=== PATIENT | male | born 1960 | race Caucasian/White ===

== ENCOUNTER 2023-01-14 23:50 | Inpatient (IN) | payer OTHER, SELFPAY ==
[2023-01-14 23:53] VITALS: BMI 30.6
[2023-01-15 00:41] VITALS: BP 144/91; PULSE 85; RESP 18; TEMP 36.2; O2SAT 96
--- NOTE | 2023-01-15 02:29 | PC.ADMIT ---
Ba is a-62-years old, an male who is being seen by [facility] Specialist due to increased depression and suicidal ideation with plan to jump off the bridge. Ba was initially admitted in the 01/11/2023 and is medically cleared today, the 01/14/2023. Ba reported today that he is feeling alone, I have no body in my life, I use day to day to move forward, to exist, I drink every day, nothing to look up to in my life, I?m just waiting to . I thought about jumping off the bridge or run-in front of a car or a bus. I have no mother, no father no grandparents, my life is worth nothing.? He added that he took a trip to [place] to get away from his alcohol drinking elim ira here and he ended up there running to people who also drink too much, so he returns back here. On arrival to the unit patient signed a CV. Patient cooperative with admission process. Patient reports anxiety /10 with depression /10. Patient has passive SI thoughts with no active plan in the hospital. Patient denies any AH/VH. Patient is a daily drinker and is currently on a phenobarbital taper. Patient placed on 5 minute visual safety checks with ULB.
[2023-01-15 08:30] VITALS: BP 126/84; PULSE 87; TEMP 36.8; O2SAT 98
[2023-01-15] MEDS: PHENobarbitaL 30 MG TABLET 60 MG PO ×2 (09:31→21:17)
[2023-01-15] MEDS: amLODIPine Besylate 5 MG TABLET PO (09:32)
[2023-01-15] MEDS: cloNIDine HCL 0.1 MG TABLET PO ×2 (09:32→21:17)
[2023-01-15] MEDS: Gabapentin 600 MG TABLET PO ×3 (09:32→21:17)
[2023-01-15] MEDS: Thiamine HCL 100 MG TABLET PO (09:32)
[2023-01-15] MEDS: Folic Acid 1 MG TABLET PO (09:32)
--- NOTE | 2023-01-15 14:07 | HO.PSYADMNOT ---
HPI Date of Service: 01/15/23 Chief Complaint: Major Depressive Disorder,anxiety disorder Sources of Information: patient interviewed, chart reviewed and crisis/core team assessment reviewed HPI Subjective Notes: Conditional Voluntary Medical Problems Affecting Mental Status: No Narrative: Patient was transferred from [facility] after admission for alcohol detox. He has a trauma and addiction history admitted with SI and plan to jump off a high place. He recently came back to this area to try and reconnect with family but discovered that his father had of COVID and his brother of homicide. He has chronic sleep problems and drinks daily. He is currently on phenobarb taper. Past Psychiatric History: Prior admissions in distant past Medical Evaluation Reviewed: Hospitalist Hallieal Pending Need to taper phenobarb Diagnostics Vital Signs (24Hr): Vital Signs - 24 hr 01/15/23 00:41 01/15/23 08:30 Temperature 97.2 F 98.2 F Pulse Rate 85 87 Respiratory Rate 18 Blood Pressure 144/91 H 126/84 Pulse Oximetry 96 98 Oxygen Delivery Method Room Air Room Air BMI result Body Mass Index 30.6 Meds/Allergies Meds Home Medications Medication Instructions Recorded Confirmed Type amitriptyline 100 mg tablet PO 01/15/23 History amlodipine 5 mg tablet 5 mg PO DAILY 01/15/23 01/15/23 History clonidine HCl 0.1 mg tablet 0.1 mg PO BID 01/15/23 01/15/23 History gabapentin 400 mg capsule PO 01/15/23 History gabapentin 600 mg tablet 1,200 mg PO BID 01/15/23 01/15/23 History hydroxyzine pamoate 50 mg capsule PO PRN Anxiety 01/15/23 History hydroxyzine pamoate 50 mg capsule PO PRN Anxiety 01/15/23 History lactulose 10 gram/15 mL oral ml PO 01/15/23 History solution lithium carbonate 600 mg capsule 600 mg PO BID 01/15/23 01/15/23 History lurasidone 120 mg tablet 120 mg PO DAILY 01/15/23 01/15/23 History quetiapine 100 mg tablet PO 01/15/23 History thiamine mononitrate (vit B1) 100 PO 01/15/23 History mg tablet Allergies Allergies Allergy/AdvReac Type Severity Reaction Status Date / Time No Known Allergies Allergy Verified 01/14/23 23:54 Mental Status Exam Mental Status Exam Patient Appearance: Unkempt Patient Orientation: Person, Place (states he is in a hosptal in [place]), Time (beginning of 2022) and Situation (aware of detox and admission for SI) Level of Consciousness: Drowsy and Follows Commands Patient Behavior: Appropriate Mood Description: Calm Affect Description: Depressed Patient Cognition Impaired: Yes Ability to Follow Directions: Good Speech Pattern: Slurred Memory Description: Episodic Impaired Hallucinations: None Delusions: Not Present Thought Process: Slowed Thinking Thought Content: positive for Goal Oriented Depressive Symptoms: Insomnia, Increased Fatigue, Thoughts of /Suicide and Difficulty Concentrating Judgement: Fair Assessment & Plan Assessment & Plan (1) Major depression: Status: Acute Code(s): F32.9 - Major depressive disorder, single episode, unspecified Assessment and Plan: Consider antidepressant (2) Alcohol use disorder: Status: Acute Code(s): F10.90 - Alcohol use, unspecified, uncomplicated Plan Complete detox, Encourage rehab Patient educated on: diagnosis and substance abuse Informed Consent: understands Reason for continued inpatient stay Substantial Risk for: harm to self Statement Statement: I have reviewed the history and physical and performed a pertinent examination on my patient. No changes have occurred unless specified. If the History and Physical was not performed prior to admission, the Hospitalist's service will be consulted for completing the admission physical. Time Spent With Patient Time: Total time managing care of this patient today _60___ minutes.
[2023-01-15] MEDS: OLANZapine 5 MG TABLET PO (14:33)
--- NOTE | 2023-01-15 15:42 | PM.IMHP ---
History of Present Illness Date of Service: 01/15/23 Chief Complaint: Admission physical, SI 62-year-old male with past medical history of alcohol abuse, hypertension, admitted to Behavioral Health Unit for management of SI and alcohol withdrawal We are asked to see this patient for admission physical Reports history of CHF, but is not on diuretics, currently has no dyspnea or lower extremity edema. At this time patient has no acute complaints, denies any chest pain, shortness of breath, no abdominal pain nausea or vomiting, no diarrhea constipation, no urinary symptoms and no lower extremity edema. Patient does endorse depression and feeling hopeless/helpless but has no suicidal ideation at this current moment. Vitals reviewed unremarkable Review of Systems Review of Systems: Yes all other systems are reviewed and are negative [facility] Medical History (Updated 01/15/23 @ 15:46 by Sahra Villagomez MD) Hypertension Social History Household Members: Family Housing: Apartment Do you presently have visiting nurse or other home services: No Patient Tobacco Use Status: Current everyday Tobacco user Tobacco use type: Cigarette Cigarette Packs Per Day: 1 Cigarettes Per Day: 20.0 Smoked in Last 30 Days: Yes e-Cigarette/Vaping Use: Never Used Patient Interested in Nicotine Replacement: No Patient Given Instructions on How to Stop Smoking: Yes Date Education Initiated: 01/15/23 Second Hand Smoke Exposure: Yes Use of substances other than those prescribed or required for medical reasons: Yes Substance Use Type: Crack/Cocaine Substance Use Frequency: Occasionally Last Used Substance: Just Prior to Admission Currently Displaying Signs/Symptoms of Drug Intoxication Withdrawal: No Any prior treatment program specific to substance use: Yes Have you been hit, kicked, punched, or otherwise hurt by someone within the past year? If so, by whom?: No Do you feel safe in your current relationship?: No Current Relationship Is there a partner from a previous relationship who is making you feel unsafe now?: No Are you made to feel afraid or neglected: No Spiritual Healthcare Practices: none reported Religion Healthcare Practices: none reported Cultural Healthcare Practices: none reported Advance Directives: No Advance Directives Information Provided: No Advance Directives on File: No Do you have thoughts of harming others: None Do you have a plan to hurt others: No Plan Recently lost weight without trying: No How much weight loss: Not applicable Eating poorly because of decreased appetite: No Nutrition screen score: 0 Nutrition Risks: No Nutritional Risk Poor oral hygiene: No Meds Allergies Allergy/AdvReac Type Severity Reaction Status Date / Time No Known Allergies Allergy Verified 01/14/23 23:54 Active Medications: Current Medications Acetaminophen (Acetaminophen 325 Mg Tablet) 650 mg PO Q6H PRN PRN Reason: Headache/Pain Mild Scale (1-3) Al Hydroxide/Mg Hydroxide (Magnesium Hydrox/Alum Hydrox 30 Ml Oral.Susp) 30 ml PO Q6H PRN PRN Reason: Heartburn/Nausea Amlodipine Besylate (Amlodipine Besylate 5 Mg Tablet) 5 mg PO DAILY [facility]; Protocol Last Admin: 01/15/23 09:32 Dose: 5 mg Clonidine HCl (Clonidine Hcl 0.1 Mg Tablet) 0.1 mg PO BID [facility]; Protocol Last Admin: 01/15/23 09:32 Dose: 0.1 mg Folic Acid (Folic Acid 1 Mg Tablet) 1 mg PO DAILY [facility] Last Admin: 01/15/23 09:32 Dose: 1 mg Gabapentin (Gabapentin 600 Mg Tablet) 600 mg PO TID [facility] Last Admin: 01/15/23 14:29 Dose: 600 mg Hydroxyzine HCl (Hydroxyzine Hcl 25 Mg Tablet) 25 mg PO Q6H PRN PRN Reason: Anxiety Lamotrigine (Lamotrigine 25 Mg Tablet) 25 mg PO BEDTIME [facility] Magnesium Hydroxide (Milk Of Magnesia 30 Ml Oral.Susp) 30 ml PO DAILY PRN PRN Reason: Constipation Nicotine (Nicotine 21 Mg Patch.Td24) 21 mg TRANSDERMA DAILY PRN PRN Reason: smoking cessation Nicotine Polacrilex (Nicotine Polacrilex 2 Mg Gum) 4 mg BUCCAL Q2H PRN PRN Reason: Nicotine Cravings Olanzapine (Olanzapine 5 Mg Tablet) 5 mg PO TID PRN PRN Reason: agitation Last Admin: 01/15/23 14:33 Dose: 5 mg Phenobarbital (Phenobarbital 30 Mg Tablet) 60 mg PO BID [facility]; Protocol Stop: 01/16/23 21:01 Last Admin: 01/15/23 09:31 Dose: 60 mg Phenobarbital (Phenobarbital 30 Mg Tablet) 30 mg PO BID [facility]; Protocol Stop: 01/18/23 21:01 Phenobarbital (Phenobarbital 30 Mg Tablet) 30 mg PO DAILY [facility]; Protocol Stop: 01/20/23 09:01 Quetiapine Fumarate (Quetiapine Fumarate 400 Mg Tablet) 400 mg PO BEDTIME [facility] Thiamine HCl (Thiamine Hcl 100 Mg Tablet) 100 mg PO DAILY [facility] Last Admin: 01/15/23 09:32 Dose: 100 mg Trazodone HCl (Trazodone Hcl 50 Mg Tablet) 50 mg PO BEDTIME MRX1 PRN PRN Reason: Insomnia Home Medications Medication Instructions Recorded Confirmed Last Taken Type amitriptyline 100 mg tablet PO 01/15/23 Unknown History amlodipine 5 mg tablet 5 mg PO DAILY 01/15/23 01/15/23 Unknown History clonidine HCl 0.1 mg tablet 0.1 mg PO BID 01/15/23 01/15/23 Unknown History gabapentin 400 mg capsule PO 01/15/23 Unknown History gabapentin 600 mg tablet 1,200 mg PO BID 01/15/23 01/15/23 Unknown History hydroxyzine pamoate 50 mg capsule PO PRN Anxiety 01/15/23 Unknown History hydroxyzine pamoate 50 mg capsule PO PRN Anxiety 01/15/23 Unknown History lactulose 10 gram/15 mL oral ml PO 01/15/23 Unknown History solution lithium carbonate 600 mg capsule 600 mg PO BID 01/15/23 01/15/23 Unknown History lurasidone 120 mg tablet 120 mg PO DAILY 01/15/23 01/15/23 Unknown History quetiapine 100 mg tablet PO 01/15/23 Unknown History thiamine mononitrate (vit B1) 100 PO 01/15/23 Unknown History mg tablet Physical Exam Vital Signs and Narrative: Vital Signs: Last Vital Signs Temp 98.2 F 01/15/23 08:30 Pulse 87 01/15/23 08:30 Resp 18 01/15/23 00:41 BP 126/84 01/15/23 08:30 Pulse Ox 98 01/15/23 08:30 O2 Del Method Room Air 01/15/23 08:30 BMI result Body Mass Index 30.6 Const: Other: Patient is alert oriented x3, no acute distress Resp: Other: Clear to auscultation bilaterally, respiratory distress Cardio: Other: Normal rate and rhythm GI: Other: Abdomen is soft, nontender no rebound or guarding Skin: Other: No lesions Neuro: Other: No neurological deficits Cranial nerves: Yes CN's II-XII intact bilaterally Extrem: Other: No pedal edema Assessment and Plan (1) Alcohol use disorder: Status: Acute (2) Major depression: Status: Acute Plan [age] year-old male with past medical history of major depression, alcohol use disorder admitted to [facility] for suicidal ideation and alcohol withdrawal # SI - currently not suicidal, has severe depression, management per behavioral health # alcohol withdrawal - well controlled on phenobarb protocol - continue thiamine and folic acid supplement # history of CHF - reports history of CHF last year - no evidence of exacerbation at this time - monitor Thank you for allowing us to manage this patient, at this time will sign off patient has no acute medical issues Time Spent With Patient Time: Total time managing care of this patient today ____ minutes. Quality Stroke Does the patient have a stroke diagnosis?: No VTE Prior VTE?: No VTE Risk Level:: Medical - low VTE Device Contraindication: Treatment Not Indicated VTE Drug Contraindication: Treatment Not Indicated
[2023-01-15] MEDS: lamoTRIgine 25 MG TABLET PO (21:17)
[2023-01-15] MEDS: QUEtiapine Fumarate 400 MG TABLET PO (21:17)
[2023-01-15 21:20] VITALS: BP 131/73; PULSE 78; TEMP 36.2; O2SAT 94
[2023-01-16 07:21] LABS: Alanine Aminotransferase 40 U/L (0-40); Alkaline Phosphatase 96 U/L (39-117); Anion Gap 12 (12-20); Aspartate Amino Transferase 44 U/L (5-37); Bilirubin Total 0.2 mg/dL (0.0-1.0); Blood Urea Nitrogen 10 mg/dL (9-16); Calcium 8.9 mg/dL (8.4-10.2); Carbon Dioxide 26 mmol/L (22-29); Chloride 106 mmol/L (96-108); Cholesterol 153 mg/dL; Creatinine Clr Calc Pharmacy 140.9; Estimated Glomerular Filt Rate > 60; Glucose Fasting 79 mg/dL (60-99); HDL Cholesterol 38 mg/dL; LDL Cholesterol Calculated 92 mg/dl; Sodium 140 mmol/L (135-145); Total Protein 7.7 g/dL (6.5-8.0); Triglycerides 117 mg/dL
[2023-01-16 07:30] LABS: Estimated Average Glucose 97 mg/dL
[2023-01-16 09:30] VITALS: BP 127/82; PULSE 88; TEMP 36.2; O2SAT 97
[2023-01-16] MEDS: PHENobarbitaL 30 MG TABLET 60 MG PO ×2 (09:51→21:29)
[2023-01-16] MEDS: cloNIDine HCL 0.1 MG TABLET PO ×2 (09:52→21:29)
[2023-01-16] MEDS: Thiamine HCL 100 MG TABLET PO (09:52)
[2023-01-16] MEDS: Gabapentin 600 MG TABLET PO ×3 (09:52→21:29)
[2023-01-16] MEDS: amLODIPine Besylate 5 MG TABLET PO (09:52)
[2023-01-16] MEDS: Folic Acid 1 MG TABLET PO (09:52)
--- NOTE | 2023-01-16 10:26 | P.PNPSI_ITS ---
Subjective Subjective Date of Service: 01/16/23 Reason For Visit: Major Depressive Disorder,anxiety disorder Subjective Notes: Conditional Voluntary Medical Problems Affecting Mental Status: No Interim History: Complained of sleep problem last night. States that this is a chronic problem. In the past, he has gone without sleep for 4 or 5 days. States my body is tired but my mind won't stop. States seroquel 500 mg didn't help. States he took amitriptyline 200 mg in past which did help. Explained that this med might exacerbate mood and sleep problems over time. Patient reports extensive family history of alcohol abuse including both parents and all siblings. States he is from [place] but came here to see family. States he has 2 sibs in [place] but they both drink and he can't go back there. Doesn't want rehab but states he would be interested in some kind of dual diagnosis program. Medication Compliance: Yes Side effects from medications: No Attending Groups: No Review of Systems Acute medical concerns: No Medical Review of Systems: unchanged Mental Status Exam Mental Status Exam Patient Appearance: Well Grooomed Patient Orientation: Place (knows he's in a hospital in [place]), Time (early January 2023) and Situation Level of Consciousness: Alert Patient Behavior: Appropriate Mood Description: Anxious Affect Description: Depressed Patient Cognition Impaired: No Ability to Follow Directions: Good Speech Pattern: Clear Memory Description: Intact Hallucinations: None Delusions: Not Present Thought Process: Intact Thought Content: positive for Preoccupation Depressive Symptoms: Increased Anxiety, Insomnia, Hopelessness and Thoughts of /Suicide (NOt suicidal but states what's the point ) Diagnostics Vital Signs (24Hr): Vital Signs - 24 hr 01/15/23 21:20 Temperature 97.2 F Pulse Rate 78 Blood Pressure 131/73 Pulse Oximetry 94 Oxygen Delivery Method Room Air BMI result Body Mass Index 30.6 Labs 01/16/23 06:52 Labs: Laboratory Results - last 48 hr 01/16/23 01/16/23 06:52 06:52 Sodium 140 Potassium 4.0 Chloride 106 Carbon Dioxide 26 Anion Gap 12 BUN 10 Creatinine 0.72 Estim Creat Clear Calc 140.9 Estimated GFR > 60 Fasting Glucose 79 Estimat Average Glucose 97 Hemoglobin A1c % 5.0 Calcium 8.9 Total Bilirubin 0.2 AST 44 H ALT 40 Alkaline Phosphatase 96 Total Protein 7.7 Albumin 3.0 L Triglycerides 117 Cholesterol 153 LDL Cholesterol, Calc 92 HDL Cholesterol 38 Medications Medications Current Medications Acetaminophen (Acetaminophen 325 Mg Tablet) 650 mg PO Q6H PRN PRN Reason: Headache/Pain Mild Scale (1-3) Al Hydroxide/Mg Hydroxide (Magnesium Hydrox/Alum Hydrox 30 Ml Oral.Susp) 30 ml PO Q6H PRN PRN Reason: Heartburn/Nausea Amlodipine Besylate (Amlodipine Besylate 5 Mg Tablet) 5 mg PO DAILY [facility]; Protocol Last Admin: 01/16/23 09:52 Dose: 5 mg Clonidine HCl (Clonidine Hcl 0.1 Mg Tablet) 0.1 mg PO BID [facility]; Protocol Last Admin: 01/16/23 09:52 Dose: 0.1 mg Folic Acid (Folic Acid 1 Mg Tablet) 1 mg PO DAILY [facility] Last Admin: 01/16/23 09:52 Dose: 1 mg Gabapentin (Gabapentin 600 Mg Tablet) 600 mg PO TID [facility] Last Admin: 01/16/23 09:52 Dose: 600 mg Hydroxyzine HCl (Hydroxyzine Hcl 25 Mg Tablet) 25 mg PO Q6H PRN PRN Reason: Anxiety Lamotrigine (Lamotrigine 25 Mg Tablet) 25 mg PO BEDTIME [facility] Last Admin: 01/15/23 21:17 Dose: 25 mg Magnesium Hydroxide (Milk Of Magnesia 30 Ml Oral.Susp) 30 ml PO DAILY PRN PRN Reason: Constipation Nicotine (Nicotine 21 Mg Patch.Td24) 21 mg TRANSDERMA DAILY PRN PRN Reason: smoking cessation Nicotine Polacrilex (Nicotine Polacrilex 2 Mg Gum) 4 mg BUCCAL Q2H PRN PRN Reason: Nicotine Cravings Olanzapine (Olanzapine 5 Mg Tablet) 5 mg PO TID PRN PRN Reason: agitation Last Admin: 01/15/23 14:33 Dose: 5 mg Phenobarbital (Phenobarbital 30 Mg Tablet) 60 mg PO BID [facility]; Protocol Stop: 01/16/23 21:01 Last Admin: 01/16/23 09:51 Dose: 60 mg Phenobarbital (Phenobarbital 30 Mg Tablet) 30 mg PO BID [facility]; Protocol Stop: 01/18/23 21:01 Phenobarbital (Phenobarbital 30 Mg Tablet) 30 mg PO DAILY [facility]; Protocol Stop: 01/20/23 09:01 Quetiapine Fumarate (Quetiapine Fumarate 400 Mg Tablet) 400 mg PO BEDTIME [facility] Last Admin: 01/15/23 21:17 Dose: 400 mg Thiamine HCl (Thiamine Hcl 100 Mg Tablet) 100 mg PO DAILY [facility] Last Admin: 01/16/23 09:52 Dose: 100 mg Trazodone HCl (Trazodone Hcl 50 Mg Tablet) 50 mg PO BEDTIME MRX1 PRN PRN Reason: Insomnia Allergies Allergies Allergy/AdvReac Type Severity Reaction Status Date / Time No Known Allergies Allergy Verified 01/14/23 23:54 Assessment & Plan Assessment & Plan (1) Alcohol use disorder: Status: Acute Code(s): F10.90 - Alcohol use, unspecified, uncomplicated Assessment and Plan: complete phenobarb detox, encourage rehab (2) Major depression: Status: Acute Code(s): F32.9 - Major depressive disorder, single episode, unspecified Assessment and Plan: consider bipolar depressed. Increase seroquel to 600 mg nightly Plan [age] year-old male with past medical history of major depression, alcohol use disorder admitted to [facility] for suicidal ideation and alcohol withdrawal # SI - currently not suicidal, has severe depression, management per behavioral health # alcohol withdrawal - well controlled on phenobarb protocol - continue thiamine and folic acid supplement # history of CHF - reports history of CHF last year - no evidence of exacerbation at this time - monitor Thank you for allowing us to manage this patient, at this time will sign off patient has no acute medical issues Reason for continued inpatient stay Substantial Risk for: harm to self Time Spent With Patient Time: Total time managing care of this patient today __25__ minutes.
[2023-01-16] MEDS: lamoTRIgine 25 MG TABLET PO (21:29)
[2023-01-16] MEDS: QUEtiapine Fumarate 300 MG TABLET 600 MG PO (21:29)
[2023-01-16 21:32] VITALS: BP 109/70; PULSE 97; TEMP 36.5; O2SAT 97
[2023-01-17] MEDS: PHENobarbitaL 30 MG TABLET PO ×2 (09:30→21:20)
[2023-01-17] MEDS: cloNIDine HCL 0.1 MG TABLET PO ×2 (09:30→21:20)
[2023-01-17] MEDS: amLODIPine Besylate 5 MG TABLET PO (09:31)
[2023-01-17] MEDS: Thiamine HCL 100 MG TABLET PO (09:31)
[2023-01-17] MEDS: Gabapentin 600 MG TABLET PO ×3 (09:31→21:20)
[2023-01-17] MEDS: Folic Acid 1 MG TABLET PO (09:31)
[2023-01-17 09:32] VITALS: BP 120/77; PULSE 110; RESP 18; O2SAT 99
--- NOTE | 2023-01-17 11:42 | P.PNPSI_ITS ---
Subjective Subjective Date of Service: 01/17/23 Reason For Visit: Major Depressive Disorder,anxiety disorder Interim History: Met with patient; discussed with team Patient reports he is depressed and affect congruent. Says he is tired of feeling dull, empty. Patient reports that Seroquel was started a few weeks ago at another hospital for bipolar depression but it does not help any and just makes him gain weight. Patient however has only brief periods of sobriety; he partially accepted that no medication is going to seem affective as long as he remains embroiled in alcohol dependence however reverts back to the idea that medication does not work. Patient asks for amitriptyline to be restarted since he said that helped him sleep. He said he was on 200 mg in the recent past. Patient insisted that he was started on 100 mg at last hospitalization. Mental Status Exam Mental Status Exam Narrative: Pt is alert and oriented; behavior is cooperative, isolative, calm; patient is not in distress; dressed in hospital attire unkempt; mood is described as not good and affect congruent, downcast, despondent; eye contact appropriate; Speech is normal rate, volume and prosody and not pressured; psychomotor retardation present; thought process is organized and goal directed; Thought content is on depressive symptoms, hopelessness; on tx,; otherwise pertinent to relevant topics and without any delusional content, paranoid ideations or grandiosity; no SI/no HI. There is no evidence of perceptual disturbance. Patients insight and judgment impaired. Diagnostics Vital Signs (24Hr): Vital Signs - 24 hr 01/16/23 21:32 01/17/23 09:32 Temperature 97.7 F Pulse Rate 97 110 H Respiratory Rate 18 Blood Pressure 109/70 120/77 Pulse Oximetry 97 99 Oxygen Delivery Method Room Air Room Air BMI result Body Mass Index 30.6 Labs 01/16/23 06:52 Labs: Laboratory Results - last 48 hr 01/16/23 01/16/23 06:52 06:52 Sodium 140 Potassium 4.0 Chloride 106 Carbon Dioxide 26 Anion Gap 12 BUN 10 Creatinine 0.72 Estim Creat Clear Calc 140.9 Estimated GFR > 60 Fasting Glucose 79 Estimat Average Glucose 97 Hemoglobin A1c % 5.0 Calcium 8.9 Total Bilirubin 0.2 AST 44 H ALT 40 Alkaline Phosphatase 96 Total Protein 7.7 Albumin 3.0 L Triglycerides 117 Cholesterol 153 LDL Cholesterol, Calc 92 HDL Cholesterol 38 Medications Medications Current Medications Acetaminophen (Acetaminophen 325 Mg Tablet) 650 mg PO Q6H PRN PRN Reason: Headache/Pain Mild Scale (1-3) Al Hydroxide/Mg Hydroxide (Magnesium Hydrox/Alum Hydrox 30 Ml Oral.Susp) 30 ml PO Q6H PRN PRN Reason: Heartburn/Nausea Amlodipine Besylate (Amlodipine Besylate 5 Mg Tablet) 5 mg PO DAILY [facility]; Protocol Last Admin: 01/17/23 09:31 Dose: 5 mg Clonidine HCl (Clonidine Hcl 0.1 Mg Tablet) 0.1 mg PO BID [facility]; Protocol Last Admin: 01/17/23 09:30 Dose: 0.1 mg Folic Acid (Folic Acid 1 Mg Tablet) 1 mg PO DAILY [facility] Last Admin: 01/17/23 09:31 Dose: 1 mg Gabapentin (Gabapentin 600 Mg Tablet) 600 mg PO TID [facility] Last Admin: 01/17/23 09:31 Dose: 600 mg Hydroxyzine HCl (Hydroxyzine Hcl 25 Mg Tablet) 25 mg PO Q6H PRN PRN Reason: Anxiety Lamotrigine (Lamotrigine 25 Mg Tablet) 25 mg PO BEDTIME [facility] Last Admin: 01/16/23 21:29 Dose: 25 mg Magnesium Hydroxide (Milk Of Magnesia 30 Ml Oral.Susp) 30 ml PO DAILY PRN PRN Reason: Constipation Nicotine (Nicotine 21 Mg Patch.Td24) 21 mg TRANSDERMA DAILY PRN PRN Reason: smoking cessation Nicotine Polacrilex (Nicotine Polacrilex 2 Mg Gum) 4 mg BUCCAL Q2H PRN PRN Reason: Nicotine Cravings Olanzapine (Olanzapine 5 Mg Tablet) 5 mg PO TID PRN PRN Reason: agitation Last Admin: 01/15/23 14:33 Dose: 5 mg Phenobarbital (Phenobarbital 30 Mg Tablet) 30 mg PO BID [facility]; Protocol Stop: 01/18/23 21:01 Last Admin: 01/17/23 09:30 Dose: 30 mg Phenobarbital (Phenobarbital 30 Mg Tablet) 30 mg PO DAILY [facility]; Protocol Stop: 01/20/23 09:01 Quetiapine Fumarate (Quetiapine Fumarate 300 Mg Tablet) 600 mg PO BEDTIME [facility] Last Admin: 01/16/23 21:29 Dose: 600 mg Thiamine HCl (Thiamine Hcl 100 Mg Tablet) 100 mg PO DAILY [facility] Last Admin: 01/17/23 09:31 Dose: 100 mg Trazodone HCl (Trazodone Hcl 50 Mg Tablet) 50 mg PO BEDTIME MRX1 PRN PRN Reason: Insomnia Allergies Allergies Allergy/AdvReac Type Severity Reaction Status Date / Time No Known Allergies Allergy Verified 01/14/23 23:54 Assessment & Plan Assessment & Plan (1) Alcohol use disorder: Status: Acute Code(s): F10.90 - Alcohol use, unspecified, uncomplicated Assessment and Plan: complete phenobarb detox, encourage rehab (2) Major depression: Status: Acute Code(s): F32.9 - Major depressive disorder, single episode, unspecified Plan [age] year-old male with past medical history of major depression, alcohol use disorder admitted [facility] for suicidal ideation and alcohol withdrawal 01/17 -consider bipolar depressed. Over the weekend seroquel increased to 600 mg nightly Continue Phenobarb taper STAT Amitryptilne 100mg; pt says was recently on 200mg Consider dc Lamictal; question on pt adherence # alcohol withdrawal - well controlled on phenobarb protocol - continue thiamine and folic acid supplement # history of CHF - reports history of CHF last year - no evidence of exacerbation at this time - monitor Patient educated on: diagnosis, medication risk/benefits and substance abuse Informed Consent: understands and further education needed Reason for continued inpatient stay Substantial Risk for: rapid decompensation Time Spent With Patient Time: Total time managing care of this patient today ____ minutes.
[2023-01-17 19:45] VITALS: BP 127/74; PULSE 89; RESP 18; TEMP 36.8; O2SAT 96
[2023-01-17] MEDS: Amitriptyline HCl 50 MG TABLET 100 MG PO (21:19)
[2023-01-17] MEDS: QUEtiapine Fumarate 300 MG TABLET 600 MG PO (21:20)
[2023-01-17] MEDS: lamoTRIgine 25 MG TABLET PO (21:21)
[2023-01-18] MEDS: traZODone HCL 50 MG TABLET PO (02:59)
[2023-01-18] MEDS: OLANZapine 5 MG TABLET PO (03:01)
[2023-01-18 08:30] VITALS: BP 132/91; PULSE 90; RESP 18; TEMP 36.3; O2SAT 98
[2023-01-18] MEDS: amLODIPine Besylate 5 MG TABLET PO (08:31)
[2023-01-18] MEDS: Gabapentin 600 MG TABLET PO ×3 (08:31→21:19)
[2023-01-18] MEDS: Thiamine HCL 100 MG TABLET PO (08:31)
[2023-01-18] MEDS: Folic Acid 1 MG TABLET PO (08:31)
[2023-01-18] MEDS: cloNIDine HCL 0.1 MG TABLET PO ×2 (08:32→21:21)
[2023-01-18] MEDS: PHENobarbitaL 30 MG TABLET PO ×2 (08:44→21:22)
--- NOTE | 2023-01-18 15:53 | P.PNPSI_ITS ---
Subjective Subjective Date of Service: 01/18/23 Reason For Visit: Major Depressive Disorder,anxiety disorder Interim History: calm, cooperative. asking for elavil increase. c/o not sleeping a wink last night. MD declines to increase to 200 but agrees to 150 for tonight, up from 100 last night. per staff, on phenobarb taper. active, appropriate. racing thoughts interrupting sleep. safe here, would have SI outside hospital. asking for elavil. Mental Status Exam Mental Status Exam Narrative: Pt is alert and oriented; behavior is cooperative, isolative, calm; patient is not in distress; dressed in hospital attire unkempt; mood is described as not good and affect congruent, downcast, despondent; eye contact appropriate; Speech is normal rate, volume and prosody and not pressured; psychomotor retardation present; thought process is organized and goal directed; Thought con tent is on depressive symptoms, hopelessness; on tx,; otherwise pertinent to relevant topics and without any delusional content, paranoid ideations or grandiosity; no SI/no HI. There is no evidence of perceptual disturbance. Patients insight and judgment impaired. Diagnostics Vital Signs (24Hr): Vital Signs - 24 hr 01/17/23 19:45 01/18/23 08:30 Temperature 98.2 F 97.3 F Pulse Rate 89 90 Respiratory Rate 18 18 Blood Pressure 127/74 132/91 H Pulse Oximetry 96 98 Oxygen Delivery Method Room Air Room Air BMI result Body Mass Index 30.6 Labs 01/16/23 06:52 Medications Medications Current Medications Acetaminophen (Acetaminophen 325 Mg Tablet) 650 mg PO Q6H PRN PRN Reason: Headache/Pain Mild Scale (1-3) Al Hydroxide/Mg Hydroxide (Magnesium Hydrox/Alum Hydrox 30 Ml Oral.Susp) 30 ml PO Q6H PRN PRN Reason: Heartburn/Nausea Amitriptyline HCl (Amitriptyline Hcl 50 Mg Tablet) 150 mg PO BEDTIME [facility] Amlodipine Besylate (Amlodipine Besylate 5 Mg Tablet) 5 mg PO DAILY [facility]; Protocol Last Admin: 01/18/23 08:31 Dose: 5 mg Clonidine HCl (Clonidine Hcl 0.1 Mg Tablet) 0.1 mg PO BID [facility]; Protocol Last Admin: 01/18/23 08:32 Dose: 0.1 mg Folic Acid (Folic Acid 1 Mg Tablet) 1 mg PO DAILY [facility] Last Admin: 01/18/23 08:31 Dose: 1 mg Gabapentin (Gabapentin 600 Mg Tablet) 600 mg PO TID [facility] Last Admin: 01/18/23 14:32 Dose: 600 mg Hydroxyzine HCl (Hydroxyzine Hcl 25 Mg Tablet) 25 mg PO Q6H PRN PRN Reason: Anxiety Lamotrigine (Lamotrigine 25 Mg Tablet) 25 mg PO BEDTIME [facility] Last Admin: 01/17/23 21:21 Dose: 25 mg Magnesium Hydroxide (Milk Of Magnesia 30 Ml Oral.Susp) 30 ml PO DAILY PRN PRN Reason: Constipation Nicotine (Nicotine 21 Mg Patch.Td24) 21 mg TRANSDERMA DAILY PRN PRN Reason: smoking cessation Nicotine Polacrilex (Nicotine Polacrilex 2 Mg Gum) 4 mg BUCCAL Q2H PRN PRN Reason: Nicotine Cravings Olanzapine (Olanzapine 5 Mg Tablet) 5 mg PO TID PRN PRN Reason: agitation Last Admin: 01/18/23 03:01 Dose: 5 mg Phenobarbital (Phenobarbital 30 Mg Tablet) 30 mg PO BID [facility]; Protocol Stop: 01/18/23 21:01 Last Admin: 01/18/23 08:44 Dose: 30 mg Phenobarbital (Phenobarbital 30 Mg Tablet) 30 mg PO DAILY [facility]; Protocol Stop: 01/20/23 09:01 Quetiapine Fumarate (Quetiapine Fumarate 300 Mg Tablet) 600 mg PO BEDTIME [facility] Last Admin: 01/17/23 21:20 Dose: 600 mg Thiamine HCl (Thiamine Hcl 100 Mg Tablet) 100 mg PO DAILY [facility] Last Admin: 01/18/23 08:31 Dose: 100 mg Trazodone HCl (Trazodone Hcl 50 Mg Tablet) 50 mg PO BEDTIME MRX1 PRN PRN Reason: Insomnia Last Admin: 01/18/23 02:59 Dose: 50 mg Allergies Allergies Allergy/AdvReac Type Severity Reaction Status Date / Time No Known Allergies Allergy Verified 01/14/23 23:54 Assessment & Plan Assessment & Plan (1) Alcohol use disorder: Status: Acute Code(s): F10.90 - Alcohol use, unspecified, uncomplicated Assessment and Plan: complete phenobarb detox, encourage rehab (2) Major depression: Status: Acute Code(s): F32.9 - Major depressive disorder, single episode, unspecified Plan [age] year-old male with past medical history of major depression, alcohol use disorder admitted to [facility] for suicidal ideation and alcohol withdrawal 01/17 -consider bipolar depressed. Over the weekend seroquel increased to 600 mg nightly Continue Phenobarb taper STAT Amitryptilne 100mg; pt says was recently on 200mg. 100 mg increased to 150 mg QHS as of 01/18. Consider dc Lamictal; question on pt adherence # alcohol withdrawal - well controlled on phenobarb protocol - continue thiamine and folic acid supplement # history of CHF - reports history of CHF last year - no evidence of exacerbation at this time - monitor Reason for continued inpatient stay Substantial Risk for: harm to self, inability to function and rapid decompensation Time Spent With Patient Time: Total time managing care of this patient today __25__ minutes.
[2023-01-18 20:05] VITALS: BP 129/78; PULSE 84; RESP 18; TEMP 36.6; O2SAT 97
[2023-01-18] MEDS: QUEtiapine Fumarate 300 MG TABLET 600 MG PO (21:18)
[2023-01-18] MEDS: lamoTRIgine 25 MG TABLET PO (21:19)
[2023-01-18] MEDS: Amitriptyline HCl 50 MG TABLET 150 MG PO (21:20)
[2023-01-19 08:05] VITALS: BP 119/78; PULSE 87; RESP 18; TEMP 36.4; O2SAT 98
[2023-01-19] MEDS: Gabapentin 600 MG TABLET PO ×3 (09:31→20:41)
[2023-01-19] MEDS: cloNIDine HCL 0.1 MG TABLET PO ×2 (09:31→20:40)
[2023-01-19] MEDS: PHENobarbitaL 30 MG TABLET PO (09:31)
[2023-01-19] MEDS: amLODIPine Besylate 5 MG TABLET PO (09:31)
[2023-01-19] MEDS: Thiamine HCL 100 MG TABLET PO (09:31)
[2023-01-19] MEDS: Folic Acid 1 MG TABLET PO (09:32)
[2023-01-19] MEDS: Divalproex Sodium ER 500 MG TAB.ER.24H PO ×2 (13:13→20:40)
--- NOTE | 2023-01-19 15:34 | P.PNPSI_ITS ---
Subjective Subjective Date of Service: 01/19/23 Reason For Visit: Major Depressive Disorder,anxiety disorder Interim History: c/o racing thoughts and insomnia. asking for elavil to be increased to 200 mg QHS. states he had been on VPA in the past but it was stopped due to liver. agrees to re-trial (too many drug-drug interactions to use tegretol right now). n per staff, social, visible. meds and meals. anx 10, dep 5. no SI/HI. Mental Status Exam Mental Status Exam Narrative: Pt is alert and oriented; behavior is cooperative, isolative, calm; patient is not in distress; dressed in hospital attire unkempt; eye contact appropriate; Speech is normal rate, volume and prosody and not pressured; psychomotor retardation present; thought process is organized and goal directed; Thought content is on racing thoughts, insomnia; otherwise pertinent to relevant topics and without any delusional content, paranoid ideations or grandiosity; no SI/no HI. There is no evidence of perceptual disturbance. Patients insight and judgment impaired. Diagnostics Vital Signs (24Hr): Vital Signs - 24 hr 01/18/23 20:05 01/19/23 08:05 Temperature 98 F 97.6 F Pulse Rate 84 87 Respiratory Rate 18 18 Blood Pressure 129/78 119/78 Pulse Oximetry 97 98 Oxygen Delivery Method Room Air Room Air BMI result Body Mass Index 30.6 Labs 01/16/23 06:52 Medications Medications Current Medications Acetaminophen (Acetaminophen 325 Mg Tablet) 650 mg PO Q6H PRN PRN Reason: Headache/Pain Mild Scale (1-3) Al Hydroxide/Mg Hydroxide (Magnesium Hydrox/Alum Hydrox 30 Ml Oral.Susp) 30 ml PO Q6H PRN PRN Reason: Heartburn/Nausea Amitriptyline HCl (Amitriptyline Hcl 50 Mg Tablet) 200 mg PO BEDTIME [facility] Amlodipine Besylate (Amlodipine Besylate 5 Mg Tablet) 5 mg PO DAILY [facility]; Protocol Last Admin: 01/19/23 09:31 Dose: 5 mg Clonidine HCl (Clonidine Hcl 0.1 Mg Tablet) 0.1 mg PO BID [facility]; Protocol Last Admin: 01/19/23 09:31 Dose: 0.1 mg Divalproex Sodium (Divalproex Sodium Er 500 Mg Tab.Er.24h) 500 mg PO BID [facility] Last Admin: 01/19/23 13:13 Dose: 500 mg Folic Acid (Folic Acid 1 Mg Tablet) 1 mg PO DAILY [facility] Last Admin: 01/19/23 09:32 Dose: 1 mg Gabapentin (Gabapentin 600 Mg Tablet) 600 mg PO TID [facility] Last Admin: 01/19/23 14:01 Dose: 600 mg Hydroxyzine HCl (Hydroxyzine Hcl 25 Mg Tablet) 25 mg PO Q6H PRN PRN Reason: Anxiety Magnesium Hydroxide (Milk Of Magnesia 30 Ml Oral.Susp) 30 ml PO DAILY PRN PRN Reason: Constipation Nicotine (Nicotine 21 Mg Patch.Td24) 21 mg TRANSDERMA DAILY PRN PRN Reason: smoking cessation Nicotine Polacrilex (Nicotine Polacrilex 2 Mg Gum) 4 mg BUCCAL Q2H PRN PRN Reason: Nicotine Cravings Olanzapine (Olanzapine 5 Mg Tablet) 5 mg PO TID PRN PRN Reason: agitation Last Admin: 01/18/23 03:01 Dose: 5 mg Phenobarbital (Phenobarbital 30 Mg Tablet) 30 mg PO DAILY [facility]; Protocol Stop: 01/20/23 09:01 Last Admin: 01/19/23 09:31 Dose: 30 mg Quetiapine Fumarate (Quetiapine Fumarate 300 Mg Tablet) 600 mg PO BEDTIME [facility] Last Admin: 01/18/23 21:18 Dose: 600 mg Thiamine HCl (Thiamine Hcl 100 Mg Tablet) 100 mg PO DAILY [facility] Last Admin: 01/19/23 09:31 Dose: 100 mg Trazodone HCl (Trazodone Hcl 50 Mg Tablet) 50 mg PO BEDTIME MRX1 PRN PRN Reason: Insomnia Last Admin: 01/18/23 02:59 Dose: 50 mg Allergies Allergies Allergy/AdvReac Type Severity Reaction Status Date / Time No Known Allergies Allergy Verified 01/14/23 23:54 Assessment & Plan Assessment & Plan (1) Alcohol use disorder: Status: Acute Code(s): F10.90 - Alcohol use, unspecified, uncomplicated Assessment and Plan: complete phenobarb detox, encourage rehab (2) Major depression: Status: Acute Code(s): F32.9 - Major depressive disorder, single episode, unspecified Plan [age] year-old male with past medical history of major depression, alcohol use disorder admitted to [facility] for suicidal ideation and alcohol withdrawal 01/17 -consider bipolar depressed. Over the weekend seroquel increased to 600 mg nightly Continue Phenobarb taper STAT Amitryptilne 100mg; pt says was recently on 200mg. 100 mg increased to 150 mg QHS as of 01/18. 150 mg increased to 200 mg on 01/19. DC lamictal, start trial of VPA 500 BID for racing thoughts and insomnia. # alcohol withdrawal - well controlled on phenobarb protocol - continue thiamine and folic acid supplement # history of CHF - reports history of CHF last year - no evidence of exacerbation at this time - monitor Reason for continued inpatient stay Substantial Risk for: harm to self, inability to function and rapid decompensation Time Spent With Patient Time: Total time managing care of this patient today __25__ minutes.
[2023-01-19 20:10] VITALS: BP 131/92; PULSE 86; RESP 18; TEMP 36.6; O2SAT 97
[2023-01-19] MEDS: Amitriptyline HCl 50 MG TABLET 200 MG PO ×2 (20:39→20:40)
[2023-01-19] MEDS: QUEtiapine Fumarate 300 MG TABLET 600 MG PO (20:40)
[2023-01-20 07:00] VITALS: BMI 33.0
[2023-01-20 10:00] VITALS: BP 124/83; PULSE 89; TEMP 36.3; O2SAT 97
[2023-01-20] MEDS: Gabapentin 600 MG TABLET PO ×3 (10:29→22:11)
[2023-01-20] MEDS: Folic Acid 1 MG TABLET PO (10:29)
[2023-01-20] MEDS: PHENobarbitaL 30 MG TABLET PO (10:29)
[2023-01-20] MEDS: Thiamine HCL 100 MG TABLET PO (10:29)
[2023-01-20] MEDS: Divalproex Sodium ER 500 MG TAB.ER.24H PO ×2 (10:30→22:11)
[2023-01-20] MEDS: cloNIDine HCL 0.1 MG TABLET PO (10:30)
[2023-01-20] MEDS: amLODIPine Besylate 5 MG TABLET PO (10:30)
--- NOTE | 2023-01-20 16:33 | HO.PSYCHPN ---
Subjective Subjective Date of Service: 01/20/23 Reason For Visit: Major Depressive Disorder,anxiety disorder Interim History: still not sleeping. agrees to increase HS clonidine to 0.2 mg. per staff, c/o insomnia. anxious/depressed. no SI/HI. safe. no sleep at all last night. Mental Status Exam Mental Status Exam Narrative: Pt is alert and oriented; behavior is cooperative, isolative, calm; patient is not in distress; dressed in hospital attire unkempt; eye contact appropriate; Speech is normal rate, volume and prosody and not pressured; psychomotor retardation present; thought process is organized and goal directed; Thought content is on racing thoughts, insomnia; otherwise pertinent to relevant topics and without any delusional content, paranoid ideations or grandiosity; no SI/no HI. There is no evidence of perceptual disturbance. Patients insight and judgment impaired. Diagnostics Vital Signs (24Hr): Vital Signs - 24 hr 01/19/23 20:10 01/20/23 10:00 Temperature 97.8 F 97.3 F Pulse Rate 86 89 Respiratory Rate 18 Blood Pressure 131/92 H 124/83 Pulse Oximetry 97 97 Oxygen Delivery Method Room Air Room Air BMI result Body Mass Index 33.0 Labs 01/16/23 06:52 Medications Medications Current Medications Acetaminophen (Acetaminophen 325 Mg Tablet) 650 mg PO Q6H PRN PRN Reason: Headache/Pain Mild Scale (1-3) Al Hydroxide/Mg Hydroxide (Magnesium Hydrox/Alum Hydrox 30 Ml Oral.Susp) 30 ml PO Q6H PRN PRN Reason: Heartburn/Nausea Amitriptyline HCl (Amitriptyline Hcl 50 Mg Tablet) 200 mg PO BEDTIME [facility] Last Admin: 01/19/23 20:40 Dose: 200 mg Amlodipine Besylate (Amlodipine Besylate 5 Mg Tablet) 5 mg PO DAILY [facility]; Protocol Last Admin: 01/20/23 10:30 Dose: 5 mg Clonidine HCl (Clonidine Hcl 0.1 Mg Tablet) 0.1 mg PO DAILY [facility]; Protocol Clonidine HCl (Clonidine Hcl 0.2 Mg Tablet) 0.2 mg PO BEDTIME [facility]; Protocol Divalproex Sodium (Divalproex Sodium Er 500 Mg Tab.Er.24h) 500 mg PO BID [facility] Last Admin: 01/20/23 10:30 Dose: 500 mg Folic Acid (Folic Acid 1 Mg Tablet) 1 mg PO DAILY [facility] Last Admin: 01/20/23 10:29 Dose: 1 mg Gabapentin (Gabapentin 600 Mg Tablet) 600 mg PO TID [facility] Last Admin: 01/20/23 15:53 Dose: 600 mg Hydroxyzine HCl (Hydroxyzine Hcl 25 Mg Tablet) 25 mg PO Q6H PRN PRN Reason: Anxiety Magnesium Hydroxide (Milk Of Magnesia 30 Ml Oral.Susp) 30 ml PO DAILY PRN PRN Reason: Constipation Nicotine (Nicotine 21 Mg Patch.Td24) 21 mg TRANSDERMA DAILY PRN PRN Reason: smoking cessation Nicotine Polacrilex (Nicotine Polacrilex 2 Mg Gum) 4 mg BUCCAL Q2H PRN PRN Reason: Nicotine Cravings Olanzapine (Olanzapine 5 Mg Tablet) 5 mg PO TID PRN PRN Reason: agitation Last Admin: 01/18/23 03:01 Dose: 5 mg Quetiapine Fumarate (Quetiapine Fumarate 300 Mg Tablet) 600 mg PO BEDTIME [facility] Last Admin: 01/19/23 20:40 Dose: 600 mg Thiamine HCl (Thiamine Hcl 100 Mg Tablet) 100 mg PO DAILY [facility] Last Admin: 01/20/23 10:29 Dose: 100 mg Trazodone HCl (Trazodone Hcl 50 Mg Tablet) 50 mg PO BEDTIME MRX1 PRN PRN Reason: Insomnia Last Admin: 01/18/23 02:59 Dose: 50 mg Allergies Allergies Allergy/AdvReac Type Severity Reaction Status Date / Time No Known Allergies Allergy Verified 01/14/23 23:54 Assessment & Plan Assessment & Plan (1) Alcohol use disorder: Status: Acute Code(s): F10.90 - Alcohol use, unspecified, uncomplicated Assessment and Plan: complete phenobarb detox, encourage rehab (2) Major depression: Status: Acute Code(s): F32.9 - Major depressive disorder, single episode, unspecified Plan [age] year-old male with past medical history of major depression, alcohol use disorder admitted to [facility] for suicidal ideation and alcohol withdrawal 01/17 -consider bipolar depressed. Over the weekend seroquel increased to 600 mg nightly Continue Phenobarb taper STAT Amitryptilne 100mg; pt says was recently on 200mg. 100 mg increased to 150 mg QHS as of 01/18. 150 mg increased to 200 mg on 01/19. clonidine 0.1 BID increased to 0.1/0.2 on 01/20. DC lamictal, start trial of VPA 500 BID for racing thoughts and insomnia. T/C dose escalation. # alcohol withdrawal - well controlled on phenobarb protocol - continue thiamine and folic acid supplement # history of CHF - reports history of CHF last year - no evidence of exacerbation at this time - monitor Reason for continued inpatient stay Substantial Risk for: inability to function and rapid decompensation Time Spent With Patient Time: Total time managing care of this patient today __25__ minutes.
[2023-01-20 19:50] VITALS: BP 122/80; PULSE 92; RESP 18; TEMP 36.9; O2SAT 97
[2023-01-20] MEDS: Amitriptyline HCl 50 MG TABLET 200 MG PO (22:10)
[2023-01-20] MEDS: cloNIDine HCL 0.2 MG TABLET PO (22:11)
[2023-01-21 08:30] VITALS: BP 124/84; PULSE 96; RESP 18; TEMP 36.6; O2SAT 97
[2023-01-21] MEDS: Divalproex Sodium ER 500 MG TAB.ER.24H PO (09:33)
[2023-01-21] MEDS: Folic Acid 1 MG TABLET PO (09:33)
[2023-01-21] MEDS: cloNIDine HCL 0.1 MG TABLET PO (09:33)
[2023-01-21] MEDS: Thiamine HCL 100 MG TABLET PO (09:34)
[2023-01-21] MEDS: amLODIPine Besylate 5 MG TABLET PO (09:34)
[2023-01-21] MEDS: Gabapentin 600 MG TABLET PO ×3 (09:34→21:15)
--- NOTE | 2023-01-21 15:08 | HO.PSYCHPN ---
Subjective Subjective Date of Service: 01/21/23 Reason For Visit: Major Depressive Disorder,anxiety disorder Interim History: calm, cooperative. dicuss discharge on tuesday. still no sleep. agrees to increase VPA to 1500 at HS. per staff, pleasant. mod anx. c/o constant racing thoughts. poor sleep. anx 8. feels safe. D/C to respite tuesday. Mental Status Exam Mental Status Exam Narrative: Pt is alert and oriented; behavior is cooperative, isolative, calm; patient is not in distress; dressed in hospital attire unkempt; eye contact appropriate; Speech is normal rate, volume and prosody and not pressured; psychomotor retardation present; thought process is organized and goal directed; Thought content is on racing thoughts, insomnia; otherwise pertinent to relevant topics and without any delusional content, paranoid ideations or grandiosity; no SI/no HI. There is no evidence of perceptual disturbance. Patients insight and judgment impaired. Diagnostics Vital Signs (24Hr): Vital Signs - 24 hr 01/20/23 19:50 01/21/23 08:30 Temperature 98.4 F 97.9 F Pulse Rate 92 96 Respiratory Rate 18 18 Blood Pressure 122/80 124/84 Pulse Oximetry 97 97 Oxygen Delivery Method Room Air Room Air BMI result Body Mass Index 33.0 Labs 01/16/23 06:52 Medications Medications Current Medications Acetaminophen (Acetaminophen 325 Mg Tablet) 650 mg PO Q6H PRN PRN Reason: Headache/Pain Mild Scale (1-3) Al Hydroxide/Mg Hydroxide (Magnesium Hydrox/Alum Hydrox 30 Ml Oral.Susp) 30 ml PO Q6H PRN PRN Reason: Heartburn/Nausea Amitriptyline HCl (Amitriptyline Hcl 50 Mg Tablet) 200 mg PO BEDTIME [facility] Last Admin: 01/20/23 22:10 Dose: 200 mg Amlodipine Besylate (Amlodipine Besylate 5 Mg Tablet) 5 mg PO DAILY [facility]; Protocol Last Admin: 01/21/23 09:34 Dose: 5 mg Clonidine HCl (Clonidine Hcl 0.1 Mg Tablet) 0.1 mg PO DAILY [facility]; Protocol Last Admin: 01/21/23 09:33 Dose: 0.1 mg Clonidine HCl (Clonidine Hcl 0.2 Mg Tablet) 0.2 mg PO BEDTIME [facility]; Protocol Last Admin: 01/20/23 22:11 Dose: 0.2 mg Divalproex Sodium (Divalproex Sodium Er 500 Mg Tab.Er.24h) 1,500 mg PO BEDTIME [facility] Folic Acid (Folic Acid 1 Mg Tablet) 1 mg PO DAILY [facility] Last Admin: 01/21/23 09:33 Dose: 1 mg Gabapentin (Gabapentin 600 Mg Tablet) 600 mg PO TID [facility] Last Admin: 01/21/23 14:31 Dose: 600 mg Hydroxyzine HCl (Hydroxyzine Hcl 25 Mg Tablet) 25 mg PO Q6H PRN PRN Reason: Anxiety Magnesium Hydroxide (Milk Of Magnesia 30 Ml Oral.Susp) 30 ml PO DAILY PRN PRN Reason: Constipation Nicotine (Nicotine 21 Mg Patch.Td24) 21 mg TRANSDERMA DAILY PRN PRN Reason: smoking cessation Nicotine Polacrilex (Nicotine Polacrilex 2 Mg Gum) 4 mg BUCCAL Q2H PRN PRN Reason: Nicotine Cravings Olanzapine (Olanzapine 5 Mg Tablet) 5 mg PO TID PRN PRN Reason: agitation Last Admin: 01/18/23 03:01 Dose: 5 mg Quetiapine Fumarate (Quetiapine Fumarate 300 Mg Tablet) 600 mg PO BEDTIME [facility] Last Admin: 01/20/23 22:13 Dose: Not Given Thiamine HCl (Thiamine Hcl 100 Mg Tablet) 100 mg PO DAILY [facility] Last Admin: 01/21/23 09:34 Dose: 100 mg Trazodone HCl (Trazodone Hcl 50 Mg Tablet) 50 mg PO BEDTIME MRX1 PRN PRN Reason: Insomnia Last Admin: 01/18/23 02:59 Dose: 50 mg Allergies Allergies Allergy/AdvReac Type Severity Reaction Status Date / Time No Known Allergies Allergy Verified 01/14/23 23:54 Assessment & Plan Assessment & Plan (1) Alcohol use disorder: Status: Acute Code(s): F10.90 - Alcohol use, unspecified, uncomplicated Assessment and Plan: complete phenobarb detox, encourage rehab (2) Major depression: Status: Acute Code(s): F32.9 - Major depressive disorder, single episode, unspecified Plan [age] year-old male with past medical history of major depression, alcohol use disorder admitted to [facility] for suicidal ideation and alcohol withdrawal 01/17 -consider bipolar depressed. Over the weekend seroquel increased to 600 mg nightly Continue Phenobarb taper STAT Amitryptilne 100mg; pt says was recently on 200mg. 100 mg increased to 150 mg QHS as of 01/18. 150 mg increased to 200 mg on 01/19. clonidine 0.1 BID increased to 0.1/0.2 on 01/20. DC lamictal, start trial of VPA 500 BID for racing thoughts and insomnia. increase dosing to 1500 mg daily and make all at HS to enhance sleep. discharge to respite tuesday. # alcohol withdrawal - well controlled on phenobarb protocol - continue thiamine and folic acid supplement # history of CHF - reports history of CHF last year - no evidence of exacerbation at this time - monitor Reason for continued inpatient stay Substantial Risk for: inability to function and rapid decompensation Time Spent With Patient Time: Total time managing care of this patient today __25__ minutes.
[2023-01-21] MEDS: Magnesium Hydrox/Alum Hydrox 30 ML ORAL.SUSP PO (20:28)
[2023-01-21 21:10] VITALS: BP 131/89; PULSE 90; RESP 18; TEMP 36.1; O2SAT 100
[2023-01-21] MEDS: QUEtiapine Fumarate 300 MG TABLET 600 MG PO (21:15)
[2023-01-21] MEDS: Divalproex Sodium ER 500 MG TAB.ER.24H 1500 MG PO (21:15)
[2023-01-21] MEDS: Amitriptyline HCl 50 MG TABLET 200 MG PO (21:16)
[2023-01-21] MEDS: cloNIDine HCL 0.2 MG TABLET PO (21:16)
[2023-01-22 09:25] VITALS: BP 126/83; PULSE 82; RESP 18; TEMP 36.3; O2SAT 96
[2023-01-22] MEDS: cloNIDine HCL 0.1 MG TABLET PO (09:29)
[2023-01-22] MEDS: Folic Acid 1 MG TABLET PO (09:29)
[2023-01-22] MEDS: Thiamine HCL 100 MG TABLET PO (09:29)
[2023-01-22] MEDS: amLODIPine Besylate 5 MG TABLET PO (09:29)
[2023-01-22] MEDS: Gabapentin 600 MG TABLET PO ×3 (09:29→21:01)
--- NOTE | 2023-01-22 13:58 | HO.PSYCHPN ---
Subjective Subjective Date of Service: 01/22/23 Reason For Visit: Major Depressive Disorder,anxiety disorder Subjective Notes: Conditional Voluntary Interim History: Pt cooperative. Pt reports he continues to struggle with sleep despite multiple medications. We discussed temazepam while on the unit but has to discuss with primary attending whether to continue given risk of abuse or misuse given alcohol use disorder. Pt had episode of vomiting, reports nausea and acid reflux, no blood in vomit. WIll add omeprazole. will check depakote level and ammonia and LFt. Review of Systems Review of Systems Yes all other systems are reviewed and are negative Mental Status Exam Mental Status Exam Narrative: Pt is alert and oriented; behavior is cooperative, isolative, calm; patient is not in distress; dressed in hospital attire unkempt; eye contact appropriate; Speech is normal rate, volume and prosody and not pressured; psychomotor retardation present; thought process is organized and goal directed; Thought content is on racing thoughts, insomnia; otherwise pertinent to relevant topics and without any delusional content, paranoid ideations or grandiosity; no SI/no HI. There is no evidence of perceptual disturbance. Patients insight and judgment impaired. Diagnostics Vital Signs (24Hr): Vital Signs - 24 hr 01/21/23 21:10 01/22/23 09:25 Temperature 96.9 F 97.4 F Pulse Rate 90 82 Respiratory Rate 18 18 Blood Pressure 131/89 126/83 Pulse Oximetry 100 96 Oxygen Delivery Method Room Air Room Air BMI result Body Mass Index 33.0 Labs 01/16/23 06:52 Medications Medications Current Medications Acetaminophen (Acetaminophen 325 Mg Tablet) 650 mg PO Q6H PRN PRN Reason: Headache/Pain Mild Scale (1-3) Al Hydroxide/Mg Hydroxide (Magnesium Hydrox/Alum Hydrox 30 Ml Oral.Susp) 30 ml PO Q6H PRN PRN Reason: Heartburn/Nausea Last Admin: 01/21/23 20:28 Dose: 30 ml Amitriptyline HCl (Amitriptyline Hcl 50 Mg Tablet) 200 mg PO BEDTIME [facility]ILIN Last Admin: 01/21/23 21:16 Dose: 200 mg Amlodipine Besylate (Amlodipine Besylate 5 Mg Tablet) 5 mg PO DAILY [facility]IN; Protocol Last Admin: 01/22/23 09:29 Dose: 5 mg Clonidine HCl (Clonidine Hcl 0.1 Mg Tablet) 0.1 mg PO DAILY [facility]IN; Protocol Last Admin: 01/22/23 09:29 Dose: 0.1 mg Clonidine HCl (Clonidine Hcl 0.2 Mg Tablet) 0.2 mg PO BEDTIME [facility]; Protocol Last Admin: 01/21/23 21:16 Dose: 0.2 mg Divalproex Sodium (Divalproex Sodium Er 500 Mg Tab.Er.24h) 1,500 mg PO BEDTIME [facility] Last Admin: 01/21/23 21:15 Dose: 1,500 mg Folic Acid (Folic Acid 1 Mg Tablet) 1 mg PO DAILY [facility] Last Admin: 01/22/23 09:29 Dose: 1 mg Gabapentin (Gabapentin 600 Mg Tablet) 600 mg PO TID [facility] Last Admin: 01/22/23 09:29 Dose: 600 mg Hydroxyzine HCl (Hydroxyzine Hcl 25 Mg Tablet) 25 mg PO Q6H PRN PRN Reason: Anxiety Magnesium Hydroxide (Milk Of Magnesia 30 Ml Oral.Susp) 30 ml PO DAILY PRN PRN Reason: Constipation Nicotine (Nicotine 21 Mg Patch.Td24) 21 mg TRANSDERMA DAILY PRN PRN Reason: smoking cessation Nicotine Polacrilex (Nicotine Polacrilex 2 Mg Gum) 4 mg BUCCAL Q2H PRN PRN Reason: Nicotine Cravings Olanzapine (Olanzapine 5 Mg Tablet) 5 mg PO TID PRN PRN Reason: agitation Last Admin: 01/18/23 03:01 Dose: 5 mg Quetiapine Fumarate (Quetiapine Fumarate 300 Mg Tablet) 600 mg PO BEDTIME [facility] Last Admin: 01/21/23 21:15 Dose: 600 mg Thiamine HCl (Thiamine Hcl 100 Mg Tablet) 100 mg PO DAILY [facility] Last Admin: 01/22/23 09:29 Dose: 100 mg Trazodone HCl (Trazodone Hcl 50 Mg Tablet) 50 mg PO BEDTIME PRN PRN Reason: Insomnia Allergies Allergies Allergy/AdvReac Type Severity Reaction Status Date / Time No Known Allergies Allergy Verified 01/14/23 23:54 Assessment & Plan Assessment & Plan (1) Alcohol use disorder: Status: Acute Code(s): F10.90 - Alcohol use, unspecified, uncomplicated Assessment and Plan: complete phenobarb detox, encourage rehab (2) Major depression: Status: Acute Code(s): F32.9 - Major depressive disorder, single episode, unspecified Plan [age] year-old male with past medical history of major depression, alcohol use disorder admitted to [facility] for suicidal ideation and alcohol withdrawal 01/17 -consider bipolar depressed. Over the weekend seroquel increased to 600 mg nightly Continue Phenobarb taper STAT Amitryptilne 100mg; pt says was recently on 200mg. 100 mg increased to 150 mg QHS as of 01/18. 150 mg increased to 200 mg on 01/19. clonidine 0.1 BID increased to 0.1/0.2 on 01/20. DC lamictal, start trial of VPA 500 BID for racing thoughts and insomnia. increase dosing to 1500 mg daily and make all at HS to enhance sleep. discharge to respite tuesday. # alcohol withdrawal - well controlled on phenobarb protocol - continue thiamine and folic acid supplement # history of CHF - reports history of CHF last year - no evidence of exacerbation at this time - monitor PSYCH 01/22 add omeprazole 20mg po daily. pepcid for acid reflux, had episode of emesis, no blood. Also discussed during hospital temazepam but explained may not be prescribed once dx given risk of abuse misuse as he continues to work on recovery. check depakote level, ammonia level, LFT. B12, iron profile given normocytic anemia. Reason for continued inpatient stay Substantial Risk for: harm to self Time Spent With Patient Time: Total time managing care of this patient today ____ minutes.
[2023-01-22 14:48] LABS: MANUAL DIFF FLAG NO
[2023-01-22 14:49] LABS: Basophils Percent Auto 0.5 % (0-2); Eosinophils Absolute Auto 0.3 X10*3/uL (0.0-0.4); Eosinophils Percent Auto 4.4 % (0-4); Hematocrit 40.6 % (42.0-52.0); Imm Gran Abs Auto 0.06 X10*3/uL (0.00-0.03); Imm Gran Pct Auto 0.9 % (0.0-0.4); Lymphocytes Absolute Auto 1.7 X10*3/uL (1.2-4.9); Mean Corpuscular Hemoglobin 29.4 pg (27.0-33.0); Mean Corpuscular Volume 91.9 fL (80.0-98.0); Mean Platelet Volume 9.7 fL (9.4-12.4); Monocytes Absolute Auto 0.8 X10*3/uL (0.1-1.2); Monocytes Percent Auto 12.5 % (2-11); Neutrophils Absolute Auto 3.8 x10*3/uL (2.0-8.3); Neutrophils Percent Auto 56.7 % (45-73); Platelet Count 302 X10*3/uL (160-400); Red Blood Count 4.42 X10*6/uL (4.60-5.80); Red Cell Distribution Width 13.5 % (11.0-16.0); White Blood Count 6.6 X10*3/uL (4.8-10.8)
[2023-01-22] MEDS: Famotidine 20 MG TABLET PO (14:51)
[2023-01-22 14:57] LABS: Ammonia 65 umol/L (13-55)
[2023-01-22 15:02] LABS: Valproate 47.4 mcg/mL (50.0-100.0)
[2023-01-22 15:05] LABS: Alanine Aminotransferase 57 U/L (0-40); Albumin Level 3.5 g/dL (3.5-5.0); Alkaline Phosphatase 93 U/L (39-117); Aspartate Amino Transferase 50 U/L (5-37); Bilirubin Direct < 0.2 mg/dL (0.0-0.5); Bilirubin Total 0.2 mg/dL (0.0-1.0); Iron 66 mcg/dL (45-160); Percent Iron Saturation 17 % (15-50); Total Iron Binding Capacity 386 mcg/dL (228-428); Total Protein 8.7 g/dL (6.5-8.0); Unsaturated Iron Binding 320 ug/dL
[2023-01-22 15:40] LABS: Folate 18.3 ng/mL (> or = 4.0); Vitamin B12 549 pg/mL (200-900)
[2023-01-22] MEDS: Lactulose 20 GM/30 ML SOLUTION PO ×2 (17:53→21:02)
[2023-01-22 20:45] VITALS: BP 137/93; PULSE 89; RESP 18; TEMP 35.6; O2SAT 99
[2023-01-22] MEDS: QUEtiapine Fumarate 300 MG TABLET 600 MG PO (21:01)
[2023-01-22] MEDS: cloNIDine HCL 0.2 MG TABLET PO (21:01)
[2023-01-22] MEDS: Divalproex Sodium ER 500 MG TAB.ER.24H 1500 MG PO (21:01)
[2023-01-22] MEDS: Amitriptyline HCl 50 MG TABLET 200 MG PO (21:01)
[2023-01-22] MEDS: Temazepam 15 MG CAPSULE PO (21:02)
[2023-01-22] MEDS: Carbamide Peroxide 6.5% Otic 15 ML DRPBTL 5 DROP EAR-LEFT (21:19)
[2023-01-23] MEDS: Omeprazole 20 MG CAPSULE.DR PO (06:40)
[2023-01-23 08:36] VITALS: BP 134/81; PULSE 87; RESP 18; TEMP 36.4; O2SAT 98
[2023-01-23] MEDS: Gabapentin 600 MG TABLET PO ×3 (08:38→22:07)
[2023-01-23] MEDS: cloNIDine HCL 0.1 MG TABLET PO (08:38)
[2023-01-23] MEDS: Thiamine HCL 100 MG TABLET PO (08:38)
[2023-01-23] MEDS: Famotidine 20 MG TABLET PO (08:38)
[2023-01-23] MEDS: Lactulose 20 GM/30 ML SOLUTION PO (08:39)
[2023-01-23] MEDS: Folic Acid 1 MG TABLET PO (08:39)
[2023-01-23] MEDS: amLODIPine Besylate 5 MG TABLET PO (08:39)
[2023-01-23 10:24] LABS: Ammonia 50 umol/L (13-55)
[2023-01-23] MEDS: Carbamide Peroxide 6.5% Otic 15 ML DRPBTL 5 DROP EAR-LEFT (13:38)
--- NOTE | 2023-01-23 15:58 | P.PNPSI_ITS ---
Subjective Subjective Date of Service: 01/23/23 Reason For Visit: Major Depressive Disorder,anxiety disorder Subjective Notes: Conditional Voluntary Interim History: Pt reports improved sleep with temazepam. Ammonia is elevated, no signs of encephalopathy. Given lactulose, will recheck levels tomorrow. LFT slightly elevated since depakote started. Pt reports this was reason for medication being dc OP. He wants me to stop depakote as he reports no clear therapeutic benefit. Ear way tx ordered x 4 days BID ear drops. No SI/HI. ready for dc tomorrow. Review of Systems Review of Systems Yes all other systems are reviewed and are negative Mental Status Exam Mental Status Exam Narrative: Pt is alert and oriented; behavior is cooperative, isolative, calm; patient is not in distress; dressed in hospital attire unkempt; eye contact appropriate; Speech is normal rate, volume and prosody and not pressured; psychomotor retardation present; thought process is organized and goal directed; Thought content is on racing thoughts, insomnia; otherwise pertinent to relevant topics and without any delusional content, paranoid ideations or grandiosity; no SI/no HI. There is no evidence of perceptual disturbance. Patients insight and judgment impaired. Patient Appearance: Well Grooomed Patient Orientation: Place (knows he's in a hospital in [place]), Time (early January 2023) and Situation Level of Consciousness: Alert Patient Behavior: Appropriate Mood Description: Anxious Affect Description: Depressed Patient Cognition Impaired: No Ability to Follow Directions: Good Speech Pattern: Clear Memory Description: Intact Diagnostics Vital Signs (24Hr): Vital Signs - 24 hr 01/22/23 20:45 01/23/23 08:36 Temperature 96.1 F L 97.6 F Pulse Rate 89 87 Respiratory Rate 18 18 Blood Pressure 137/93 H 134/81 Pulse Oximetry 99 98 Oxygen Delivery Method Room Air Room Air BMI result Body Mass Index 33.0 Labs 01/22/23 14:28 01/16/23 06:52 Labs: Laboratory Results - last 48 hr 01/22/23 01/22/23 01/22/23 14:28 14:28 14:28 WBC 6.6 RBC 4.42 L Hgb 13.0 L Hct 40.6 L MCV 91.9 MCH 29.4 MCHC 32.0 RDW 13.5 Plt Count 302 MPV 9.7 Immature Gran % (Auto) 0.9 H Neut % (Auto) 56.7 Lymph % (Auto) 25.0 [place] % (Auto) 12.5 H Eos % (Auto) 4.4 H Baso % (Auto) 0.5 Lymph # (Auto) 1.7 [place] # (Auto) 0.8 Eos # (Auto) 0.3 Baso # (Auto) 0.0 Abs Immat Gran (auto) 0.06 H Absolute Neuts (auto) 3.8 Absolute Nucleated RBC 0.000 Nucleated RBC % (auto) 0.0 Iron 66 TIBC 386 % Saturation 17 Unsat Iron Binding 320 Total Bilirubin 0.2 Direct Bilirubin < 0.2 AST 50 H ALT 57 H Alkaline Phosphatase 93 Ammonia Total Protein 8.7 H Albumin 3.5 Vitamin B12 549 Folate 18.3 Valproic Acid 01/22/23 01/22/23 01/23/23 14:28 14:28 10:08 WBC RBC Hgb Hct MCV MCH MCHC RDW Plt Count MPV Immature Gran % (Auto) Neut % (Auto) Lymph % (Auto) [place] % (Auto) Eos % (Auto) Baso % (Auto) Lymph # (Auto) [place] # (Auto) Eos # (Auto) Baso # (Auto) Abs Immat Gran (auto) Absolute Neuts (auto) Absolute Nucleated RBC Nucleated RBC % (auto) Iron TIBC % Saturation Unsat Iron Binding Total Bilirubin Direct Bilirubin AST ALT Alkaline Phosphatase Ammonia 65 H 50 Total Protein Albumin Vitamin B12 Folate Valproic Acid 47.4 L Medications Medications Current Medications Acetaminophen (Acetaminophen 325 Mg Tablet) 650 mg PO Q6H PRN PRN Reason: Headache/Pain Mild Scale (1-3) Al Hydroxide/Mg Hydroxide (Magnesium Hydrox/Alum Hydrox 30 Ml Oral.Susp) 30 ml PO Q6H PRN PRN Reason: Heartburn/Nausea Last Admin: 01/21/23 20:28 Dose: 30 ml Amitriptyline HCl (Amitriptyline Hcl 50 Mg Tablet) 200 mg PO BEDTIME [facility]IL[facility] Last Admin: 01/22/23 21:01 Dose: 200 mg Amlodipine Besylate (Amlodipine Besylate 5 Mg Tablet) 5 mg PO DAILY [facility]; Protocol Last Admin: 01/23/23 08:39 Dose: 5 mg Carbamide Peroxide (Carbamide Peroxide 6.5% Otic 15 Ml Drpbtl) 5 drop EAR-LEFT BID MARILIN Stop: 01/27/23 09:44 Last Admin: 01/23/23 13:38 Dose: 5 drop Clonidine HCl (Clonidine Hcl 0.1 Mg Tablet) 0.1 mg PO DAILY [facility]; Protocol Last Admin: 01/23/23 08:38 Dose: 0.1 mg Clonidine HCl (Clonidine Hcl 0.2 Mg Tablet) 0.2 mg PO BEDTIME [facility]ILIN; Protocol Last Admin: 01/22/23 21:01 Dose: 0.2 mg Divalproex Sodium (Divalproex Sodium Er 500 Mg Tab.Er.24h) 1,500 mg PO BEDTIME [facility] Last Admin: 01/22/23 21:01 Dose: 1,500 mg Famotidine (Famotidine 20 Mg Tablet) 20 mg PO DAILY [facility] Last Admin: 01/23/23 08:38 Dose: 20 mg Folic Acid (Folic Acid 1 Mg Tablet) 1 mg PO DAILY [facility] Last Admin: 01/23/23 08:39 Dose: 1 mg Gabapentin (Gabapentin 600 Mg Tablet) 600 mg PO TID [facility] Last Admin: 01/23/23 15:42 Dose: 600 mg Hydroxyzine HCl (Hydroxyzine Hcl 25 Mg Tablet) 25 mg PO Q6H PRN PRN Reason: Anxiety Lactulose (Lactulose 20 Gm/30 Ml Solution) 20 gm PO BID [facility] Last Admin: 01/23/23 08:39 Dose: 20 gm Magnesium Hydroxide (Milk Of Magnesia 30 Ml Oral.Susp) 30 ml PO DAILY PRN PRN Reason: Constipation Nicotine (Nicotine 21 Mg Patch.Td24) 21 mg TRANSDERMA DAILY PRN PRN Reason: smoking cessation Nicotine Polacrilex (Nicotine Polacrilex 2 Mg Gum) 4 mg BUCCAL Q2H PRN PRN Reason: Nicotine Cravings Olanzapine (Olanzapine 5 Mg Tablet) 5 mg PO TID PRN PRN Reason: agitation Last Admin: 01/18/23 03:01 Dose: 5 mg Omeprazole (Omeprazole 20 Mg Capsule.Dr) 20 mg PO DAILY@0630 [facility] Last Admin: 01/23/23 06:40 Dose: 20 mg Quetiapine Fumarate (Quetiapine Fumarate 300 Mg Tablet) 600 mg PO BEDTIME [facility] Last Admin: 01/22/23 21:01 Dose: 600 mg Temazepam (Temazepam 15 Mg Capsule) 15 mg PO BEDTIME [facility] Stop: 01/23/23 21:01 Last Admin: 01/22/23 21:02 Dose: 15 mg Thiamine HCl (Thiamine Hcl 100 Mg Tablet) 100 mg PO DAILY [facility] Last Admin: 01/23/23 08:38 Dose: 100 mg Trazodone HCl (Trazodone Hcl 50 Mg Tablet) 50 mg PO BEDTIME PRN PRN Reason: Insomnia Allergies Allergies Allergy/AdvReac Type Severity Reaction Status Date / Time No Known Allergies Allergy Verified 01/14/23 23:54 Assessment & Plan Assessment & Plan (1) Alcohol use disorder: Status: Acute Code(s): F10.90 - Alcohol use, unspecified, uncomplicated Assessment and Plan: complete phenobarb detox, encourage rehab (2) Major depression: Status: Acute Code(s): F32.9 - Major depressive disorder, single episode, unspecified Plan [age] year-old male with past medical history of major depression, alcohol use disorder admitted to [facility] for suicidal ideation and alcohol withdrawal 01/17 -consider bipolar depressed. Over the weekend seroquel increased to 600 mg nightly Continue Phenobarb taper STAT Amitryptilne 100mg; pt says was recently on 200mg. 100 mg increased to 150 mg QHS as of 01/18. 150 mg increased to 200 mg on 01/19. clonidine 0.1 BID increased to 0.1/0.2 on 01/20. DC lamictal, start trial of VPA 500 BID for racing thoughts and insomnia. increase dosing to 1500 mg daily and make all at HS to enhance sleep. discharge to respite tuesday. # alcohol withdrawal - well controlled on phenobarb protocol - continue thiamine and folic acid supplement # history of CHF - reports history of CHF last year - no evidence of exacerbation at this time - monitor PSYCH 01/23- dc depakote per pt request- reports no therapeutic benefit and worried about elevation in ammonia and LFT. continue all other meds. Reason for continued inpatient stay Substantial Risk for: stable for discharge Time Spent With Patient Time: Total time managing care of this patient today ____ minutes.
[2023-01-23 21:30] VITALS: BP 135/89; PULSE 100; RESP 16; TEMP 36.4; O2SAT 97
[2023-01-23] MEDS: cloNIDine HCL 0.2 MG TABLET PO (22:07)
[2023-01-23] MEDS: Temazepam 15 MG CAPSULE PO (22:08)
[2023-01-23] MEDS: Amitriptyline HCl 50 MG TABLET 200 MG PO (22:09)
[2023-01-23 23:13] LABS: COVID-19 Test Negative (Negative); IDNOW Serial# 6674DD1D
[2023-01-24] MEDS: Omeprazole 20 MG CAPSULE.DR PO (06:44)
[2023-01-24] MEDS: amLODIPine Besylate 5 MG TABLET PO (08:58)
[2023-01-24] MEDS: Famotidine 20 MG TABLET PO (08:58)
[2023-01-24] MEDS: Thiamine HCL 100 MG TABLET PO (08:58)
[2023-01-24] MEDS: cloNIDine HCL 0.1 MG TABLET PO (08:59)
[2023-01-24] MEDS: Gabapentin 600 MG TABLET PO (08:59)
[2023-01-24] MEDS: Folic Acid 1 MG TABLET PO (08:59)
[2023-01-24] MEDS: Carbamide Peroxide 6.5% Otic 15 ML DRPBTL 5 DROP EAR-LEFT (09:00)
--- NOTE | 2023-01-24 10:09 | P.DS_ITS ---
DS: Providers Provider Date of Service: 01/24/23 Date of admission: 01/14/23 23:50 Primary care physician: Unknown Physician Consults: 01/15/23 01:18 Consult to Hospitalist Routine Comment: Consulting Provider: Hospitalist Reason For Exam: admission physical 01/15/23 09:29 Consult to Hospitalist Routine Comment: Consulting Provider: Hospitalist Reason For Exam: at physical, pleas recs for phenobab taper DS: Diagnosis Discharge Diagnosis (1) Alcohol use disorder: Status: Acute (2) Major depression: Status: Acute DS: Medications Discharge Medications Home Medications: Previous Rx's Medication Instructions Recorded amitriptyline 50 mg tablet 200 mg PO BEDTIME 30 days #120 tabs 01/24/23 amlodipine 5 mg tablet 5 mg PO DAILY 30 days #30 tabs 01/24/23 carbamide peroxide 6.5 % ear drops 5 drp otic (ear) left BID 7 days 01/24/23 (Ear Wax Removal Drops) #10 mL clonidine HCl 0.1 mg tablet 0.1 mg PO DAILY 30 days #30 tabs 01/24/23 clonidine HCl 0.2 mg tablet 0.2 mg PO BEDTIME 30 days #30 tabs 01/24/23 famotidine 20 mg tablet 20 mg PO DAILY 30 days #30 tabs 01/24/23 folic acid 1 mg tablet 1 mg PO DAILY 30 days #30 tabs 01/24/23 gabapentin 600 mg tablet 600 mg PO TID 30 days #90 tabs 01/24/23 omeprazole 20 mg capsule,delayed 20 mg PO DAILY@0630 30 days #30 01/24/23 release caps quetiapine 300 mg tablet 600 mg PO BEDTIME 30 days #60 tabs 01/24/23 temazepam 15 mg capsule 15 mg PO BEDTIME 30 days #30 caps 01/24/23 thiamine mononitrate (vit B1) 100 100 mg PO DAILY 30 days #30 tabs 01/24/23 mg tablet Mental Status Exam Mental Status Exam Narrative: Pt is alert and oriented; behavior is cooperative, isolative, calm; patient is not in distress; dressed in hospital attire unkempt; eye contact appropriate; Speech is normal rate, volume and prosody and not pressured; psychomotor retardation present; thought process is organized and goal directed; Thought content is on insomnia; otherwise pertinent to relevant topics and without any delusional content, paranoid ideations or grandiosity; no SI/no HI. There is no evidence of perceptual disturbance. Patients insight and judgment impaired. Data Data Completed and Pending Completed studies during hospitalization [Text1]: 01/22/23 01/22/23 01/22/23 14:28 14:28 14:28 WBC 6.6 RBC 4.42 L Hgb 13.0 L Hct 40.6 L MCV 91.9 MCH 29.4 MCHC 32.0 RDW 13.5 Plt Count 302 MPV 9.7 Immature Gran % (Auto) 0.9 H Neut % (Auto) 56.7 Lymph % (Auto) 25.0 [place] % (Auto) 12.5 H Eos % (Auto) 4.4 H Baso % (Auto) 0.5 Lymph # (Auto) 1.7 [place] # (Auto) 0.8 Eos # (Auto) 0.3 Baso # (Auto) 0.0 Abs Immat Gran (auto) 0.06 H Absolute Neuts (auto) 3.8 Absolute Nucleated RBC 0.000 Nucleated RBC % (auto) 0.0 Iron 66 TIBC 386 % Saturation 17 Unsat Iron Binding 320 Total Bilirubin 0.2 Direct Bilirubin < 0.2 AST 50 H ALT 57 H Alkaline Phosphatase 93 Ammonia Total Protein 8.7 H Albumin 3.5 Vitamin B12 549 Folate 18.3 Valproic Acid COVID-19 (IAM) COVID-19 Clin Com 01/22/23 01/22/23 01/23/23 14:28 14:28 10:08 WBC RBC Hgb Hct MCV MCH MCHC RDW Plt Count MPV Immature Gran % (Auto) Neut % (Auto) Lymph % (Auto) [place] % (Auto) Eos % (Auto) Baso % (Auto) Lymph # (Auto) [place] # (Auto) Eos # (Auto) Baso # (Auto) Abs Immat Gran (auto) Absolute Neuts (auto) Absolute Nucleated RBC Nucleated RBC % (auto) Iron TIBC % Saturation Unsat Iron Binding Total Bilirubin Direct Bilirubin AST ALT Alkaline Phosphatase Ammonia 65 H 50 Total Protein Albumin Vitamin B12 Folate Valproic Acid 47.4 L COVID-19 (IAM) COVID-19 Clin Com 01/23/23 22:30 WBC RBC Hgb Hct MCV MCH MCHC RDW Plt Count MPV Immature Gran % (Auto) Neut % (Auto) Lymph % (Auto) [place] % (Auto) Eos % (Auto) Baso % (Auto) Lymph # (Auto) [place] # (Auto) Eos # (Auto) Baso # (Auto) Abs Immat Gran (auto) Absolute Neuts (auto) Absolute Nucleated RBC Nucleated RBC % (auto) Iron TIBC % Saturation Unsat Iron Binding Total Bilirubin Direct Bilirubin AST ALT Alkaline Phosphatase Ammonia Total Protein Albumin Vitamin B12 Folate Valproic Acid COVID-19 (IAM) Negative COVID-19 Clin Com See Note DS: Summary Hospital Course Hospital Course: per 01/15 admission note: Patient was transferred from [facility] after admission for alcohol detox. He has a trauma and addiction history admitted with SI and plan to jump off a high place.? He recently came back to this area to try and reconnect with family but discovered that his father had of COVID and his brother of homicide.? He has chronic sleep problems and drinks daily.? He is currently on phenobarb taper. Past Psychiatric History: Prior admissions in distant past Medical Evaluation Reviewed: Hospitalist Henrietta Pending Need to taper phenobarb Precis: [age] year-old male with past medical history of major depression, alcohol use disorder admitted to [email or web address] for suicidal ideation and alcohol withdrawal -consider bipolar depressed.? Over the weekend seroquel increased to 600 mg nightly Continue Phenobarb taper STAT Amitryptilne 100mg; pt says was recently on 200mg.? 100 mg increased to 150 mg QHS as of 01/18.? 150 mg increased to 200 mg on 01/19. clonidine 0.1 BID increased to 0.1/0.2 on 01/20. DC lamictal, start trial of VPA 500 BID for racing thoughts and insomnia.? increase dosing to 1500 mg daily and make all at HS to enhance sleep. discharge to respite tuesday. # alcohol withdrawal - well controlled on phenobarb protocol - continue thiamine and folic acid supplement # history of CHF - reports history of CHF last year - no evidence of exacerbation at this time - monitor PSYCH 01/23- dc depakote per pt request- reports no therapeutic benefit and worried about elevation in ammonia and LFT. continue all other meds. 01/24: meds reviewed, reconciled, prescribed. VPA had been DCed over w/e and temazepam started for insomnia. discharged to respite today as per plan. Time Spent with Patient Time attestation: Total time managing care of this patient today ____ minutes. Time spent: Greater than 30 minutes Discharge Plan Discharge Patient Disposition: Xfer to Respite Facility Discharge Diagnosis: Major Depressive Disorder Alcohol Use Disorder Referrals: [facility] [Other] - 1 Week (You are currently on the waiting list at the [facility]. Please call the phone number listed above to check on bed availability) [facility] [Provider Group] - 1 Week Discharge Medications: New clonidine HCl 0.1 mg Tablet 0.1 mg PO DAILY 30 Days Qty: 30 0RF Protocol: Hold for SBP< HOLD for SBP < : 90 gabapentin 600 mg Tablet 600 mg PO TID 30 Days Qty: 90 0RF quetiapine 300 mg Tablet 600 mg PO BEDTIME 30 Days Qty: 60 0RF amitriptyline 50 mg Tablet 200 mg PO BEDTIME 30 Days Qty: 120 0RF clonidine HCl 0.2 mg Tablet 0.2 mg PO BEDTIME 30 Days Qty: 30 0RF Protocol: Hold for SBP< HOLD for SBP < : 90 famotidine 20 mg Tablet 20 mg PO DAILY 30 Days Qty: 30 0RF Ear Wax Removal Drops 6.5 % Drops 5 drp otic (ear) left BID 7 Days Qty: 10 0RF omeprazole 20 mg Capsule,Delayed Release(Dr/Ec) 20 mg PO DAILY@0630 30 Days Qty: 30 0RF folic acid 1 mg Tablet 1 mg PO DAILY 30 Days Qty: 30 0RF temazepam 15 mg capsule 15 mg PO BEDTIME 30 Days Qty: 30 0RF Continued amlodipine 5 mg tablet 5 mg PO DAILY 30 Days Qty: 30 0RF Changed thiamine mononitrate (vit B1) 100 mg tablet 100 mg PO DAILY 30 Days Qty: 30 0RF Discontinued clonidine HCl 0.1 mg tablet 0.1 mg PO BID gabapentin 600 mg tablet 1,200 mg PO BID gabapentin 400 mg capsule PO hydroxyzine pamoate 50 mg capsule PO PRN (Reason: Anxiety) hydroxyzine pamoate 50 mg capsule PO PRN (Reason: Anxiety) Rx Instructions: At [facility] patient was given 400 mg at HS quetiapine 100 mg tablet PO lithium carbonate 600 mg capsule 600 mg PO BID amitriptyline 100 mg tablet PO lactulose 10 gram/15 mL solution PO lurasidone 120 mg tablet 120 mg PO DAILY Discharge Orders: Discharge Order (Routine); Ordered 01/24/23 Ordered By: Mohan Hamilton Diet: Advance to usual diet Activity on Discharge: As tolerated Stand Alone Forms: Patient Portal Discharge page, Community Support Care Plan Goals: remain safe, stable, and sober in the outpatient treatment setting Health Concerns: none Plan of Treatment: take medications as prescribed, pursue referrals for mental health prescriber. Assessment: not at imminent risk of harm to self or others Discharge Date/Time: 01/24/23 10:30
--- NOTE | 2023-01-24 10:46 | PC.NURSE ---
Pt is ready and aware of discharge medications and instructions. Pt verbalized understanding. He will be going to Respite care.
== END 2023-01-24 10:30 | DRG 754 ==
PROVIDERS: Psychiatry & Neurology Psychiatry; Social Worker; Admitting Provider Psychiatry & Neurology Psychiatry; Visit Provider Psychiatry & Neurology Psychiatry
DX: F32.9 Major depressive disorder, single episode, unspecified (principal); R45.851 Suicidal ideations; I50.9 Heart failure, unspecified; I11.0 Hypertensive heart disease with heart failure; F41.9 Anxiety disorder, unspecified; F10.130 Alcohol abuse with withdrawal, uncomplicated; F17.210 Nicotine dependence, cigarettes, uncomplicated; Z20.822 Contact with and (suspected) exposure to COVID-19; Z71.6 Tobacco abuse counseling; Z79.899 Other long term (current) drug therapy
CPT/HCPCS: 36415; 80053; 80061; 80076; 80164; 82140; 82607; 82746; 83036; 83540; 85025; 87635

== ENCOUNTER → 2023-01-14 23:50 | Outpatient (BNV) | payer OTHER, SELFPAY | PROVIDERS: Admitting Provider Psychiatry & Neurology Psychiatry; Visit Provider Internal Medicine | DX: F10.90 Alcohol use, unspecified, uncomplicated (principal); F32.9 Major depressive disorder, single episode, unspecified | CPT/HCPCS: 99223 ==

== ENCOUNTER → 2023-01-14 23:50 | Outpatient (BNV) | payer OTHER, SELFPAY | PROVIDERS: Admitting Provider Psychiatry & Neurology Psychiatry; Visit Provider Psychiatry & Neurology Psychiatry | DX: F10.90 Alcohol use, unspecified, uncomplicated (principal); F32.9 Major depressive disorder, single episode, unspecified | CPT/HCPCS: 90792; 99232; 99239 ==

== ENCOUNTER 2023-03-16 17:00 | Inpatient (IN) | payer OTHER, SELFPAY ==
[2023-03-16 17:30] VITALS: BP 145/101; PULSE 79; RESP 16; TEMP 35.9; O2SAT 97; BMI 30.4
[2023-03-16] MEDS: Amitriptyline HCl 50 MG TABLET PO (21:48)
[2023-03-16] MEDS: LORazepam 1 MG TABLET PO (21:48)
[2023-03-16 22:11] VITALS: BP 134/89; PULSE 82; RESP 16; TEMP 35.9; O2SAT 97
--- NOTE | 2023-03-16 22:32 | PC.ADMIT ---
Pt is a 62year old -[place] admitted on CV from [facility] for depression and Suicidal ideation/thoughts without a plan. Pt is alert and oriented X3, calm and cooperative, Covid negative, tox screen positive for cocaine and alcohol. Pt presents as flat, poor hygiene. Pt states that he has a history of falls and continued to have occasional falls. Speech is normal with regular tone and rhythm. Pt has bilateral knee abrasion at different levels of healing. Pt reports that he needs help with establishing outpatient providers including Psychotherapist and Psychiatrist. Pt denies SI/HI/VH/AH at this time. However, he endorsed depression of 9/10, and anxiety of 4/10. Admission orders obtained, treatment plan and safety tool completed. Vital signs stable at this time. Pt is resting in bed, respirations even and unlabored and in no apparent distress.
[2023-03-16] MEDS: clonazePAM 1 MG TABLET 2 MG PO (23:08)
--- NOTE | 2023-03-16 23:15 | PC.NURSE ---
Pt is alert and oriented, call center nurse provider, Mohan Hamilton notified of elevated BP- 142/94. One time/stat order 2mg, Ativan and administered, pending reassessment.
[2023-03-17 08:00] VITALS: BP 136/98; PULSE 90; RESP 18; TEMP 36.4; O2SAT 99
[2023-03-17] MEDS: Folic Acid 1 MG TABLET PO (08:33)
[2023-03-17] MEDS: Thiamine HCL 100 MG TABLET PO (08:33)
[2023-03-17] MEDS: LORazepam 1 MG TABLET 2 MG PO ×2 (08:40→20:25)
[2023-03-17 09:00] LABS: Estimated Average Glucose 100 mg/dL; Hemoglobin A1c % 5.1 % (<6.0)
[2023-03-17 10:01] LABS: Alanine Aminotransferase 36 U/L (0-40); Albumin Level 3.3 g/dL (3.5-5.0); Alkaline Phosphatase 107 U/L (39-117); Anion Gap 13 (12-20); Aspartate Amino Transferase 44 U/L (5-37); Bilirubin Total 0.2 mg/dL (0.0-1.0); Blood Urea Nitrogen 12 mg/dL (9-16); Calcium 9.2 mg/dL (8.4-10.2); Carbon Dioxide 21 mmol/L (22-29); Chloride 109 mmol/L (96-108); Cholesterol 156 mg/dL (<200); Creatinine Clr Calc Pharmacy 151.9; Estimated Glomerular Filt Rate > 60; Glucose Fasting 96 mg/dL (60-99); HDL Cholesterol 44 mg/dL (>40); LDL Cholesterol Calculated 95 mg/dL (<100); Potassium 4.1 mmol/L (3.3-5.1); Sodium 139 mmol/L (135-145); Total Protein 7.9 g/dL (6.5-8.0); Triglycerides 87 mg/dL (<150)
[2023-03-17 10:07] LABS: Free T4 (Free Thyroxine) 0.93 ng/dL (0.71-1.85); Thyroid Stimulating Hormone 0.67 uIU/mL (0.32-4.0)
[2023-03-17 10:26] LABS: Folate 13.5 ng/mL (> or = 4.0); Vitamin B12 436 pg/mL (200-900)
[2023-03-17] MEDS: cloNIDine HCL 0.1 MG TABLET PO (11:30)
[2023-03-17] MEDS: Gabapentin 600 MG TABLET PO ×3 (11:30→20:25)
[2023-03-17] MEDS: amLODIPine Besylate 5 MG TABLET PO (11:30)
[2023-03-17] MEDS: LORazepam 1 MG TABLET PO (12:37)
--- NOTE | 2023-03-17 16:17 | HO.PM.IMCN ---
History of Present Illness Data of Consult Service Date: 03/17/23 Primary Care Provider: None Physician HPI Reason for consult: Admission H&P Pt is a 62-year-old male with a PMH significant for?HTN GERD, CHF, untreated hepatitis-C, and alcohol use disorder who is admitted to [facility] psychiatry unit for increasing depression with SI with no specific plan. Medical consult for admission H&P. ?Patient states that he has had a history of recent falls with abrasions to his knees. Patient reports occasionally feeling lightheaded and dizzy, though not currently and reports not prior to falling. States he was falling because his legs felt weak and gave out on him. Also states sometimes his right foot and toes become now. Patient reports heavy alcohol use since that time he was 13: Drinks 2-3 pints and 5-6 tall beers daily with last drink 2 days ago. Patient also reports history of withdrawal seizures. He initially presented to [facility] where workup there was negative for acute fractures or acute intracranial abnormalities. Patient states he currently does not have any acute medical complaints. No chest pain/pressure, palpitations. No shortness of breath. Denies fever, chills, nausea, vomiting, abdominal pain. No auditory or visual hallucinations. Labs and imaging from [facility] reviewed, largely unremarkable. Review of Systems Review of Systems: Hx of recent falls No acute medical complaints at this time Yes all other systems are reviewed and are negative [facility] Medical History Hypertension Social History Household Members: None Housing: Apartment Do you presently have visiting nurse or other home services: No Patient Tobacco Use Status: Current everyday Tobacco user Tobacco use type: Cigarette Cigarette Packs Per Day: 1 Cigarettes Per Day: 20.0 Smoked in Last 30 Days: Yes e-Cigarette/Vaping Use: Currently Using Patient Interested in Nicotine Replacement: No Patient Given Instructions on How to Stop Smoking: Yes Date Education Initiated: 03/16/23 Second Hand Smoke Exposure: Yes Use of substances other than those prescribed or required for medical reasons: Yes Substance Use Type: Crack/Cocaine Substance Use Frequency: Occasionally Last Used Substance: Weeks (ago) Currently Displaying Signs/Symptoms of Drug Intoxication Withdrawal: No Any prior treatment program specific to substance use: No Have you been hit, kicked, punched, or otherwise hurt by someone within the past year? If so, by whom?: No Do you feel safe in your current relationship?: No Current Relationship Is there a partner from a previous relationship who is making you feel unsafe now?: No Are you made to feel afraid or neglected: No Spiritual Healthcare Practices: N/A Buddhist Healthcare Practices: N/A Cultural Healthcare Practices: N/A Advance Directives: No Advance Directives Information Provided: Yes Do you have thoughts of harming others: None Do you have a plan to hurt others: No Plan Recently lost weight without trying: No How much weight loss: Not applicable Eating poorly because of decreased appetite: No Nutrition screen score: 0 Nutrition Risks: No Nutritional Risk Poor oral hygiene: No service: No Sexual orientation: Straight/Heterosexual Meds Allergies Allergy/AdvReac Type Severity Reaction Status Date / Time Pork/Porcine Containing Allergy Unknown unknown Verified 03/16/23 17:28 Products Active Medications: Current Medications Acetaminophen (Acetaminophen 325 Mg Tablet) 650 mg PO Q6H PRN PRN Reason: Headache/Pain Mild Scale (1-3) Al Hydroxide/Mg Hydroxide (Magnesium Hydrox/Alum Hydrox 30 Ml Oral.Susp) 30 ml PO Q6H PRN PRN Reason: Heartburn/Nausea Amitriptyline HCl (Amitriptyline Hcl 50 Mg Tablet) 200 mg PO BEDTIME [facility] Amlodipine Besylate (Amlodipine Besylate 5 Mg Tablet) 5 mg PO DAILY [facility]; Protocol Last Admin: 03/17/23 11:30 Dose: 5 mg Aripiprazole (Aripiprazole 10 Mg Tablet) 10 mg PO DAILY [facility] Bupropion HCl (Bupropion Hcl 75 Mg Tablet) 75 mg PO DAILY [facility] Carbamide Peroxide (Carbamide Peroxide 6.5% Otic 15 Ml Drpbtl) 5 drop EAR-LEFT BID [facility] Last Admin: 03/17/23 08:44 Dose: Not Given Clonazepam (Clonazepam 1 Mg Tablet) 1 mg PO DAILY PRN PRN Reason: Anxiety Clonidine HCl (Clonidine Hcl 0.2 Mg Tablet) 0.2 mg PO BEDTIME [facility]; Protocol Clonidine HCl (Clonidine Hcl 0.1 Mg Tablet) 0.1 mg PO DAILY [facility]; Protocol Last Admin: 03/17/23 11:30 Dose: 0.1 mg Famotidine (Famotidine 20 Mg Tablet) 20 mg PO DAILY@0630 [facility] Folic Acid (Folic Acid 1 Mg Tablet) 1 mg PO DAILY [facility] Last Admin: 03/17/23 08:33 Dose: 1 mg Gabapentin (Gabapentin 600 Mg Tablet) 600 mg PO TID [facility] Hydroxyzine HCl (Hydroxyzine Hcl 25 Mg Tablet) 25 mg PO Q6H PRN PRN Reason: Anxiety Loratadine (Loratadine 10 Mg Tablet) 10 mg PO DAILY [facility] Lorazepam (Lorazepam 1 Mg Tablet) 1 mg PO Q2H PRN PRN Reason: CIWA 8-11 Last Admin: 03/17/23 12:37 Dose: 1 mg Lorazepam (Lorazepam 1 Mg Tablet) 2 mg PO Q2H PRN PRN Reason: CIWA 12-15 Last Admin: 03/17/23 08:40 Dose: 2 mg Lorazepam (Lorazepam 1 Mg Tablet) 3 mg PO Q2H PRN PRN Reason: CIWA > 15; and call Magnesium Hydroxide (Milk Of Magnesia 30 Ml Oral.Susp) 30 ml PO DAILY PRN PRN Reason: Constipation Multivitamins/Vitamin C (Multivitamin Tablet) 1 tab PO DAILY [facility] Nicotine Polacrilex (Nicotine Polacrilex 2 Mg Gum) 4 mg BUCCAL Q2H PRN PRN Reason: Nicotine Cravings Omeprazole (Omeprazole 20 Mg Capsule.Dr) 20 mg PO DAILY [facility] Thiamine HCl (Thiamine Hcl 100 Mg Tablet) 100 mg PO DAILY [facility] Last Admin: 03/17/23 08:33 Dose: 100 mg Physical Exam Vital Signs and Narrative: Vital Signs: Last Vital Signs Temp 97.5 F 03/17/23 08:00 Pulse 90 03/17/23 08:00 Resp 18 03/17/23 08:00 BP 136/98 H 03/17/23 08:00 Pulse Ox 99 03/17/23 08:00 O2 Del Method Room Air 03/17/23 08:00 BMI result Body Mass Index 30.4 General: AOx3, no acute distress Resp: CTA bilaterally CVS: S1, S2, RRR GI: +BS, NT, no distention Skin: No rash Neuro: Cranial nerves II-XII grossly intact bilaterally. Motor grossly intact bilaterally. Minor right hand tremor noted. Extremities: No edema. Superficial abrasions to both knees bilaterally. No signs of infection. Mild tenderness to palpation of medial proximal aspect of left knee. Results Labs 03/17/23 08:09 Labs: Laboratory Results - last 24 hr 03/17/23 08:09 Anion Gap 13 Estim Creat Clear Calc 151.9 Estimated GFR > 60 Fasting Glucose 96 Estimat Average Glucose 100 Hemoglobin A1c % 5.1 Calcium 9.2 Total Bilirubin 0.2 AST 44 H ALT 36 Alkaline Phosphatase 107 Total Protein 7.9 Albumin 3.3 L Triglycerides 87 Cholesterol 156 LDL Cholesterol, Calc 95 HDL Cholesterol 44 Vitamin B12 436 Folate 13.5 TSH 0.67 Free T4 0.93 Assessment and Plan (1) Medical clearance for psychiatric admission: Status: Acute Plan Pt is a 62-year-old male with a PMH significant for?HTN GERD, CHF, untreated hepatitis-C, and alcohol use disorder who is admitted to psychiatry unit for increasing depression with SI with no specific plan. Medical consult for admission H&P. ? Mood disorder Plan as per psychiatry Alcohol use disorder Well controlled with Ativan Cotinue CIWA, thiamine, folic acid, multivitamin Recent hx of falls Possibly secondary to alcohol use disorder Workup at [facility] negative for acute fractures or intracranial abnormalities HTN Continue home meds CHF Reported hx of CHF last year No evidence of exacerbation Monitor volume status Peripheral neuropathy Patient reports occasional right foot numbness and shooting pain Continue gabapentin GERD PPI Hepatitis-C Follow-up outpatient for treatment Thank you for allowing us to participate in the care of this patient. Signing off at this time. Please let us know if there are any acute complaints or questions. Time Spent With Patient Time: Total time managing care of this patient today ____ minutes.
[2023-03-17 18:00] VITALS: BP 131/90; PULSE 84; RESP 18; TEMP 36.6; O2SAT 95
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
[2023-03-17] MEDS: cloNIDine HCL 0.2 MG TABLET PO (20:25)
[2023-03-17] MEDS: Amitriptyline HCl 50 MG TABLET 200 MG PO (20:26)
[2023-03-18] MEDS: Famotidine 20 MG TABLET PO (06:24)
[2023-03-18 08:15] VITALS: BP 126/84; PULSE 86; RESP 18; TEMP 36; O2SAT 95
[2023-03-18] MEDS: ARIPiprazole 10 MG TABLET PO (08:41)
[2023-03-18] MEDS: Omeprazole 20 MG CAPSULE.DR PO (08:41)
[2023-03-18] MEDS: buPROPion HCL 75 MG TABLET PO (08:41)
[2023-03-18] MEDS: Thiamine HCL 100 MG TABLET PO (08:43)
[2023-03-18] MEDS: Loratadine 10 MG TABLET PO (08:43)
[2023-03-18] MEDS: Folic Acid 1 MG TABLET PO (08:43)
[2023-03-18] MEDS: Gabapentin 600 MG TABLET PO (08:43)
[2023-03-18] MEDS: Multivitamin TABLET 1 TAB PO (08:43)
[2023-03-18] MEDS: cloNIDine HCL 0.1 MG TABLET PO (08:43)
[2023-03-18] MEDS: amLODIPine Besylate 5 MG TABLET PO (08:43)
[2023-03-18] MEDS: clonazePAM 1 MG TABLET PO (08:56)
[2023-03-18] MEDS: LORazepam 1 MG TABLET PO ×2 (08:56→20:26)
--- NOTE | 2023-03-18 12:54 | HO.PSYCHPN ---
Subjective Subjective Date of Service: 03/18/23 Reason For Visit: F33.1, F10.20, F14.10 Subjective Notes: Conditional Voluntary Healthcare Proxy: No Guardianship: No Medical Problems Affecting Mental Status: No Interim History: Oversedated and a fall risk today. Meds decreased, he disagreed, placed on one to one as he is significantly unsteady. Continues to request shelter placement. Argumentative at times- you are responsible to give me what I want . I don't believe there are no resources to meet my requirements. Discussed that we will try to find a compromise for him which he will accept. Reports that at [facility] he was screened for rest home and [facility], however, when told he would need to turn over all of his check except $70 he reports was the deal breaker I will decide how much it is worth and how much I will pay. Medication Compliance: Yes Side effects from medications: No Attending Groups: Intermittent Review of Systems Acute medical concerns: No Medical Review of Systems: unchanged Mental Status Exam Mental Status Exam Patient Appearance: Fatigued and Appropriate Patient Orientation: Person, Place, Time and Situation Level of Consciousness: Sedated and Alert Patient Behavior: Appropriate, Talkative and Good Eye Contact Mood Description: Hostile Affect Description: Flat Patient Cognition Impaired: No Ability to Follow Directions: Good Speech Pattern: Spontaneous Speech Memory Description: Intact Hallucinations: None Thought Process: Rumination Thought Content: positive for Perseveration and positive for Suicidal Ideation Depressive Symptoms: Increased Irritability and Thoughts of /Suicide Judgement: Fair Diagnostics Vital Signs (24Hr): Vital Signs - 24 hr 03/17/23 18:00 03/18/23 08:15 Temperature 97.8 F 96.8 F Pulse Rate 84 86 Respiratory Rate 18 18 Blood Pressure 131/90 H 126/84 Pulse Oximetry 95 95 Oxygen Delivery Method Room Air Room Air BMI result Body Mass Index 30.4 Labs 03/17/23 08:09 Labs: Laboratory Results - last 48 hr 03/17/23 08:09 Sodium 139 Potassium 4.1 Chloride 109 H Carbon Dioxide 21 L Anion Gap 13 BUN 12 Creatinine 0.69 Estim Creat Clear Calc 151.9 Estimated GFR > 60 Fasting Glucose 96 Estimat Average Glucose 100 Hemoglobin A1c % 5.1 Calcium 9.2 Total Bilirubin 0.2 AST 44 H ALT 36 Alkaline Phosphatase 107 Total Protein 7.9 Albumin 3.3 L Triglycerides 87 Cholesterol 156 LDL Cholesterol, Calc 95 HDL Cholesterol 44 Vitamin B12 436 Folate 13.5 TSH 0.67 Free T4 0.93 Medications Medications Current Medications Acetaminophen (Acetaminophen 325 Mg Tablet) 650 mg PO Q6H PRN PRN Reason: Headache/Pain Mild Scale (1-3) Al Hydroxide/Mg Hydroxide (Magnesium Hydrox/Alum Hydrox 30 Ml Oral.Susp) 30 ml PO Q6H PRN PRN Reason: Heartburn/Nausea Amitriptyline HCl (Amitriptyline Hcl 50 Mg Tablet) 200 mg PO BEDTIME [facility] Last Admin: 03/17/23 20:26 Dose: 200 mg Amlodipine Besylate (Amlodipine Besylate 5 Mg Tablet) 5 mg PO DAILY [facility]; Protocol Last Admin: 03/18/23 08:43 Dose: 5 mg Aripiprazole (Aripiprazole 10 Mg Tablet) 10 mg PO DAILY [facility] Last Admin: 03/18/23 08:41 Dose: 10 mg Bupropion HCl (Bupropion Hcl 75 Mg Tablet) 75 mg PO DAILY [facility] Last Admin: 03/18/23 08:41 Dose: 75 mg Carbamide Peroxide (Carbamide Peroxide 6.5% Otic 15 Ml Drpbtl) 5 drop EAR-LEFT BID [facility] Last Admin: 03/18/23 09:04 Dose: Not Given Clonazepam (Clonazepam 1 Mg Tablet) 1 mg PO DAILY PRN PRN Reason: Anxiety Last Admin: 03/18/23 08:56 Dose: 1 mg Clonidine HCl (Clonidine Hcl 0.2 Mg Tablet) 0.2 mg PO BEDTIME [facility]; Protocol Last Admin: 03/17/23 20:25 Dose: 0.2 mg Clonidine HCl (Clonidine Hcl 0.1 Mg Tablet) 0.1 mg PO DAILY [facility]; Protocol Last Admin: 03/18/23 08:43 Dose: 0.1 mg Famotidine (Famotidine 20 Mg Tablet) 20 mg PO DAILY@0630 [facility] Last Admin: 03/18/23 06:24 Dose: 20 mg Folic Acid (Folic Acid 1 Mg Tablet) 1 mg PO DAILY [facility] Last Admin: 03/18/23 08:43 Dose: 1 mg Gabapentin (Gabapentin 600 Mg Tablet) 600 mg PO TID [facility] Last Admin: 03/18/23 08:43 Dose: 600 mg Hydroxyzine HCl (Hydroxyzine Hcl 25 Mg Tablet) 25 mg PO Q6H PRN PRN Reason: Anxiety Loratadine (Loratadine 10 Mg Tablet) 10 mg PO DAILY [facility] Last Admin: 03/18/23 08:43 Dose: 10 mg Lorazepam (Lorazepam 1 Mg Tablet) 1 mg PO Q2H PRN PRN Reason: CIWA 8-11 Last Admin: 03/18/23 08:56 Dose: 1 mg Lorazepam (Lorazepam 1 Mg Tablet) 2 mg PO Q2H PRN PRN Reason: CIWA 12-15 Last Admin: 03/17/23 20:25 Dose: 2 mg Lorazepam (Lorazepam 1 Mg Tablet) 3 mg PO Q2H PRN PRN Reason: CIWA > 15; and call Magnesium Hydroxide (Milk Of Magnesia 30 Ml Oral.Susp) 30 ml PO DAILY PRN PRN Reason: Constipation Multivitamins/Vitamin C (Multivitamin Tablet) 1 tab PO DAILY [facility] Last Admin: 03/18/23 08:43 Dose: 1 tab Nicotine Polacrilex (Nicotine Polacrilex 2 Mg Gum) 4 mg BUCCAL Q2H PRN PRN Reason: Nicotine Cravings Omeprazole (Omeprazole 20 Mg Capsule.Dr) 20 mg PO DAILY [facility] Last Admin: 03/18/23 08:41 Dose: 20 mg Thiamine HCl (Thiamine Hcl 100 Mg Tablet) 100 mg PO DAILY [facility] Last Admin: 03/18/23 08:43 Dose: 100 mg Allergies Allergies Allergy/AdvReac Type Severity Reaction Status Date / Time Pork/Porcine Containing Allergy Unknown unknown Verified 03/16/23 17:28 Products Assessment & Plan Assessment & Plan (1) Major depression: Status: Acute Code(s): F32.9 - Major depressive disorder, single episode, unspecified (2) Alcohol use disorder: Status: Acute Code(s): F10.90 - Alcohol use, unspecified, uncomplicated (3) PTSD (post-traumatic stress disorder): Status: Acute Code(s): F43.10 - Post-traumatic stress disorder, unspecified Plan 62 yo male, history of PTSD, major depression, alcohol use disorder presents with SI and relapse after recent admission to [facility] where he did not find his aftercare planning met his needs. Plan: Monitor for withdrawal. Re-establish regime Aftercare planning Collateral contact as needed 03/18 Decrease amitriptyline to 50 mg HS Decrease Klonopin to 0. 5mg daily prn Decrease Gabapentin to 300 mg tid Pt would benefit from a MOCA when team is available Patient educated on: medication risk/benefits and therapeutic strategies Informed Consent: further education needed Reason for continued inpatient stay Substantial Risk for: rapid decompensation and med/psych decompensation Time Spent With Patient Time: Total time managing care of this patient today ____ minutes.
[2023-03-18] MEDS: Gabapentin 600 MG TABLET 300 MG PO ×2 (14:23→20:27)
[2023-03-18 18:00] VITALS: BP 124/76; PULSE 78; RESP 20; TEMP 36.2; O2SAT 97
[2023-03-18] MEDS: cloNIDine HCL 0.2 MG TABLET PO (20:26)
[2023-03-18] MEDS: hydrOXYzine HCL 25 MG TABLET PO (20:27)
[2023-03-18] MEDS: Amitriptyline HCl 50 MG TABLET PO (20:27)
--- NOTE | 2023-03-19 | ECG_ITS ---
Test Reason : check qtc on elavil Blood Pressure : / mmHG Vent. Rate : 084 BPM Atrial Rate : 084 BPM P-R Int : 160 ms QRS Dur : 092 ms QT Int : 358 ms P-R-T Axes : 066 022 057 degrees QTc Int : 423 ms Normal sinus rhythm Nonspecific T wave abnormality Abnormal ECG No previous ECGs available Referred By: Priya Streeter Electronically Signed By:JASPREET NIETO
[2023-03-19] MEDS: clonazePAM 0.5 MG TABLET PO ×3 (01:45→21:26)
[2023-03-19] MEDS: Famotidine 20 MG TABLET PO (05:33)
[2023-03-19 08:00] VITALS: BP 130/96; PULSE 96; RESP 20; TEMP 37; O2SAT 99
[2023-03-19] MEDS: cloNIDine HCL 0.1 MG TABLET PO (08:31)
[2023-03-19] MEDS: Omeprazole 20 MG CAPSULE.DR PO (08:31)
[2023-03-19] MEDS: buPROPion HCL 75 MG TABLET PO (08:31)
[2023-03-19] MEDS: Multivitamin TABLET 1 TAB PO (08:31)
[2023-03-19] MEDS: Gabapentin 600 MG TABLET 300 MG PO ×3 (08:32→20:45)
[2023-03-19] MEDS: Thiamine HCL 100 MG TABLET PO (08:33)
[2023-03-19] MEDS: amLODIPine Besylate 5 MG TABLET PO (08:33)
[2023-03-19] MEDS: ARIPiprazole 10 MG TABLET PO (08:33)
[2023-03-19] MEDS: Folic Acid 1 MG TABLET PO (08:33)
[2023-03-19] MEDS: Loratadine 10 MG TABLET PO (08:33)
[2023-03-19] MEDS: Carbamide Peroxide 6.5% Otic 15 ML DRPBTL 5 DROP EAR-LEFT (09:12)
--- NOTE | 2023-03-19 10:38 | HO.PSYCHPN ---
Subjective Subjective Date of Service: 03/19/23 Reason For Visit: F33.1, F10.20, F14.10 Subjective Notes: Conditional Voluntary Medical Problems Affecting Mental Status: Yes (confusion, fall risk) Interim History: 62 yo angry that medication were changed demanding dosing back on amitryptiline and his clonazepam- explained to patient concern about some balance issues- which pt denied- Got EKG and will get amitryptiline level Medication Compliance: Yes Side effects from medications: No (he says) Attending Groups: Intermittent Review of Systems Acute medical concerns: Yes lack of balance and gait some sedation ? Review of Systems: does not seem sedated today and walking without walker I don't need that doesn't seem 100% balanced Mental Status Exam Mental Status Exam Patient Appearance: Appropriate Patient Orientation: Person, Place, Time and Situation Level of Consciousness: Awake Patient Behavior: Restless, Belligerent and Resistive to Care Mood Description: Angry Affect Description: Labile Ability to Follow Directions: Fair Speech Pattern: Rambling Thought Process: Goal Oriented Thought Content: positive for Perseveration (around medication wouldn't speak to me re other, walked off mad) Depressive Symptoms: Insomnia, Increased Irritability and Difficulty Sleeping Abnormal Motor Activity Signs and Symptoms: Agitation Judgement: Poor Diagnostics Vital Signs (24Hr): Vital Signs - 24 hr 03/18/23 18:00 03/19/23 08:00 Temperature 97.2 F 98.6 F Pulse Rate 78 96 Respiratory Rate 20 20 Blood Pressure 124/76 130/96 H Pulse Oximetry 97 99 Oxygen Delivery Method Room Air Room Air BMI result Body Mass Index 30.4 Labs 03/17/23 08:09 Medications Medications Current Medications Acetaminophen (Acetaminophen 325 Mg Tablet) 650 mg PO Q6H PRN PRN Reason: Headache/Pain Mild Scale (1-3) Al Hydroxide/Mg Hydroxide (Magnesium Hydrox/Alum Hydrox 30 Ml Oral.Susp) 30 ml PO Q6H PRN PRN Reason: Heartburn/Nausea Amitriptyline HCl (Amitriptyline Hcl 50 Mg Tablet) 50 mg PO BEDTIME [facility] Last Admin: 03/18/23 20:27 Dose: 50 mg Amlodipine Besylate (Amlodipine Besylate 5 Mg Tablet) 5 mg PO DAILY [facility]; Protocol Last Admin: 03/19/23 08:33 Dose: 5 mg Aripiprazole (Aripiprazole 10 Mg Tablet) 10 mg PO DAILY [facility] Last Admin: 03/19/23 08:33 Dose: 10 mg Bupropion HCl (Bupropion Hcl 75 Mg Tablet) 75 mg PO DAILY [facility] Last Admin: 03/19/23 08:31 Dose: 75 mg Carbamide Peroxide (Carbamide Peroxide 6.5% Otic 15 Ml Drpbtl) 5 drop EAR-LEFT BID [facility] Last Admin: 03/19/23 09:12 Dose: 5 drop Clonazepam (Clonazepam 0.5 Mg Tablet) 0.5 mg PO TID PRN PRN Reason: Anxiety Clonidine HCl (Clonidine Hcl 0.2 Mg Tablet) 0.2 mg PO BEDTIME [facility]; Protocol Last Admin: 03/18/23 20:26 Dose: 0.2 mg Clonidine HCl (Clonidine Hcl 0.1 Mg Tablet) 0.1 mg PO DAILY [facility]; Protocol Last Admin: 03/19/23 08:31 Dose: 0.1 mg Famotidine (Famotidine 20 Mg Tablet) 20 mg PO DAILY@0630 [facility] Last Admin: 03/19/23 05:33 Dose: 20 mg Folic Acid (Folic Acid 1 Mg Tablet) 1 mg PO DAILY [facility] Last Admin: 03/19/23 08:33 Dose: 1 mg Gabapentin (Gabapentin 600 Mg Tablet) 300 mg PO TID [facility] Last Admin: 03/19/23 08:32 Dose: 300 mg Hydroxyzine HCl (Hydroxyzine Hcl 25 Mg Tablet) 25 mg PO Q6H PRN PRN Reason: Anxiety Last Admin: 03/18/23 20:27 Dose: 25 mg Loratadine (Loratadine 10 Mg Tablet) 10 mg PO DAILY [facility] Last Admin: 03/19/23 08:33 Dose: 10 mg Lorazepam (Lorazepam 1 Mg Tablet) 1 mg PO Q2H PRN PRN Reason: CIWA 8-11 Last Admin: 03/18/23 20:26 Dose: 1 mg Lorazepam (Lorazepam 1 Mg Tablet) 2 mg PO Q2H PRN PRN Reason: CIWA 12-15 Last Admin: 03/17/23 20:25 Dose: 2 mg Lorazepam (Lorazepam 1 Mg Tablet) 3 mg PO Q2H PRN PRN Reason: CIWA > 15; and call Magnesium Hydroxide (Milk Of Magnesia 30 Ml Oral.Susp) 30 ml PO DAILY PRN PRN Reason: Constipation Multivitamins/Vitamin C (Multivitamin Tablet) 1 tab PO DAILY [facility] Last Admin: 03/19/23 08:31 Dose: 1 tab Nicotine Polacrilex (Nicotine Polacrilex 2 Mg Gum) 4 mg BUCCAL Q2H PRN PRN Reason: Nicotine Cravings Omeprazole (Omeprazole 20 Mg Capsule.Dr) 20 mg PO DAILY [facility] Last Admin: 03/19/23 08:31 Dose: 20 mg Thiamine HCl (Thiamine Hcl 100 Mg Tablet) 100 mg PO DAILY [facility] Last Admin: 03/19/23 08:33 Dose: 100 mg Allergies Allergies Allergy/AdvReac Type Severity Reaction Status Date / Time Pork/Porcine Containing Allergy Unknown unknown Verified 03/16/23 17:28 Products Assessment & Plan Assessment & Plan (1) Major depression: Status: Acute Code(s): F32.9 - Major depressive disorder, single episode, unspecified (2) Alcohol use disorder: Status: Acute Code(s): F10.90 - Alcohol use, unspecified, uncomplicated (3) PTSD (post-traumatic stress disorder): Status: Acute Code(s): F43.10 - Post-traumatic stress disorder, unspecified Plan 62 yo male, history of PTSD, major depression, alcohol use disorder presents with SI and relapse after recent admission to [facility] where he did not find his aftercare planning met his needs. Plan: Monitor for withdrawal. Re-establish regime Aftercare planning Collateral contact as needed 03/18 Decrease amitriptyline to 50 mg HS Decrease Klonopin to 0. 5mg daily prn Decrease Gabapentin to 300 mg tid Pt would benefit from a MOCA when team is available 03/19 increased his amitryptiline slightly IF needed at bed 50mg mr x1 as well as clonazeapm 0.5mg hs mr x` - checked ekg slight prolonged qtc , will check amitrypt lvl in am Patient educated on: medication risk/benefits Informed Consent: does not understand Reason for continued inpatient stay Substantial Risk for: inability to function, rapid decompensation and med/psych decompensation Time Spent With Patient Time: Total time managing care of this patient today ____ minutes.
[2023-03-19] MEDS: LORazepam 1 MG TABLET PO (14:53)
[2023-03-19 20:40] VITALS: BP 115/77; PULSE 104; RESP 18; TEMP 36.2
[2023-03-19] MEDS: Amitriptyline HCl 50 MG TABLET PO ×2 (20:45→21:26)
[2023-03-19] MEDS: cloNIDine HCL 0.2 MG TABLET PO (20:45)
--- NOTE | 2023-03-20 | ECG_ITS ---
Test Reason : RE-CHECK Blood Pressure : / mmHG Vent. Rate : 093 BPM Atrial Rate : 093 BPM P-R Int : 162 ms QRS Dur : 086 ms QT Int : 352 ms P-R-T Axes : 061 023 061 degrees QTc Int : 437 ms Normal sinus rhythm Nonspecific T wave abnormality Abnormal ECG When compared with ECG of 19-MAR-2023 17:31, No significant change was found Referred By: Priya Streeter Electronically Signed By:JASPREET NIETO
[2023-03-20] MEDS: LORazepam 1 MG TABLET PO ×2 (01:25→08:46)
[2023-03-20 08:09] VITALS: BP 145/89; PULSE 102; RESP 16; TEMP 36.2; O2SAT 95
[2023-03-20] MEDS: Gabapentin 600 MG TABLET 300 MG PO ×3 (08:37→21:06)
[2023-03-20] MEDS: Loratadine 10 MG TABLET PO (08:38)
[2023-03-20] MEDS: cloNIDine HCL 0.1 MG TABLET PO (08:38)
[2023-03-20] MEDS: ARIPiprazole 10 MG TABLET PO (08:38)
[2023-03-20] MEDS: Thiamine HCL 100 MG TABLET PO (08:38)
[2023-03-20] MEDS: amLODIPine Besylate 5 MG TABLET PO (08:38)
[2023-03-20] MEDS: Folic Acid 1 MG TABLET PO (08:38)
[2023-03-20] MEDS: Omeprazole 20 MG CAPSULE.DR PO (08:38)
[2023-03-20] MEDS: buPROPion HCL 75 MG TABLET PO (08:38)
[2023-03-20] MEDS: Multivitamin TABLET 1 TAB PO (08:38)
[2023-03-20] MEDS: Famotidine 20 MG TABLET PO (08:38)
[2023-03-20] MEDS: Carbamide Peroxide 6.5% Otic 15 ML DRPBTL 5 DROP EAR-LEFT (08:40)
--- NOTE | 2023-03-20 11:32 | P.PNPSI_ITS ---
Subjective Subjective Date of Service: 03/20/23 Reason For Visit: F33.1, F10.20, F14.10 Subjective Notes: Conditional Voluntary Interim History: 62 yo AAM very engageable if you don't talk about his decreased amitryptiline, pt angry that it was decreased, feels his slight trip in socks was misinterpreted- denied sedation or imbalance- Reports he has been on amitryptiline 200mg since [facility] last month and found it helped- also clonazepam 1mg at bed- hx seroquel causing signiicant weight gain - Before we got into that discussion - he was able to say his sister , he left [facility] and went to his brother's- brother drinks so patient picked up some beers- prior admission and went off ? meds- Medication Compliance: Yes Side effects from medications: No Attending Groups: Intermittent Review of Systems Acute medical concerns: No Medical Review of Systems: unchanged Review of Systems: denies blurry vision, dry mouth or urinary retention or constipation Mental Status Exam Mental Status Exam Patient Appearance: Well Grooomed and Appropriate Patient Orientation: Person, Place, Time and Situation Level of Consciousness: Awake and Alert Patient Behavior: Appropriate, Cooperative (until sticky point about these 2 meds decrease- then become angry and belligerent) and Resistive to Care Mood Description: Calm and Angry Affect Description: Labile Patient Cognition Impaired: No Ability to Follow Directions: Fair Speech Pattern: Clear Hallucinations: None Delusions: Not Present Thought Process: Intact and Goal Oriented Thought Content: positive for Perseveration (on meds) Abnormal Motor Activity Signs and Symptoms: Restlessness Judgement: Fair Diagnostics Vital Signs (24Hr): Vital Signs - 24 hr 03/19/23 20:40 03/20/23 08:09 Temperature 97.1 F 97.2 F Pulse Rate 104 H 102 H Respiratory Rate 18 16 Blood Pressure 115/77 145/89 H Pulse Oximetry 95 BMI result Body Mass Index 30.4 Labs 03/17/23 08:09 Labs: amitryptiline level pending EKG EKG Comment: had ekg done at 50mg and at 100mg not much difference Medications Medications Current Medications Acetaminophen (Acetaminophen 325 Mg Tablet) 650 mg PO Q6H PRN PRN Reason: Headache/Pain Mild Scale (1-3) Al Hydroxide/Mg Hydroxide (Magnesium Hydrox/Alum Hydrox 30 Ml Oral.Susp) 30 ml PO Q6H PRN PRN Reason: Heartburn/Nausea Amitriptyline HCl (Amitriptyline Hcl 50 Mg Tablet) 50 mg PO BEDTIME MRX1 [facility] Last Admin: 03/19/23 21:26 Dose: 50 mg Amlodipine Besylate (Amlodipine Besylate 5 Mg Tablet) 5 mg PO DAILY [facility]; Protocol Last Admin: 03/20/23 08:38 Dose: 5 mg Aripiprazole (Aripiprazole 10 Mg Tablet) 10 mg PO DAILY [facility] Last Admin: 03/20/23 08:38 Dose: 10 mg Bupropion HCl (Bupropion Hcl 75 Mg Tablet) 75 mg PO DAILY [facility] Last Admin: 03/20/23 08:38 Dose: 75 mg Carbamide Peroxide (Carbamide Peroxide 6.5% Otic 15 Ml Drpbtl) 5 drop EAR-LEFT BID [facility] Last Admin: 03/20/23 08:40 Dose: 5 drop Clonazepam (Clonazepam 0.5 Mg Tablet) 0.5 mg PO BEDTIME MRX1 PRN PRN Reason: Sleep Last Admin: 03/19/23 21:26 Dose: 0.5 mg Clonidine HCl (Clonidine Hcl 0.2 Mg Tablet) 0.2 mg PO BEDTIME [facility]; Protocol Last Admin: 03/19/23 20:45 Dose: 0.2 mg Clonidine HCl (Clonidine Hcl 0.1 Mg Tablet) 0.1 mg PO DAILY [facility]; Protocol Last Admin: 03/20/23 08:38 Dose: 0.1 mg Famotidine (Famotidine 20 Mg Tablet) 20 mg PO DAILY@0630 [facility] Last Admin: 03/20/23 08:38 Dose: 20 mg Folic Acid (Folic Acid 1 Mg Tablet) 1 mg PO DAILY [facility] Last Admin: 03/20/23 08:38 Dose: 1 mg Gabapentin (Gabapentin 600 Mg Tablet) 300 mg PO TID [facility] Last Admin: 03/20/23 08:37 Dose: 300 mg Hydroxyzine HCl (Hydroxyzine Hcl 25 Mg Tablet) 25 mg PO Q6H PRN PRN Reason: Anxiety Last Admin: 03/18/23 20:27 Dose: 25 mg Loratadine (Loratadine 10 Mg Tablet) 10 mg PO DAILY [facility] Last Admin: 03/20/23 08:38 Dose: 10 mg Lorazepam (Lorazepam 1 Mg Tablet) 1 mg PO Q2H PRN PRN Reason: CIWA 8-11 Last Admin: 03/20/23 08:46 Dose: 1 mg Lorazepam (Lorazepam 1 Mg Tablet) 2 mg PO Q2H PRN PRN Reason: CIWA 12-15 Last Admin: 03/17/23 20:25 Dose: 2 mg Lorazepam (Lorazepam 1 Mg Tablet) 3 mg PO Q2H PRN PRN Reason: CIWA > 15; and call Magnesium Hydroxide (Milk Of Magnesia 30 Ml Oral.Susp) 30 ml PO DAILY PRN PRN Reason: Constipation Multivitamins/Vitamin C (Multivitamin Tablet) 1 tab PO DAILY [facility] Last Admin: 03/20/23 08:38 Dose: 1 tab Nicotine Polacrilex (Nicotine Polacrilex 2 Mg Gum) 4 mg BUCCAL Q2H PRN PRN Reason: Nicotine Cravings Omeprazole (Omeprazole 20 Mg Capsule.Dr) 20 mg PO DAILY [facility] Last Admin: 03/20/23 08:38 Dose: 20 mg Thiamine HCl (Thiamine Hcl 100 Mg Tablet) 100 mg PO DAILY [facility] Last Admin: 03/20/23 08:38 Dose: 100 mg Allergies Allergies Allergy/AdvReac Type Severity Reaction Status Date / Time Pork/Porcine Containing Allergy Unknown unknown Verified 03/16/23 17:28 Products Assessment & Plan Assessment & Plan (1) Major depression: Status: Acute Code(s): F32.9 - Major depressive disorder, single episode, unspecified (2) Alcohol use disorder: Status: Acute Code(s): F10.90 - Alcohol use, unspecified, uncomplicated (3) PTSD (post-traumatic stress disorder): Status: Acute Code(s): F43.10 - Post-traumatic stress disorder, unspecified Plan 62 yo male, history of PTSD, major depression, alcohol use disorder presents with SI and relapse after recent admission to [facility] where he did not find his aftercare planning met his needs. Plan: Monitor for withdrawal. Re-establish regime Aftercare planning Collateral contact as needed 03/18 Decrease amitriptyline to 50 mg HS Decrease Klonopin to 0. 5mg daily prn Decrease Gabapentin to 300 mg tid Pt would benefit from a MOCA when team is available 03/19 increased his amitryptiline slightly IF needed at bed 50mg mr x1 as well as clonazeapm 0.5mg hs mr x` - checked ekg slight prolonged qtc , will check amitrypt lvl in am 03/20 discussed etoh, and hx- pt still fixated on not sleeping- and this being only solution rejects all other suggestions- will titrate again tonight by 50mg to 150mg and evaluated tomorrow doesn't want to be bothered with repeat of clonazepam once in bed- but not increasing both same day - watch for sedation/gait changes- won't be easy to lose weight on that much amitryptiline suggested pt sign 3 day if he doesn't agree with plan Patient educated on: medication risk/benefits and other (ekg and lvl of med) Informed Consent: further education needed Reason for continued inpatient stay Substantial Risk for: rapid decompensation Time Spent With Patient Time: Total time managing care of this patient today ____ minutes.
[2023-03-20 20:30] VITALS: BP 122/84; PULSE 93; TEMP 35.8
[2023-03-20] MEDS: Amitriptyline HCl 50 MG TABLET 150 MG PO (21:03)
[2023-03-20] MEDS: cloNIDine HCL 0.2 MG TABLET PO (21:07)
[2023-03-20] MEDS: clonazePAM 0.5 MG TABLET PO (21:07)
[2023-03-21] MEDS: hydrOXYzine HCL 25 MG TABLET PO (01:56)
[2023-03-21] MEDS: clonazePAM 0.5 MG TABLET PO (01:56)
[2023-03-21] MEDS: Famotidine 20 MG TABLET PO (05:32)
[2023-03-21 08:52] VITALS: BP 149/97; PULSE 93; RESP 16; TEMP 36.1; O2SAT 99
--- NOTE | 2023-03-21 09:30 | HO.PSYCHPN ---
Subjective Subjective Date of Service: 03/21/23 Reason For Visit: F33.1, F10.20, F14.10 Interim History: Met with patient; discussed with team; reviewed notes Patient reports he is feeling better than on admission; no SI; patient reports being upset that his medications were changed over the weekend and asked for amitriptyline to be increased back to prior does. Patient says he was not unsteady at all and that the only reason he lost his balance was because his socks caught on his heel. Discussed gabapentin and patient is not sure how helpful it is so will leave it 300 t.i.d. discussed disposition and patient open to options such as respite. Mental Status Exam Mental Status Exam Narrative: Pt is alert and oriented; behavior is cooperative, friendly and calm; patient is not in distress; dressed in casual attire with adequate hygiene; mood is described as okay and affect congruent; eye contact appropriate; Speech is normal rate, volume and prosody and not pressured; no psychomotor agitation/retardation present; thought process is organized and goal directed; Thought content is on tx; otherwise pertinent to relevant topics and without any delusional content, paranoid ideations or grandiosity; denies any SI/HI. There is no evidence of perceptual disturbance. Patients insight and judgment appear intact. Diagnostics Vital Signs (24Hr): Vital Signs - 24 hr 03/20/23 20:30 03/21/23 08:52 Temperature 96.4 F L 97 F Pulse Rate 93 93 Respiratory Rate 16 Blood Pressure 122/84 149/97 H Pulse Oximetry 99 Oxygen Delivery Method Room Air BMI result Body Mass Index 30.4 Labs 03/17/23 08:09 Medications Medications Current Medications Acetaminophen (Acetaminophen 325 Mg Tablet) 650 mg PO Q6H PRN PRN Reason: Headache/Pain Mild Scale (1-3) Al Hydroxide/Mg Hydroxide (Magnesium Hydrox/Alum Hydrox 30 Ml Oral.Susp) 30 ml PO Q6H PRN PRN Reason: Heartburn/Nausea Amitriptyline HCl (Amitriptyline Hcl 50 Mg Tablet) 150 mg PO BEDTIME [facility] Last Admin: 03/20/23 21:03 Dose: 150 mg Amlodipine Besylate (Amlodipine Besylate 5 Mg Tablet) 5 mg PO DAILY [facility]; Protocol Last Admin: 03/20/23 08:38 Dose: 5 mg Aripiprazole (Aripiprazole 10 Mg Tablet) 10 mg PO DAILY [facility] Last Admin: 03/20/23 08:38 Dose: 10 mg Bupropion HCl (Bupropion Hcl 75 Mg Tablet) 75 mg PO DAILY [facility] Last Admin: 03/20/23 08:38 Dose: 75 mg Carbamide Peroxide (Carbamide Peroxide 6.5% Otic 15 Ml Drpbtl) 5 drop EAR-LEFT BID [facility] Last Admin: 03/20/23 21:33 Dose: Not Given Clonazepam (Clonazepam 0.5 Mg Tablet) 0.5 mg PO BEDTIME MRX1 PRN PRN Reason: Sleep Last Admin: 03/21/23 01:56 Dose: 0.5 mg Clonidine HCl (Clonidine Hcl 0.2 Mg Tablet) 0.2 mg PO BEDTIME [facility]; Protocol Last Admin: 03/20/23 21:07 Dose: 0.2 mg Clonidine HCl (Clonidine Hcl 0.1 Mg Tablet) 0.1 mg PO DAILY [facility]; Protocol Last Admin: 03/20/23 08:38 Dose: 0.1 mg Famotidine (Famotidine 20 Mg Tablet) 20 mg PO DAILY@0630 [facility] Last Admin: 03/21/23 05:32 Dose: 20 mg Folic Acid (Folic Acid 1 Mg Tablet) 1 mg PO DAILY [facility] Last Admin: 03/20/23 08:38 Dose: 1 mg Gabapentin (Gabapentin 600 Mg Tablet) 300 mg PO TID [facility] Last Admin: 03/20/23 21:06 Dose: 300 mg Hydroxyzine HCl (Hydroxyzine Hcl 25 Mg Tablet) 25 mg PO Q6H PRN PRN Reason: Anxiety Last Admin: 03/21/23 01:56 Dose: 25 mg Loratadine (Loratadine 10 Mg Tablet) 10 mg PO DAILY [facility] Last Admin: 03/20/23 08:38 Dose: 10 mg Lorazepam (Lorazepam 1 Mg Tablet) 1 mg PO Q2H PRN PRN Reason: CIWA 8-11 Last Admin: 03/20/23 08:46 Dose: 1 mg Lorazepam (Lorazepam 1 Mg Tablet) 2 mg PO Q2H PRN PRN Reason: CIWA 12-15 Last Admin: 03/17/23 20:25 Dose: 2 mg Lorazepam (Lorazepam 1 Mg Tablet) 3 mg PO Q2H PRN PRN Reason: CIWA > 15; and call Magnesium Hydroxide (Milk Of Magnesia 30 Ml Oral.Susp) 30 ml PO DAILY PRN PRN Reason: Constipation Multivitamins/Vitamin C (Multivitamin Tablet) 1 tab PO DAILY [facility] Last Admin: 03/20/23 08:38 Dose: 1 tab Nicotine Polacrilex (Nicotine Polacrilex 2 Mg Gum) 4 mg BUCCAL Q2H PRN PRN Reason: Nicotine Cravings Omeprazole (Omeprazole 20 Mg Capsule.) 20 mg PO DAILY [facility] Last Admin: 03/20/23 08:38 Dose: 20 mg Thiamine HCl (Thiamine Hcl 100 Mg Tablet) 100 mg PO DAILY [facility] Last Admin: 03/20/23 08:38 Dose: 100 mg Allergies Allergies Allergy/AdvReac Type Severity Reaction Status Date / Time Pork/Porcine Containing Allergy Unknown unknown Verified 03/16/23 17:28 Products Assessment & Plan Assessment & Plan (1) Major depression: Status: Acute Code(s): F32.9 - Major depressive disorder, single episode, unspecified (2) Alcohol use disorder: Status: Acute Code(s): F10.90 - Alcohol use, unspecified, uncomplicated (3) PTSD (post-traumatic stress disorder): Status: Acute Code(s): F43.10 - Post-traumatic stress disorder, unspecified Plan 62 yo male, history of PTSD, major depression, alcohol use disorder presents with SI and relapse after recent admission to [facility] where he did not find his aftercare planning met his needs. Plan: Monitor for withdrawal. Re-establish regime Aftercare planning Collateral contact as needed 03/18 Decrease amitriptyline to 150 mg HS Decrease Klonopin to 0. 5mg daily prn Decrease Gabapentin to 300 mg tid Pt would benefit from a MOCA when team is available 03/19 increased his amitryptiline slightly IF needed at bed 50mg mr x1 as well as clonazeapm 0.5mg hs mr x checked ekg slight prolonged qtc , will check amitrypt lvl in am 03/20 discussed etoh, and hx- pt still fixated on not sleeping- and this being only solution rejects all other suggestions- will titrate again tonight by 50mg to 150mg and evaluated tomorrow doesn't want to be bothered with repeat of clonazepam once in bed- but not increasing both same day - watch for sedation/gait changes- won't be easy to lose weight on that much amitryptiline suggested pt sign 3 day if he doesn't agree with plan 03/21 seems that patient has about of unsteadiness was just mechanical and not due to over sedation from medications Increase amitriptyline back to 200 mg Increase Klonopin back to 1 mg q.h.s. p.r.n. However will leave gabapentin at 300 mg t.i.d. since patient is not sure how much it was helpful anyway. Patient reports withdrawal is over. Discussed other medications for anxiety such as Trileptal however at this time feels that he would like to leave medications as they are Prior medications Depakote not continued due to LFTs; Seroquel due to weight gain) Patient educated on: diagnosis, medication risk/benefits, substance abuse and therapeutic strategies Informed Consent: understands Reason for continued inpatient stay Substantial Risk for: stable for discharge Time Spent With Patient Time: Total time managing care of this patient today ____ minutes.
[2023-03-21] MEDS: Carbamide Peroxide 6.5% Otic 15 ML DRPBTL 5 DROP EAR-LEFT (09:50)
[2023-03-21] MEDS: amLODIPine Besylate 5 MG TABLET PO (09:51)
[2023-03-21] MEDS: Loratadine 10 MG TABLET PO (09:51)
[2023-03-21] MEDS: Omeprazole 20 MG CAPSULE.DR PO (09:51)
[2023-03-21] MEDS: Thiamine HCL 100 MG TABLET PO (09:51)
[2023-03-21] MEDS: Multivitamin TABLET 1 TAB PO (09:51)
[2023-03-21] MEDS: ARIPiprazole 10 MG TABLET PO (09:52)
[2023-03-21] MEDS: buPROPion HCL 75 MG TABLET PO (09:52)
[2023-03-21] MEDS: cloNIDine HCL 0.1 MG TABLET PO (09:53)
[2023-03-21] MEDS: Gabapentin 600 MG TABLET 300 MG PO ×3 (09:53→21:22)
[2023-03-21] MEDS: Folic Acid 1 MG TABLET PO (09:54)
[2023-03-21 18:00] VITALS: BP 152/96; PULSE 96; RESP 16; TEMP 36.3; O2SAT 99
[2023-03-21] MEDS: clonazePAM 1 MG TABLET PO (21:22)
[2023-03-21] MEDS: cloNIDine HCL 0.2 MG TABLET PO (21:24)
[2023-03-21] MEDS: Amitriptyline HCl 50 MG TABLET 200 MG PO (21:24)
[2023-03-22] MEDS: hydrOXYzine HCL 25 MG TABLET PO (00:53)
[2023-03-22] MEDS: Famotidine 20 MG TABLET PO (06:17)
[2023-03-22 08:00] VITALS: BP 142/91; PULSE 81; RESP 18; TEMP 36.1; O2SAT 98
[2023-03-22] MEDS: amLODIPine Besylate 5 MG TABLET PO (08:38)
[2023-03-22] MEDS: Gabapentin 600 MG TABLET 300 MG PO ×3 (08:38→21:30)
[2023-03-22] MEDS: cloNIDine HCL 0.1 MG TABLET PO ×2 (08:38→14:19)
[2023-03-22] MEDS: Folic Acid 1 MG TABLET PO (08:38)
[2023-03-22] MEDS: ARIPiprazole 10 MG TABLET PO (08:38)
[2023-03-22] MEDS: buPROPion HCL 75 MG TABLET PO (08:39)
[2023-03-22] MEDS: Loratadine 10 MG TABLET PO (08:39)
[2023-03-22] MEDS: Thiamine HCL 100 MG TABLET PO (08:40)
[2023-03-22] MEDS: Multivitamin TABLET 1 TAB PO (08:40)
[2023-03-22] MEDS: Omeprazole 20 MG CAPSULE.DR PO (08:40)
--- NOTE | 2023-03-22 10:28 | HO.PSYCHPN ---
Subjective Subjective Date of Service: 03/22/23 Reason For Visit: F33.1, F10.20, F14.10 Interim History: met with patient; discussed with team Patient reports that his mood remains better overall but he still quite anxious. Still having trouble sleeping. Discussed medication options and patient agrees to try Thorazine. He says he has had insomnia for most of his life and despite possible side effects and polypharmacy he said achieving sleep is worth adding a medication. Patient has tried trazodone in the past, Seroquel which were not helpful. Discussed gabapentin and patient would like to taper off of it. Also discussed starting Trileptal for anxiety since he said this is also ongoing. Patient understands that substance abuse treatment remains necessary to aid him in progressing progress out of a lot of these symptoms Patient remains engaged in treatment, attending groups and forthcoming in discussions Mental Status Exam Mental Status Exam Narrative: Pt is alert and oriented; behavior is cooperative, friendly and calm; patient is not in distress; dressed in casual attire with adequate hygiene; mood is described as okay and affect congruent; eye contact appropriate; Speech is normal rate, volume and prosody and not pressured; no psychomotor agitation/retardation present; thought process is organized and goal directed; Thought content is on tx, medication management, aftercare; otherwise pertinent to relevant topics and without any delusional content, paranoid ideations or grandiosity; denies any SI/HI. There is no evidence of perceptual disturbance. Patients insight and judgment are fair. Diagnostics Vital Signs (24Hr): Vital Signs - 24 hr 03/21/23 18:00 03/22/23 08:00 Temperature 97.3 F 97.0 F Pulse Rate 96 81 Respiratory Rate 16 18 Blood Pressure 152/96 H 142/91 H Pulse Oximetry 99 98 Oxygen Delivery Method Room Air Room Air BMI result Body Mass Index 30.4 Labs 03/17/23 08:09 Medications Medications Current Medications Acetaminophen (Acetaminophen 325 Mg Tablet) 650 mg PO Q6H PRN PRN Reason: Headache/Pain Mild Scale (1-3) Al Hydroxide/Mg Hydroxide (Magnesium Hydrox/Alum Hydrox 30 Ml Oral.Susp) 30 ml PO Q6H PRN PRN Reason: Heartburn/Nausea Amitriptyline HCl (Amitriptyline Hcl 50 Mg Tablet) 200 mg PO BEDTIME [facility] Last Admin: 09/18/23 21:24 Dose: 200 mg Amlodipine Besylate (Amlodipine Besylate 5 Mg Tablet) 5 mg PO DAILY [facility]; Protocol Last Admin: 03/22/23 08:38 Dose: 5 mg Aripiprazole (Aripiprazole 10 Mg Tablet) 10 mg PO DAILY [facility] Last Admin: 03/22/23 08:38 Dose: 10 mg Bupropion HCl (Bupropion Hcl 75 Mg Tablet) 75 mg PO DAILY [facility] Last Admin: 03/22/23 08:39 Dose: 75 mg Carbamide Peroxide (Carbamide Peroxide 6.5% Otic 15 Ml Drpbtl) 5 drop EAR-LEFT BID [facility] Last Admin: 03/22/23 08:44 Dose: Not Given Clonazepam (Clonazepam 1 Mg Tablet) 1 mg PO BEDTIME [facility] Last Admin: 03/21/23 21:22 Dose: 1 mg Clonidine HCl (Clonidine Hcl 0.2 Mg Tablet) 0.2 mg PO BEDTIME [facility]; Protocol Last Admin: 03/21/23 21:24 Dose: 0.2 mg Clonidine HCl (Clonidine Hcl 0.1 Mg Tablet) 0.1 mg PO BID@0900,1400 [facility]; Protocol Last Admin: 03/22/23 08:38 Dose: 0.1 mg Famotidine (Famotidine 20 Mg Tablet) 20 mg PO DAILY@0630 [facility] Last Admin: 03/22/23 06:17 Dose: 20 mg Folic Acid (Folic Acid 1 Mg Tablet) 1 mg PO DAILY [facility] Last Admin: 03/22/23 08:38 Dose: 1 mg Gabapentin (Gabapentin 600 Mg Tablet) 300 mg PO TID [facility] Last Admin: 03/22/23 08:38 Dose: 300 mg Hydroxyzine HCl (Hydroxyzine Hcl 25 Mg Tablet) 25 mg PO Q6H PRN PRN Reason: Anxiety Last Admin: 03/22/23 00:53 Dose: 25 mg Loratadine (Loratadine 10 Mg Tablet) 10 mg PO DAILY [facility] Last Admin: 03/22/23 08:39 Dose: 10 mg Magnesium Hydroxide (Milk Of Magnesia 30 Ml Oral.Susp) 30 ml PO DAILY PRN PRN Reason: Constipation Multivitamins/Vitamin C (Multivitamin Tablet) 1 tab PO DAILY [facility] Last Admin: 03/22/23 08:40 Dose: 1 tab Nicotine Polacrilex (Nicotine Polacrilex 2 Mg Gum) 4 mg BUCCAL Q2H PRN PRN Reason: Nicotine Cravings Omeprazole (Omeprazole 20 Mg Capsule.) 20 mg PO DAILY [facility] Last Admin: 03/22/23 08:40 Dose: 20 mg Thiamine HCl (Thiamine Hcl 100 Mg Tablet) 100 mg PO DAILY [facility] Last Admin: 03/22/23 08:40 Dose: 100 mg Allergies Allergies Allergy/AdvReac Type Severity Reaction Status Date / Time Pork/Porcine Containing Allergy Unknown unknown Verified 03/16/23 17:28 Products Assessment & Plan Assessment & Plan (1) Major depression: Status: Acute Code(s): F32.9 - Major depressive disorder, single episode, unspecified (2) Alcohol use disorder: Status: Acute Code(s): F10.90 - Alcohol use, unspecified, uncomplicated (3) PTSD (post-traumatic stress disorder): Status: Acute Code(s): F43.10 - Post-traumatic stress disorder, unspecified Plan 62 yo male, history of PTSD, major depression, alcohol use disorder presents with SI and relapse after recent admission to [facility] where he did not find his aftercare planning met his needs. Plan: Monitor for withdrawal. Re-establish regime Aftercare planning Collateral contact as needed 03/18 Decrease amitriptyline to 150 mg HS Decrease Klonopin to 0. 5mg daily prn Decrease Gabapentin to 300 mg tid Pt would benefit from a MOCA when team is available 03/19 increased his amitryptiline slightly IF needed at bed 50mg mr x1 as well as clonazeapm 0.5mg hs mr x checked ekg slight prolonged qtc , will check amitrypt lvl in am 03/20 discussed etoh, and hx- pt still fixated on not sleeping- and this being only solution rejects all other suggestions- will titrate again tonight by 50mg to 150mg and evaluated tomorrow doesn't want to be bothered with repeat of clonazepam once in bed- but not increasing both same day - watch for sedation/gait changes- won't be easy to lose weight on that much amitryptiline suggested pt sign 3 day if he doesn't agree with plan 03/21 seems that patient has about of unsteadiness was just mechanical and not due to over sedation from medications Increase amitriptyline back to 200 mg Increase Klonopin back to 1 mg q.h.s. p.r.n. However will leave gabapentin at 300 mg t.i.d. since patient is not sure how much it was helpful anyway. Patient reports withdrawal is over. Discussed other medications for anxiety such as Trileptal however at this time feels that he would like to leave medications as they are Prior medications Depakote not continued due to LFTs; Seroquel due to weight gain) 03/22 mood stabilized; still anxious and still with chronic insomnia; agrees to try Thorazine p.r.n. for insomnia and to start Trileptal for anxiety Patient educated on: diagnosis, medication risk/benefits, substance abuse and therapeutic strategies Informed Consent: understands Reason for continued inpatient stay Substantial Risk for: stable for discharge Time Spent With Patient Time: Total time managing care of this patient today ____ minutes.
[2023-03-22] MEDS: OXcarbazepine 150 MG TABLET PO (14:19)
[2023-03-22 18:00] VITALS: BP 114/80; PULSE 94; RESP 16; TEMP 36.9; O2SAT 97
[2023-03-22] MEDS: chlorproMAZINE HCl 25 MG TABLET 50 MG PO (21:29)
[2023-03-22] MEDS: Amitriptyline HCl 50 MG TABLET 200 MG PO (21:29)
[2023-03-22] MEDS: clonazePAM 1 MG TABLET PO (21:30)
[2023-03-22] MEDS: cloNIDine HCL 0.2 MG TABLET PO (21:30)
[2023-03-23] MEDS: hydrOXYzine HCL 25 MG TABLET PO (01:58)
[2023-03-23] MEDS: Famotidine 20 MG TABLET PO (06:04)
[2023-03-23 08:00] VITALS: BP 129/90; PULSE 96; RESP 16; TEMP 36.6; O2SAT 100
[2023-03-23] MEDS: Thiamine HCL 100 MG TABLET PO (08:44)
[2023-03-23] MEDS: Multivitamin TABLET 1 TAB PO (08:44)
[2023-03-23] MEDS: ARIPiprazole 10 MG TABLET PO (08:44)
[2023-03-23] MEDS: cloNIDine HCL 0.1 MG TABLET PO ×2 (08:44→14:37)
[2023-03-23] MEDS: Omeprazole 20 MG CAPSULE.DR PO (08:44)
[2023-03-23] MEDS: amLODIPine Besylate 5 MG TABLET PO (08:45)
[2023-03-23] MEDS: Loratadine 10 MG TABLET PO (08:45)
[2023-03-23] MEDS: Folic Acid 1 MG TABLET PO (08:45)
[2023-03-23] MEDS: Gabapentin 600 MG TABLET 300 MG PO ×3 (08:46→20:38)
[2023-03-23] MEDS: Carbamide Peroxide 6.5% Otic 15 ML DRPBTL 5 DROP EAR-LEFT (08:47)
--- NOTE | 2023-03-23 18:37 | P.PNPSI_ITS ---
Subjective Subjective Date of Service: 03/23/23 Reason For Visit: F33.1, F10.20, F14.10 Interim History: Met with patient; discussed with team. Patient slept a little better last night but still had a hard time falling asleep and would like Thorazine increased. Also to titrate Trileptal further for anxiety Mental Status Exam Mental Status Exam Narrative: Pt is alert and oriented; behavior is cooperative, friendly and calm; patient is not in distress; dressed in casual attire with adequate hygiene; mood is described as okay and affect congruent; eye contact appropriate; Speech is normal rate, volume and prosody and not pressured; no psychomotor agitation/retardation present; thought process is organized and goal directed; Thought content is on tx, medication management, aftercare; otherwise pertinent to relevant topics and without any delusional content, paranoid ideations or grandiosity; denies any SI/HI. There is no evidence of perceptual disturbance. Patients insight and judgment are fair. Diagnostics Vital Signs (24Hr): Vital Signs - 24 hr 03/23/23 08:00 Temperature 97.8 F Pulse Rate 96 Respiratory Rate 16 Blood Pressure 129/90 H Pulse Oximetry 100 Oxygen Delivery Method Room Air BMI result Body Mass Index 30.4 Labs 03/17/23 08:09 Medications Medications Current Medications Acetaminophen (Acetaminophen 325 Mg Tablet) 650 mg PO Q6H PRN PRN Reason: Headache/Pain Mild Scale (1-3) Al Hydroxide/Mg Hydroxide (Magnesium Hydrox/Alum Hydrox 30 Ml Oral.Susp) 30 ml PO Q6H PRN PRN Reason: Heartburn/Nausea Amitriptyline HCl (Amitriptyline Hcl 50 Mg Tablet) 200 mg PO BEDTIME [facility] Last Admin: 03/22/23 21:29 Dose: 200 mg Amlodipine Besylate (Amlodipine Besylate 5 Mg Tablet) 5 mg PO DAILY [facility]; Protocol Last Admin: 03/23/23 08:45 Dose: 5 mg Aripiprazole (Aripiprazole 10 Mg Tablet) 10 mg PO DAILY [facility] Last Admin: 03/23/23 08:44 Dose: 10 mg Carbamide Peroxide (Carbamide Peroxide 6.5% Otic 15 Ml Drpbtl) 5 drop EAR-LEFT BID [facility] Last Admin: 03/23/23 08:47 Dose: 5 drop Chlorpromazine HCl (Chlorpromazine Hcl 100 Mg Tablet) 100 mg PO BEDTIME [facility] Clonazepam (Clonazepam 1 Mg Tablet) 1 mg PO BEDTIME [facility] Last Admin: 03/22/23 21:30 Dose: 1 mg Clonidine HCl (Clonidine Hcl 0.2 Mg Tablet) 0.2 mg PO BEDTIME [facility]; Protocol Last Admin: 03/22/23 21:30 Dose: 0.2 mg Clonidine HCl (Clonidine Hcl 0.1 Mg Tablet) 0.1 mg PO BID@0900,1400 [facility]; Protocol Last Admin: 03/23/23 14:37 Dose: 0.1 mg Famotidine (Famotidine 20 Mg Tablet) 20 mg PO DAILY@0630 [facility] Last Admin: 03/23/23 06:04 Dose: 20 mg Folic Acid (Folic Acid 1 Mg Tablet) 1 mg PO DAILY [facility] Last Admin: 03/23/23 08:45 Dose: 1 mg Gabapentin (Gabapentin 600 Mg Tablet) 300 mg PO TID [facility] Last Admin: 03/23/23 14:36 Dose: 300 mg Hydroxyzine HCl (Hydroxyzine Hcl 25 Mg Tablet) 25 mg PO Q6H PRN PRN Reason: Anxiety Last Admin: 03/23/23 01:58 Dose: 25 mg Loratadine (Loratadine 10 Mg Tablet) 10 mg PO DAILY [facility] Last Admin: 03/23/23 08:45 Dose: 10 mg Magnesium Hydroxide (Milk Of Magnesia 30 Ml Oral.Susp) 30 ml PO DAILY PRN PRN Reason: Constipation Multivitamins/Vitamin C (Multivitamin Tablet) 1 tab PO DAILY [facility] Last Admin: 03/23/23 08:44 Dose: 1 tab Nicotine Polacrilex (Nicotine Polacrilex 2 Mg Gum) 4 mg BUCCAL Q2H PRN PRN Reason: Nicotine Cravings Omeprazole (Omeprazole 20 Mg Capsule.Dr) 20 mg PO DAILY [facility] Last Admin: 03/23/23 08:44 Dose: 20 mg Oxcarbazepine (Oxcarbazepine 300 Mg Tablet) 300 mg PO BID@0900,1500 [facility] Thiamine HCl (Thiamine Hcl 100 Mg Tablet) 100 mg PO DAILY [facility] Last Admin: 03/23/23 08:44 Dose: 100 mg Allergies Allergies Allergy/AdvReac Type Severity Reaction Status Date / Time Pork/Porcine Containing Allergy Unknown unknown Verified 03/16/23 17:28 Products Assessment & Plan Assessment & Plan (1) Major depression: Status: Acute Code(s): F32.9 - Major depressive disorder, single episode, unspecified (2) Alcohol use disorder: Status: Acute Code(s): F10.90 - Alcohol use, unspecified, uncomplicated (3) PTSD (post-traumatic stress disorder): Status: Acute Code(s): F43.10 - Post-traumatic stress disorder, unspecified Plan 62 yo male, history of PTSD, major depression, alcohol use disorder presents with SI and relapse after recent admission to [facility] where he did not find his aftercare planning met his needs. Plan: Monitor for withdrawal. Re-establish regime Aftercare planning Collateral contact as needed 03/18 Decrease amitriptyline to 150 mg HS Decrease Klonopin to 0. 5mg daily prn Decrease Gabapentin to 300 mg tid Pt would benefit from a MOCA when team is available 03/19 increased his amitryptiline slightly IF needed at bed 50mg mr x1 as well as clonazeapm 0.5mg hs mr x checked ekg slight prolonged qtc , will check amitrypt lvl in am 03/20 discussed etoh, and hx- pt still fixated on not sleeping- and this being only solution rejects all other suggestions- will titrate again tonight by 50mg to 150mg and evaluated tomorrow doesn't want to be bothered with repeat of clonazepam once in bed- but not increasing both same day - watch for sedation/gait changes- won't be easy to lose weight on that much amitryptiline suggested pt sign 3 day if he doesn't agree with plan 03/21 seems that patient has about of unsteadiness was just mechanical and not due to over sedation from medications Increase amitriptyline back to 200 mg Increase Klonopin back to 1 mg q.h.s. p.r.n. However will leave gabapentin at 300 mg t.i.d. since patient is not sure how much it was helpful anyway. Patient reports withdrawal is over. Discussed other medications for anxiety such as Trileptal however at this time feels that he would like to leave medications as they are Prior medications Depakote not continued due to LFTs; Seroquel due to weight gain) 03/22 mood stabilized; still anxious and still with chronic insomnia; agrees to try Thorazine p.r.n. for insomnia and to start Trileptal for anxiety 03/23 remains stable; engaged in treatment; increase Thorazine 100 mg q.h.s.; increase Trileptal Patient educated on: diagnosis and medication risk/benefits Informed Consent: understands Reason for continued inpatient stay Substantial Risk for: stable for discharge Time Spent With Patient Time: Total time managing care of this patient today ____ minutes.
[2023-03-23 18:52] VITALS: BP 128/83; PULSE 100; RESP 18; TEMP 36.1; O2SAT 97
[2023-03-23] MEDS: cloNIDine HCL 0.2 MG TABLET PO (20:37)
[2023-03-23] MEDS: clonazePAM 1 MG TABLET PO (20:40)
[2023-03-23] MEDS: chlorproMAZINE HCl 100 MG TABLET PO (20:40)
[2023-03-23] MEDS: Amitriptyline HCl 50 MG TABLET 200 MG PO (20:40)
[2023-03-24] MEDS: Famotidine 20 MG TABLET PO (06:15)
[2023-03-24 06:48] LABS: Amitriptyline, Serum 123 mcg/L; Nortriptyline, Serum 122 mcg/L; Total (Ami+Nor) 245 mcg/L (100-250)
[2023-03-24 08:20] VITALS: BP 113/66; PULSE 93; RESP 16; TEMP 36.1; O2SAT 98
[2023-03-24] MEDS: OXcarbazepine 300 MG TABLET PO ×2 (08:26→14:00)
[2023-03-24] MEDS: ARIPiprazole 10 MG TABLET PO (08:26)
[2023-03-24] MEDS: Omeprazole 20 MG CAPSULE.DR PO (08:27)
[2023-03-24] MEDS: amLODIPine Besylate 5 MG TABLET PO (08:27)
[2023-03-24] MEDS: Loratadine 10 MG TABLET PO (08:27)
[2023-03-24] MEDS: Multivitamin TABLET 1 TAB PO (08:27)
[2023-03-24] MEDS: cloNIDine HCL 0.1 MG TABLET PO ×2 (08:27→13:54)
[2023-03-24] MEDS: Folic Acid 1 MG TABLET PO (08:27)
[2023-03-24] MEDS: Gabapentin 600 MG TABLET 300 MG PO (08:27)
[2023-03-24] MEDS: Thiamine HCL 100 MG TABLET PO (08:27)
[2023-03-24 11:33] VITALS: BMI 32.8
[2023-03-24 13:57] VITALS: BP 138/93; PULSE 104
[2023-03-24] MEDS: Gabapentin 100 MG CAPSULE PO (14:00)
--- NOTE | 2023-03-24 16:27 | P.DS_ITS ---
DS: Providers Provider Date of Service: 03/24/23 Date of admission: 03/16/23 17:00 Date of discharge: 03/24/23 Primary care physician: Fernando Physician Admitting clinician: Mally Gonzalez Consults: 03/16/23 17:26 Consult to Hospitalist Routine Comment: Consulting Provider: Hospitalist Reason For Exam: OSH admission Attending physician on discharge: Gab Carter DS: Diagnosis Discharge Diagnosis (1) Major depression: Status: Acute (2) Alcohol use disorder: Status: Acute (3) PTSD (post-traumatic stress disorder): Status: Acute DS: Medications Discharge Medications Home Medications: Previous Rx's Medication Instructions Recorded carbamide peroxide 6.5 % ear drops 5 drp otic (ear) left BID 7 days 01/24/23 (Ear Wax Removal Drops) #10 mL amitriptyline 100 mg tablet 200 mg (2 x 100 mg) PO BEDTIME 30 03/24/23 days #60 tabs amlodipine 5 mg tablet 5 mg PO DAILY 30 days #30 tabs 03/24/23 aripiprazole 10 mg tablet 10 mg PO DAILY 30 days #30 tabs 03/24/23 chlorpromazine 100 mg tablet 100 mg PO BEDTIME PRN insomnia 30 03/24/23 days #30 tabs clonazepam 1 mg tablet 1 mg PO BEDTIME 30 days #30 tabs 03/24/23 clonidine HCl 0.1 mg tablet 0.1 mg PO BID@0900,1400 30 days 03/24/23 #60 tabs clonidine HCl 0.2 mg tablet 0.2 mg PO BEDTIME 30 days #30 tabs 03/24/23 famotidine 20 mg tablet 20 mg PO DAILY 30 days #30 tabs 03/24/23 folic acid 1 mg tablet 1 mg PO DAILY 30 days #30 tabs 03/24/23 gabapentin 100 mg capsule 100 mg PO TID 5 days #15 caps 03/24/23 hydroxyzine HCl 25 mg tablet 25 mg PO Q6H PRN Anxiety 30 days 03/24/23 #60 tabs loratadine 10 mg tablet 10 mg PO DAILY 30 days #30 tabs 03/24/23 omeprazole 20 mg capsule,delayed 20 mg PO DAILY@0630 30 days #30 03/24/23 release caps oxcarbazepine 300 mg tablet 300 mg PO BID@0900,1500 30 days 03/24/23 #60 tabs thiamine mononitrate (vit B1) 100 100 mg PO DAILY 30 days #30 tabs 03/24/23 mg tablet Mental Status Exam Mental Status Exam Narrative: Pt is alert and oriented; behavior is cooperative, friendly and calm; patient is not in distress; dressed in casual attire with adequate hygiene; mood is described as okay and affect congruent; eye contact appropriate; Speech is normal rate, volume and prosody and not pressured; no psychomotor agitation/retardation present; thought process is organized and goal directed; Thought content is on tx, medication management, aftercare; otherwise pertinent to relevant topics and without any delusional content, paranoid ideations or grandiosity; denies any SI/HI. There is no evidence of perceptual disturbance. Patients insight and judgment are fair. Data Data Completed and Pending Completed studies during hospitalization [Text1]: 03/19/23 03/20/23 10:51 07:10 Amitriptyline 123 Pending Amitriptyline&Nortrip 245 Pending Nortriptyline 122 Pending DS: Summary Hospital Course Hospital Course: 62 yo male, history of PTSD, major depression, alcohol use disorder presents with SI and relapse after recent admission to [facility] where he did not find his aftercare planning met his needs. Hospital course: Monitoring for withdrawal; provider reestablishing medication regimen 03/18 Decrease amitriptyline to 150 mg HS Decrease Klonopin to 0. 5mg daily prn Decrease Gabapentin to 300 mg tid Pt would benefit from a MOCA when team is available 03/19 increased his amitryptiline slightly IF needed at bed 50mg mr x1 as well as clonazeapm 0.5mg hs mr x checked ekg slight prolonged qtc , will check amitrypt lvl in am 03/20 discussed etoh, and hx- pt still fixated on not sleeping- and this being only solution rejects all other suggestions- will titrate again tonight by 50mg to 150mg and e valuated tomorrow doesn't want to be bothered with repeat of clonazepam once in bed- but not increasing both same day - watch for sedation/gait changes- won't be easy to lose weight on that much amitryptiline suggested pt sign 3 day if he doesn't agree with plan 03/21 auto service writer covering for [place]: Patient reports that he is definitely feeling better than on admission and denies any SI. He was initially bothered that his medications were changed over the weekend and asked for amitriptyline to be increased back to prior dose to which auto service writer agreed. Staff reported that Patient had a bout of unsteadiness however patient himself said that was not the case, he was not unsteady at all but rather only lost his balance because his sock caught on his heel; on assessment, auto service writer concurred this was due to mechanical issue and not due to over sedation from medications. Patient reports feeling ready for discharge planning and likes the idea of going to a respite. Increased amitriptyline back to 200 mg Increased Klonopin back to 1 mg q.h.s. p.r.n. However will leave gabapentin at 300 mg t.i.d. since patient is not sure how much it was helpful anyway. Patient reports withdrawal is over. Discussed other medications for anxiety such as Trileptal however at this time feels that he would like to leave medications as they are Prior medications Depakote not continued due to LFTs; Seroquel due to weight gain) 03/22 patient remains with improved mood; still reports anxiety and insomnia, which he agrees is a long-time chronic issue, saying he has had most of his life. Given the chronicity, he understands that this is unlikely to fully resolved at this time but agrees to try Thorazine p.r.n. for insomnia and to start Trileptal for anxiety; risks/side effects discussed and patient felt that potential benefit outweighed potential risks. Also discussed was substance abuse and its affect on the symptoms and patient understood that substance abuse treatment and sobriety are necessary component to further resolving the symptoms. 03/23 remains stable; engaged in treatment, good behavioral and impulse control and appropriate with peers and staff; mood remains improved; slept a little bet ter last night but asks to increase Thorazine 100 mg q.h.s. and to increase Trileptal Patient remains stable, with improved mood, no SI and future oriented. Patient is at baseline and ready for discharge. He is optimistic about continuing to pursue sobriety. While he remains at risk for relapse and decompensation he is not in imminent risk for harm to self or others and appropriate to continue treatment in the community. Time spent discussing smoking cessation with patient: 3 to 10 minutes Status at Discharge Functional status at discharge: independent ambulation Overall status at discharge: patient is back to baseline Time Spent with Patient Time attestation: Total time managing care of this patient today ____ minutes. Time spent: Less than 30 minutes Discharge Plan Discharge Patient Disposition: Xfer to Respite Facility Discharge Diagnosis: MDD, recurrent, severe w/out psychosis, in partial remissio n Referrals: [facility] [Other] - 1 Week (If you have any issues or concerns, please utilize the walk in services or give them a call. If you have an emergency please call 911. ) Discharge Medications: New loratadine 10 mg Tablet 10 mg PO DAILY 30 Days Qty: 30 0RF clonidine HCl 0.1 mg Tablet 0.1 mg PO BID@0900,1400 30 Days Qty: 60 0RF Protocol: Hold for SBP< HOLD for SBP < : 90 clonidine HCl 0.2 mg Tablet 0.2 mg PO BEDTIME 30 Days Qty: 30 0RF Protocol: Hold for SBP< HOLD for SBP < : 90 aripiprazole 10 mg Tablet 10 mg PO DAILY 30 Days Qty: 30 0RF chlorpromazine 100 mg Tablet 100 mg PO BEDTIME PRN (Reason: insomnia) 30 Days Qty: 30 0RF clonazepam 1 mg Tablet 1 mg PO BEDTIME 30 Days Qty: 30 0RF hydroxyzine HCl 25 mg Tablet 25 mg PO Q6H PRN (Reason: Anxiety) 30 Days Qty: 60 0RF oxcarbazepine 300 mg Tablet 300 mg PO BID@0900,1500 30 Days Qty: 60 0RF gabapentin 100 mg Capsule 100 mg PO TID 5 Days Qty: 15 0RF Continued Ear Wax Removal Drops 6.5 % Drops 5 drp otic (ear) left BID 7 Days Qty: 10 0RF amlodipine 5 mg tablet 5 mg PO DAILY 30 Days Qty: 30 0RF famotidine 20 mg Tablet 20 mg PO DAILY 30 Days Qty: 30 0RF omeprazole 20 mg Capsule,Delayed Release(Dr/Ec) 20 mg PO DAILY@0630 30 Days Qty: 30 0RF folic acid 1 mg Tablet 1 mg PO DAILY 30 Days Qty: 30 0RF amitriptyline 100 mg tablet 200 mg PO BEDTIME 30 Days Qty: 60 0RF thiamine mononitrate (vit B1) 100 mg tablet 100 mg PO DAILY 30 Days Qty: 30 0RF Discontinued clonidine HCl 0.1 mg Tablet 0.1 mg PO DAILY 30 Days Qty: 30 0RF Protocol: Hold for SBP< HOLD for SBP < : 90 gabapentin 600 mg Tablet 600 mg PO TID 30 Days Qty: 90 0RF quetiapine 300 mg Tablet 600 mg PO BEDTIME 30 Days Qty: 60 0RF clonidine HCl 0.2 mg Tablet 0.2 mg PO BEDTIME 30 Days Qty: 30 0RF Protocol: Hold for SBP< HOLD for SBP < : 90 temazepam 15 mg capsule 15 mg PO BEDTIME 30 Days Qty: 30 0RF Discharge Orders: Discharge Order (Routine); Ordered 03/24/23 Ordered By: Gab Carter Diet: Regular diet Activity on Discharge: As tolerated Stand Alone Forms: Patient Portal Discharge page, Community Support Care Plan Goals: Maintain mood and safe behaviors Take medications as prescribed Continue to pursue sobriety Practice coping skills Continue with outpatient providers and reach out to them as needed Health Concerns: Mood stability and behaviors Sobriety High Blood pressure Plan of Treatment: Follow up with your PCP, psychiatric provider and other outpatient providers regarding above concerns Take medications as prescribed Assessment: Risk assessment at time of discharge:? Patient was interviewed prior to discharge and found to be fully oriented and without any SI or HI. Patient has insight and demonstrates good judgment in terms of wanting to pursue treatment. Patient is not in imminent risk of harm to self or others and has a safety plan that includes presenting to the closest ER or calling 911 if feeling unsafe.? Patient has been observed closely by nursing and unit staff throughout admission; patient has not engaged in any behaviors that suggest dangerousness to self or others and has demonstrated appropriate behaviors and impulse control Discharge Date/Time: 03/24/23 17:35
[2023-03-24 22:04] LABS: Amitriptyline, Serum 152 mcg/L; Nortriptyline, Serum 114 mcg/L; Total (Ami+Nor) 266 mcg/L (100-250)
== END 2023-03-24 17:35 | DRG 751 ==
PROVIDERS: Psychiatry & Neurology Psychiatry; Admitting Provider Psychiatry & Neurology Psychiatry; Visit Provider Clinical Nurse Specialist Psychiatric/Mental Health, Adult
DX: F33.2 Major depressive disorder, recurrent severe without psychotic features (principal); R45.851 Suicidal ideations; I11.0 Hypertensive heart disease with heart failure; F10.90 Alcohol use, unspecified, uncomplicated; B19.20 Unspecified viral hepatitis C without hepatic coma; G62.9 Polyneuropathy, unspecified; F17.210 Nicotine dependence, cigarettes, uncomplicated; F43.10 Post-traumatic stress disorder, unspecified; Z71.6 Tobacco abuse counseling; Z79.899 Other long term (current) drug therapy
CPT/HCPCS: 36415; 80053; 80061; 80335; 82607; 82746; 83036; 84439; 84443; 93005

== ENCOUNTER → 2023-03-16 17:00 | Outpatient (BNV) | payer OTHER, SELFPAY | PROVIDERS: Admitting Provider Psychiatry & Neurology Psychiatry; Visit Provider Student in an Organized Health Care Education/Training Program | DX: Z02.2 Encounter for examination for admission to residential institution (principal) | CPT/HCPCS: 99429 ==

== ENCOUNTER → 2023-03-16 17:00 | Outpatient (BNV) | payer OTHER, SELFPAY | PROVIDERS: Admitting Provider Psychiatry & Neurology Psychiatry; Visit Provider Clinical Nurse Specialist Psychiatric/Mental Health, Adult | DX: F33.1 Major depressive disorder, recurrent, moderate (principal); F10.90 Alcohol use, unspecified, uncomplicated; F43.11 Post-traumatic stress disorder, acute | CPT/HCPCS: 99231; 99232 ==

== ENCOUNTER 2023-12-07 15:31 | Inpatient (IN) | payer MEDICAID, SELFPAY ==
--- NOTE | 2023-12-07 | ECG_ITS ---
Test Reason : inc qtc Blood Pressure : / mmHG Vent. Rate : 080 BPM Atrial Rate : 080 BPM P-R Int : 124 ms QRS Dur : 090 ms QT Int : 396 ms P-R-T Axes : 060 010 034 degrees QTc Int : 456 ms Normal sinus rhythm Normal ECG When compared with ECG of 20-MAR-2023 14:13, No significant change was found Referred By: Pasquale Strong Electronically Signed By:VINAY PINEDA MD
[2023-12-07 15:45] VITALS: BP 163/107; PULSE 87; RESP 18; TEMP 36.9; O2SAT 94
[2023-12-07] MEDS: LORazepam 1 MG TABLET 2 MG PO (16:09)
[2023-12-07] MEDS: Thiamine HCL 100 MG TABLET PO (16:09)
[2023-12-07 16:12] VITALS: BMI 31.1
[2023-12-07 17:25] VITALS: BP 158/99; PULSE 84; RESP 16; TEMP 36.3; O2SAT 99
--- NOTE | 2023-12-07 18:10 | P.CONHOSP_ITS ---
History of Present Illness Data of Consult Service Date: 12/07/23 Requesting physician: Pasquale Strong Primary Care Provider: None Physician HPI Reason for consult: medical h&p 63-year-old male with history of untreated hepatitis-C, alcohol use disorder, polysubstance abuse with history of IV drug abuse, and mood disorder admitted to adult Psychiatry with consult placed hospitalist service for medical H& P. The patient was admitted from [facility] ED. While in the ED, hematology studies unremarkable. Renal function normal, electrolyte levels normal except for mild hypokalemia of 3.2. ETOH level in the ED 19. Urine tox screen positive for fentanyl, cocaine, methadone. He reports he drinks 1-2 pt of hard alcohol per day last drink was 2 days ago. He is reporting feeling shaky and anxious but denies any nausea, vomiting, headache, confusion, AH/VH, agitation. He also smokes 0.5 packs of cigarettes per day. He states he was having diffuse body cramps short while ago but these have resolved. He is reporting polyarthralgia of the knees, hips, shoulders ongoing for 3 days but denies any injury. No tick bites. Review of Systems 2 Review of Systems: General: No fevers, malaise, unintentional weight loss HEENT: No blurred vision, diplopia. No sore throat, nasal congestion, rhinorrhea, sinus pain, ear pain Cardiovascular: No chest pain, palpitations, or leg edema Respiratory: No shortness of breath, wheezing, cough GI: No abdominal pain, nausea, vomiting, diarrhea, constipation, melena, hematochezia : No dysuria, hematuria, increased urinary frequency, decreased urinary output MSK: No myalgia, back pain. +polyarthralgia Neuro: No headaches, weakness, paresthesias. +shakes Skin: No rashes or lesions PMFSH Medical History PTSD (post-traumatic stress disorder) Hypertension Social History Household Members: None Housing: Homeless Do you presently have visiting nurse or other home services: No Patient Tobacco Use Status: Current everyday Tobacco user Tobacco use type: Cigarette Cigarette Packs Per Day: 1 Cigarettes Per Day: 10 Years Smoked: 40 Smoked in Last 30 Days: Yes e-Cigarette/Vaping Use: Currently Using Patient Interested in Nicotine Replacement: No Patient Given Instructions on How to Stop Smoking: No Second Hand Smoke Exposure: No Use of substances other than those prescribed or required for medical reasons: Yes Substance Use Type: Crack/Cocaine Substance Use Frequency: Monthly Last Used Substance Other:: 2 days ago Currently Displaying Signs/Symptoms of Drug Intoxication Withdrawal: No Any prior treatment program specific to substance use: Yes (detox [facility]) Have you been hit, kicked, punched, or otherwise hurt by someone within the past year? If so, by whom?: No Do you feel safe in your current relationship?: No Current Relationship Is there a partner from a previous relationship who is making you feel unsafe now?: No Are you made to feel afraid or neglected: No Advance Directives: No Advance Directives Information Provided: No Do you have a plan to hurt others: No Plan How much weight loss: 2-13 pounds Eating poorly because of decreased appetite: Yes Poor oral hygiene: Yes service: Yes ([employer] [id number]) Sexual orientation: Straight/Heterosexual Meds Allergies Allergy/AdvReac Type Severity Reaction Status Date / Time Pork/Porcine Containing Allergy Unknown unknown Verified 03/16/23 17:28 Products Active Medications: Current Medications Acetaminophen (Acetaminophen 325 Mg Tablet) 650 mg PO Q6H PRN PRN Reason: Headache/Pain Mild Scale (1-3) Al Hydroxide/Mg Hydroxide (Magnesium Hydrox/Alum Hydrox 30 Ml Oral.Susp) 30 ml PO Q6H PRN PRN Reason: Heartburn/Nausea Folic Acid (Folic Acid 1 Mg Tablet) 1 mg PO DAILY [facility] Stop: 12/11/23 08:59 Lorazepam (Lorazepam 1 Mg Tablet) 2 mg PO Q2H PRN PRN Reason: CIWA 12-15 Lorazepam (Lorazepam 1 Mg Tablet) 1 mg PO Q2H PRN PRN Reason: ciwa 8-11 Magnesium Hydroxide (Milk Of Magnesia 30 Ml Oral.Susp) 30 ml PO DAILY PRN PRN Reason: Constipation Nicotine Polacrilex (Nicotine Polacrilex 2 Mg Gum) 2 mg BUCCAL Q2H PRN PRN Reason: Nicotine Cravings Thiamine HCl (Thiamine Hcl 100 Mg Tablet) 100 mg PO DAILY [facility] Last Admin: 12/07/23 16:09 Dose: 100 mg Trazodone HCl (Trazodone Hcl 50 Mg Tablet) 50 mg PO BEDTIME MRX1 PRN PRN Reason: Insomnia Home Medications ?Medication ?Instructions ?Recorded ?Confirmed ?Last Taken ?Type No Known Home Meds 12/07/23 12/07/23 Unknown History Physical Exam 2 Vital Signs and Narrative: Vital Signs: Last Vital Signs Temp 97.3 F 12/07/23 17:25 Pulse 84 12/07/23 17:25 Resp 16 12/07/23 17:25 BP 158/99 H 12/07/23 17:25 Pulse Ox 99 12/07/23 17:25 O2 Del Method Room Air 12/07/23 17:25 BMI result Body Mass Index 31.1 Constitutional - Awake and Alert, No apparent distress Eyes - PERRLA, EOMI Cardiovascular - S1S2, RRR, No edema Respiratory - Normal lung expansion, Normal respiratory effort, No respiratory distress, CTA bilaterally Gastrointestinal - NT / ND; +BS; No rebound or guarding Extremities - no calf tenderness bilaterally, no swelling Musculoskeletal - Normal inspection, normal ROM Skin - Warm/Dry Neurological - Alert & oriented x3, CN II-XII in tact, 5/5 strength BUE and BLE Psychological - Appropriate affect Results Labs 12/07/23 17:40 Assessment and Plan (1) Routine medical exam: Status: Acute Plan 63-year-old male with history of untreated hepatitis-C, alcohol use disorder, polysubstance abuse with history of IV drug abuse, and mood disorder admitted to adult Psychiatry with consult placed hospitalist service for medical H& P. # mood disorder -plan per Psychiatry # alcohol use disorder with acute alcohol withdrawal -monitor on CIWA -lorazepam per Psychiatry p.r.n. -p.o. thiamine and folic acid # polysubstance abuse with known history of IV drug abuse and untreated hepatitis-C -check hepatitis-C viral load, hep B, HIV a.m.. If hepatitis C viral load significantly elevated, outpatient follow-up with Infectious Disease. If HIV positive, infectious disease consult -plan per Psychiatry # hypokalemia -repeat lytes wnl # hypertension -uncontrolled, was previously on amlodipine 5 mg daily, will resume #Polyarthralgia -no tick bites, ?r/t opiate w/d. tylenol prn, lidocaine Thank you for allowing me to participate in this consult. Signing off at this time. Please do not hesitate to call for further questions or for any acute medical issues
[2023-12-07 18:25] LABS: Anion Gap 16 (12-20); Carbon Dioxide 21 mmol/L (22-29); Chloride 109 mmol/L (96-108); Magnesium 1.9 mg/dL (1.6-2.6); Potassium 4.1 mmol/L (3.3-5.1); Sodium 142 mmol/L (135-145)
--- NOTE | 2023-12-07 18:42 | PC.NURSE ---
Ba was admitted to [facility] at 1545 from [facility] ED on CV for treatment of Depression , PTSD and ETOH use disorder Sister who he lived with last month. Pt unable to afford rent alone. He is struggling with these losses in the context of longstanding MDD with psychosis and insomnia. Mood is depressed. Affect is sad and anxious. He denies current auditory and visual hallucinations.Thought Process is linear. He denies ideation, plan or intent to harm self or others on the unit. He does express hopelessness about the future. I have tried all the medication. Nothing helps for long. I have no one. No help and nowhere to go. Appetite is poor with recent 10lb weight loss. Sleep is reportedly chronically poor. Ba is a daily drinker of > 10 alcoholic drinks per day for > 1 month. He has a history of alcohol withdrawal seizures. On arrival CIWA score is 18. Ativan 2mg ordered and administered with effect. Medical Issues?include hypertension, pt reports CHF Currently he complains of general malaise and sciatic pain but says he does not use analgesics. Goal of admission is to establish connections with providers, try to find a safe place to live and restart medications. He is on q 15 min checks for safety.
--- NOTE | 2023-12-07 19:11 | PC.NURSE ---
Pt reports a history of being on amitriptyline, ambien, thorazine and clonaaepam which he found helpful. He reports hydroxyzine, mirtazepaine, seroquel were not helpful. Currently his pharmacy states he has no active prescriptions. Pt concurs he has been non compliant with his medications and has been off them recently.
[2023-12-07 20:00] VITALS: BP 155/90; PULSE 89; RESP 18; TEMP 36.4; O2SAT 98
[2023-12-07] MEDS: LORazepam 1 MG TABLET PO (22:19)
[2023-12-07] MEDS: Zolpidem Tartrate 5 MG TABLET PO (22:19)
--- NOTE | 2023-12-08 | ECG_ITS ---
Test Reason : psychiatric medications Blood Pressure : / mmHG Vent. Rate : 092 BPM Atrial Rate : 092 BPM P-R Int : 134 ms QRS Dur : 086 ms QT Int : 384 ms P-R-T Axes : 060 007 044 degrees QTc Int : 474 ms Normal sinus rhythm Nonspecific T wave abnormality Prolonged QT Abnormal ECG When compared with ECG of 07-DEC-2023 17:32, No significant change was found Referred By: Denise Alva Electronically Signed By:VINAY PINEDA MD
[2023-12-08] MEDS: LORazepam 1 MG TABLET PO ×5 (02:03→22:31)
[2023-12-08 07:00] VITALS: BMI 31.3
[2023-12-08 07:46] VITALS: BP 130/74; PULSE 89; RESP 18; TEMP 36.8; O2SAT 95
[2023-12-08 08:32] VITALS: BP 130/74
[2023-12-08] MEDS: amLODIPine Besylate 5 MG TABLET PO (08:32)
[2023-12-08] MEDS: Folic Acid 1 MG TABLET PO (08:32)
[2023-12-08] MEDS: Thiamine HCL 100 MG TABLET PO (08:32)
[2023-12-08 08:47] LABS: Alanine Aminotransferase 28 U/L (0-40); Albumin Level 3.3 g/dL (3.5-5.0); Alkaline Phosphatase 61 U/L (39-117); Anion Gap 9 (12-20); Aspartate Amino Transferase 37 U/L (5-37); Bilirubin Total 0.4 mg/dL (0.0-1.0); Blood Urea Nitrogen 9 mg/dL (9-16); Calcium 9.4 mg/dL (8.4-10.2); Carbon Dioxide 29 mmol/L (22-29); Chloride 107 mmol/L (96-108); Cholesterol 157 mg/dL (<200); Creatinine Clr Calc Pharmacy 144.6; Estimated Glomerular Filt Rate > 60; Glucose Fasting 95 mg/dL (60-99); HDL Cholesterol 37 mg/dL (>40); LDL Cholesterol Calculated 110 mg/dL (<100); Potassium 4.7 mmol/L (3.3-5.1); Sodium 140 mmol/L (135-145); Total Protein 7.8 g/dL (6.5-8.0); Triglycerides 53 mg/dL (<150)
[2023-12-08 08:57] LABS: HIV AB/AG Nonreactive (Nonreactive); HIV Num 1 0.06 S/CO (0.00-0.99)
[2023-12-08 09:02] LABS: TSH reflex Free T4 1.09 uIU/mL (0.32-4.0)
[2023-12-08 09:15] LABS: Folate 10.9 ng/mL (> or = 4.0); Vitamin B12 488 pg/mL (200-900)
--- NOTE | 2023-12-08 13:26 | P.HPPS_ITS ---
HPI Date of Service: 12/08/23 Chief Complaint: Depression Sources of Information: patient interviewed, chart reviewed and crisis/core team assessment reviewed HPI Subjective Notes: Caro Warning and Conditional Voluntary Narrative: Patient is a 63 year old male with hx of MDD, PTSD, ETOH use d/o, and cocaine use d/o who presented to [facility] d/t suicidal ideation without a plan secondary to increased depression and alcohol use. Per crisis report, pt reported he lived with his sister who passd away a month ago and since he has been staying with his brother. He reports his brothers house is a stressful place to stay d/t his brother's alcohol use. Pt denies any current psychiatric medication. Pt reported daily alcohol use and occasional cocaine use to self medicate . pt denies HI/VH/AH. During admission assessment, pt presents alert, oriented, calm and cooperative. Pt reports feeling depressed ; pt stated, I went to the hospital because I was feeling depressed and suicidal about life. I was living with my sister but she last month. I just want to get things back on track . Pt reports he has been drinking few pints a day and can not recall the last time he was sober. Pt reports using cocaine or crack every other day . When asked about his substance use, pt stated, everyone in my family drinks. I don't want to keep living like this . UTOX positive for methadone, fentanyl and cocaine. He denies any current outpatient psychiatric providers or psychiatric medications. Pt reports he recalls taking Amitriptyline in the past and would like to be started on that again. Pt reports suicidal ideation with no plan. pt denies HI/VH. He reports auditory hallucinations at times; pt stated, sometimes I hear people ; pt did not elaborate. Past Psychiatric History: hx of multiple inpatient psychiatric hospitalizations; [facility], [facility]. hx of multiple detox admissions. denies outpatient therapist or prescriber. He reports SIB in his teens via cutting. denies SA. Medical Evaluation Reviewed: Yes [facility] Medical History PTSD (post-traumatic stress disorder) Hypertension Family History: Alcohol, substance abuse, mental illness on maternal and paternal sides Social History: Homeless, single, 2 children (in their 30's), high school diploma, disability. Substance History: daily alcohol use. Pt reports he drinks a couple pints a day . Cocaine and crack use. Trauma History: yes Diagnostics Vital Signs (24Hr): Vital Signs - 24 hr 12/07/23 15:45 12/07/23 17:25 12/07/23 20:00 Temperature 98.4 F 97.3 F 97.6 F Pulse Rate 87 84 89 Respiratory Rate 18 16 18 Blood Pressure 163/107 H 158/99 H 155/90 H Pulse Oximetry 94 99 98 Oxygen Delivery Method Room Air Room Air Room Air 12/08/23 07:46 12/08/23 08:32 Temperature 98.2 F Pulse Rate 89 Respiratory Rate 18 Blood Pressure 130/74 130/74 Pulse Oximetry 95 Oxygen Delivery Method Room Air BMI result Body Mass Index 31.3 Labs 12/08/23 08:12 Labs: Laboratory Results - last 48 hr 12/07/23 12/08/23 17:40 08:12 Sodium 142 140 Potassium 4.1 4.7 Chloride 109 H 107 Carbon Dioxide 21 L 29 Anion Gap 16 9 L BUN 9 Creatinine 0.72 Estim Creat Clear Calc 144.6 Estimated GFR > 60 Fasting Glucose 95 Calcium 9.4 Magnesium 1.9 Total Bilirubin 0.4 AST 37 ALT 28 Alkaline Phosphatase 61 Total Protein 7.8 Albumin 3.3 L Triglycerides 53 Cholesterol 157 LDL Cholesterol, Calc 110 H HDL Cholesterol 37 L Vitamin B12 488 Folate 10.9 TSH 1.09 HIV 1&2 Ab/P24 Ag 4thGn Nonreactive Meds/Allergies Meds Home Medications ?Medication ?Instructions ?Recorded ?Confirmed ?Type amitriptyline 100 mg tablet 200 mg PO BEDTIME 12/08/23 12/08/23 History amlodipine 5 mg tablet 5 mg PO DAILY 12/08/23 12/08/23 History aripiprazole 10 mg tablet 10 mg PO DAILY 12/08/23 12/08/23 History bupropion HCl 300 mg 24 hr tablet, 300 mg PO DAILY 12/08/23 12/08/23 History extended release chlorpromazine 100 mg tablet 100 mg PO BEDTIME PRN insomnia 12/08/23 12/08/23 History cholecalciferol (vitamin D3) 25 25 mcg PO DAILY 12/08/23 12/08/23 History mcg (1,000 unit) tablet clonazepam 1 mg tablet 1 mg PO BEDTIME 12/08/23 12/08/23 History escitalopram oxalate 10 mg tablet 10 mg PO DAILY 12/08/23 12/08/23 History gabapentin 100 mg capsule 100 mg PO TID 12/08/23 12/08/23 History hydroxyzine HCl 50 mg tablet 50 mg PO TID 12/08/23 12/08/23 History omeprazole 20 mg tablet,delayed 20 mg PO DAILY 12/08/23 12/08/23 History release oxcarbazepine 300 mg tablet 300 mg PO BID 12/08/23 12/08/23 History zolpidem 10 mg tablet 10 mg PO BEDTIME PRN Insomnia 12/08/23 12/08/23 History Allergies Allergies Allergy/AdvReac Type Severity Reaction Status Date / Time Pork/Porcine Containing Allergy Unknown unknown Verified 03/16/23 17:28 Products Mental Status Exam Mental Status Exam Narrative: Pt is alert and oriented; behavior is cooperative and calm; dressed in hospital attire; mood is described as depressed and anxious ; eye contact appropriate; Speech is normal rate, volume and not pressured; thought process is organized and goal directed; Thought content is on tx; otherwise pertinent to relevant topics and without any delusional content, paranoid ideations or grandiosity; denies HI/VH. Pt reports suicidal ideation with no plan. Pt reports auditory hallucinations at times . Assessment & Plan Assessment & Plan (1) Major depression: Status: Acute Code(s): F32.9 - Major depressive disorder, single episode, unspecified (2) PTSD (post-traumatic stress disorder): Status: Acute Code(s): F43.10 - Post-traumatic stress disorder, unspecified (3) Alcohol use disorder: Status: Acute Code(s): F10.90 - Alcohol use, unspecified, uncomplicated (4) Cocaine use disorder: Status: Acute Code(s): F14.10 - Cocaine abuse, uncomplicated Plan Patient is a 63 year old male with hx of MDD, PTSD, ETOH use d/o, and cocaine use d/o who presented to [facility] d/t suicidal ideation without a plan secondary to increased depression and alcohol use. Plan: CV 15 minute safety checks CIWA referral to outpatient therapist and prescriber addiction medicine consult to discuss possible naltrexone/antabuse/recovery operator helper discharge planning EKG Start: Remeron 7.5mg PO bedtime Abilify 5mg PO daily Patient educated on: diagnosis, medication risk/benefits, substance abuse and therapeutic strategies Informed Consent: understands Reason for continued inpatient stay Substantial Risk for: harm to self and med/psych decompensation Statement Statement: I have reviewed the history and physical and performed a pertinent examination on my patient. No changes have occurred unless specified. If the History and Physical was not performed prior to admission, the Hospitalist's service will be consulted for completing the admission physical. Time Spent With Patient Time: Total time managing care of this patient today _60___ minutes.
[2023-12-08] MEDS: ARIPiprazole 5 MG TABLET PO (18:08)
[2023-12-08 20:00] VITALS: BP 136/78; PULSE 84; RESP 18; TEMP 36.4; O2SAT 96
[2023-12-08] MEDS: Mirtazapine 7.5 MG TABLET PO (22:31)
[2023-12-08] MEDS: Zolpidem Tartrate 5 MG TABLET PO (22:31)
[2023-12-09 07:30] VITALS: BP 129/86; PULSE 81; RESP 14; TEMP 37.2; O2SAT 97
[2023-12-09 08:28] VITALS: BP 129/86
[2023-12-09] MEDS: Folic Acid 1 MG TABLET PO (08:28)
[2023-12-09] MEDS: Thiamine HCL 100 MG TABLET PO (08:28)
[2023-12-09] MEDS: amLODIPine Besylate 5 MG TABLET PO (08:28)
[2023-12-09] MEDS: ARIPiprazole 5 MG TABLET PO (08:28)
[2023-12-09] MEDS: Omeprazole 20 MG CAPSULE.DR PO ×2 (11:40→18:34)
--- NOTE | 2023-12-09 13:08 | HO.PSYCHPN ---
Subjective Subjective Date of Service: 12/09/23 Reason For Visit: Depression Subjective Notes: Conditional Voluntary Interim History: Reviewed with Dr. Strong. Keeping to self. Pt reports feeling depressed today; pt stated, I've been better. My mind is racing. I get overwhelmed in my thoughts. My life is out of order right now. My thoughts get intense and I want to end it . Pt reports suicidal ideation with no plan. Pt denies HI/VH/AH. Pt continues on CIWA. Pt reports he would be open going to a substance abuse program . Medication Compliance: Yes Side effects from medications: No Attending Groups: No Review of Systems Constitutional: Reports as per HPI Eyes: Reports as per HPI Reports as per HPI Cardiovascular: Reports as per HPI Respiratory: Reports as per HPI Gastrointestinal: Reports as per HPI Genitourinary: Reports as per HPI Musculoskeletal: Reports as per HPI Skin/Breast: Reports as per HPI Reports as per HPI Psychiatric: Reports as per HPI Endocrine: Reports as per HPI Hematologic/Lymphatic: Reports as per HPI Allergic/Immunologic: Reports as per HPI Mental Status Exam Mental Status Exam Narrative: Pt is alert and oriented; behavior is cooperative and calm; dressed in hospital attire; mood is described as depressed and anxious ; eye contact appropriate; Speech is normal rate, volume and not pressured; thought process is organized and goal directed; Thought content is on tx; otherwise pertinent to relevant topics and without any delusional content, paranoid ideations or grandiosity; denies HI/VH/AH. Pt reports suicidal ideation with no plan. Diagnostics Vital Signs (24Hr): Vital Signs - 24 hr 12/08/23 20:00 12/09/23 07:30 12/09/23 08:28 Temperature 97.6 F 98.9 F Pulse Rate 84 81 Respiratory Rate 18 14 Blood Pressure 136/78 129/86 129/86 Pulse Oximetry 96 97 Oxygen Delivery Method Room Air Room Air BMI result Body Mass Index 31.3 Labs 12/08/23 08:12 Labs: Laboratory Results - last 48 hr 12/07/23 12/08/23 17:40 08:12 Sodium 142 140 Potassium 4.1 4.7 Chloride 109 H 107 Carbon Dioxide 21 L 29 Anion Gap 16 9 L BUN 9 Creatinine 0.72 Estim Creat Clear Calc 144.6 Estimated GFR > 60 Fasting Glucose 95 Calcium 9.4 Magnesium 1.9 Total Bilirubin 0.4 AST 37 ALT 28 Alkaline Phosphatase 61 Total Protein 7.8 Albumin 3.3 L Triglycerides 53 Cholesterol 157 LDL Cholesterol, Calc 110 H HDL Cholesterol 37 L Vitamin B12 488 Folate 10.9 TSH 1.09 HIV 1&2 Ab/P24 Ag 4thGn Nonreactive Medications Medications Current Medications Acetaminophen (Acetaminophen 325 Mg Tablet) 650 mg PO Q6H PRN PRN Reason: Headache/Pain Mild Scale (1-3) Al Hydroxide/Mg Hydroxide (Magnesium Hydrox/Alum Hydrox 30 Ml Oral.Susp) 30 ml PO Q6H PRN PRN Reason: Heartburn/Nausea Amlodipine Besylate (Amlodipine Besylate 5 Mg Tablet) 5 mg PO DAILY [facility]; Protocol Last Admin: 12/09/23 08:28 Dose: 5 mg Aripiprazole (Aripiprazole 5 Mg Tablet) 5 mg PO DAILY [facility] Last Admin: 12/09/23 08:28 Dose: 5 mg Folic Acid (Folic Acid 1 Mg Tablet) 1 mg PO DAILY [facility] Stop: 12/11/23 08:59 Last Admin: 12/09/23 08:28 Dose: 1 mg Lorazepam (Lorazepam 1 Mg Tablet) 2 mg PO Q2H PRN PRN Reason: CIWA 12-15 Lorazepam (Lorazepam 1 Mg Tablet) 1 mg PO Q2H PRN PRN Reason: ciwa 8-11 Last Admin: 12/08/23 22:31 Dose: 1 mg Magnesium Hydroxide (Milk Of Magnesia 30 Ml Oral.Susp) 30 ml PO DAILY PRN PRN Reason: Constipation Mirtazapine (Mirtazapine 7.5 Mg Tablet) 7.5 mg PO BEDTIME [facility] Last Admin: 12/08/23 22:31 Dose: 7.5 mg Nicotine Polacrilex (Nicotine Polacrilex 2 Mg Gum) 2 mg BUCCAL Q2H PRN PRN Reason: Nicotine Cravings Omeprazole (Omeprazole 20 Mg Capsule.Dr) 20 mg PO BID@0630,1630 [facility] Last Admin: 12/09/23 11:40 Dose: 20 mg Thiamine HCl (Thiamine Hcl 100 Mg Tablet) 100 mg PO DAILY [facility] Last Admin: 12/09/23 08:28 Dose: 100 mg Trazodone HCl (Trazodone Hcl 50 Mg Tablet) 50 mg PO BEDTIME MRX1 PRN PRN Reason: Insomnia Zolpidem Tartrate (Zolpidem Tartrate 5 Mg Tablet) 5 mg PO BEDTIME PRN PRN Reason: Insomnia Last Admin: 12/08/23 22:31 Dose: 5 mg Allergies Allergies Allergy/AdvReac Type Severity Reaction Status Date / Time Pork/Porcine Containing Allergy Unknown unknown Verified 03/16/23 17:28 Products Assessment & Plan Assessment & Plan (1) Major depression: Status: Acute Code(s): F32.9 - Major depressive disorder, single episode, unspecified (2) PTSD (post-traumatic stress disorder): Status: Acute Code(s): F43.10 - Post-traumatic stress disorder, unspecified (3) Alcohol use disorder: Status: Acute Code(s): F10.90 - Alcohol use, unspecified, uncomplicated (4) Cocaine use disorder: Status: Acute Code(s): F14.10 - Cocaine abuse, uncomplicated Plan Patient is a 63 year old male with hx of MDD, PTSD, ETOH use d/o, and cocaine use d/o who presented to [facility] d/t suicidal ideation without a plan secondary to increased depression and alcohol use. 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 Pt reports feeling depressed today; pt stated, I've been better. My mind is racing. I get overwhelmed in my thoughts. My life is out of order right now. My thoughts get intense and I want to end it . Pt reports suicidal ideation with no plan. Pt denies HI/VH/AH. Pt continues on CIWA. Pt reports he would be open going to a substance abuse program . Patient educated on: diagnosis, medication risk/benefits, substance abuse and therapeutic strategies Informed Consent: understands Reason for continued inpatient stay Substantial Risk for: harm to self and med/psych decompensation Time Spent With Patient Time: Total time managing care of this patient today __20__ minutes.
[2023-12-09] MEDS: LORazepam 1 MG TABLET PO ×2 (14:19→20:54)
[2023-12-09 20:25] VITALS: BP 138/97; PULSE 104; RESP 16; TEMP 36.6; O2SAT 98
[2023-12-09] MEDS: Mirtazapine 7.5 MG TABLET PO (20:54)
[2023-12-09] MEDS: Zolpidem Tartrate 5 MG TABLET PO (20:54)
--- NOTE | 2023-12-10 | ECG_ITS ---
Test Reason : prolonged QTc Blood Pressure : / mmHG Vent. Rate : 093 BPM Atrial Rate : 093 BPM P-R Int : 134 ms QRS Dur : 086 ms QT Int : 364 ms P-R-T Axes : 057 007 042 degrees QTc Int : 452 ms Normal sinus rhythm Nonspecific T wave abnormality Abnormal ECG When compared with ECG of 08-DEC-2023 19:19, No significant change was found Referred By: Mohan Hamilton Electronically Signed By:VINAY PINEDA MD
[2023-12-10] MEDS: LORazepam 1 MG TABLET 2 MG PO (04:32)
[2023-12-10 07:36] VITALS: BP 140/88; PULSE 93; RESP 14; TEMP 36.9; O2SAT 97
[2023-12-10 09:50] VITALS: BP 140/88
[2023-12-10] MEDS: Omeprazole 20 MG CAPSULE.DR PO ×2 (09:50→17:22)
[2023-12-10] MEDS: Folic Acid 1 MG TABLET PO (09:50)
[2023-12-10] MEDS: ARIPiprazole 5 MG TABLET PO (09:50)
[2023-12-10] MEDS: amLODIPine Besylate 5 MG TABLET PO (09:50)
[2023-12-10] MEDS: Thiamine HCL 100 MG TABLET PO (09:50)
[2023-12-10 15:34] LABS: HCV Log PCR 6.29 Log IU/mL (NOT DETECTED); HepC Viral Load 1930000 IU/mL (NOT DETECTED)
--- NOTE | 2023-12-10 16:40 | P.PNPSI_ITS ---
Subjective Subjective Date of Service: 12/10/23 Reason For Visit: Depression Interim History: seems to feel he is wasting his time trying to take medications to help him. focussed on getting down to [place] where he still has family, feels that would do worlds to change his circumstance. dep/anx/insomnia. agrees to trial of thorazine 200 plus ambien 10 tonight. informed benzo taper would be written. Mental Status Exam Mental Status Exam Narrative: Pt is alert and oriented; behavior is cooperative and calm; dressed in hospital attire; mood is described as depressed and anxious ; eye contact appropriate; Speech is normal rate, volume and not pressured; thought process is organized and goal directed; Thought content is on tx; otherwise pertinent to relevant topics and without any delusional content, paranoid ideations or grandiosity; denies HI/VH/AH. Pt reports suicidal ideation with no plan. Diagnostics Vital Signs (24Hr): Vital Signs - 24 hr 12/09/23 20:25 12/10/23 07:36 12/10/23 09:50 Temperature 97.8 F 98.4 F Pulse Rate 104 H 93 Respiratory Rate 16 14 Blood Pressure 138/97 H 140/88 H 140/88 H Pulse Oximetry 98 97 Oxygen Delivery Method Room Air Room Air BMI result Body Mass Index 31.3 Labs 12/08/23 08:12 Labs: Laboratory Results - last 48 hr 12/08/23 08:12 Hep C Viral Load [id number] H Hep C Viral Load Log 6.29 H Medications Medications Current Medications Acetaminophen (Acetaminophen 325 Mg Tablet) 650 mg PO Q6H PRN PRN Reason: Headache/Pain Mild Scale (1-3) Al Hydroxide/Mg Hydroxide (Magnesium Hydrox/Alum Hydrox 30 Ml Oral.Susp) 30 ml PO Q6H PRN PRN Reason: Heartburn/Nausea Amlodipine Besylate (Amlodipine Besylate 5 Mg Tablet) 5 mg PO DAILY [facility]; Protocol Last Admin: 12/10/23 09:50 Dose: 5 mg Aripiprazole (Aripiprazole 5 Mg Tablet) 5 mg PO DAILY [facility] Last Admin: 12/10/23 09:50 Dose: 5 mg Chlorpromazine HCl (Chlorpromazine Hcl 100 Mg Tablet) 200 mg PO BEDTIME [facility] Diazepam (Diazepam 5 Mg Tablet) 5 mg PO BID [facility] Stop: 12/12/23 09:01 Folic Acid (Folic Acid 1 Mg Tablet) 1 mg PO DAILY [facility] Stop: 12/11/23 08:59 Last Admin: 12/10/23 09:50 Dose: 1 mg Magnesium Hydroxide (Milk Of Magnesia 30 Ml Oral.Susp) 30 ml PO DAILY PRN PRN Reason: Constipation Mirtazapine (Mirtazapine 7.5 Mg Tablet) 7.5 mg PO BEDTIME [facility] Last Admin: 12/09/23 20:54 Dose: 7.5 mg Nicotine Polacrilex (Nicotine Polacrilex 2 Mg Gum) 2 mg BUCCAL Q2H PRN PRN Reason: Nicotine Cravings Omeprazole (Omeprazole 20 Mg Capsule.Dr) 20 mg PO BID@0630,1630 [facility] Last Admin: 12/10/23 09:50 Dose: 20 mg Thiamine HCl (Thiamine Hcl 100 Mg Tablet) 100 mg PO DAILY [facility] Last Admin: 12/10/23 09:50 Dose: 100 mg Trazodone HCl (Trazodone Hcl 50 Mg Tablet) 50 mg PO BEDTIME [facility] PRN PRN Reason: Insomnia Zolpidem Tartrate (Zolpidem Tartrate 5 Mg Tablet) 10 mg PO BEDTIME [facility] Allergies Allergies Allergy/AdvReac Type Severity Reaction Status Date / Time Pork/Porcine Containing Allergy Unknown unknown Verified 03/16/23 17:28 Products Assessment & Plan Assessment & Plan (1) Major depression: Status: Acute Code(s): F32.9 - Major depressive disorder, single episode, unspecified (2) PTSD (post-traumatic stress disorder): Status: Acute Code(s): F43.10 - Post-traumatic stress disorder, unspecified (3) Alcohol use disorder: Status: Acute Code(s): F10.90 - Alcohol use, unspecified, uncomplicated (4) Cocaine use disorder: Status: Acute Code(s): F14.10 - Cocaine abuse, uncomplicated Plan Patient is a 63 year old male with hx of MDD, PTSD, ETOH use d/o, and cocaine use d/o who presented to [facility] d/t suicidal ideation without a plan secondary to increased depression and alcohol use. Plan: CV 15 minute safety checks [facility]WA referral to outpatient therapist and prescriber addiction medicine consult to discuss possible naltrexone/antabuse/recovery advocate discharge planning EKG Start: Remeron 7.5mg PO bedtime Abilify 5mg PO daily 12/08: Keeping to self. Pt reports feeling depressed today; pt stated, I've been better. My mind is racing. I get overwhelmed in my thoughts. My life is out of order right now. My thoughts get intense and I want to end it . Pt reports suicidal ideation with no plan. Pt denies HI/VH/AH. Pt continues on CIWA. Pt reports he would be open going to a substance abuse program . 12/09: valium taper written, [facility] protocol DCed. trial of thorazine 200 tonight. also increase ambien to 10 mg QHS. Reason for continued inpatient stay Substantial Risk for: inability to function Time Spent With Patient Time: Total time managing care of this patient today ____ minutes.
[2023-12-10 19:43] VITALS: BP 153/90; PULSE 90; RESP 16; TEMP 36.3; O2SAT 97
[2023-12-10] MEDS: Mirtazapine 7.5 MG TABLET PO (20:00)
[2023-12-10] MEDS: Zolpidem Tartrate 5 MG TABLET 10 MG PO (20:01)
[2023-12-10] MEDS: chlorproMAZINE HCl 100 MG TABLET 200 MG PO (20:01)
[2023-12-10] MEDS: diazePAM 5 MG TABLET PO (20:01)
[2023-12-11 07:20] VITALS: BP 113/74; PULSE 95; RESP 20; TEMP 36.6; O2SAT 95
[2023-12-11 08:55] VITALS: BP 113/74
[2023-12-11] MEDS: amLODIPine Besylate 5 MG TABLET PO (08:55)
[2023-12-11] MEDS: Omeprazole 20 MG CAPSULE.DR PO ×2 (08:55→17:40)
[2023-12-11] MEDS: diazePAM 5 MG TABLET PO ×2 (08:55→22:22)
[2023-12-11] MEDS: Thiamine HCL 100 MG TABLET PO (08:55)
[2023-12-11] MEDS: ARIPiprazole 5 MG TABLET PO (08:55)
[2023-12-11] MEDS: chlorproMAZINE HCl 25 MG TABLET 50 MG PO (13:25)
--- NOTE | 2023-12-11 15:08 | HO.PSYCHPN ---
Subjective Subjective Date of Service: 12/11/23 Reason For Visit: Depression Interim History: c/o not sleeping at all last night. asks for thorazine PRN anxiety. amenable to sleep study. per staff, attending groups. taking meds. c/o insomnia. got meds at 8 pm, snoring after and appeared to have slept about 10 hours. Mental Status Exam Mental Status Exam Narrative: Pt is alert and oriented; behavior is cooperative and calm; dressed in hospital attire; mood is described as depressed and anxious ; eye contact appropriate; Speech is normal rate, volume and not pressured; thought process is organized and goal directed; Thought content is on tx; otherwise pertinent to relevant topics and without any delusional content, paranoid ideations or grandiosity; denies HI/VH/AH. Pt reports suicidal ideation with no plan. Diagnostics Vital Signs (24Hr): Vital Signs - 24 hr 12/10/23 19:43 12/11/23 07:20 12/11/23 08:55 Temperature 97.4 F 97.8 F Pulse Rate 90 95 Respiratory Rate 16 20 Blood Pressure 153/90 H 113/74 113/74 Pulse Oximetry 97 95 Oxygen Delivery Method Room Air Room Air BMI result Body Mass Index 31.3 Labs 12/08/23 08:12 Labs: Laboratory Results - last 48 hr 12/08/23 08:12 Hep C Viral Load [id number] H Hep C Viral Load Log 6.29 H Medications Medications Current Medications Acetaminophen (Acetaminophen 325 Mg Tablet) 650 mg PO Q6H PRN PRN Reason: Headache/Pain Mild Scale (1-3) Al Hydroxide/Mg Hydroxide (Magnesium Hydrox/Alum Hydrox 30 Ml Oral.Susp) 30 ml PO Q6H PRN PRN Reason: Heartburn/Nausea Amlodipine Besylate (Amlodipine Besylate 5 Mg Tablet) 5 mg PO DAILY [facility]; Protocol Last Admin: 12/11/23 08:55 Dose: 5 mg Aripiprazole (Aripiprazole 5 Mg Tablet) 5 mg PO DAILY [facility] Last Admin: 12/11/23 08:55 Dose: 5 mg Chlorpromazine HCl (Chlorpromazine Hcl 100 Mg Tablet) 200 mg PO BEDTIME [facility] Last Admin: 12/10/23 20:01 Dose: 200 mg Chlorpromazine HCl (Chlorpromazine Hcl 25 Mg Tablet) 50 mg PO Q4H PRN PRN Reason: severe anxiety Last Admin: 12/11/23 13:25 Dose: 50 mg Diazepam (Diazepam 5 Mg Tablet) 5 mg PO BID [facility] Stop: 12/12/23 09:01 Last Admin: 12/11/23 08:55 Dose: 5 mg Hydroxyzine HCl (Hydroxyzine Hcl 50 Mg Tablet) 50 mg PO Q4H PRN PRN Reason: minor anxiety Magnesium Hydroxide (Milk Of Magnesia 30 Ml Oral.Susp) 30 ml PO DAILY PRN PRN Reason: Constipation Mirtazapine (Mirtazapine 7.5 Mg Tablet) 7.5 mg PO BEDTIME [facility] Last Admin: 12/10/23 20:00 Dose: 7.5 mg Nicotine Polacrilex (Nicotine Polacrilex 2 Mg Gum) 2 mg BUCCAL Q2H PRN PRN Reason: Nicotine Cravings Omeprazole (Omeprazole 20 Mg Capsule.Dr) 20 mg PO BID@0630,1630 [facility] Last Admin: 12/11/23 08:55 Dose: 20 mg Thiamine HCl (Thiamine Hcl 100 Mg Tablet) 100 mg PO DAILY [facility] Last Admin: 12/11/23 08:55 Dose: 100 mg Trazodone HCl (Trazodone Hcl 50 Mg Tablet) 50 mg PO BEDTIME MRX1 PRN PRN Reason: Insomnia Zolpidem Tartrate (Zolpidem Tartrate 5 Mg Tablet) 10 mg PO BEDTIME [facility] Last Admin: 12/10/23 20:01 Dose: 10 mg Allergies Allergies Allergy/AdvReac Type Severity Reaction Status Date / Time Pork/Porcine Containing Allergy Unknown unknown Verified 03/16/23 17:28 Products Assessment & Plan Assessment & Plan (1) Major depression: Status: Acute Code(s): F32.9 - Major depressive disorder, single episode, unspecified (2) PTSD (post-traumatic stress disorder): Status: Acute Code(s): F43.10 - Post-traumatic stress disorder, unspecified (3) Alcohol use disorder: Status: Acute Code(s): F10.90 - Alcohol use, unspecified, uncomplicated (4) Cocaine use disorder: Status: Acute Code(s): F14.10 - Cocaine abuse, uncomplicated Plan Patient is a 63 year old male with hx of MDD, PTSD, ETOH use d/o, and cocaine use d/o who presented to [facility] d/t suicidal ideation without a plan secondary to increased depression and alcohol use. Plan: CV 15 minute safety checks CIWA referral to outpatient therapist and prescriber addiction medicine consult to discuss possible naltrexone/antabuse/men's basketball coach discharge planning EKG Start: Remeron 7.5mg PO bedtime Abilify 5mg PO daily 12/08: Keeping to self. Pt reports feeling depressed today; pt stated, I've been better. My mind is racing. I get overwhelmed in my thoughts. My life is out of order right now. My thoughts get intense and I want to end it . Pt reports suicidal ideation with no plan. Pt denies HI/VH/AH. Pt continues on CIWA. Pt reports he would be open going to a substance abuse program . 12/09: valium taper written, [facility] protocol DCed. trial of thorazine 200 tonight. also increase ambien to 10 mg QHS. 12/10: thorazine 50 Q4H PRN severe anxiety, hydroxyzine 50 Q4H PRN minor anxiety. sleep study ordered. per staff observation, pt slept 10 hours last night (noted to have been snoring). he reports he did not sleep at all. Reason for continued inpatient stay Substantial Risk for: inability to function Time Spent With Patient Time: Total time managing care of this patient today ____ minutes.
[2023-12-11 19:42] VITALS: BP 111/78; PULSE 105; RESP 18; TEMP 36.1; O2SAT 100
[2023-12-11] MEDS: chlorproMAZINE HCl 100 MG TABLET 200 MG PO (22:22)
[2023-12-11] MEDS: Zolpidem Tartrate 5 MG TABLET 10 MG PO (22:22)
[2023-12-11] MEDS: Mirtazapine 7.5 MG TABLET PO (22:23)
[2023-12-12] MEDS: hydrOXYzine HCL 50 MG TABLET PO ×3 (01:49→17:57)
[2023-12-12] MEDS: chlorproMAZINE HCl 25 MG TABLET 50 MG PO ×2 (01:49→20:15)
[2023-12-12 08:00] VITALS: BP 103/77; PULSE 90; RESP 18; TEMP 36.5; O2SAT 100
[2023-12-12 08:28] VITALS: BP 103/77
[2023-12-12] MEDS: amLODIPine Besylate 5 MG TABLET PO (08:28)
[2023-12-12] MEDS: Omeprazole 20 MG CAPSULE.DR PO ×2 (08:28→17:54)
[2023-12-12] MEDS: ARIPiprazole 5 MG TABLET PO (08:28)
[2023-12-12] MEDS: Thiamine HCL 100 MG TABLET PO (08:29)
[2023-12-12] MEDS: diazePAM 5 MG TABLET PO (08:29)
--- NOTE | 2023-12-12 11:07 | HO.PSYCHPN ---
Subjective Subjective Date of Service: 12/12/23 Reason For Visit: Depression Subjective Notes: Conditional Voluntary Interim History: Reviewed with Dr. Strong. Pt reports feeling alright today; pt stated, I feel like my depression is tolerable. I feel like I need a drink so I don't have to feel anxious . Educated regarding coping skills and encouraged to attend groups. Pt denies SI/HI/VH/AH. Medication Compliance: Yes Side effects from medications: No Attending Groups: Yes Review of Systems Constitutional: Reports as per HPI Eyes: Reports as per HPI Reports as per HPI Cardiovascular: Reports as per HPI Respiratory: Reports as per HPI Gastrointestinal: Reports as per HPI Genitourinary: Reports as per HPI Musculoskeletal: Reports as per HPI Skin/Breast: Reports as per HPI Reports as per HPI Psychiatric: Reports as per HPI Endocrine: Reports as per HPI Hematologic/Lymphatic: Reports as per HPI Allergic/Immunologic: Reports as per HPI Mental Status Exam Mental Status Exam Narrative: Pt is alert and oriented; behavior is cooperative and calm; dressed in hospital attire; mood is described as alright ; eye contact appropriate; Speech is normal rate, volume and not pressured; thought process is organized and goal directed; Thought content is on tx; otherwise pertinent to relevant topics and without any delusional content, paranoid ideations or grandiosity; denies SI/HI/VH/AH. Diagnostics Vital Signs (24Hr): Vital Signs - 24 hr 12/11/23 19:42 12/12/23 08:00 12/12/23 08:28 Temperature 97.0 F 97.7 F Pulse Rate 105 H 90 Respiratory Rate 18 18 Blood Pressure 111/78 103/77 103/77 Pulse Oximetry 100 100 Oxygen Delivery Method Room Air Room Air BMI result Body Mass Index 31.3 Labs 12/08/23 08:12 Labs: Laboratory Results - last 48 hr 12/08/23 08:12 Hep C Viral Load [id number] H Hep C Viral Load Log 6.29 H Medications Medications Current Medications Acetaminophen (Acetaminophen 325 Mg Tablet) 650 mg PO Q6H PRN PRN Reason: Headache/Pain Mild Scale (1-3) Al Hydroxide/Mg Hydroxide (Magnesium Hydrox/Alum Hydrox 30 Ml Oral.Susp) 30 ml PO Q6H PRN PRN Reason: Heartburn/Nausea Amlodipine Besylate (Amlodipine Besylate 5 Mg Tablet) 5 mg PO DAILY [facility]; Protocol Last Admin: 12/12/23 08:28 Dose: 5 mg Aripiprazole (Aripiprazole 5 Mg Tablet) 5 mg PO DAILY [facility] Last Admin: 12/12/23 08:28 Dose: 5 mg Chlorpromazine HCl (Chlorpromazine Hcl 100 Mg Tablet) 200 mg PO BEDTIME [facility] Last Admin: 12/11/23 22:22 Dose: 200 mg Chlorpromazine HCl (Chlorpromazine Hcl 25 Mg Tablet) 50 mg PO Q4H PRN PRN Reason: severe anxiety Last Admin: 12/12/23 01:49 Dose: 50 mg Hydroxyzine HCl (Hydroxyzine Hcl 50 Mg Tablet) 50 mg PO Q4H PRN PRN Reason: minor anxiety Last Admin: 12/12/23 01:49 Dose: 50 mg Magnesium Hydroxide (Milk Of Magnesia 30 Ml Oral.Susp) 30 ml PO DAILY PRN PRN Reason: Constipation Mirtazapine (Mirtazapine 7.5 Mg Tablet) 7.5 mg PO BEDTIME [facility] Last Admin: 12/11/23 22:23 Dose: 7.5 mg Nicotine Polacrilex (Nicotine Polacrilex 2 Mg Gum) 2 mg BUCCAL Q2H PRN PRN Reason: Nicotine Cravings Omeprazole (Omeprazole 20 Mg Capsule.Dr) 20 mg PO BID@0630,1630 [facility] Last Admin: 12/12/23 08:28 Dose: 20 mg Thiamine HCl (Thiamine Hcl 100 Mg Tablet) 100 mg PO DAILY [facility] Last Admin: 12/12/23 08:29 Dose: 100 mg Trazodone HCl (Trazodone Hcl 50 Mg Tablet) 50 mg PO BEDTIME MRX1 PRN PRN Reason: Insomnia Zolpidem Tartrate (Zolpidem Tartrate 5 Mg Tablet) 10 mg PO BEDTIME [facility] Last Admin: 12/11/23 22:22 Dose: 10 mg Allergies Allergies Allergy/AdvReac Type Severity Reaction Status Date / Time Pork/Porcine Containing Allergy Unknown unknown Verified 03/16/23 17:28 Products Assessment & Plan Assessment & Plan (1) Major depression: Status: Acute Code(s): F32.9 - Major depressive disorder, single episode, unspecified (2) PTSD (post-traumatic stress disorder): Status: Acute Code(s): F43.10 - Post-traumatic stress disorder, unspecified (3) Alcohol use disorder: Status: Acute Code(s): F10.90 - Alcohol use, unspecified, uncomplicated (4) Cocaine use disorder: Status: Acute Code(s): F14.10 - Cocaine abuse, uncomplicated Plan Patient is a 63 year old male with hx of MDD, PTSD, ETOH use d/o, and cocaine use d/o who presented to [facility] d/t suicidal ideation without a plan secondary to increased depression and alcohol use. Plan: CV 15 minute safety checks [place] referral to outpatient therapist and prescriber addiction medicine consult to discuss possible naltrexone/antabuse/literacy coach discharge planning EKG Start: Remeron 7.5mg PO bedtime Abilify 5mg PO daily 12/08: Keeping to self. Pt reports feeling depressed today; pt stated, I've been better. My mind is racing. I get overwhelmed in my thoughts. My life is out of order right now. My thoughts get intense and I want to end it . Pt reports suicidal ideation with no plan. Pt denies HI/VH/AH. Pt continues on CIWA. Pt reports he would be open going to a substance abuse program . 12/09: valium taper written, [facility] protocol DCed. trial of thorazine 200 tonight. also increase ambien to 10 mg QHS. 12/10: thorazine 50 Q4H PRN severe anxiety, hydroxyzine 50 Q4H PRN minor anxiety. sleep study ordered. per staff observation, pt slept 10 hours last night (noted to have been snoring). he reports he did not sleep at all. 12/11: Pt reports feeling alright today; pt stated, I feel like my depression is tolerable. I feel like I need a drink so I don't have to feel anxious . Educated regarding coping skills and encouraged to attend groups. Pt denies SI/HI/VH/AH. Pt to be seen by addiction medicine today. pt was declined from [facility]; pt aware per social services coordinator. Patient educated on: diagnosis, medication risk/benefits, substance abuse and therapeutic strategies Informed Consent: understands Reason for continued inpatient stay Substantial Risk for: med/psych decompensation Time Spent With Patient Time: Total time managing care of this patient today _20___ minutes.
--- NOTE | 2023-12-12 19:17 | MHC.RECOVSUP ---
? Reason for consult o Current location: o Identified substance use concern: - Overdose - Withdrawal - Seeking ATS (detox) - Support ? Intervention: o ATS bed search started/completed/in process o MAT started or to be started o Community resources provided o Harm reduction discussion ? Plan: o Referral to [facility] o Bed search in progress to o Follow up tomorrow o Patient awaiting crisis evaluation o Patient to follow up with [facility] after discharge ? Additional information: Met with Patient and we talked about Recovery and what that looks like.. We talked about harm reduction, and resources. He also mention that he can not live in [facility]. and was asking for help getting to [place]. stating that all he needs is $8,00 to get him home
[2023-12-12 20:00] VITALS: BP 138/85; PULSE 87; RESP 18; TEMP 36.2; O2SAT 95
[2023-12-12] MEDS: Zolpidem Tartrate 5 MG TABLET 10 MG PO (21:10)
[2023-12-12] MEDS: chlorproMAZINE HCl 100 MG TABLET 200 MG PO (21:10)
[2023-12-12] MEDS: Mirtazapine 7.5 MG TABLET PO (21:10)
[2023-12-13] MEDS: chlorproMAZINE HCl 25 MG TABLET 50 MG PO ×3 (06:33→21:00)
[2023-12-13] MEDS: Omeprazole 20 MG CAPSULE.DR PO ×2 (06:34→17:20)
[2023-12-13 07:40] VITALS: BP 110/65; PULSE 86; RESP 16; TEMP 36.5; O2SAT 99
[2023-12-13 08:25] VITALS: BP 110/69
[2023-12-13] MEDS: amLODIPine Besylate 5 MG TABLET PO (08:25)
[2023-12-13] MEDS: ARIPiprazole 5 MG TABLET PO (08:25)
[2023-12-13] MEDS: Thiamine HCL 100 MG TABLET PO (08:26)
[2023-12-13] MEDS: hydrOXYzine HCL 50 MG TABLET PO ×2 (14:14→21:00)
--- NOTE | 2023-12-13 15:10 | MHC.RECOVRN ---
Met with pt after consult placed to Addiction Medicine for naltrexone/antabuse/recovery operator. Pt had presented to [facility] due to SI and was subsequently transferred and admitted to for MDD, PTSD, alcohol and cocaine use disorder. Pt sitting, awake, alert, easily engages in conversation. Pt reports mental health is the main focus, pt states I use alcohol to self medicate. I have anxiety. Pt reports alcohol use, 2 pints bourbon plus 5 or 6 24 ounce beers daily. Pt not currently experiencing withdrawal symptoms. Pt denies opiate use. Pt reports he has been denied from the [employer] [facility] due to needing a higher level of care. Discussed CSS with pt, pt declines and states a substance use program won't help, I need to take care of my mental health. Pt does report a couple admissions to [facility]. Reports he has not been to further substance use tx. Discussed outpatient options for alcohol use support, including [facility] and recovery operator. Pt is interested in a recovery operator but does not currently have a working phone. Provided pt with recovery operator information and encouraged pt to call when able. Pt declines [facility]. Throughout conversation pt continues to inform t/w that substance use is not the main problem and pt needs adequate medication for anxiety. Encouraged pt to discuss dc plan with school social worker as pt not interested in any inpatient substance use treatment. Also encouraged pt to discuss medication with provider. Provided pt with written information regarding substance use support/resources. Pt declines referrals at this time. Provided pt with t/w contact information if needed, encouraged pt to call with questions or concerns. Discussed with Yesica Berger APRN.
--- NOTE | 2023-12-13 15:23 | P.PNPSI_ITS ---
Subjective Subjective Date of Service: 12/13/23 Reason For Visit: Depression Subjective Notes: Conditional Voluntary Interim History: Reviewed with Dr. Strong. Pt reports feeling neutral today; pt stated, I feel like my depression is tolerable. I don't want any meds for drinking . Pt denies SI/HI/VH/AH. Pt reports he is interested in going to respite; secondary social studies teacher aware. Medication Compliance: Yes Side effects from medications: No Attending Groups: Intermittent Review of Systems Constitutional: Reports as per HPI Eyes: Reports as per HPI Reports as per HPI Cardiovascular: Reports as per HPI Respiratory: Reports as per HPI Gastrointestinal: Reports as per HPI Genitourinary: Reports as per HPI Musculoskeletal: Reports as per HPI Skin/Breast: Reports as per HPI Reports as per HPI Psychiatric: Reports as per HPI Endocrine: Reports as per HPI Hematologic/Lymphatic: Reports as per HPI Allergic/Immunologic: Reports as per HPI Mental Status Exam Mental Status Exam Narrative: Pt is alert and oriented; behavior is cooperative and calm; dressed in hospital attire; mood is described as neautral ; eye contact appropriate; Speech is normal rate, volume and not pressured; thought process is organized and goal directed; Thought content is on tx; otherwise pertinent to relevant topics and without any delusional content, paranoid ideations or grandiosity; denies SI/HI/VH/AH. Diagnostics Vital Signs (24Hr): Vital Signs - 24 hr 12/12/23 20:00 12/13/23 07:40 12/13/23 08:25 Temperature 97.1 F 97.7 F Pulse Rate 87 86 Respiratory Rate 18 16 Blood Pressure 138/85 110/65 110/69 Pulse Oximetry 95 99 Oxygen Delivery Method Room Air Room Air BMI result Body Mass Index 31.3 Labs 12/08/23 08:12 Medications Medications Current Medications Acetaminophen (Acetaminophen 325 Mg Tablet) 650 mg PO Q6H PRN PRN Reason: Headache/Pain Mild Scale (1-3) Al Hydroxide/Mg Hydroxide (Magnesium Hydrox/Alum Hydrox 30 Ml Oral.Susp) 30 ml PO Q6H PRN PRN Reason: Heartburn/Nausea Amlodipine Besylate (Amlodipine Besylate 5 Mg Tablet) 5 mg PO DAILY [facility]; Protocol Last Admin: 12/13/23 08:25 Dose: 5 mg Aripiprazole (Aripiprazole 5 Mg Tablet) 5 mg PO DAILY [facility] Last Admin: 12/13/23 08:25 Dose: 5 mg Chlorpromazine HCl (Chlorpromazine Hcl 100 Mg Tablet) 200 mg PO BEDTIME REPLACED BY [facility] Last Admin: 12/12/23 21:10 Dose: 200 mg Chlorpromazine HCl (Chlorpromazine Hcl 25 Mg Tablet) 50 mg PO Q4H PRN PRN Reason: severe anxiety Last Admin: 12/13/23 14:14 Dose: 50 mg Hydroxyzine HCl (Hydroxyzine Hcl 50 Mg Tablet) 50 mg PO Q4H PRN PRN Reason: minor anxiety Last Admin: 12/13/23 14:14 Dose: 50 mg Magnesium Hydroxide (Milk Of Magnesia 30 Ml Oral.Susp) 30 ml PO DAILY PRN PRN Reason: Constipation Mirtazapine (Mirtazapine 7.5 Mg Tablet) 7.5 mg PO BEDTIME REPLACED BY [facility] Last Admin: 12/12/23 21:10 Dose: 7.5 mg Nicotine Polacrilex (Nicotine Polacrilex 2 Mg Gum) 2 mg BUCCAL Q2H PRN PRN Reason: Nicotine Cravings Omeprazole (Omeprazole 20 Mg Capsule.Dr) 20 mg PO BID@0630,1630 REPLACED BY [facility] Last Admin: 12/13/23 06:34 Dose: 20 mg Thiamine HCl (Thiamine Hcl 100 Mg Tablet) 100 mg PO DAILY REPLACED BY [facility] Last Admin: 12/13/23 08:26 Dose: 100 mg Trazodone HCl (Trazodone Hcl 50 Mg Tablet) 50 mg PO BEDTIME MRX1 PRN PRN Reason: Insomnia Zolpidem Tartrate (Zolpidem Tartrate 5 Mg Tablet) 10 mg PO BEDTIME REPLACED BY [facility] Last Admin: 12/12/23 21:10 Dose: 10 mg Allergies Allergies Allergy/AdvReac Type Severity Reaction Status Date / Time Pork/Porcine Containing Allergy Unknown unknown Verified 03/16/23 17:28 Products Assessment & Plan Assessment & Plan (1) Major depression: Status: Acute Code(s): F32.9 - Major depressive disorder, single episode, unspecified (2) PTSD (post-traumatic stress disorder): Status: Acute Code(s): F43.10 - Post-traumatic stress disorder, unspecified (3) Alcohol use disorder: Status: Acute Code(s): F10.90 - Alcohol use, unspecified, uncomplicated (4) Cocaine use disorder: Status: Acute Code(s): F14.10 - Cocaine abuse, uncomplicated Plan Patient is a 63 year old male with hx of MDD, PTSD, ETOH use d/o, and cocaine use d/o who presented to [facility] d/t suicidal ideation without a plan secondary to increased depression and alcohol use. Plan: CV 15 minute safety checks [facility] referral to outpatient therapist and prescriber addiction medicine consult to discuss possible naltrexone/antabuse/job coach discharge planning EKG Start: Remeron 7.5mg PO bedtime Abilify 5mg PO daily 12/08: Keeping to self. Pt reports feeling depressed today; pt stated, I've been better. My mind is racing. I get overwhelmed in my thoughts. My life is out of order right now. My thoughts get intense and I want to end it . Pt reports suicidal ideation with no plan. Pt denies HI/VH/AH. Pt continues on CIWA. Pt reports he would be open going to a substance abuse program . 12/09: valium taper written, [facility] protocol DCed. trial of thorazine 200 tonight. also increase ambien to 10 mg QHS. 12/10: thorazine 50 Q4H PRN severe anxiety, hydroxyzine 50 Q4H PRN minor anxiety. sleep study ordered. per staff observation, pt slept 10 hours last night (noted to have been snoring). he reports he did not sleep at all. 12/11: Pt reports feeling alright today; pt stated, I feel like my depression is tolerable. I feel like I need a drink so I don't have to feel anxious . Educated regarding coping skills and encouraged to attend groups. Pt denies SI/HI/VH/AH. Pt to be seen by addiction medicine today. pt was declined from [facility]; pt aware per secondary social studies teacher. 12/12: Pt reports feeling neutral today; pt stated, I feel like my depression is tolerable. I don't want any meds for drinking . Pt denies SI/HI/VH/AH. Pt reports he is interested in going to respite; secondary social studies teacher aware. Patient educated on: diagnosis, medication risk/benefits and therapeutic strategies Informed Consent: understands Reason for continued inpatient stay Substantial Risk for: med/psych decompensation Time Spent With Patient Time: Total time managing care of this patient today _20___ minutes.
[2023-12-13 20:00] VITALS: BP 129/85; PULSE 95; RESP 16; TEMP 36.6; O2SAT 100
[2023-12-13] MEDS: chlorproMAZINE HCl 100 MG TABLET 200 MG PO (20:59)
[2023-12-13] MEDS: Mirtazapine 7.5 MG TABLET PO (21:00)
[2023-12-13] MEDS: Zolpidem Tartrate 5 MG TABLET 10 MG PO (21:00)
--- NOTE | 2023-12-13 21:43 | PC.RT ---
Addendum entered by Jozef Rowe 12/14/23 03:07: Sleep study ended at 0300 Original Note: Sleep study to start at 2200; pt on RA sitter in room
[2023-12-14] MEDS: Omeprazole 20 MG CAPSULE.DR PO ×2 (06:29→16:44)
[2023-12-14 07:45] VITALS: BP 100/64; PULSE 85; RESP 24; TEMP 36.3; O2SAT 97
[2023-12-14] MEDS: ARIPiprazole 5 MG TABLET PO (08:58)
--- NOTE | 2023-12-14 08:58 | HO.PSYCHPN ---
Subjective Subjective Date of Service: 12/14/23 Reason For Visit: Depression Subjective Notes: Conditional Voluntary Interim History: Reviewed with Dr. Strong. Pt reports doing okay today; pt stated, I'm having some racing thoughts. I'm trying to figure out things. I've always been an anxious person and had racing thoughts. If I don't get into respite then I would go to [place] and stay with my brother. I hope everything works out . Pt denies SI/HI/VH/AH. 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 Medication Compliance: Yes Side effects from medications: No Attending Groups: Intermittent Review of Systems Constitutional: Reports as per HPI Eyes: Reports as per HPI Reports as per HPI Cardiovascular: Reports as per HPI Respiratory: Reports as per HPI Gastrointestinal: Reports as per HPI Genitourinary: Reports as per HPI Musculoskeletal: Reports as per HPI Skin/Breast: Reports as per HPI Reports as per HPI Psychiatric: Reports as per HPI Endocrine: Reports as per HPI Hematologic/Lymphatic: Reports as per HPI Allergic/Immunologic: Reports as per HPI Mental Status Exam Mental Status Exam Narrative: Pt is alert and oriented; behavior is cooperative and calm; dressed in hospital attire; mood is described as anxious ; eye contact appropriate; Speech is normal rate, volume and not pressured; thought process is organized and goal directed; Thought content is on tx; otherwise pertinent to relevant topics and without any delusional content, paranoid ideations or grandiosity; denies SI/HI/VH/AH. Diagnostics Vital Signs (24Hr): Vital Signs - 24 hr 12/13/23 20:00 12/14/23 07:45 Temperature 97.8 F 97.4 F Pulse Rate 95 85 Respiratory Rate 16 24 H Blood Pressure 129/85 100/64 Pulse Oximetry 100 97 Oxygen Delivery Method Room Air Room Air BMI result Body Mass Index 31.3 Labs 12/08/23 08:12 Medications Medications Current Medications Acetaminophen (Acetaminophen 325 Mg Tablet) 650 mg PO Q6H PRN PRN Reason: Headache/Pain Mild Scale (1-3) Al Hydroxide/Mg Hydroxide (Magnesium Hydrox/Alum Hydrox 30 Ml Oral.Susp) 30 ml PO Q6H PRN PRN Reason: Heartburn/Nausea Amlodipine Besylate (Amlodipine Besylate 5 Mg Tablet) 5 mg PO DAILY [facility]; Protocol Last Admin: 12/13/23 08:25 Dose: 5 mg Aripiprazole (Aripiprazole 5 Mg Tablet) 5 mg PO DAILY [facility] Last Admin: 12/13/23 08:25 Dose: 5 mg Chlorpromazine HCl (Chlorpromazine Hcl 100 Mg Tablet) 200 mg PO BEDTIME [facility] Last Admin: 12/13/23 20:59 Dose: 200 mg Chlorpromazine HCl (Chlorpromazine Hcl 25 Mg Tablet) 50 mg PO Q4H PRN PRN Reason: severe anxiety Last Admin: 12/13/23 21:00 Dose: 50 mg Hydroxyzine HCl (Hydroxyzine Hcl 50 Mg Tablet) 50 mg PO Q4H PRN PRN Reason: minor anxiety Last Admin: 12/13/23 21:00 Dose: 50 mg Magnesium Hydroxide (Milk Of Magnesia 30 Ml Oral.Susp) 30 ml PO DAILY PRN PRN Reason: Constipation Mirtazapine (Mirtazapine 7.5 Mg Tablet) 7.5 mg PO BEDTIME [facility] Last Admin: 12/13/23 21:00 Dose: 7.5 mg Nicotine Polacrilex (Nicotine Polacrilex 2 Mg Gum) 2 mg BUCCAL Q2H PRN PRN Reason: Nicotine Cravings Omeprazole (Omeprazole 20 Mg Capsule.Dr) 20 mg PO BID@0630,1630 [facility] Last Admin: 12/14/23 06:29 Dose: 20 mg Thiamine HCl (Thiamine Hcl 100 Mg Tablet) 100 mg PO DAILY [facility] Last Admin: 12/13/23 08:26 Dose: 100 mg Trazodone HCl (Trazodone Hcl 50 Mg Tablet) 50 mg PO BEDTIME MRX1 PRN PRN Reason: Insomnia Zolpidem Tartrate (Zolpidem Tartrate 5 Mg Tablet) 10 mg PO BEDTIME [facility] Last Admin: 12/13/23 21:00 Dose: 10 mg Allergies Allergies Allergy/AdvReac Type Severity Reaction Status Date / Time Pork/Porcine Containing Allergy Unknown unknown Verified 03/16/23 17:28 Products Assessment & Plan Assessment & Plan (1) Major depression: Status: Acute Code(s): F32.9 - Major depressive disorder, single episode, unspecified (2) PTSD (post-traumatic stress disorder): Status: Acute Code(s): F43.10 - Post-traumatic stress disorder, unspecified (3) Alcohol use disorder: Status: Acute Code(s): F10.90 - Alcohol use, unspecified, uncomplicated (4) Cocaine use disorder: Status: Acute Code(s): F14.10 - Cocaine abuse, uncomplicated Plan Patient is a 63 year old male with hx of MDD, PTSD, ETOH use d/o, and cocaine use d/o who presented to [facility] d/t suicidal ideation without a plan secondary to increased depression and alcohol use. Plan: CV 15 minute safety checks [facility] referral to outpatient therapist and prescriber addiction medicine consult to discuss possible naltrexone/antabuse/classroom technology coach discharge planning EKG Start: Remeron 7.5mg PO bedtime Abilify 5mg PO daily 12/08: Keeping to self. Pt reports feeling depressed today; pt stated, I've been better. My mind is racing. I get overwhelmed in my thoughts. My life is out of order right now. My thoughts get intense and I want to end it . Pt reports suicidal ideation with no plan. Pt denies HI/VH/AH. Pt continues on [facility]. Pt reports he would be open going to a substance abuse program . 12/09: valium taper written, [facility] protocol DCed. trial of thorazine 200 tonight. also increase ambien to 10 mg QHS. 12/10: thorazine 50 Q4H PRN severe anxiety, hydroxyzine 50 Q4H PRN minor anxiety. sleep study ordered. per staff observation, pt slept 10 hours last night (noted to have been snoring). he reports he did not sleep at all. 12/11: Pt reports feeling alright today; pt stated, I feel like my depression is tolerable. I feel like I need a drink so I don't have to feel anxious . Educated regarding coping skills and encouraged to attend groups. Pt denies SI/HI/VH/AH. Pt to be seen by addiction medicine today. pt was declined from [facility]; pt aware per psychotherapist social worker. 12/12: Pt reports feeling neutral today; pt stated, I feel like my depression is tolerable. I don't want any meds for drinking . Pt denies SI/HI/VH/AH. Pt reports he is interested in going to respite; psychotherapist social worker aware. 12/13: Pt reports doing okay today; pt stated, I'm having some racing thoughts. I'm trying to figure out things. I've always been an anxious person and had racing thoughts. If I don't get into respite then I would go to [place] and stay with my brother. I hope everything works out . Pt denies SI/HI/VH/AH. 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 Patient educated on: diagnosis, medication risk/benefits, substance abuse and therapeutic strategies Informed Consent: understands Reason for continued inpatient stay Substantial Risk for: med/psych decompensation Time Spent With Patient Time: Total time managing care of this patient today _20___ minutes.
[2023-12-14 08:59] VITALS: BP 100/64
[2023-12-14] MEDS: Thiamine HCL 100 MG TABLET PO (08:59)
[2023-12-14] MEDS: amLODIPine Besylate 5 MG TABLET PO (08:59)
[2023-12-14] MEDS: chlorproMAZINE HCl 25 MG TABLET 50 MG PO ×3 (09:21→21:48)
[2023-12-14] MEDS: hydrOXYzine HCL 50 MG TABLET PO ×3 (09:23→21:49)
[2023-12-14 19:17] VITALS: BP 134/96; PULSE 93; RESP 16; TEMP 36.3; O2SAT 98
[2023-12-14] MEDS: Zolpidem Tartrate 5 MG TABLET 10 MG PO (21:44)
[2023-12-14] MEDS: Mirtazapine 7.5 MG TABLET PO (21:45)
[2023-12-14] MEDS: chlorproMAZINE HCl 100 MG TABLET 200 MG PO (21:45)
[2023-12-15 07:43] VITALS: BP 107/63; PULSE 90; RESP 22; TEMP 37.4; O2SAT 95
[2023-12-15] MEDS: ARIPiprazole 5 MG TABLET PO (08:55)
[2023-12-15] MEDS: Omeprazole 20 MG CAPSULE.DR PO ×2 (08:55→16:34)
[2023-12-15 08:56] VITALS: BP 107/63
[2023-12-15] MEDS: Thiamine HCL 100 MG TABLET PO (08:56)
[2023-12-15] MEDS: amLODIPine Besylate 5 MG TABLET PO (08:56)
[2023-12-15] MEDS: chlorproMAZINE HCl 25 MG TABLET 50 MG PO (09:49)
[2023-12-15] MEDS: hydrOXYzine HCL 50 MG TABLET PO ×2 (09:49→20:20)
[2023-12-15] MEDS: Naltrexone HCl 50 MG TABLET PO (12:16)
[2023-12-15 12:56] VITALS: BMI 32.1
--- NOTE | 2023-12-15 13:55 | P.PNPSI_ITS ---
Subjective Subjective Date of Service: 12/15/23 Reason For Visit: Depression Subjective Notes: Conditional Voluntary Interim History: Reviewed with Dr. Strong. Pt reports feeling alright today; pt reports he does not want the PRN Thorazine d/t side effects for dry mouth but would like to keep the night time dose. Pt requesting Klonopin; T/W discussed risk of mixing benzodiazepines with Alcohol. Pt agreed to trial of Naltrexone; risks/benefits reviewed. Pt accepted to respite; pt aware, will discharge tomorrow morning. pt denies SI/HI/VH/AH. Start: Naltrexone 50mg PO daily Increase: Remeron 15mg PO bedtime DC PRN Thorazine Medication Compliance: Yes Side effects from medications: No Attending Groups: Yes Review of Systems Constitutional: Reports as per HPI Eyes: Reports as per HPI Reports as per HPI Cardiovascular: Reports as per HPI Respiratory: Reports as per HPI Gastrointestinal: Reports as per HPI Genitourinary: Reports as per HPI Musculoskeletal: Reports as per HPI Skin/Breast: Reports as per HPI Reports as per HPI Psychiatric: Reports as per HPI Endocrine: Reports as per HPI Hematologic/Lymphatic: Reports as per HPI Allergic/Immunologic: Reports as per HPI Mental Status Exam Mental Status Exam Narrative: Pt is alert and oriented; behavior is cooperative and calm; dressed in hospital attire; mood is described as alright ; eye contact appropriate; Speech is normal rate, volume and not pressured; thought process is organized and goal directed; Thought content is on tx; otherwise pertinent to relevant topics and without any delusional content, paranoid ideations or grandiosity; denies SI/HI/VH/AH. Diagnostics Vital Signs (24Hr): Vital Signs - 24 hr 12/14/23 19:17 12/15/23 07:43 12/15/23 08:56 Temperature 97.3 F 99.3 F Pulse Rate 93 90 Respiratory Rate 16 22 H Blood Pressure 134/96 H 107/63 107/63 Pulse Oximetry 98 95 Oxygen Delivery Method Room Air Room Air BMI result Body Mass Index 32.1 Labs 12/08/23 08:12 Medications Medications Current Medications Acetaminophen (Acetaminophen 325 Mg Tablet) 650 mg PO Q6H PRN PRN Reason: Headache/Pain Mild Scale (1-3) Al Hydroxide/Mg Hydroxide (Magnesium Hydrox/Alum Hydrox 30 Ml Oral.Susp) 30 ml PO Q6H PRN PRN Reason: Heartburn/Nausea Amlodipine Besylate (Amlodipine Besylate 5 Mg Tablet) 5 mg PO DAILY [facility]; Protocol Last Admin: 12/15/23 08:56 Dose: 5 mg Aripiprazole (Aripiprazole 5 Mg Tablet) 5 mg PO DAILY [facility] Last Admin: 12/15/23 08:55 Dose: 5 mg Benztropine Mesylate (Benztropine Mesylate 0.5 Mg Tablet) 0.5 mg PO BEDTIME [facility] Chlorpromazine HCl (Chlorpromazine Hcl 100 Mg Tablet) 200 mg PO BEDTIME [facility] Last Admin: 12/14/23 21:45 Dose: 200 mg Clonidine HCl (Clonidine Hcl 0.1 Mg Tablet) 0.1 mg PO BID PRN; Protocol PRN Reason: Anxiety Hydroxyzine HCl (Hydroxyzine Hcl 50 Mg Tablet) 50 mg PO Q4H PRN PRN Reason: minor anxiety Last Admin: 12/15/23 09:49 Dose: 50 mg Magnesium Hydroxide (Milk Of Magnesia 30 Ml Oral.Susp) 30 ml PO DAILY PRN PRN Reason: Constipation Mirtazapine (Mirtazapine 15 Mg Tablet) 15 mg PO BEDTIME [facility] Naloxone HCl (Naloxone Hcl Nasal Take Home 4 Mg Cassandra) 8 mg NOSTRILALT ONCE ONE Stop: 12/16/23 08:01 Naltrexone HCl (Naltrexone Hcl 50 Mg Tablet) 50 mg PO DAILY [facility] Last Admin: 12/15/23 12:16 Dose: 50 mg Omeprazole (Omeprazole 20 Mg Capsule.Dr) 20 mg PO BID@0630,1630 [facility] Last Admin: 12/15/23 08:55 Dose: 20 mg Thiamine HCl (Thiamine Hcl 100 Mg Tablet) 100 mg PO DAILY [facility] Last Admin: 12/15/23 08:56 Dose: 100 mg Zolpidem Tartrate (Zolpidem Tartrate 5 Mg Tablet) 10 mg PO BEDTIME [facility] Last Admin: 12/14/23 21:44 Dose: 10 mg Allergies Allergies Allergy/AdvReac Type Severity Reaction Status Date / Time Pork/Porcine Containing Allergy Unknown unknown Verified 03/16/23 17:28 Products Assessment & Plan Assessment & Plan (1) Major depression: Status: Acute Code(s): F32.9 - Major depressive disorder, single episode, unspecified (2) PTSD (post-traumatic stress disorder): Status: Acute Code(s): F43.10 - Post-traumatic stress disorder, unspecified (3) Alcohol use disorder: Status: Acute Code(s): F10.90 - Alcohol use, unspecified, uncomplicated (4) Cocaine use disorder: Status: Acute Code(s): F14.10 - Cocaine abuse, uncomplicated Plan Patient is a 63 year old male with hx of MDD, PTSD, ETOH use d/o, and cocaine use d/o who presented to [facility] d/t suicidal ideation without a plan secondary to increased depression and alcohol use. Plan: CV 15 minute safety checks [facility] referral to outpatient therapist and prescriber addiction medicine consult to discuss possible naltrexone/antabuse/pyridine recovery operator discharge planning EKG Start: Remeron 7.5mg PO bedtime Abilify 5mg PO daily 12/08: Keeping to self. Pt reports feeling depressed today; pt stated, I've been better. My mind is racing. I get overwhelmed in my thoughts. My life is out of order right now. My thoughts get intense and I want to end it . Pt reports suicidal ideation with no plan. Pt denies HI/VH/AH. Pt continues on [facility]. Pt reports he would be open going to a substance abuse program . 12/09: valium taper written, [facility] protocol DCed. trial of thorazine 200 tonight. also increase ambien to 10 mg QHS. 12/10: thorazine 50 Q4H PRN severe anxiety, hydroxyzine 50 Q4H PRN minor anxiety. sleep study ordered. per staff observation, pt slept 10 hours last night (noted to have been snoring). he reports he did not sleep at all. 12/11: Pt reports feeling alright today; pt stated, I feel like my depression is tolerable. I feel like I need a drink so I don't have to feel anxious . Educated regarding coping skills and encouraged to attend groups. Pt denies SI/HI/VH/AH. Pt to be seen by addiction medicine today. pt was declined from [facility]; pt aware per social service liaison. 12/12: Pt reports feeling neutral today; pt stated, I feel like my depression is tolerable. I don't want any meds for drinking . Pt denies SI/HI/VH/AH. Pt reports he is interested in going to respite; social service liaison aware. 12/13: Pt reports doing okay today; pt stated, I'm having some racing thoughts. I'm trying to figure out things. I've always been an anxious person and had racing thoughts. If I don't get into respite then I would go to [place] and stay with my brother. I hope everything works out . Pt denies SI/HI/VH/AH. 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 12/14: Pt reports feeling alright today; pt reports he does not want the PRN Thorazine d/t side effects for dry mouth but would like to keep the night time dose. Pt requesting Klonopin; T/W discussed risk of mixing benzodiazepines with Alcohol. Pt agreed to trial of Naltrexone; risks/benefits reviewed. Pt accepted to respite; pt aware, will discharge tomorrow morning. pt denies SI/HI/VH/AH. Start: Naltrexone 50mg PO daily Increase: Remeron 15mg PO bedtime DC PRN Thorazine Patient educated on: diagnosis, medication risk/benefits, substance abuse and therapeutic strategies Informed Consent: understands Reason for continued inpatient stay Substantial Risk for: med/psych decompensation Time Spent With Patient Time: Total time managing care of this patient today _20___ minutes.
[2023-12-15] MEDS: clonazePAM 0.5 MG TABLET PO (16:34)
[2023-12-15 20:01] VITALS: BP 136/86; PULSE 92; RESP 16; TEMP 36.3; O2SAT 99
[2023-12-15] MEDS: Benztropine Mesylate 0.5 MG TABLET PO (20:19)
[2023-12-15] MEDS: Mirtazapine 15 MG TABLET PO (20:19)
[2023-12-15] MEDS: Zolpidem Tartrate 5 MG TABLET 10 MG PO (20:19)
[2023-12-15] MEDS: chlorproMAZINE HCl 100 MG TABLET 200 MG PO (20:20)
[2023-12-16 07:15] VITALS: BP 117/76; PULSE 90; RESP 14; TEMP 36.6; O2SAT 97
[2023-12-16 08:42] VITALS: BP 119/76
[2023-12-16] MEDS: ARIPiprazole 5 MG TABLET PO (08:42)
[2023-12-16] MEDS: Naltrexone HCl 50 MG TABLET PO (08:42)
[2023-12-16] MEDS: Omeprazole 20 MG CAPSULE.DR PO (08:42)
[2023-12-16] MEDS: amLODIPine Besylate 5 MG TABLET PO (08:42)
[2023-12-16] MEDS: Thiamine HCL 100 MG TABLET PO (08:43)
--- NOTE | 2023-12-16 08:48 | P.DS_ITS ---
DS: Providers Provider Date of Service: 12/16/23 Date of admission: 12/07/23 15:31 Date of discharge: 12/16/23 Primary care physician: Fernando Physician Admitting clinician: Denise Alva Attending physician on admission: Pasquale Strong Consults: 12/07/23 17:05 Consult to Hospitalist Routine Comment: Consulting Provider: Hospitalist Reason For Exam: adm from [facility] ED 12/08/23 17:28 Addiction Medicine Routine Consulting Provider: Addiction Covering Reason for consultation: agile coach/naltrexone?/antabuse? Attending physician on discharge: Pasquale Strong Discharging clinician: Denise Alva DS: Diagnosis Discharge Diagnosis (1) Major depression: Status: Acute (2) PTSD (post-traumatic stress disorder): Status: Acute (3) Alcohol use disorder: Status: Acute (4) Cocaine use disorder: Status: Acute DS: Medications Discharge Medications Home Medications: Previous Rx's ?Medication ?Instructions ?Recorded amlodipine 5 mg tablet 5 mg PO DAILY 30 days #30 tabs 12/15/23 aripiprazole 5 mg tablet (Abilify) 5 mg PO DAILY 30 days #30 tabs 12/15/23 benztropine 0.5 mg tablet 0.5 mg PO BEDTIME 30 days #30 tabs 12/15/23 chlorpromazine 200 mg tablet 200 mg PO BEDTIME 30 days #30 tabs 12/15/23 hydroxyzine HCl 50 mg tablet 50 mg PO BID PRN anxiety 30 days 12/15/23 #60 tabs mirtazapine 15 mg tablet 15 mg PO BEDTIME 30 days #30 tabs 12/15/23 naltrexone 50 mg tablet 50 mg PO DAILY 30 days #30 tabs 12/15/23 omeprazole 20 mg capsule,delayed 20 mg PO BID@0630,1630 30 days #60 12/15/23 release caps thiamine mononitrate (vit B1) 100 100 mg PO DAILY 30 days #30 tabs 12/15/23 mg tablet zolpidem 10 mg tablet 10 mg PO BEDTIME 30 days #30 tabs 12/15/23 Mental Status Exam Mental Status Exam Narrative: Pt is alert and oriented; behavior is cooperative and calm; dressed in hospital attire; mood is described as good ; eye contact appropriate; Speech is normal rate, volume and not pressured; thought process is organized and goal directed; Thought content is on tx; otherwise pertinent to relevant topics and without any delusional content, paranoid ideations or grandiosity; denies SI/HI/VH/AH. Data Data Completed and Pending Completed studies during hospitalization [Text1]: 12/08/23 08:12 Hep C Viral Load [id number] H Hep C Viral Load Log 6.29 H DS: Summary Hospital Course Hospital Course: Patient is a 63 year old male with hx of MDD, PTSD, ETOH use d/o, and cocaine us e d/o who presented to [facility] d/t suicidal ideation without a plan secondary to increased depression and alcohol use. Per crisis report, pt reported he lived with his sister who passd away a month ago and since he has been staying with his brother. He reports his brothers house is a stressful place to stay d/t his brother's alcohol use. Pt denies any current psychiatric medication. Pt reported daily alcohol use and occasional cocaine use to self medicate . pt denies HI/VH/AH. During admission assessment, pt presents alert, oriented, calm and cooperative. Pt reports feeling depressed ; pt stated, I went to the hospital because I was feeling depressed and suicidal about life. I was living with my sister but she last month. I just want to get things back on track . Pt reports he has been drinking few pints a day and can not recall the last time he was sober. Pt reports using cocaine or crack every other day . When asked about his substance use, pt stated, everyone in my family drinks. I don't want to keep living like this . UTOX positive for methadone, fentanyl and cocaine. He denies any current outpatient psychiatric providers or psychiatric medications. Pt reports he recalls taking Amitriptyline in the past and would like to be started on that again. Pt reports suicidal ideation with no plan. pt denies HI/VH. He reports auditory hallucinations at times; pt stated, sometimes I hear people ; pt did not elaborate. During hospital course, CV 15 minute safety checks CIWA referral to outpatient therapist and prescriber addiction medicine consult to discuss possible naltrexone/antabuse/chemical recovery operator discharge planning EKG Start: Remeron 7.5mg PO bedtime Abilify 5mg PO daily Keeping to self. Pt reports feeling depressed today; pt stated, I've been better. My mind is racing. I get overwhelmed in my thoughts. My life is out of order right now. My thoughts get intense and I want to end it . Pt reports suicidal ideation with no plan. Pt denies HI/VH/AH. Pt continues on CIWA. Pt reports he would be open going to a substance abuse program . valium taper written, [facility] protocol DCed. trial of thorazine 200 tonight. also increase ambien to 10 mg QHS. thorazine 50 Q4H PRN severe anxiety, hydroxyzine 50 Q4H PRN minor anxiety. sleep study ordered. per staff observation, pt slept 10 hours last night (noted to have been snoring). he reports he did not sleep at all. Pt reports feeling alright today; pt stated, I feel like my depression is tolerable. I feel like I need a drink so I don't have to feel anxious . Educated regarding coping skills and encouraged to attend groups. Pt denies SI/HI/VH/AH. Pt to be seen by addiction medicine today. pt was declined from [facility]; pt aware per web content & social media manager. Pt reports feeling neutral today; pt stated, I feel like my depression is tolerable. I don't want any meds for drinking . Pt denies SI/HI/VH/AH. Pt reports he is interested in going to respite; web content & social media manager aware. Pt reports doing okay today; pt stated, I'm having some racing thoughts. I'm trying to figure out things. I've always been an anxious person and had racing thoughts. If I don't get into respite then I would go to [place] and stay with my brother. I hope everything works out . Pt denies SI/HI/VH/AH. youth support worker waiting to hear back from respite. Pt reports feeling alright today; pt reports he does not want the PRN Thorazine d/t side effects for dry mouth but would like to keep the night time dose. Pt requesting Klonopin; T/W discussed risk of mixing benzodiazepines with Alcohol. Pt agreed to trial of Naltrexone; risks/benefits reviewed. Pt accepted to respite; pt aware, will discharge tomorrow morning. pt denies SI/HI/VH/AH. Start: Naltrexone 50mg PO daily Increase: Remeron 15mg PO bedtime DC PRN Thorazine Pt reports feeling ready to go today; pt reports he plans on following up with outpatient providers. pt denies SI/HI/VH/AH. He was noted by staff to be sleepi ng last night. pt denies any side effects from starting Naltrexone. Pt to be discharged to respite. Time spent discussing smoking cessation with patient: 3 to 10 minutes Status at Discharge Cognitive/behavioral status at discharge: Patient was interviewed prior to discharge and found to be fully oriented and without SI or HI. Patient has insight and demonstrates good judgment in terms of wanting to pursue treatment. Patient has a safety plan that includes presenting to the closest ER or calling 911 if feeling unsafe. Functional status at discharge: independent ambulation Overall status at discharge: patient is back to baseline Time Spent with Patient Time attestation: Total time managing care of this patient today _20___ minutes. Time spent: Less than 30 minutes Discharge Plan Discharge Anticipated Discharge Date/Time: 12/16/23 11:00 Patient Disposition: Xfer Other Discharge Diagnosis: MDD, PTSD, Alcohol use d/o, cocaine use d/o Referrals: [facility]- Monique Mitchell (Therapy Intake) [Other] - 12/20/23 (Please arrive 15 mins prior to the intake appointment to complete intake paperwork. ) [facility]- Pura Wilder (Medication Provider) [Other] - 01/16/24 11:[address] [facility] [Other] - 02/15/24 11:00 am [facility] [Provider Group] - 1 Week Physician,None [Primary Care Provider] - 1 Week Discharge Medications: New aripiprazole [Abilify] 5 mg Tablet 5 mg PO DAILY 30 Days Qty: 30 0RF benztropine 0.5 mg Tablet 0.5 mg PO BEDTIME 30 Days Qty: 30 0RF thiamine mononitrate (vit B1) 100 mg Tablet 100 mg PO DAILY 30 Days Qty: 30 0RF omeprazole 20 mg Capsule,Delayed Release(Dr/Ec) 20 mg PO BID@0630,1630 30 Days Qty: 60 0RF zolpidem 10 mg tablet 10 mg PO BEDTIME 30 Days Qty: 30 0RF naltrexone 50 mg Tablet 50 mg PO DAILY 30 Days Qty: 30 0RF mirtazapine 15 mg Tablet 15 mg PO BEDTIME 30 Days Qty: 30 0RF chlorpromazine 200 mg tablet 200 mg PO BEDTIME 30 Days Qty: 30 0RF Continued amlodipine 5 mg tablet 5 mg PO DAILY 30 Days Qty: 30 0RF Changed hydroxyzine HCl 50 mg tablet 50 mg PO BID PRN (Reason: anxiety) 30 Days Qty: 60 0RF Discontinued chlorpromazine 100 mg tablet 100 mg PO BEDTIME PRN (Reason: insomnia) clonazepam 1 mg tablet 1 mg PO BEDTIME oxcarbazepine 300 mg tablet 300 mg PO BID gabapentin 100 mg capsule 100 mg PO TID zolpidem 10 mg tablet 10 mg PO BEDTIME PRN (Reason: Insomnia) amitriptyline 100 mg tablet 200 mg PO BEDTIME escitalopram oxalate 10 mg tablet 10 mg PO DAILY aripiprazole 10 mg tablet 10 mg PO DAILY bupropion HCl 300 mg tablet extended release 24 hr 300 mg PO DAILY cholecalciferol (vitamin D3) 25 mcg (1,000 unit) tablet 25 mcg PO DAILY omeprazole 20 mg tablet,delayed release (DR/EC) 20 mg PO DAILY Discharge Orders: Discharge Order (Routine); Ordered 12/16/23 Ordered By: Denise Alva Diet: Regular diet Activity on Discharge: As tolerated Stand Alone Forms: Patient Portal Discharge page, Community Support Print Language: Luxembourgish Care Plan Goals: Maintain mood and safe behaviors Take medications as prescribed Continue to pursue sobriety Practice coping skills Continue with outpatient providers and reach out to them as needed Health Concerns: Mood stability and behaviors Sobriety Plan of Treatment: Follow up with your PCP, psychiatric provider and other outpatient providers regarding above concerns Take medications as prescribed Assessment: Patient was interviewed prior to discharge and found to be fully oriented and without SI or HI. Patient has insight and demonstrates good judgment in terms of wanting to pursue treatment. Patient has a safety plan that includes presenting to the closest ER or calling 911 if feeling unsafe.
== END 2023-12-16 11:30 | disposition other institution (70) | DRG 754 ==
PROVIDERS: Physician Assistant; Admitting Provider Psychiatry & Neurology Psychiatry; Responsible Provider Registered Nurse; Visit Provider Psychiatry & Neurology Psychiatry
DX: F32.9 Major depressive disorder, single episode, unspecified (principal); R45.851 Suicidal ideations; B19.20 Unspecified viral hepatitis C without hepatic coma; F43.10 Post-traumatic stress disorder, unspecified; F14.10 Cocaine abuse, uncomplicated; F10.90 Alcohol use, unspecified, uncomplicated; E87.6 Hypokalemia; F17.210 Nicotine dependence, cigarettes, uncomplicated; I10 Essential (primary) hypertension; Z71.6 Tobacco abuse counseling; F19.10 Other psychoactive substance abuse, uncomplicated; F11.20 Opioid dependence, uncomplicated; M25.50 Pain in unspecified joint; Z79.899 Other long term (current) drug therapy
CPT/HCPCS: 36415; 80051; 80053; 80061; 82607; 82746; 83735; 84443; 87389; 87522; 93005

== ENCOUNTER 2023-12-07 15:31 | Outpatient (BNV) | payer MEDICAID, SELFPAY | END 2023-12-10 16:23 | PROVIDERS: Admitting Provider Psychiatry & Neurology Psychiatry; Responsible Provider Registered Nurse; Visit Provider Internal Medicine Cardiovascular Disease | DX: I45.81 Long QT syndrome (principal) | CPT/HCPCS: 93010 ==

== ENCOUNTER 2023-12-07 15:31 | Outpatient (BNV) | payer MEDICAID, SELFPAY | END 2023-12-07 17:32 | PROVIDERS: Admitting Provider Psychiatry & Neurology Psychiatry; Responsible Provider Registered Nurse; Visit Provider Internal Medicine Cardiovascular Disease | DX: I45.9 Conduction disorder, unspecified (principal) | CPT/HCPCS: 93010 ==

== ENCOUNTER 2023-12-07 15:31 | Outpatient (BNV) | payer MEDICAID, SELFPAY | END 2023-12-08 19:19 | PROVIDERS: Admitting Provider Psychiatry & Neurology Psychiatry; Responsible Provider Registered Nurse; Visit Provider Internal Medicine Cardiovascular Disease | DX: I45.81 Long QT syndrome (principal) | CPT/HCPCS: 93010 ==

== ENCOUNTER → 2023-12-07 15:31 | Outpatient (BNV) | payer MEDICAID, SELFPAY | PROVIDERS: Admitting Provider Psychiatry & Neurology Psychiatry; Responsible Provider Registered Nurse; Visit Provider Physician Assistant | DX: Z02.2 Encounter for examination for admission to residential institution (principal) | CPT/HCPCS: 99429 ==

== ENCOUNTER → 2023-12-07 15:31 | Outpatient (BNV) | payer OTHER, SELFPAY | PROVIDERS: Admitting Provider Psychiatry & Neurology Psychiatry; Responsible Provider Registered Nurse; Visit Provider Registered Nurse | DX: F33.2 Major depressive disorder, recurrent severe without psychotic features (principal); F14.10 Cocaine abuse, uncomplicated; F43.11 Post-traumatic stress disorder, acute; F10.90 Alcohol use, unspecified, uncomplicated | CPT/HCPCS: 99231; 99232; 99233 ==

== ENCOUNTER 2024-10-18 12:15 | Inpatient (IN) | payer OTHER, SELFPAY ==
--- NOTE | ~2024-10-18 | XR_ITS ---
CLINICAL HISTORY: possible obstruction 1 view abdomen Comparison: None Findings: No significant bowel distention demonstrated. No significant increased stool noted. No free air. No abnormal calcification. No acute bony abnormalities. Impression: No significant abnormalities. This document has been electronically signed by: Steve Guillen MD on 10/22/2024 00:11:29
[2024-10-18 12:26] VITALS: BP 132/92; PULSE 72; O2SAT 100
--- NOTE | 2024-10-18 12:28 | ED_ITS ---
HPI - Psych General Chief Complaint: Psychiatric Symptoms Stated Complaint: SI,CALM AND COOP PER EMS Time Seen by Provider: 10/18/24 12:18 Source: patient, EMS, RN notes reviewed and old records reviewed Mode of arrival: EMS Limitations: no limitations History of Present Illness ED Provider: Alpesh Solano PA-C HPI Narrative: 64 yo male with history of PTSD, depression, ETOH use disorder, cocaine use disorder, who presents to the ER via EMS for evaluation of worsening depression for the last 2 weeks. He states he has been at [facility] for ETOH detox the last 6 days which they have been treating him with ativan for. He states he has had increased anxiety and depression since before he went into detox. He was living with his brother but states that's no longer safe. He reports history of SI and attempts in the past and states he has been thinking about it, but would not elaborate on a plan. He states he took himself off of all of his psychiatric medications over a year ago. He is starting to get back in the system with [facility] on [facility] which is where he was today. They sent him in on a section 12 for SI and racing thoughts. MD complaint: suicidal ideation, feels depressed and anxiety Onset (ago): week(s) Duration: constant History of same: Yes Relieving factors: none Exacerbating factors: none Context: not taking psychiatric medications and significant life stressor Associated psychiatric symptoms: depression, suicidal ideation and racing thoughts Associated symptoms: insomnia and other (poor appetite) Treatments prior to arrival: placed on mental health hold If self harm: admits thoughts of self harm Related Data Previous Rx's ?Medication ?Instructions ?Recorded amlodipine 5 mg tablet 5 mg PO DAILY 30 days #30 tabs 12/15/23 hydroxyzine HCl 50 mg tablet 50 mg PO BID PRN anxiety 30 days 12/15/23 #60 tabs mirtazapine 15 mg tablet 15 mg PO BEDTIME 30 days #30 tabs 12/15/23 thiamine mononitrate (vit B1) 100 100 mg PO DAILY 30 days #30 tabs 12/15/23 mg tablet zolpidem 10 mg tablet 10 mg PO BEDTIME 30 days #30 tabs 12/15/23 Allergies Allergy/AdvReac Type Severity Reaction Status Date / Time Pork/Porcine Containing Allergy Unknown unknown Verified 10/18/24 12:43 Products naltrexone Allergy Unconscious Verified 10/18/24 18:16 Review of Systems 2 Review of Systems: Yes all other systems are reviewed and are negative [facility] Past Medical History Medical History PTSD (post-traumatic stress disorder) Hypertension Social History Social History Household Members: Family Housing: Apartment Do you presently have visiting nurse or other home services: No Alcohol intake: former Patient Tobacco Use Status: Current everyday Tobacco user Tobacco use type: Cigarette Cigarette Packs Per Day: 1 Cigarettes Per Day: 20.0 Years Smoked: 25 Smoked in Last 30 Days: Yes e-Cigarette/Vaping Use: Never Used Patient Interested in Nicotine Replacement: Yes Patient Given Instructions on How to Stop Smoking: Yes Date Education Initiated: 10/19/24 Second Hand Smoke Exposure: Yes Use of substances other than those prescribed or required for medical reasons: No Substance Use Type: Crack/Cocaine Currently Displaying Signs/Symptoms of Drug Intoxication Withdrawal: No Have you been hit, kicked, punched, or otherwise hurt by someone within the past year? If so, by whom?: No Do you feel safe in your current relationship?: No Current Relationship Is there a partner from a previous relationship who is making you feel unsafe now?: No Are you made to feel afraid or neglected: No Spiritual Healthcare Practices: none Orthodox Healthcare Practices: pt is episcopalian Cultural Healthcare Practices: none Advance Directives: No Advance Directives Information Provided: No Do you have thoughts of harming others: None Do you have a plan to hurt others: No Plan Recently lost weight without trying: No How much weight loss: Not applicable Eating poorly because of decreased appetite: No Nutrition screen score: 0 Nutrition Risks: No Nutritional Risk Poor oral hygiene: No service: No Sexual orientation: Straight/Heterosexual Physical Exam 2 Vital Signs: Vital Signs: Last Vital Signs Temp 97.5 F 10/20/24 08:00 Pulse 88 10/20/24 08:00 Resp 18 10/19/24 20:00 BP 142/86 H 10/20/24 08:00 Pulse Ox 100 10/20/24 08:00 O2 Del Method Room Air 10/20/24 08:00 BMI result Body Mass Index 29.2 Appearance: Alert. Oriented X3. No acute distress. Head: normocephalic, atraumatic. Eyes: Pupils equal, round and reactive to light. ENT: Pharynx normal. No tonsillar swelling or exudate. Neck: Normal inspection. Neck supple. CVS: Normal heart rate and rhythm. Pulses normal. Respiratory: No respiratory distress. Breath sounds normal. Abdomen: Soft and nontender. +BS x4 Skin: Skin warm and dry. Normal skin color. Normal skin turgor. No rashes. Extremities: No lower extremity edema. No joint swelling. Neuro/psych: Oriented X 3. No motor deficit. No sensory deficit. CN II-XII intact. Normal speech and cognition.Depressed mood. varying eye contact. avoidance at times. +SI, no AH/VH Course Course Course Narrative: Time: 06:46 Date: 10/19/24 Provider: Lc Robles MD Patient in physician observation for psychiatric evaluation. Patient was been in the emergency department for 18 hours.? No acute events reported overnight. No current complaints. VS stable.? Patient was initially evaluated by [facility] and was found to be appropriate for IPLOC bed placement. Patient will be followed by CARE team while in the emergency department to assist placement. Patient will remain in the emergency department Behavioral Health Unit until disposition can be determined or until patient's symptoms improve over time. Reevaluation(s) Reevaluation #1: Time: 12:36 Date: 10/19/24 Provider: Velma Carlton DO Physician observation ended at 1236pm.Patient to be admitted as inpatient to psychiatry. Medications Administered Generic Name Dose Route Start Last Admin Trade Name Freq PRN Reason Stop Dose Admin Al Hydroxide/Mg Hydroxide 30 ml 10/19/24 13:36 10/20/24 19:14 Magnesium Hydrox/Alum Hydrox 30 Ml Oral.Susp PO 30 ml Q6H PRN Administration Heartburn/Nausea Amlodipine Besylate 5 mg 10/19/24 09:00 10/19/24 09:36 Amlodipine Besylate 5 Mg Tablet PO 5 mg DAILY MARILIN Administration Protocol Doxazosin Mesylate 1 mg 10/19/24 15:00 10/20/24 08:22 Doxazosin Mesylate 1 Mg Tablet PO 1 mg DAILY MARILIN Administration Protocol Hydroxyzine HCl 50 mg 10/18/24 21:34 10/20/24 00:59 Hydroxyzine Hcl 50 Mg Tablet PO 50 mg BID PRN Administration anxiety Magnesium Hydroxide 30 ml 10/19/24 13:36 10/19/24 18:26 Milk Of Magnesia 30 Ml Oral.Susp PO 30 ml DAILY PRN Administration Constipation Mirtazapine 30 mg 10/19/24 21:00 10/19/24 20:54 Mirtazapine 30 Mg Tablet PO 30 mg BEDTIME MARILIN Administration Mirtazapine 15 mg 10/19/24 14:43 10/20/24 00:59 Mirtazapine 15 Mg Tablet PO 15 mg BEDTIME PRN Administration insomnia Prazosin HCl 1 mg 10/19/24 21:00 10/19/24 20:56 Prazosin Hcl 1 Mg Capsule PO Not Given BEDTIME MARILIN Protocol Senna/Docusate Sodium 1 tab 10/20/24 11:35 10/20/24 11:53 Sennosides/Docusate Sodium Tablet PO 1 tab BID MARILIN Administration Thiamine HCl 100 mg 10/19/24 09:00 10/20/24 08:22 Thiamine Hcl 100 Mg Tablet PO 100 mg DAILY MARILIN Administration Discontinued Medications Generic Name Dose Route Start Last Admin Trade Name Lionelq PRN Reason Stop Dose Admin Mirtazapine 15 mg 10/18/24 21:45 10/18/24 22:43 Mirtazapine 15 Mg Tablet PO 15 mg BEDTIME MARILIN Administration Zolpidem Tartrate 10 mg 10/18/24 21:45 10/18/24 22:40 Zolpidem Tartrate 5 Mg Tablet PO 10 mg BEDTIME MARILIN Administration Zolpidem Tartrate 10 mg 10/19/24 21:00 10/19/24 20:55 Zolpidem Tartrate 5 Mg Tablet PO 10 mg BEDTIME MARILIN Administration Medical Decision Making Medical Decision Making MDM Narrative: 64 yo male presents to the ER from [facility] on a section 12 for SI. increased depression, anxiety and racing thoughts. has been in [facility] for ETOH detox the last 6 days. will monitor CIWAs here. mildly hypertensive on arrival with normal HR. labs show mild elevation of AST only, no other significant abnormality. he is medically cleared. Physician observation started at 15:30. Patient placed in physician observation because patient is awaiting CARE team evaluation for the possible need of inpatient psych admission. At the time observation was started patient's vital signs were stable. Patient is alert and oriented. Neuro exam is non-focal. CV: RRR and lungs are clear. Will continue to monitor. Differential Diagnosis Differential Diagnoses: The differential diagnosis associated with the presentation includes substance induced mood disorder, acute psychosis, schizophrenia, schizoaffective disorder, PTSD, bipolar disorder, major depression with psychotic features Admission/Observation Consideration of admission/observation: Escalation of care including admission/observation considered Lab Data MDM Lab Attestation statement: I reviewed the patient's lab results. no significant metabolic derangement 10/18/24 14:10 10/18/24 14:10 Labs: Lab Results 10/18/24 10/18/24 Range/Units 12:41 14:10 WBC 5.8 (4.8-10.8) X10*3/uL RBC 4.99 (4.60-5.80) X10*6/uL Hgb 13.7 L (14.0-18.0) g/dl Hct 42.4 (42.0-52.0) % MCV 85.0 (80.0-98.0) fL MCH 27.5 (27.0-33.0) pg MCHC 32.3 (31.0-36.0) g/dl RDW 15.0 (11.0-16.0) % Plt Count 283 (160-400) X10*3/uL MPV 10.2 (9.4-12.4) fL Immature Gran % (Auto) 0.3 (0.0-0.4) % Neut % (Auto) 57.8 (45-73) % Lymph % (Auto) 32.5 (20-40) % [place] % (Auto) 6.8 (2-11) % Eos % (Auto) 1.9 (0-4) % Baso % (Auto) 0.7 (0-2) % Lymph # (Auto) 1.9 (1.2-4.9) X10*3/uL [place] # (Auto) 0.4 (0.1-1.2) X10*3/uL Eos # (Auto) 0.1 (0.0-0.4) X10*3/uL Baso # (Auto) 0.0 (0.0-0.2) X10*3/uL Abs Immat Gran (auto) 0.02 (0.00-0.03) X10*3/uL Absolute Neuts (auto) 3.4 (2.0-8.3) x10*3/uL Absolute Nucleated RBC 0.000 (0.0-0.012) X10*3/uL Nucleated RBC % (auto) 0.0 (0.0-0.2) /100WBC Sodium 141 (135-145) mmol/L Potassium 3.7 D (3.3-5.1) mmol/L Chloride 108 (96-108) mmol/L Carbon Dioxide 26 (22-29) mmol/L Anion Gap 11 L (12-20) BUN 7 L (9-16) mg/dL Creatinine 0.71 (0.5-1.4) mg/dL Estim Creat Clear Calc 144.0 Estimated GFR > 60 Random Glucose 104 (60-115) mg/dL Calcium 9.4 (8.4-10.2) mg/dL Magnesium 2.0 (1.6-2.6) mg/dL Total Bilirubin 0.4 (0.0-1.0) mg/dL Direct Bilirubin 0.2 (0.0-0.5) mg/dL AST 41 H (5-37) U/L ALT 26 (0-40) U/L Alkaline Phosphatase 88 (39-117) U/L Total Protein 8.5 H (6.5-8.0) g/dL Albumin 3.6 (3.5-5.0) g/dL Urine Color Dark Yellow Urine Appearance Clear Urine pH 5.5 (5.0-9.0) Ur Specific [place] 1.025 (1.005-1.025) Urine Protein Negative (Neg-Trace) mg/dL Urine Glucose (UA) Negative (Negative) mg/dL Urine Ketones 15 (Negative) mg/dL Urine Blood Negative (Negative) Urine Nitrite Negative (Negative) Ur Leukocyte Esterase Trace H (Negative) Urine RBC 0-2 (0-2) /HPF Urine WBC 6-10 H (0-5) /HPF Ur Squamous Epith Cells 0-2 (0-2) /HPF Urine Bacteria None Seen (None Seen) Hyaline Casts 0-2 (0-2) /LPF Urine Opiates Screen Not Detected (Not Detect) Ur Buprenorphine Scrn Not Detected (Not Detect) ng/mL Ur Oxycodone Screen Not Detected (Not Detect) ng/mL Urine Methadone Screen Not Detected (Not Detect) ng/mL Urine Fentanyl Screen Not Detected (Not Detect) Ur Barbiturates Screen Not Detected (Not Detect) Ur Phencyclidine Scrn Not Detected (Not Detect) Ur Amphetamines Screen Not Detected (Not Detect) U Benzodiazepines Scrn POSITIVE H (Not Detect) Urine Cocaine Screen Not Detected (Not Detect) U Marijuana (THC) Screen Not Detected (Not Detect) Ethyl Alcohol < 10 mg/dL External Record Review External record reviewed: Prior outpatient labs and Prior outpatient radiology Prescription Management I considered prescription management with: Other (ativan, antipsychotics) Social Determinants Patient?s care significantly limited by Social Determinants of Health including: Inadequate housing, Problems related to primary support group and Other Social Determinant of Health Critical Care Time Critical Care Time Critical Care Time: No Discharge Plan Discharge Clinical Impression: Depression Qualifiers: Depression Type: unspecified Qualified Code(s): F32.A - Depression, unspecified Patient Disposition: Admitted As Inpatient Interventions: Admission Worksheet (ED) Last Done: 10/19/24 12:40 Discharge Date/Time: 10/19/24 12:43
[2024-10-18 12:41] VITALS: BP 143/95; PULSE 70; RESP 18; TEMP 36.2; O2SAT 100; BMI 29.2
[2024-10-18 12:52] LABS: Appearance Urine Clear; Color Urine Dark Yellow; Glucose Urine UA Negative (Negative); Leukocyte Esterase Urine Trace (Negative); Nitrite Urine Negative (Negative); PH 5.5 (5.0-9.0); Specific Gravity - Urine 1.025 (1.005-1.025); UMIC TRIGGER UACC YES; Urine Blood Negative (Negative); Urine Ketones 15 mg/dL (Negative); Urine Protein Negative (Neg-Trace)
[2024-10-18 12:55] LABS: Bacteria Urine None Seen (None Seen); Hyaline Casts Urine 0-2 /LPF (0-2); RBC Urine 0-2 /HPF (0-2); Squamous Epithelial Cell Urine 0-2 /HPF (0-2); UACC Culture Trigger YES
[2024-10-18 13:00] LABS: Amphetamine Screen Urine Not Detected (Not Detect); Barbiturates, Urine Not Detected (Not Detect); Benzodiazepines Screen Urine POSITIVE (Not Detect); Buprenorphine Scr Not Detected (Not Detect); Cannabinoid Screen Urine Not Detected (Not Detect); Cocaine Screen Urine Not Detected (Not Detect); Fentanyl, urine Not Detected (Not Detect); Methadone Screen, Urine Not Detected (Not Detect); Opiate Screen Urine Not Detected (Not Detect); Oxycodone Screen Urine Not Detected (Not Detect); Phencyclidine Screen Urine Not Detected (Not Detect)
[2024-10-18 14:16] LABS: MANUAL DIFF FLAG NO
[2024-10-18 14:22] LABS: Basophils Percent Auto 0.7 % (0-2); Eosinophils Absolute Auto 0.1 X10*3/uL (0.0-0.4); Eosinophils Percent Auto 1.9 % (0-4); Hematocrit 42.4 % (42.0-52.0); Hemoglobin 13.7 g/dl (14.0-18.0); Imm Gran Abs Auto 0.02 X10*3/uL (0.00-0.03); Imm Gran Pct Auto 0.3 % (0.0-0.4); Lymphocytes Absolute Auto 1.9 X10*3/uL (1.2-4.9); Lymphocytes Percent Auto 32.5 % (20-40); Mean Corpuscular HGB Conc 32.3 g/dl (31.0-36.0); Mean Corpuscular Hemoglobin 27.5 pg (27.0-33.0); Mean Platelet Volume 10.2 fL (9.4-12.4); Monocytes Absolute Auto 0.4 X10*3/uL (0.1-1.2); Monocytes Percent Auto 6.8 % (2-11); Neutrophils Absolute Auto 3.4 x10*3/uL (2.0-8.3); Neutrophils Percent Auto 57.8 % (45-73); Platelet Count 283 X10*3/uL (160-400); Red Blood Count 4.99 X10*6/uL (4.60-5.80); White Blood Count 5.8 X10*3/uL (4.8-10.8)
[2024-10-18 14:39] LABS: Alanine Aminotransferase 26 U/L (0-40); Albumin Level 3.6 g/dL (3.5-5.0); Alkaline Phosphatase 88 U/L (39-117); Anion Gap 11 (12-20); Aspartate Amino Transferase 41 U/L (5-37); Bilirubin Direct 0.2 mg/dL (0.0-0.5); Bilirubin Total 0.4 mg/dL (0.0-1.0); Blood Urea Nitrogen 7 mg/dL (9-16); Calcium 9.4 mg/dL (8.4-10.2); Carbon Dioxide 26 mmol/L (22-29); Chloride 108 mmol/L (96-108); Estimated Glomerular Filt Rate > 60; Ethanol < 10 mg/dL; Glucose Random 104 mg/dL (60-115); Potassium 3.7 mmol/L (3.3-5.1); Sodium 141 mmol/L (135-145); Total Protein 8.5 g/dL (6.5-8.0)
--- OUTSIDE RECORDS SUMMARY | 2024-10-18 17:07 | XMS_ITS | Clinical Summary ---
Author Organization [facility] ity Address [address] [place] [address] Care Team Providers Care Nurse Researcher Name Role Phone Unavailable Primary Care Provider Unavailabl e Medical History Medical History Date Comments Hypertension DX:Hypertension Social History Tobacco Use Types Packs/Day Years Used Date Smoking Tobacco: Every Day Cigarettes 1 47 Started: 10/05/1977 Smokeless Tobacco: Never Alcohol Use Standard Drinks/Week Comments Yes 50 (1 standard drink = 0.6 oz pu re alcohol) Sex and Gender Information Value Date Recorded Sex Assigned at Not on file Legal Sex Male 9:40 AM EST Gender Identity Not on file Sexual Orientation Not on file Obstetrics History Plan of Treatment Health Maintenance Due Date Last Done Comments DTaP,Tdap,and Td Vaccines (1 - Tdap) 1980 Pneumococcal Vaccine: 50+ Ye ars (1 of 2 - PCV) 1980 Pneumococcal Vaccine: Pediat rics (0 to 5 Years) and At-Risk Patients (6 to 64 Years) (1 of 2 - PCV) 1980 Zoster Vaccines (1 of 2) 2011 Colorectal Cancer Screening: Colonoscopy 06/06/2022 Depression Screening 06/06/2022 HIV Screening 06/06/2022 Hepatitis C Screening 06/06/2022 Lung Cancer Screening (Low D ose CT) 06/06/2022 Social Influencers of Health Screening 06/06/2022 COVID-19 Vaccine ( - 2023-2 5 season) 2024 Influenza Vaccine (Season Ended) 2025 Cholesterol Screening (Lipid Panel) 10/06/2026 10/06/2021 RSV Immunization Adult Patie nts (1 - 1-dose 75+ series) 2036 HIB Vaccines Aged Out No longer eligi ble based on patient's age to complete this topic HPV Vaccines Aged Out No longer eligi ble based on patient's age to complete this topic Hepatitis A Vaccines Aged Out No long er eligible based on patient's age to complete this topic Hepatitis B Vaccines Aged Out No long er eligible based on patient's age to complete this topic IPV Vaccines Aged Out No longer eligi ble based on patient's age to complete this topic MMR Vaccines Aged Out No longer eligi ble based on patient's age to complete this topic Meningococcal ACWY Vaccine Aged Out N o longer eligible based on patient's age to complete this topic Meningococcal B Vaccine Aged Out No l onger eligible based on patient's age to complete this topic RSV Immunization Patients Un jose 20 months Aged Out No longer eligible b ased on patient's age to complete this topic Varicella Vaccines Aged Out No longer eligible based on patient's age to complete this topic
--- OUTSIDE RECORDS SUMMARY | 2024-10-18 17:07 | XMS_ITS | Clinical Summary ---
Author Organization [facility] Address [address] [place] [address] Care Team Providers Care Airborne Operations Name Role Phone Unavailable Primary Care Provider Unavailabl e Allergies No known active allergies Medications Medication Sig Dispensed Refills Start Date End Date Status escitalopram (LEXAPRO) tablet 10 mgIndications:Posttr aumatic Stress Disorder Take 1 tablet (10 mg total) by mouth daily. 30 tablet 0 10/10/2021 Active nicotine (NICODERM CQ) 21 MG/24HRIndications:N icotine Dependence Place 1 patch onto the skin daily. 28 patch 0 10/10/2021 Active nicotine polacrilex (NICORETTE) 2 MG gumIndications:Nicot ine Dependence Use as directed 1 each (2 mg total) in the mouth or throat every hour as needed for smoking cessation (Nicotine craving). 100 each 0 10/09/2021 Active QUEtiapine (SEROquel) 100 MG tabletIndications:Po sttraumatic Stress Disorder Take 1 tablet (100 mg total) by mouth every night at bedtime. 30 tablet 0 10/09/2021 Active QUEtiapine (SEROquel) 50 MG tabletIndications:Po sttraumatic Stress Disorder Take 1 tablet (50 mg total) by mouth every 6 (six) hours as needed (agitation). 30 tablet 0 10/09/2021 Active lactulose (CEPHULAC) 20 GM/30ML solution Take 30 mL (20 g total) by mouth every 8 (eight) hours. 240 mL 0 01/07/2023 Active Active Problems Problem Noted Date Diagnosed Date Alcohol withdrawal delirium 01/05/2023 High anion gap metabolic acidosis 01/05/2023 Transaminitis 01/05/2023 Depression 01/05/2023 Polysubstance abuse 05/21/2022 Chronic post-traumatic stress disorder (PTSD) MDD (major depressive disord er), recurrent severe, without psychosis 10/05/2021 Alcohol use disorder, severe, dependence 017 Bipolar 1 disorder, depressed, severe 04/19/2017 Social History Tobacco Use Types Packs/Day Years Used Date Smoking Tobacco: Every Day Cigarettes 1 44 Started: 10/05/1977 Smokeless Tobacco: Never Tobacco Cessation:Ready to Q uit: No; Counseling Given: No Alcohol Use Standard Drinks/Week Comments Yes 50 (1 standard drink = 0.6 oz pu re alcohol) Sex and Gender Information Value Date Recorded Sex Assigned at Male 04/07/2021 3:10 AM EDT Gender Identity Male 10/05/2021 12:25 AM EDT Sexual Orientation Straight 10/05/2021 4: 40 AM EDT Job Start Date Occupation Industry Not on file Not on file Not on file Last Filed Vital Signs Vital Sign Reading Time Taken Comments Blood Pressure 105/78 06/14/2023 6:09 AM EST Pulse 82 06/14/2023 6:09 AM EST Temperature 36.7 ??C (98 ??F) 06/14/2023 6:09 AM EST Respiratory Rate 19 06/14/2023 6:09 AM EST Oxygen Saturation 98% 06/14/2023 6:09 AM EST Inhaled Oxygen Concentration - - Weight 113.4 kg (250 lb) 06/13/2023 4:36 PM EST Height 190.5 cm (6' 3 ) 06/13/2023 4:36 PM EST Body Mass Index 31.25 06/13/2023 4:36 PM EST Plan of Treatment Health Maintenance Due Date Last Done Comments Lung Cancer Screening (Low Dose CT) 1961 COVID-19 Vaccine (#1) 1961 Pneumococcal Vaccine (1 of 2 - PCV) 1967 Depression Screening 1973 Preventative Health Evaluation 1979 Colon Cancer Screening (Colonoscopy) 2006 Shingrix-Zoster Vaccine (1 o f 2) 2011 Influenza Vaccine (#1) 2024 3, 06/22/2022 DTap / Tdap / Td (2 - Td or Tdap) 08/10/2032 08/10/2022 RSV Adult > 60+ Yrs or (1 - 1-dose 75+ series) 2036 Hepatitis C Screening Completed 10/06/2021 Hepatitis B Vaccines Aged Out No long er eligible based on patient's age to complete this topic RSV Ped < 20 months Aged Out No longe r eligible based on patient's age to complete this topic Advance Directives For more information, please contact: [phone] Latest Code Status on File Code Status Date Activated Date Inactivated Comments Full Code 01/05/2023 3:31 PM 01/08/2023 2:39 AM This co de status was ascertained in the following way: patient unable to provide, will assume full code . Code Status History Code Status Date Activated Date Inactivated Comments Full Code 10/05/2021 3:47 AM 10/09/2021 6:58 PM This co de status was ascertained in the following way: per unit protocol. Full Code 10/05/2021 3:38 AM 10/05/2021 3:47 AM This co de status was ascertained in the following way: per unit protocol.
--- OUTSIDE RECORDS SUMMARY | 2024-10-18 17:07 | XMS_ITS | Clinical Summary ---
Author Organization [facility] Address [address] [place] [address] Care Team Providers Care Electrolog Operator Name Role Phone Unavailable Primary Care Provider Unavailabl e Source Comments PLEASE NOTE, if this patient is a minor, it may be UNLAWFUL to discuss sensitive information that is contained in these records (such as FAMILY PLANNING, MENTAL HEALTH or SUBSTANCE ABUSE) with the minor patient's parent or other person without the patient's specific authorization.[facility] Allergies No known active allergies Medications amLODIPine (NORVASC) 5 mg tabletIndicatio ns:Alcohol use disorder, severe, dependence (HCC-CMS) 05/24/2022 Active folic acid (FOLVITE) 1 mg tabletIndicatio ns:Alcohol use disorder, severe, dependence (HCC-CMS) 05/24/2022 Active gabapentin (NEURONTIN) 600 mg tabletIndicatio ns:Alcohol use disorder, severe, dependence ([facility]) Take 600 mg by mouth 3 (three) times daily Active hydrOXYzine pamoate (VISTARIL) 50 mg capsule Take 1 Capsule by mouth every 4 (four) hours as needed for anxiety 180 Capsule 07/06/2022 Active polyethylene glycol, PEG, 3350 17 gram packetIndicatio ns:Alcohol use disorder, severe, dependence (HCC-CMS) Take 17 g by mouth daily 08/31/2022 Active QUEtiapine (SEROQUEL) 100 mg tabletIndicatio ns:Alcohol use disorder, severe, dependence (HCC-CMS) Take 100 mg by mouth 10/09/2021 Active nicotine (NICODERM CQ) 21 mg/24 hr patchIndication s:Alcohol use disorder, severe, dependence (HCC-CMS) Place 1 Patch onto the skin once daily (every 24 hours) 7 Patch 09/10/2022 Active Active Problems Problem Noted Date Diagnosed Date Elevated LFTs 09/10/2022 History of antisocial personality disorder 09/10 History of hypertension 09/10/2022 Bipolar I disorder ([facility]) 08/03/2022 Opioid use disorder, severe, on maintenance therapy ([facility]) 07/07/2022 Substance induced mood disorder ([facility]) 2022 Chronic hepatitis C without hepatic coma ([facility]) 12/11/2021 Alcohol use disorder, severe, dependence ([facility]) 09/06/2021 PTSD (post-traumatic stress disorder) 07/25/2017 Resolved Problems Problem Noted Date Diagnosed Date Resolved Date Syphilis 08/27/2022 09/10/2022 History of seizure due to alcohol withdrawal 07/06/2022 Elevated liver enzymes 04/12/202107/06 Angina pectoris ([facility]) 08/21/2017 07/01/2022 Drug-induced mood disorder ([facility]) 07/26/2017 07/06/2022 Cocaine abuse ([facility]) 07/26/201709/2022 Suicidal ideation 07/25/2017 07/06/2022 Cigarette smoker 07/25/2017 07/06/2022 Anxiety 07/25/2017 07/06/2022 Cocaine use disorder, modera te, dependence ([facility]) 04/19/2017 07/01/2022 Bipolar 1 disorder, depresse d, severe ([facility]) 04/19/2017 07/06/2022 Hx of fall 07/01/2022 Immunizations Immunization Administration Dates Next Due INFLUENZA, SEASONAL, INJECTABLE 06/22/2022 PPD 07/01/2022,09/05/2021 Social History Tobacco Use Types Packs/Day Years Used Date Smoking Tobacco: Never Assessed Social Connections Answer Date Recorded Connectedness 0 03/16/2024 Financial Resource Strain Answer Date R ecorded Financial Resource Strain 0 2021 Stress Answer Date Recorded Stress 0 09/05/2021 Physical Activity Answer Date Recorded Physical Activity 0 09/05/2021 Food Insecurity Answer Date Recorded Food 0 03/29/2024 Transportation Needs Answer Date Record ed Transportation 0 09/05/2021 Housing Stability Answer Date Recorded Housing 0 09/05/2021 Safety and Environment Answer Date Renzo rded Safety 0 09/05/2021 Utilities Answer Date Recorded Utilities 0 09/05/2021 Employment Answer Date Recorded Stress 0 03/16/2024 Sex and Gender Information Value Date Recorded Sex Assigned at Male 07/07/2022 8:31 AM PST Legal Sex Male 7:19 AM PST Gender Identity Male 07/07/2022 8:31 AM PST Sexual Orientation Straight 07/07/2022 8: 31 AM PST Last Filed Vital Signs Vital Sign Reading Time Taken Comments Blood Pressure 138/84 09/13/2022 8:12 AM EDT Pulse 65 09/13/2022 8:12 AM EDT Temperature 36.7 ??C (98 ??F) 09/13/2022 8:12 AM EDT Respiratory Rate 18 09/13/2022 8:12 AM EDT Oxygen Saturation 94% 09/13/2022 8:12 AM EDT Inhaled Oxygen Concentration - - Weight 107.5 kg (237 lb) 09/10/2022 6:00 PM EST Height 190.5 cm (6' 3 ) 09/10/2022 6:00 PM EST Body Mass Index 29.62 09/10/2022 6:00 PM EST Plan of Treatment Health Maintenance Due Date Last Done Comments Anxiety Screening 1961 Tobacco Screening 1961 Imm-Hepatitis A (1 of 2 - Ri sk 2-dose series) 1980 Imm-Pneumococcal (1 of 2 - PCV) 1980 CT Colonography 2006 Colonoscopy 2006 Colorectal Cancer Screening 2006 FIT/gFOBT 2006 Fecal DNA 2006 Flexible Sigmoidoscopy 2006 Imm-Zoster, Recombinant (1 of 2) 2011 Imm-Hepatitis B (1 of 3 - Ri sk 3-dose series) 2021 LTBI Screening (#1) 07/01/2023 07/01/2022, Lipid Screening 08/19/2023 08/19/2022, 06/18/2022 Hypertension Screening (#1) 09/13/2023 [id number] () 03/04/2024 Imm-Influenza (#1) 2024 04/17/2023, 06/22/2022 Alcohol and Drug Screen 07/04/2024 Depression Annual Screen 07/04/2024 09/10/2022 Diabetes Screening 08/31/2025 08/31/2024, 0 07/07/2024, 06/16/2024, Additional history exists Imm-DTaP/Tdap/Td (2 - Td or Tdap) 08/10/2032 023 HIV Screening Completed 08/20/2024, 11/01, 11/19/2023, Additional history exists Goals Goal Patient Goal Type Associated Problems Recent Progress Patient-Stated? Author D1 Goal: My goal is to complete detox and go to [facility] aftercare. Care Plan Dimension 1 - Acute Intoxication and Withdrawal No Kalee Toth RN D1 Objective: Complete a safe medical withdrawal management program and remain clean from all sustances. Care Plan Dimension 1 - Acute Intoxication and Withdrawal No Kalee Toth RN Note: Modality/interventions: psychoeducation, Motivational Interviewing, relapse prevention training, coping skills training. Duration/Amount/Frequency: D2 Goal: ? I will let the nursing staff know if I feel like I may have a siezure. Care Plan Dimension 2 - Biomedical Conditions and Complication No Kalee Toth RN D2 Objective: Client will be medicated with gabapentin 300mg TID for seizure prevention and medicated per CIWA. Client will report any auras or seizure like activity. Care Plan Dimension 2 - Biomedical Conditions and Complication No Kalee Toth RN Note: Modality/interventions: psychoeducation, Motivational Interviewing, relapse prevention training, coping skills training. Duration/Amount/Frequency: D3 Goal: ? I will attend groups while in detox to stay focused on my recovery? Care Plan Dimension 3 - Cognitive, Behavioral, and Emotional Conditions No Kalee Toth RN D3 Objective: Attend and be an active participant in at least 2 groups per day while in detox. Care Plan Dimension 3 - Cognitive, Behavioral, and Emotional Conditions No Kalee Toth RN Note: Modality/interventions: psychoeducation, Motivational Interviewing, relapse prevention training, coping skills training. Duration/Amount/Frequency: D4 Goal: ? I will commit to an action plan towards addressing substance use issues? Care Plan Dimension 4 - Readiness/Motivat ion No Kalee Toth RN D4 Objective: Participate in aftercare planning to facilitate a clinically appropriate discharge plan Care Plan Dimension 4 - Readiness/Motivat ion No Kalee Toth RN Note: Modality/interventions: psychoeducation, Motivational Interviewing, relapse prevention training, coping skills training. Duration/Amount/Frequency: D5 Goal: ? I will develop a relapse prevention plan? Care Plan Dimension 5 - Relapse, Continued Use, Continued Problem Potential No Kalee Toth RN D5 Objective: Identify 2 triggers and 2 coping skills to use to mitigate the triggers and discuss with the clinician prior to discharge Care Plan Dimension 5 - Relapse, Continued Use, Continued Problem Potential No Kalee Toth RN Note: Modality/interventions: psychoeducation, Motivational Interviewing, relapse prevention training, coping skills training. Duration/Amount/Frequency: D6 Goal: ? I will return to a supportive environment after completing detox? Care Plan Dimension 6 - Recovery Environment No Kalee Toth RN D6 Objective: Establish a connection with a person supportive of recovery efforts while still in treatment Care Plan Dimension 6 - Recovery Environment No Kalee Toth RN Note: Modality/interventions: psychoeducation, Motivational Interviewing, relapse prevention training, coping skills training. Duration/Amount/Frequency: Additional Health Concerns Active Problems Noted Date Diagnosed Date Dimension 1 - Acute Intoxication and Withdrawal 09/10/2022 Dimension 2 - Biomedical Conditions and Complica tion 09/10/2022 Dimension 3 - Cognitive, Beh avioral, and Emotional Conditions 09/10/2022 Dimension 4 - Readiness/Motivation 09/10/2022 Dimension 5 - Relapse, Maryan nued Use, Continued Problem Potential 09/10/2022 Dimension 6 - Recovery Environment 09/10/[address] [place] Member Subscriber Plan / Payer (Ef fective 2022-Present) Name:Ba Humphrey Relation to Subscriber:Self Name:Ba Humphrey Payer ID:[id number] Group ID:Not on file Type:Medicaid Address: [facility] [address] [place] [address]
[2024-10-18 20:18] VITALS: BP 115/80; PULSE 78; RESP 18; TEMP 37.1; O2SAT 100
--- NOTE | 2024-10-18 21:50 | MHC.CARE ---
Patient was evaluated by [facility] Crisis and was found appropriate for IPLOC. Evaluation was sent to Care Team and placed in his chart. Pt will be re evaluated by the care team if not placed within 24 hours.
--- NOTE | 2024-10-18 22:27 | HE.PHANOTE ---
MED REC Messaged provider about med rec.. aware that pt hasn't filled, restarting patient on these meds.
[2024-10-18] MEDS: Zolpidem Tartrate 5 MG TABLET 10 MG PO (22:40)
[2024-10-18] MEDS: Mirtazapine 15 MG TABLET PO (22:43)
--- NOTE | 2024-10-19 00:28 | PC.NURSE ---
patient appears to remain at rest, rec'd medications easily, maintains safe bx able to let wants needs be known. appears in no distress
[2024-10-19 02:38] VITALS: BP 155/109; PULSE 67; RESP 18; TEMP 36.1; O2SAT 100
[2024-10-19] MEDS: hydrOXYzine HCL 50 MG TABLET PO (02:39)
--- NOTE | 2024-10-19 07:45 | ECG_ITS ---
Test Reason : PROLONG QT Blood Pressure : */* mmHG Vent. Rate : 64 BPM Atrial Rate : 64 BPM P-R Int : 136 ms QRS Dur : 86 ms QT Int : 410 ms P-R-T Axes : 66 3 27 degrees QTcB Int : 422 ms Normal sinus rhythm Normal ECG When compared with ECG of 10-Dec-2023 16:23, Nonspecific T wave abnormality, improved in Anterolateral leads Referred By: Brenna Solano Electronically Signed By: VINAY PINEDA MD
[2024-10-19 09:36] VITALS: BP 130/103
[2024-10-19] MEDS: Thiamine HCL 100 MG TABLET PO (09:36)
[2024-10-19] MEDS: amLODIPine Besylate 5 MG TABLET PO (09:36)
[2024-10-19 13:39] VITALS: BP 133/88; PULSE 88; RESP 16; TEMP 37.2; O2SAT 99
[2024-10-19 14:41] VITALS: BMI 29.5
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
[2024-10-19 15:10] VITALS: BP 115/83; PULSE 72
[2024-10-19 15:11] VITALS: BP 115/83
[2024-10-19] MEDS: Doxazosin Mesylate 1 MG TABLET PO (15:11)
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
[2024-10-19] MEDS: Milk of Magnesia 30 ML ORAL.SUSP PO (18:26)
[2024-10-19 20:00] VITALS: BP 120/84; PULSE 80; RESP 18; TEMP 36.2; O2SAT 99
[2024-10-19] MEDS: Mirtazapine 30 MG TABLET PO (20:54)
[2024-10-19] MEDS: Zolpidem Tartrate 5 MG TABLET 10 MG PO (20:55)
[2024-10-20] MEDS: Magnesium Hydrox/Alum Hydrox 30 ML ORAL.SUSP PO ×2 (00:56→19:14)
[2024-10-20] MEDS: Mirtazapine 15 MG TABLET PO ×2 (00:59→22:45)
[2024-10-20] MEDS: hydrOXYzine HCL 50 MG TABLET PO (00:59)
--- NOTE | 2024-10-20 01:08 | PC.NURSE ---
OOB c/o vomiting, unwitnessed by staff. given mylanta. CIWA done at this time. score 1
[2024-10-20 08:00] VITALS: BP 142/86; PULSE 88; TEMP 36.4; O2SAT 100
[2024-10-20] MEDS: Thiamine HCL 100 MG TABLET PO (08:22)
[2024-10-20] MEDS: Doxazosin Mesylate 1 MG TABLET PO (08:22)
[2024-10-20 09:35] LABS: Estimated Average Glucose 108 mg/dL; Hemoglobin A1C 139.9839 umol/L; Hemoglobin A1c % 5.4 % (<6.0); Total Hemoglobin (HGBA1C) 3939.3237 umol/L
[2024-10-20 09:36] LABS: Cholesterol 196 mg/dL (<200); HDL Cholesterol 42 mg/dL (>40); LDL Cholesterol Calculated 136 mg/dL (<100); Triglycerides 91 mg/dL (<150)
[2024-10-20 09:53] LABS: Thyroid Stimulating Hormone 0.58 uIU/mL (0.32-4.0)
[2024-10-20 10:05] LABS: Folate 13.7 ng/mL (> or = 4.0); Vitamin B12 681 pg/mL (200-900)
--- NOTE | 2024-10-20 10:42 | HO.PSYCHPN ---
Subjective Subjective Date of Service: 10/20/24 Reason For Visit: SI DEPRESSION /ETOH Subjective Notes: Conditional Voluntary Interim History: Pt slept 2-3 hrs at night. He reports this has been an ongoing issue for several years now. It does seem he had sleep study while on the unit back in 12/2023 but unable to see results. Pt reports he does not remember. He reports clonazepam may be more effective than ambien, agreed to switch. May have to discuss rx on d/c given ongoing alcohol use disorder. He reports contipation, nausea, given miralax and senakot. He denies SI/HI. He does endorse feeling hopeless, not much to look forward to. visible on the unit. VS stable. he refused doxazosin due to blurry vision. Review of Systems Review of Systems Yes all other systems are reviewed and are negative Mental Status Exam Mental Status Exam Narrative: Pt is alert and oriented; behavior is cooperative and calm; dressed in hospital attire; mood is described as kind of blank; eye contact appropriate; Speech is normal rate, volume and not pressured; thought process is organized and goal directed; Thought content is on tx; otherwise pertinent to relevant topics and without any delusional content, paranoid ideations or grandiosity; denies SI/SIBI/HI/VH. Pt reports AH sometimes of chatter he can't make out.. Diagnostics Vital Signs (24Hr): Vital Signs - 24 hr 10/19/24 13:39 10/19/24 15:10 10/19/24 15:11 Temperature 98.9 F Pulse Rate 88 72 Respiratory Rate 16 Blood Pressure 133/88 115/83 115/83 Pulse Oximetry 99 Oxygen Delivery Method Room Air 10/19/24 20:00 10/20/24 08:00 Temperature 97.1 F 97.5 F Pulse Rate 80 88 Respiratory Rate 18 Blood Pressure 120/84 142/86 H Pulse Oximetry 99 100 Oxygen Delivery Method Room Air Room Air BMI result Body Mass Index 29.5 Labs 10/21/24 23:48 10/21/24 23:48 Labs: Laboratory Results - last 48 hr 10/18/24 10/18/24 10/20/24 12:41 14:10 08:17 WBC 5.8 RBC 4.99 Hgb 13.7 L Hct 42.4 MCV 85.0 MCH 27.5 MCHC 32.3 RDW 15.0 Plt Count 283 MPV 10.2 Immature Gran % (Auto) 0.3 Neut % (Auto) 57.8 Lymph % (Auto) 32.5 [place] % (Auto) 6.8 Eos % (Auto) 1.9 Baso % (Auto) 0.7 Lymph # (Auto) 1.9 [place] # (Auto) 0.4 Eos # (Auto) 0.1 Baso # (Auto) 0.0 Abs Immat Gran (auto) 0.02 Absolute Neuts (auto) 3.4 Absolute Nucleated RBC 0.000 Nucleated RBC % (auto) 0.0 Sodium 141 Potassium 3.7 D Chloride 108 Carbon Dioxide 26 Anion Gap 11 L BUN 7 L Creatinine 0.71 Estim Creat Clear Calc 144.0 Estimated GFR > 60 Random Glucose 104 Estimat Average Glucose 108 Hemoglobin A1c % 5.4 Calcium 9.4 Magnesium 2.0 Total Bilirubin 0.4 Direct Bilirubin 0.2 AST 41 H ALT 26 Alkaline Phosphatase 88 Total Protein 8.5 H Albumin 3.6 Triglycerides 91 Cholesterol 196 LDL Cholesterol, Calc 136 H HDL Cholesterol 42 Vitamin B12 681 Folate 13.7 TSH 0.58 Free T4 1.10 Urine Color Dark Yellow Urine Appearance Clear Urine pH 5.5 Ur Specific [place] 1.025 Urine Protein Negative Urine Glucose (UA) Negative Urine Ketones 15 Urine Blood Negative Urine Nitrite Negative Ur Leukocyte Esterase Trace H Urine RBC 0-2 Urine WBC 6-10 H Ur Squamous Epith Cells 0-2 Urine Bacteria None Seen Hyaline Casts 0-2 Urine Opiates Screen Not Detected Ur Buprenorphine Scrn Not Detected Ur Oxycodone Screen Not Detected Urine Methadone Screen Not Detected Urine Fentanyl Screen Not Detected Ur Barbiturates Screen Not Detected Ur Phencyclidine Scrn Not Detected Ur Amphetamines Screen Not Detected U Benzodiazepines Scrn POSITIVE H Urine Cocaine Screen Not Detected U Marijuana (THC) Screen Not Detected Ethyl Alcohol < 10 Medications Medications Current Medications Acetaminophen (Acetaminophen 325 Mg Tablet) 650 mg PO Q6H PRN PRN Reason: Headache/Pain, Scale 1-10 Al Hydroxide/Mg Hydroxide (Magnesium Hydrox/Alum Hydrox 30 Ml Oral.Susp) 30 ml PO Q6H PRN PRN Reason: Heartburn/Nausea Last Admin: 10/20/24 00:56 Dose: 30 ml Amlodipine Besylate (Amlodipine Besylate 5 Mg Tablet) 5 mg PO DAILY MARILIN; Protocol Last Admin: 10/19/24 09:36 Dose: 5 mg Doxazosin Mesylate (Doxazosin Mesylate 1 Mg Tablet) 1 mg PO DAILY [facility]; Protocol Last Admin: 10/20/24 08:22 Dose: 1 mg Hydroxyzine HCl (Hydroxyzine Hcl 50 Mg Tablet) 50 mg PO BID PRN PRN Reason: anxiety Last Admin: 10/20/24 00:59 Dose: 50 mg Lorazepam (Lorazepam 1 Mg Tablet) 1 mg PO Q2H PRN PRN Reason: CIWA 8-11 Lorazepam (Lorazepam 1 Mg Tablet) 2 mg PO Q2H PRN PRN Reason: CIWA 12-15 Lorazepam (Lorazepam 1 Mg Tablet) 3 mg PO Q2H PRN PRN Reason: CIWA > 15, and call Magnesium Hydroxide (Milk Of Magnesia 30 Ml Oral.Susp) 30 ml PO DAILY PRN PRN Reason: Constipation Last Admin: 10/19/24 18:26 Dose: 30 ml Mirtazapine (Mirtazapine 30 Mg Tablet) 30 mg PO BEDTIME [facility] Last Admin: 10/19/24 20:54 Dose: 30 mg Mirtazapine (Mirtazapine 15 Mg Tablet) 15 mg PO BEDTIME PRN PRN Reason: insomnia Last Admin: 10/20/24 00:59 Dose: 15 mg Nicotine Polacrilex (Nicotine Polacrilex 2 Mg Gum) 4 mg BUCCAL Q2H PRN PRN Reason: Nicotine Cravings Polyethylene Glycol (Polyethylene Glycol 3350 17 Gm Powd.Pack) 17 gm PO DAILY PRN PRN Reason: Constipation Prazosin HCl (Prazosin Hcl 1 Mg Capsule) 1 mg PO BEDTIME [facility]; Protocol Last Admin: 10/19/24 20:56 Dose: Not Given Thiamine HCl (Thiamine Hcl 100 Mg Tablet) 100 mg PO DAILY [facility]IN Last Admin: 10/20/24 08:22 Dose: 100 mg Zolpidem Tartrate (Zolpidem Tartrate 5 Mg Tablet) 10 mg PO BEDTIME [facility]IN Last Admin: 10/19/24 20:55 Dose: 10 mg Allergies Allergies Allergy/AdvReac Type Severity Reaction Status Date / Time Pork/Porcine Containing Allergy Unknown unknown Verified 10/18/24 12:43 Products naltrexone Allergy Unconscious Verified 10/18/24 18:16 Assessment & Plan Assessment & Plan (1) Depression: Qualifiers: Depression Type: unspecified Qualified Code(s): F32.A - Depression, unspecified Status: Acute Code(s): F32.A - Depression, unspecified (2) Homeless single person: Status: Acute Code(s): Z59.00 - Homelessness unspecified (3) Cocaine use disorder: Status: Acute Code(s): F14.10 - Cocaine abuse, uncomplicated (4) PTSD (post-traumatic stress disorder): Status: Acute Code(s): F43.10 - Post-traumatic stress disorder, unspecified (5) Alcohol use disorder: Status: Acute Code(s): F10.90 - Alcohol use, unspecified, uncomplicated Plan has been a week since last drink, but [facility] unclear how much and when. will leave on ativan per [facility] protocol for now until benzo needs are clearer. lengthy discussion about h/o intractable insomnia, severe trauma, likelihood of PTSD-driven Sx. agreeable to try BP meds for anxiety and insomnia. states he does not like how clonidine makes him feel, however. will HOLD amlodipine for now and start doxazosin 1 mg in the morning, titrate to BP and anxiety control. also will start prazosin 1 mg at HS. titrate up as indicated for sleep. will also increase remeron to 30 mg at HS with repeat of 15 mg PRN. will allow lelo to continue for now at pt's strong request. refer for rehab. addiction consult. 10/20: constipation, added senakot, miralax, d/c doxazosin as he reports blurry vision and asks that it is discontinue. Reason for continued inpatient stay Substantial Risk for: inability to function Time Spent With Patient Time: Total time managing care of this patient today ____ minutes.
[2024-10-20] MEDS: Sennosides/Docusate Sodium TABLET 1 TAB PO ×2 (11:53→20:32)
--- NOTE | 2024-10-20 18:27 | PC.NURSE ---
Pt reported I don't like that medicine (Doxazosin) I took this morning, I don't like how it makes me feel. Pt reported I feel like my eyes are blurry and I dont' like it. Pt retreated back to his room to nap. Provider aware.
[2024-10-20 20:00] VITALS: BP 111/81; PULSE 89; RESP 16; TEMP 36.3; O2SAT 99
[2024-10-20] MEDS: Mirtazapine 30 MG TABLET PO (20:31)
[2024-10-20] MEDS: clonazePAM 1 MG TABLET PO (20:31)
[2024-10-21 07:15] VITALS: BP 121/73; PULSE 84; RESP 16; TEMP 36.5; O2SAT 98
[2024-10-21] MEDS: Sennosides/Docusate Sodium TABLET 1 TAB PO ×2 (09:30→21:50)
[2024-10-21] MEDS: Thiamine HCL 100 MG TABLET PO (09:30)
[2024-10-21 11:57] VITALS: BP 110/79; PULSE 70; RESP 16; TEMP 36.2; O2SAT 100
[2024-10-21] MEDS: hydrOXYzine HCL 50 MG TABLET PO (11:59)
[2024-10-21] MEDS: Acetaminophen 325 MG TABLET 650 MG PO (11:59)
[2024-10-21] MEDS: Cyanocobalamin (Vitamin B-12) 100 MCG TABLET PO (15:57)
[2024-10-21] MEDS: Folic Acid 1 MG TABLET PO (15:57)
[2024-10-21 19:45] VITALS: BP 128/86; PULSE 74; RESP 18; TEMP 36.2; O2SAT 96
[2024-10-21] MEDS: Magnesium Hydrox/Alum Hydrox 30 ML ORAL.SUSP PO (19:55)
[2024-10-21] MEDS: Mirtazapine 30 MG TABLET PO (21:50)
[2024-10-21] MEDS: clonazePAM 1 MG TABLET 2 MG PO (21:50)
[2024-10-21] MEDS: Famotidine 20 MG TABLET PO (22:11)
--- NOTE | 2024-10-21 22:27 | P.PNPSI_ITS ---
Subjective Subjective Date of Service: 10/21/24 Reason For Visit: SI DEPRESSION /ETOH Subjective Notes: Conditional Voluntary Interim History: Pt slept about 4 hrs. He reports partial response to laxative. He continues to report nausea. He endorses feeling depressed, hopeless, but denies SI/HI. He reports blurry vision seems better. Review of Systems Review of Systems Yes all other systems are reviewed and are negative Mental Status Exam Mental Status Exam Narrative: Pt is alert and oriented x 4; behavior is cooperative and calm; dressed in hospital attire; mood is described as hopeless; eye contact appropriate; Speech is normal rate, volume and not pressured; thought process is organized and goal directed; Thought content is on tx; otherwise pertinent to relevant topics and without any delusional content, paranoid ideations or grandiosity; denies SI/SIBI/HI/VH/AH. Diagnostics Vital Signs (24Hr): Vital Signs - 24 hr 10/21/24 07:15 10/21/24 11:57 10/21/24 19:45 Temperature 97.7 F 97.1 F 97.2 F Pulse Rate 84 70 74 Respiratory Rate 16 16 18 Blood Pressure 121/73 110/79 128/86 Pulse Oximetry 98 100 96 Oxygen Delivery Method Room Air Room Air Room Air BMI result Body Mass Index 29.5 Labs 10/21/24 23:48 10/21/24 23:48 Labs: Laboratory Results - last 48 hr 10/20/24 08:17 Estimat Average Glucose 108 Hemoglobin A1c % 5.4 Triglycerides 91 Cholesterol 196 LDL Cholesterol, Calc 136 H HDL Cholesterol 42 Vitamin B12 681 Folate 13.7 TSH 0.58 Free T4 1.10 Medications Medications Current Medications Acetaminophen (Acetaminophen 325 Mg Tablet) 650 mg PO Q6H PRN PRN Reason: Headache/Pain, Scale 1-10 Last Admin: 10/21/24 11:59 Dose: 650 mg Al Hydroxide/Mg Hydroxide (Magnesium Hydrox/Alum Hydrox 30 Ml Oral.Susp) 30 ml PO Q6H PRN PRN Reason: Heartburn/Nausea Last Admin: 10/21/24 19:55 Dose: 30 ml Amlodipine Besylate (Amlodipine Besylate 5 Mg Tablet) 5 mg PO DAILY [facility]IL[facility]; Protocol Last Admin: 10/19/24 09:36 Dose: 5 mg Clonazepam (Clonazepam 1 Mg Tablet) 2 mg PO BEDTIME [facility]ILIN Last Admin: 10/21/24 21:50 Dose: 2 mg Cyanocobalamin (Cyanocobalamin (Vitamin B-12) 100 Mcg Tablet) 100 mcg PO DAILY [facility] Last Admin: 10/21/24 15:57 Dose: 100 mcg Folic Acid (Folic Acid 1 Mg Tablet) 1 mg PO DAILY [facility] Last Admin: 10/21/24 15:57 Dose: 1 mg Hydroxyzine HCl (Hydroxyzine Hcl 50 Mg Tablet) 50 mg PO BID PRN PRN Reason: anxiety Last Admin: 10/21/24 11:59 Dose: 50 mg Magnesium Hydroxide (Milk Of Magnesia 30 Ml Oral.Susp) 30 ml PO DAILY PRN PRN Reason: Constipation Last Admin: 10/19/24 18:26 Dose: 30 ml Mirtazapine (Mirtazapine 30 Mg Tablet) 30 mg PO BEDTIME [facility] Last Admin: 10/21/24 21:50 Dose: 30 mg Mirtazapine (Mirtazapine 15 Mg Tablet) 15 mg PO BEDTIME PRN PRN Reason: insomnia Last Admin: 10/20/24 22:45 Dose: 15 mg Nicotine Polacrilex (Nicotine Polacrilex 2 Mg Gum) 4 mg BUCCAL Q2H PRN PRN Reason: Nicotine Cravings Polyethylene Glycol (Polyethylene Glycol 3350 17 Gm Powd.Pack) 17 gm PO DAILY PRN PRN Reason: Constipation Prazosin HCl (Prazosin Hcl 1 Mg Capsule) 1 mg PO BEDTIME [facility]; Protocol Last Admin: 10/21/24 22:09 Dose: Not Given Senna/Docusate Sodium (Sennosides/Docusate Sodium Tablet) 1 tab PO BID [facility] Last Admin: 10/21/24 21:50 Dose: 1 tab Thiamine HCl (Thiamine Hcl 100 Mg Tablet) 100 mg PO DAILY [facility] Last Admin: 10/21/24 09:30 Dose: 100 mg Allergies Allergies Allergy/AdvReac Type Severity Reaction Status Date / Time Pork/Porcine Containing Allergy Unknown unknown Verified 10/18/24 12:43 Products naltrexone Allergy Unconscious Verified 10/18/24 18:16 Assessment & Plan Assessment & Plan (1) Depression: Qualifiers: Depression Type: unspecified Qualified Code(s): F32.A - Depression, unspecified Status: Acute Code(s): F32.A - Depression, unspecified (2) Homeless single person: Status: Acute Code(s): Z59.00 - Homelessness unspecified (3) Cocaine use disorder: Status: Acute Code(s): F14.10 - Cocaine abuse, uncomplicated (4) PTSD (post-traumatic stress disorder): Status: Acute Code(s): F43.10 - Post-traumatic stress disorder, unspecified (5) Alcohol use disorder: Status: Acute Code(s): F10.90 - Alcohol use, unspecified, uncomplicated Plan has been a week since last drink, but has been getting some ativan at [facility]. unclear how much and when. will leave on ativan per [facility] protocol for now until benzo needs are clearer. lengthy discussion about h/o intractable insomnia, severe trauma, likelihood of PTSD-driven Sx. agreeable to try BP meds for anxiety and insomnia. states he does not like how clonidine makes him feel, however. will HOLD amlodipine for now and start doxazosin 1 mg in the morning, titrate to BP and anxiety control. also will start prazosin 1 mg at HS. titrate up as indicated for sleep. will also increase remeron to 30 mg at HS with repeat of 15 mg PRN. will allow lelo to continue for now at pt's strong request. refer for rehab. addiction consult. 10/20 d/c lelo, start clonazepam 1mg po qhs instead for sleep, doxazosin d/c per pt request as he reported blurry vision. miralax and senakot for constipation. 10/21 increase clonazepam 2mg po qhs, continue other meds. Reason for continued inpatient stay Substantial Risk for: inability to function Time Spent With Patient Time: Total time managing care of this patient today ____ minutes.
[2024-10-21] MEDS: Ondansetron ODT 4 MG TAB.RAPDIS TRANSLINGU (23:02)
--- NOTE | 2024-10-21 23:15 | PC.NURSE ---
Ba c/o burning in his stomach. he was given Maalox with minimal effect, he received Zofran 4 mg ODT per provider he was ordered a KUB which has been completed by the writing of this note. the patient has also had labs ordered, CBC with Diff, CMP, Lipase, and Ammonia levels. labs have not yet been drawn at this time.
[2024-10-21 23:54] LABS: MANUAL DIFF FLAG NO
[2024-10-21 23:57] LABS: Basophils Absolute Auto 0.1 X10*3/uL (0.0-0.2); Basophils Percent Auto 0.7 % (0-2); Eosinophils Absolute Auto 0.4 X10*3/uL (0.0-0.4); Eosinophils Percent Auto 5.8 % (0-4); Hemoglobin 13.5 g/dl (14.0-18.0); Imm Gran Abs Auto 0.02 X10*3/uL (0.00-0.03); Imm Gran Pct Auto 0.3 % (0.0-0.4); Lymphocytes Absolute Auto 2.7 X10*3/uL (1.2-4.9); Lymphocytes Percent Auto 38.2 % (20-40); Mean Corpuscular HGB Conc 32.9 g/dl (31.0-36.0); Mean Corpuscular Hemoglobin 27.5 pg (27.0-33.0); Mean Corpuscular Volume 83.5 fL (80.0-98.0); Mean Platelet Volume 10.2 fL (9.4-12.4); Monocytes Absolute Auto 0.6 X10*3/uL (0.1-1.2); Neutrophils Absolute Auto 3.2 x10*3/uL (2.0-8.3); Platelet Count 308 X10*3/uL (160-400); Red Blood Count 4.91 X10*6/uL (4.60-5.80)
[2024-10-22] MEDS: hydrOXYzine HCL 50 MG TABLET PO (00:12)
[2024-10-22] MEDS: Mirtazapine 15 MG TABLET PO (00:13)
[2024-10-22 00:16] LABS: Alanine Aminotransferase 25 U/L (0-40); Albumin Level 3.5 g/dL (3.5-5.0); Alkaline Phosphatase 82 U/L (39-117); Anion Gap 11 (12-20); Aspartate Amino Transferase 34 U/L (5-37); Bilirubin Total 0.3 mg/dL (0.0-1.0); Blood Urea Nitrogen 18 mg/dL (9-16); Calcium 9.2 mg/dL (8.4-10.2); Carbon Dioxide 25 mmol/L (22-29); Chloride 107 mmol/L (96-108); Estimated Glomerular Filt Rate > 60; Glucose Random 121 mg/dL (60-115); Lipase 43 U/L (8-78); Potassium 3.6 mmol/L (3.3-5.1); Sodium 139 mmol/L (135-145); Total Protein 8.1 g/dL (6.5-8.0)
[2024-10-22 00:27] LABS: Ammonia 65 umol/L (13-55)
[2024-10-22 08:00] VITALS: BP 118/72; PULSE 87; RESP 16; TEMP 36.8; O2SAT 98
[2024-10-22] MEDS: Ondansetron ODT 4 MG TAB.RAPDIS TRANSLINGU (08:08)
[2024-10-22] MEDS: Thiamine HCL 100 MG TABLET PO (08:46)
[2024-10-22] MEDS: Lactulose 20 GM/30 ML SOLUTION PO (08:46)
[2024-10-22] MEDS: Folic Acid 1 MG TABLET PO (08:46)
[2024-10-22] MEDS: Sennosides/Docusate Sodium TABLET 1 TAB PO ×2 (08:46→22:36)
[2024-10-22] MEDS: Cyanocobalamin (Vitamin B-12) 100 MCG TABLET PO (08:46)
[2024-10-22 09:07] LABS: Ammonia 56 umol/L (13-55)
[2024-10-22 11:36] LABS: Iron 40 mcg/dL (45-160); Percent Iron Saturation 10 % (15-50); Total Iron Binding Capacity 384 mcg/dL (228-428); Unsaturated Iron Binding 344 ug/dL
[2024-10-22] MEDS: Omeprazole 20 MG CAPSULE.DR PO (11:48)
[2024-10-22] MEDS: Famotidine 20 MG TABLET PO (11:48)
[2024-10-22 19:30] VITALS: BP 113/78; PULSE 84; RESP 16; TEMP 36.6; O2SAT 100
--- NOTE | 2024-10-22 20:33 | P.PNPSI_ITS ---
Subjective Subjective Date of Service: 10/22/24 Reason For Visit: SI DEPRESSION /ETOH Subjective Notes: Conditional Voluntary Interim History: Pt slept about 4hrs. He had episode of nausea, vomiting, feeling food stuck, KUB negative for obstruction, nor severe constipation. cbc unremarkable, normocytic enemia, CMP no electrolyte abnormalities, lft wnl, ammonia elevated at 65, given lactulose, continue to monitor ammonia. Iron studies low- seems normocytic anemia secondary to iron deficiency. Diagnostics Vital Signs (24Hr): Vital Signs - 24 hr 10/22/24 08:00 10/22/24 19:30 Temperature 98.2 F 97.8 F Pulse Rate 87 84 Respiratory Rate 16 16 Blood Pressure 118/72 113/78 Pulse Oximetry 98 100 Oxygen Delivery Method Room Air Room Air BMI result Body Mass Index 29.5 Labs 10/21/24 23:48 10/21/24 23:48 Labs: Laboratory Results - last 48 hr 10/21/24 10/22/24 23:48 08:55 WBC 7.0 RBC 4.91 Hgb 13.5 L Hct 41.0 L MCV 83.5 MCH 27.5 MCHC 32.9 RDW 15.0 Plt Count 308 MPV 10.2 Immature Gran % (Auto) 0.3 Neut % (Auto) 46.0 Lymph % (Auto) 38.2 [place] % (Auto) 9.0 Eos % (Auto) 5.8 H Baso % (Auto) 0.7 Lymph # (Auto) 2.7 [place] # (Auto) 0.6 Eos # (Auto) 0.4 Baso # (Auto) 0.1 Abs Immat Gran (auto) 0.02 Absolute Neuts (auto) 3.2 Absolute Nucleated RBC 0.000 Nucleated RBC % (auto) 0.0 Sodium 139 Potassium 3.6 Chloride 107 Carbon Dioxide 25 Anion Gap 11 L BUN 18 H Creatinine 0.76 Estim Creat Clear Calc 135.0 Estimated GFR > 60 Random Glucose 121 H Calcium 9.2 Iron 40 L TIBC 384 % Saturation 10 L Unsat Iron Binding 344 Total Bilirubin 0.3 AST 34 ALT 25 Alkaline Phosphatase 82 Ammonia 65 H 56 H Total Protein 8.1 H Albumin 3.5 Lipase 43 Medications Medications Current Medications Acetaminophen (Acetaminophen 325 Mg Tablet) 650 mg PO Q6H PRN PRN Reason: Headache/Pain, Scale 1-10 Last Admin: 10/21/24 11:59 Dose: 650 mg Al Hydroxide/Mg Hydroxide (Magnesium Hydrox/Alum Hydrox 30 Ml Oral.Susp) 30 ml PO Q6H PRN PRN Reason: Heartburn/Nausea Last Admin: 10/21/24 19:55 Dose: 30 ml Amlodipine Besylate (Amlodipine Besylate 5 Mg Tablet) 5 mg PO DAILY [facility]; Protocol Last Admin: 10/19/24 09:36 Dose: 5 mg Clonazepam (Clonazepam 1 Mg Tablet) 2 mg PO BEDTIME [facility] Last Admin: 10/21/24 21:50 Dose: 2 mg Cyanocobalamin (Cyanocobalamin (Vitamin B-12) 100 Mcg Tablet) 100 mcg PO DAILY [facility] Last Admin: 10/22/24 08:46 Dose: 100 mcg Famotidine (Famotidine 20 Mg Tablet) 20 mg PO DAILY [facility] Last Admin: 10/22/24 11:48 Dose: 20 mg Folic Acid (Folic Acid 1 Mg Tablet) 1 mg PO DAILY [facility] Last Admin: 10/22/24 08:46 Dose: 1 mg Hydroxyzine HCl (Hydroxyzine Hcl 50 Mg Tablet) 50 mg PO BID PRN PRN Reason: anxiety Last Admin: 10/22/24 00:12 Dose: 50 mg Magnesium Hydroxide (Milk Of Magnesia 30 Ml Oral.Susp) 30 ml PO DAILY PRN PRN Reason: Constipation Last Admin: 10/19/24 18:26 Dose: 30 ml Mirtazapine (Mirtazapine 30 Mg Tablet) 30 mg PO BEDTIME [facility] Last Admin: 10/21/24 21:50 Dose: 30 mg Mirtazapine (Mirtazapine 15 Mg Tablet) 15 mg PO BEDTIME PRN PRN Reason: insomnia Last Admin: 10/22/24 00:13 Dose: 15 mg Nicotine Polacrilex (Nicotine Polacrilex 2 Mg Gum) 4 mg BUCCAL Q2H PRN PRN Reason: Nicotine Cravings Omeprazole (Omeprazole 20 Mg Capsule.Dr) 20 mg PO DAILY@0630 [facility] Last Admin: 10/22/24 11:48 Dose: 20 mg Ondansetron HCl (Ondansetron Odt 4 Mg Tab.Rapdis) 4 mg TRANSLINGU Q6H PRN PRN Reason: Nausea and Vomiting Last Admin: 10/22/24 08:08 Dose: 4 mg Polyethylene Glycol (Polyethylene Glycol 3350 17 Gm Powd.Pack) 17 gm PO DAILY PRN PRN Reason: Constipation Prazosin HCl (Prazosin Hcl 1 Mg Capsule) 1 mg PO BEDTIME [facility]; Protocol Last Admin: 10/21/24 22:09 Dose: Not Given Senna/Docusate Sodium (Sennosides/Docusate Sodium Tablet) 1 tab PO BID [facility] Last Admin: 10/22/24 08:46 Dose: 1 tab Thiamine HCl (Thiamine Hcl 100 Mg Tablet) 100 mg PO DAILY [facility] Last Admin: 10/22/24 08:46 Dose: 100 mg Allergies Allergies Allergy/AdvReac Type Severity Reaction Status Date / Time Pork/Porcine Containing Allergy Unknown unknown Verified 10/18/24 12:43 Products naltrexone Allergy Unconscious Verified 10/18/24 18:16 Assessment & Plan Assessment & Plan (1) Depression: Qualifiers: Depression Type: major depressive disorder Major depression recurrence: recurrent Active/Remission status: currently active Status: Acute Code(s): F32.A - Depression, unspecified (2) Homeless single person: Status: Acute Code(s): Z59.00 - Homelessness unspecified (3) Cocaine use disorder: Status: Acute Code(s): F14.10 - Cocaine abuse, uncomplicated (4) PTSD (post-traumatic stress disorder): Status: Acute Code(s): F43.10 - Post-traumatic stress disorder, unspecified (5) Alcohol use disorder: Status: Acute Code(s): F10.90 - Alcohol use, unspecified, uncomplicated Plan 10/19 pt has been a week since last drink, but has been getting some ativan at [facility]. unclear how much and when. will leave on ativan per [facility] protocol for now until benzo needs are clearer. lengthy discussion about h/o intractable insomnia, severe trauma, likelihood of PTSD-driven Sx. agreeable to try BP meds for anxiety and insomnia. states he does not like how clonidine makes him feel, however. will HOLD amlodipine for now and start doxazosin 1 mg in the morning, titrate to BP and anxiety control. also will start prazosin 1 mg at HS. titrate up as indicated for sleep. will also increase remeron to 30 mg at HS with repeat of 15 mg PRN. will allow ambien to continue for now at pt's strong request. refer for rehab. addiction consult. 10/20 d/c ambien, start clonazepam 1mg po qhs instead for sleep, doxazosin d/c per pt request as he reported blurry vision. miralax and senakot for constipation. 10/21 increase clonazepam 2mg po qhs, continue other meds. 10/22 KUB as pt presenting with emesis, in addition to constipation. KUB negative for obstruction. cbc with normocytic enemia. LFT wnl, however, elevated ammonia 65, today 56. given lactulose. monitor ammonia (consulted GI, ?cirrhosis). Iron studies show iron deficiency- which could explain anemia. start ferrous sulfate 324mg po daily with vit c 500mg po daily to help absorption. Reason for continued inpatient stay Substantial Risk for: inability to function Time Spent With Patient Time: Total time managing care of this patient today ____ minutes.
[2024-10-22] MEDS: Mirtazapine 30 MG TABLET PO (22:36)
[2024-10-22] MEDS: clonazePAM 1 MG TABLET 2 MG PO (22:36)
[2024-10-23] MEDS: Mirtazapine 15 MG TABLET PO (00:42)
[2024-10-23] MEDS: hydrOXYzine HCL 50 MG TABLET PO ×2 (00:42→13:23)
[2024-10-23] MEDS: Omeprazole 20 MG CAPSULE.DR PO (07:01)
[2024-10-23 07:34] VITALS: BP 116/70; PULSE 79; RESP 16; TEMP 36.9; O2SAT 97
[2024-10-23] MEDS: Ascorbic Acid 500 MG TABLET PO (08:34)
[2024-10-23] MEDS: Cyanocobalamin (Vitamin B-12) 100 MCG TABLET PO (08:34)
[2024-10-23] MEDS: Famotidine 20 MG TABLET PO (08:34)
[2024-10-23] MEDS: Thiamine HCL 100 MG TABLET PO (08:34)
[2024-10-23] MEDS: Ferrous Sulfate 324 MG TABLET.DR PO (08:34)
[2024-10-23] MEDS: Sennosides/Docusate Sodium TABLET 1 TAB PO ×2 (08:34→22:02)
[2024-10-23] MEDS: Folic Acid 1 MG TABLET PO (08:34)
--- NOTE | 2024-10-23 09:11 | HO.PSYCHPN ---
Subjective Subjective Date of Service: 10/23/24 Reason For Visit: SI DEPRESSION /ETOH Subjective Notes: 3 Day Interim History: Active on unit, social with peers. Patient reports feeling alright ; he states he is focused on his sobriety. Patient reports he plans on returning to living with his brother and following up with his outpatient providers. denies SI/HI/VH/AH. 3 day up on 10/26/24. Ammonia level 59 on 10/23/24. Lactulose 40gm PO once ordered. Medication Compliance: Yes Side effects from medications: No Attending Groups: Yes Mental Status Exam Mental Status Exam Narrative: Pt is alert and oriented; behavior is cooperative and calm; dressed in casual attire; mood is described as alright ; eye contact appropriate; Speech is normal rate, volume and not pressured; thought process is organized and goal directed; Thought content is on tx; denies SI/HI/VH/AH. Diagnostics Vital Signs (24Hr): Vital Signs - 24 hr 10/22/24 19:30 10/23/24 07:34 Temperature 97.8 F 98.4 F Pulse Rate 84 79 Respiratory Rate 16 16 Blood Pressure 113/78 116/70 Pulse Oximetry 100 97 Oxygen Delivery Method Room Air Room Air BMI result Body Mass Index 29.5 Labs 10/21/24 23:48 10/21/24 23:48 Labs: Laboratory Results - last 48 hr 10/21/24 10/22/24 23:48 08:55 WBC 7.0 RBC 4.91 Hgb 13.5 L Hct 41.0 L MCV 83.5 MCH 27.5 MCHC 32.9 RDW 15.0 Plt Count 308 MPV 10.2 Immature Gran % (Auto) 0.3 Neut % (Auto) 46.0 Lymph % (Auto) 38.2 [place] % (Auto) 9.0 Eos % (Auto) 5.8 H Baso % (Auto) 0.7 Lymph # (Auto) 2.7 [place] # (Auto) 0.6 Eos # (Auto) 0.4 Baso # (Auto) 0.1 Abs Immat Gran (auto) 0.02 Absolute Neuts (auto) 3.2 Absolute Nucleated RBC 0.000 Nucleated RBC % (auto) 0.0 Sodium 139 Potassium 3.6 Chloride 107 Carbon Dioxide 25 Anion Gap 11 L BUN 18 H Creatinine 0.76 Estim Creat Clear Calc 135.0 Estimated GFR > 60 Random Glucose 121 H Calcium 9.2 Iron 40 L TIBC 384 % Saturation 10 L Unsat Iron Binding 344 Total Bilirubin 0.3 AST 34 ALT 25 Alkaline Phosphatase 82 Ammonia 65 H 56 H Total Protein 8.1 H Albumin 3.5 Lipase 43 Medications Medications Current Medications Acetaminophen (Acetaminophen 325 Mg Tablet) 650 mg PO Q6H PRN PRN Reason: Headache/Pain, Scale 1-10 Last Admin: 10/21/24 11:59 Dose: 650 mg Al Hydroxide/Mg Hydroxide (Magnesium Hydrox/Alum Hydrox 30 Ml Oral.Susp) 30 ml PO Q6H PRN PRN Reason: Heartburn/Nausea Last Admin: 10/21/24 19:55 Dose: 30 ml Amlodipine Besylate (Amlodipine Besylate 5 Mg Tablet) 5 mg PO DAILY [facility]; Protocol Last Admin: 10/19/24 09:36 Dose: 5 mg Ascorbic Acid (Ascorbic Acid 500 Mg Tablet) 500 mg PO DAILY [facility] Last Admin: 10/23/24 08:34 Dose: 500 mg Clonazepam (Clonazepam 1 Mg Tablet) 2 mg PO BEDTIME [facility] Last Admin: 10/22/24 22:36 Dose: 2 mg Cyanocobalamin (Cyanocobalamin (Vitamin B-12) 100 Mcg Tablet) 100 mcg PO DAILY [facility] Last Admin: 10/23/24 08:34 Dose: 100 mcg Famotidine (Famotidine 20 Mg Tablet) 20 mg PO DAILY [facility] Last Admin: 10/23/24 08:34 Dose: 20 mg Ferrous Sulfate (Ferrous Sulfate 324 Mg Tablet.) 324 mg PO DAILY [facility] Last Admin: 10/23/24 08:34 Dose: 324 mg Folic Acid (Folic Acid 1 Mg Tablet) 1 mg PO DAILY [facility] Last Admin: 10/23/24 08:34 Dose: 1 mg Hydroxyzine HCl (Hydroxyzine Hcl 50 Mg Tablet) 50 mg PO BID PRN PRN Reason: anxiety Last Admin: 10/23/24 00:42 Dose: 50 mg Magnesium Hydroxide (Milk Of Magnesia 30 Ml Oral.Susp) 30 ml PO DAILY PRN PRN Reason: Constipation Last Admin: 10/19/24 18:26 Dose: 30 ml Mirtazapine (Mirtazapine 30 Mg Tablet) 30 mg PO BEDTIME [facility] Last Admin: 10/22/24 22:36 Dose: 30 mg Mirtazapine (Mirtazapine 15 Mg Tablet) 15 mg PO BEDTIME PRN PRN Reason: insomnia Last Admin: 10/23/24 00:42 Dose: 15 mg Nicotine Polacrilex (Nicotine Polacrilex 2 Mg Gum) 4 mg BUCCAL Q2H PRN PRN Reason: Nicotine Cravings Omeprazole (Omeprazole 20 Mg Capsule.Dr) 20 mg PO DAILY@0630 [facility] Last Admin: 10/23/24 07:01 Dose: 20 mg Ondansetron HCl (Ondansetron Odt 4 Mg Tab.Rapdis) 4 mg TRANSLINGU Q6H PRN PRN Reason: Nausea and Vomiting Last Admin: 10/22/24 08:08 Dose: 4 mg Polyethylene Glycol (Polyethylene Glycol 3350 17 Gm Powd.Pack) 17 gm PO DAILY PRN PRN Reason: Constipation Prazosin HCl (Prazosin Hcl 1 Mg Capsule) 1 mg PO BEDTIME [facility]; Protocol Last Admin: 10/22/24 22:39 Dose: Not Given Senna/Docusate Sodium (Sennosides/Docusate Sodium Tablet) 1 tab PO BID [facility] Last Admin: 10/23/24 08:34 Dose: 1 tab Thiamine HCl (Thiamine Hcl 100 Mg Tablet) 100 mg PO DAILY [facility] Last Admin: 10/23/24 08:34 Dose: 100 mg Allergies Allergies Allergy/AdvReac Type Severity Reaction Status Date / Time Pork/Porcine Containing Allergy Unknown unknown Verified 10/18/24 12:43 Products naltrexone Allergy Unconscious Verified 10/18/24 18:16 Assessment & Plan Assessment & Plan (1) Depression: Qualifiers: Active/Remission status: currently active Depression Type: major depressive disorder Major depression recurrence: recurrent Status: Acute Code(s): F32.A - Depression, unspecified (2) Homeless single person: Status: Acute Code(s): Z59.00 - Homelessness unspecified (3) Cocaine use disorder: Status: Acute Code(s): F14.10 - Cocaine abuse, uncomplicated (4) PTSD (post-traumatic stress disorder): Status: Acute Code(s): F43.10 - Post-traumatic stress disorder, unspecified (5) Alcohol use disorder: Status: Acute Code(s): F10.90 - Alcohol use, unspecified, uncomplicated Plan 10/19 pt has been a week since last drink, but has been getting some at[facility]. unclear how much and when. will leave on ativan per [facility] protocol for now until benzo needs are clearer. lengthy discussion about h/o intractable insomnia, severe trauma, likelihood of PTSD-driven Sx. agreeable to try BP meds for anxiety and insomnia. states he does not like how clonidine makes him feel, however. will HOLD amlodipine for now and start doxazosin 1 mg in the morning, titrate to BP and anxiety control. also will start prazosin 1 mg at HS. titrate up as indicated for sleep. will also increase remeron to 30 mg at HS with repeat of 15 mg PRN. will allow lelo to continue for now at pt's strong request. refer for rehab. addiction consult. 10/20 d/c lelo, start clonazepam 1mg po qhs instead for sleep, doxazosin d/c per pt request as he reported blurry vision. miralax and senakot for constipation. 10/21 increase clonazepam 2mg po qhs, continue other meds. 10/22 KUB as pt presenting with emesis, in addition to constipation. KUB negative for obstruction. cbc with normocytic enemia. LFT wnl, however, elevated ammonia 65, today 56. given lactulose. monitor ammonia (consulted GI, ?cirrhosis). Iron studies show iron deficiency- which could explain anemia. start ferrous sulfate 324mg po daily with vit c 500mg po daily to help absorption. 10/23: Active on unit, social with peers. Patient reports feeling alright ; he states he is focused on his sobriety. Patient reports he plans on returning to living with his brother and following up with his outpatient providers. denies SI/HI/VH/AH. 3 day up on 10/26/24. Ammonia level 59 on 10/23/24. Lactulose 40gm PO once ordered. Patient educated on: diagnosis and medication risk/benefits Reason for continued inpatient stay Substantial Risk for: med/psych decompensation Time Spent With Patient Time: Total time managing care of this patient today _20___ minutes.
[2024-10-23 10:09] LABS: Ammonia 59 umol/L (13-55)
[2024-10-23] MEDS: Lactulose 20 GM/30 ML SOLUTION 40 GM PO (11:00)
--- NOTE | 2024-10-23 15:32 | MHC.RECOVRN ---
AUDIT-C Brief Intervention Pt had positive screen for unhealthy alcohol use on admission, subsequently met with t/w to discuss alcohol use and recovery supports/options. This credit underwriter met with patient to discuss current alcohol use and concerns related to increased risk of alcohol related problems.? Pt reports drinking a lot my whole life Discussed how alcohol use has impacted health, including negative impact on mood. Pt resistant to talking about this Withdrawal History: Pt reports experiencing W/D when he stops drinking but never experienced seizures Treatment History: I have been in multiple programs but they take advantage of you Supports:? I have none Discussed risk reduction strategies including drinking below the recommended limit. Provided pt with written resources including information on inpatient and outpatient treatment, Y[facility]IN, harm reduction, and recovery coaching. Pt plans to find a safe place to live then focus on recovery. Pt provided with t/w contact information if questions or concerns arise. Denies other questions or concerns at this time.
--- NOTE | 2024-10-23 17:46 | PM.GICN ---
History of Present Illness Data of Consult Service Date: 10/23/24 Primary Care Provider: None Physician HPI Reason for consult: cirrhosis 64 yr old m with hx of alcohol abuse, PTSD, hep C- untreated and substance abuse who i am seeing for assessment for possible cirrhosis Patient has been active in using cocaine intermittently and daily alcohol use up till admission. He was admitted with SI but no longr has this. He denies confusion, tremors or shakes. He does endorse nausea and occ non bloody emesis. he denies melena, rectla bleeding, or abdominal pain. He was commence on lactulose due to mild raised ammonia level, LFT were nml, he does have mild iron def anemia. Hep C PCR from 1 yr ago was pos . Review of Systems Review of Systems: Constitutional : No Weight loss, No Fever, No Chills ENT/Mouth : No sore throat, No Rhinorrhea Eyes: No Swelling, No Redness Cardiovascular : No Chest Pain, No SOB, No Edema Respiratory : No Cough, No Sputum, No Wheezing Gastrointestinal : see HPI Genitourinary : NO Dysuria, No Urinary Frequency, No Hematuria, No Urgency Musculoskeletal : + joint pain, No Myalgias, No Joint Swelling Skin : No Skin Lesions, No rash Neuro : No Weakness, No Numbness, No Dizziness, No Headache Psych : No Anxiety/Panic, + Depression Heme/Lymph: No Bruising, No Lymphadenopathy Endocrine : No Polyuria, No Polydipsia All other systems reviewed and are negative. [facility], [facility] Past Medical History Medical History PTSD (post-traumatic stress disorder) Hypertension Family History Pertinent family history: no fh of liver disease Social History Social History Household Members: Family Housing: Apartment Do you presently have visiting nurse or other home services: No Alcohol intake: former Comment: patient is not a fall risk Patient Tobacco Use Status: Current everyday Tobacco user Tobacco use type: Cigarette Cigarette Packs Per Day: 1 Cigarettes Per Day: 20.0 Years Smoked: 25 Smoked in Last 30 Days: Yes e-Cigarette/Vaping Use: Never Used Patient Interested in Nicotine Replacement: Yes Patient Given Instructions on How to Stop Smoking: Yes Date Education Initiated: 10/19/24 Second Hand Smoke Exposure: Yes Use of substances other than those prescribed or required for medical reasons: No Substance Use Type: Crack/Cocaine Currently Displaying Signs/Symptoms of Drug Intoxication Withdrawal: No Have you been hit, kicked, punched, or otherwise hurt by someone within the past year? If so, by whom?: No Do you feel safe in your current relationship?: No Current Relationship Is there a partner from a previous relationship who is making you feel unsafe now?: No Are you made to feel afraid or neglected: No Spiritual Healthcare Practices: none Uatsdin Healthcare Practices: pt is yarsanism Cultural Healthcare Practices: none Advance Directives: No Advance Directives Information Provided: No Do you have thoughts of harming others: None Do you have a plan to hurt others: No Plan Recently lost weight without trying: No How much weight loss: Not applicable Eating poorly because of decreased appetite: No Nutrition screen score: 0 Nutrition Risks: No Nutritional Risk Poor oral hygiene: No service: Yes Sexual orientation: Straight/Heterosexual Meds Allergies Allergy/AdvReac Type Severity Reaction Status Date / Time Pork/Porcine Containing Allergy Unknown unknown Verified 10/18/24 12:43 Products naltrexone Allergy Unconscious Verified 10/18/24 18:16 Active Medications: Current Medications Acetaminophen (Acetaminophen 325 Mg Tablet) 650 mg PO Q6H PRN PRN Reason: Headache/Pain, Scale 1-10 Last Admin: 10/21/24 11:59 Dose: 650 mg Al Hydroxide/Mg Hydroxide (Magnesium Hydrox/Alum Hydrox 30 Ml Oral.Susp) 30 ml PO Q6H PRN PRN Reason: Heartburn/Nausea Last Admin: 10/21/24 19:55 Dose: 30 ml Amlodipine Besylate (Amlodipine Besylate 5 Mg Tablet) 5 mg PO DAILY [facility]; Protocol Last Admin: 10/19/24 09:36 Dose: 5 mg Ascorbic Acid (Ascorbic Acid 500 Mg Tablet) 500 mg PO DAILY [facility] Last Admin: 10/23/24 08:34 Dose: 500 mg Clonazepam (Clonazepam 1 Mg Tablet) 2 mg PO BEDTIME [facility] Last Admin: 10/22/24 22:36 Dose: 2 mg Cyanocobalamin (Cyanocobalamin (Vitamin B-12) 100 Mcg Tablet) 100 mcg PO DAILY [facility] Last Admin: 10/23/24 08:34 Dose: 100 mcg Famotidine (Famotidine 20 Mg Tablet) 20 mg PO DAILY [facility] Last Admin: 10/23/24 08:34 Dose: 20 mg Ferrous Sulfate (Ferrous Sulfate 324 Mg Tablet.) 324 mg PO DAILY [facility] Last Admin: 10/23/24 08:34 Dose: 324 mg Folic Acid (Folic Acid 1 Mg Tablet) 1 mg PO DAILY [facility] Last Admin: 10/23/24 08:34 Dose: 1 mg Hydroxyzine HCl (Hydroxyzine Hcl 50 Mg Tablet) 50 mg PO BID PRN PRN Reason: anxiety Last Admin: 10/23/24 13:23 Dose: 50 mg Magnesium Hydroxide (Milk Of Magnesia 30 Ml Oral.Susp) 30 ml PO DAILY PRN PRN Reason: Constipation Last Admin: 10/19/24 18:26 Dose: 30 ml Mirtazapine (Mirtazapine 30 Mg Tablet) 30 mg PO BEDTIME [facility] Last Admin: 10/22/24 22:36 Dose: 30 mg Mirtazapine (Mirtazapine 15 Mg Tablet) 15 mg PO BEDTIME PRN PRN Reason: insomnia Last Admin: 10/23/24 00:42 Dose: 15 mg Nicotine Polacrilex (Nicotine Polacrilex 2 Mg Gum) 4 mg BUCCAL Q2H PRN PRN Reason: Nicotine Cravings Omeprazole (Omeprazole 20 Mg Capsule.) 20 mg PO DAILY@0630 [facility] Last Admin: 10/23/24 07:01 Dose: 20 mg Ondansetron HCl (Ondansetron Odt 4 Mg Tab.Rapdis) 4 mg TRANSLINGU Q6H PRN PRN Reason: Nausea and Vomiting Last Admin: 10/22/24 08:08 Dose: 4 mg Polyethylene Glycol (Polyethylene Glycol 3350 17 Gm Powd.Pack) 17 gm PO DAILY PRN PRN Reason: Constipation Senna/Docusate Sodium (Sennosides/Docusate Sodium Tablet) 1 tab PO BID [facility] Last Admin: 10/23/24 08:34 Dose: 1 tab Thiamine HCl (Thiamine Hcl 100 Mg Tablet) 100 mg PO DAILY [facility] Last Admin: 10/23/24 08:34 Dose: 100 mg Physical Exam Vital Signs: Vital Signs: Last Vital Signs Temp 98.4 F 10/23/24 07:34 Pulse 79 10/23/24 07:34 Resp 16 10/23/24 07:34 BP 116/70 10/23/24 07:34 Pulse Ox 97 10/23/24 07:34 O2 Del Method Room Air 10/23/24 07:34 BMI result Body Mass Index 29.5 EXAM: GENERAL: The patient is well developed and nontoxic. VITAL SIGNS:see workflow HEENT: Nonicteric sclerae, PERRLA, EOMI. Oropharynx clear. Moist mucous membranes. Conjunctivae appear well perfused. No thyroid mass. CHEST: Chest wall is nontender. HEART: Regular rate and rhythm without murmurs. LUNGS: Clear to auscultation bilaterally. ABDOMEN: Soft, positive bowel sounds, nontender, no organomegaly.no flank tenderness SKIN: No rash, no excessive bruising, petechiae, or purpura. NEUROLOGIC: Cranial nerves II-XII intact without motor/sensory deficit. Psych: normal affect Results Labs 10/21/24 23:48 10/21/24 23:48 Microbiology Microbiology Results: Microbiology 10/18/24 Unknown Urine clean catch - Clean Catch Midstream Urine Culture - Final No growth. Assessment and Plan (1) Alcohol use disorder: Status: Acute Plan 1/ Mild raised ammonia with nml LFT< does not appear encephalopathic. 2/ Mild anemia, iron def 3/ nausea, liekly from alcholic gastritis and cocaine use PLAN: 1/ Recommend o/p f/u, can do o/p US liver and EGD for assessment along with colonoscopy 2/ recommend daily PPI, due to high liklihood of alcoholic gastritis 3/ would not racquel the ammonia and base treatment on clinical signs 4/ can repeat hep C PCR and treat as o/p Procedures Date of Service Date of Service: 10/23/24
[2024-10-23 20:00] VITALS: BP 116/78; PULSE 90; RESP 16; TEMP 36.5; O2SAT 99
[2024-10-23] MEDS: clonazePAM 1 MG TABLET 2 MG PO (22:02)
[2024-10-23] MEDS: Mirtazapine 30 MG TABLET PO (22:02)
[2024-10-24] MEDS: Omeprazole 20 MG CAPSULE.DR PO (06:21)
[2024-10-24 07:41] VITALS: BP 126/87; PULSE 80; RESP 16; TEMP 36.6; O2SAT 98
[2024-10-24] MEDS: Ferrous Sulfate 324 MG TABLET.DR PO (08:14)
[2024-10-24] MEDS: Folic Acid 1 MG TABLET PO (08:14)
[2024-10-24] MEDS: Famotidine 20 MG TABLET PO (08:14)
[2024-10-24] MEDS: Sennosides/Docusate Sodium TABLET 1 TAB PO ×2 (08:14→21:52)
[2024-10-24] MEDS: Ascorbic Acid 500 MG TABLET PO (08:14)
[2024-10-24] MEDS: Cyanocobalamin (Vitamin B-12) 100 MCG TABLET PO (08:14)
[2024-10-24] MEDS: Thiamine HCL 100 MG TABLET PO (08:14)
--- NOTE | 2024-10-24 13:50 | P.PNPSI_ITS ---
Subjective Subjective Date of Service: 10/24/24 Reason For Visit: SI DEPRESSION /ETOH Subjective Notes: 3 Day Interim History: Patient reports feeling frustrated d/t poor sleep; pt requesting to have klonopin twice a day for anxiety rather than once at bedtime. He would also like to be restarted on amitriptyline, which he believes helped him with his sleep in the past. denies SI/HI/VH/AH. 3 day up on 10/26/24. Ammonia level reordered. Change klonopin to 1mg PO BID. Start: Amitriptyline 10mg PO bedtime Medication Compliance: Yes Side effects from medications: No Attending Groups: No Mental Status Exam Mental Status Exam Narrative: Pt is alert and oriented; behavior is cooperative and calm; dressed in casual attire; mood is described as alright ; eye contact appropriate; Speech is normal rate, volume and not pressured; thought process is organized; Thought content is on tx; denies SI/HI/VH/AH. Diagnostics Vital Signs (24Hr): Vital Signs - 24 hr 10/23/24 20:00 10/24/24 07:41 Temperature 97.7 F 97.8 F Pulse Rate 90 80 Respiratory Rate 16 16 Blood Pressure 116/78 126/87 Pulse Oximetry 99 98 Oxygen Delivery Method Room Air Room Air BMI result Body Mass Index 29.5 Labs 10/21/24 23:48 10/21/24 23:48 Labs: Laboratory Results - last 48 hr 10/23/24 09:42 Ammonia 59 H Medications Medications Current Medications Acetaminophen (Acetaminophen 325 Mg Tablet) 650 mg PO Q6H PRN PRN Reason: Headache/Pain, Scale 1-10 Last Admin: 10/21/24 11:59 Dose: 650 mg Al Hydroxide/Mg Hydroxide (Magnesium Hydrox/Alum Hydrox 30 Ml Oral.Susp) 30 ml PO Q6H PRN PRN Reason: Heartburn/Nausea Last Admin: 10/21/24 19:55 Dose: 30 ml Amlodipine Besylate (Amlodipine Besylate 5 Mg Tablet) 5 mg PO DAILY [facility]; Protocol Last Admin: 10/19/24 09:36 Dose: 5 mg Ascorbic Acid (Ascorbic Acid 500 Mg Tablet) 500 mg PO DAILY [facility] Last Admin: 10/24/24 08:14 Dose: 500 mg Clonazepam (Clonazepam 1 Mg Tablet) 2 mg PO BEDTIME [facility] Last Admin: 10/23/24 22:02 Dose: 2 mg Cyanocobalamin (Cyanocobalamin (Vitamin B-12) 100 Mcg Tablet) 100 mcg PO DAILY [facility] Last Admin: 10/24/24 08:14 Dose: 100 mcg Famotidine (Famotidine 20 Mg Tablet) 20 mg PO DAILY [facility] Last Admin: 10/24/24 08:14 Dose: 20 mg Ferrous Sulfate (Ferrous Sulfate 324 Mg Tablet.Dr) 324 mg PO DAILY [facility] Last Admin: 10/24/24 08:14 Dose: 324 mg Folic Acid (Folic Acid 1 Mg Tablet) 1 mg PO DAILY [facility] Last Admin: 10/24/24 08:14 Dose: 1 mg Hydroxyzine HCl (Hydroxyzine Hcl 50 Mg Tablet) 50 mg PO BID PRN PRN Reason: anxiety Last Admin: 10/23/24 13:23 Dose: 50 mg Magnesium Hydroxide (Milk Of Magnesia 30 Ml Oral.Susp) 30 ml PO DAILY PRN PRN Reason: Constipation Last Admin: 10/19/24 18:26 Dose: 30 ml Mirtazapine (Mirtazapine 30 Mg Tablet) 30 mg PO BEDTIME [facility] Last Admin: 10/23/24 22:02 Dose: 30 mg Mirtazapine (Mirtazapine 15 Mg Tablet) 15 mg PO BEDTIME PRN PRN Reason: insomnia Last Admin: 10/23/24 00:42 Dose: 15 mg Nicotine Polacrilex (Nicotine Polacrilex 2 Mg Gum) 4 mg BUCCAL Q2H PRN PRN Reason: Nicotine Cravings Omeprazole (Omeprazole 20 Mg Capsule.) 20 mg PO DAILY@0630 [facility] Last Admin: 10/24/24 06:21 Dose: 20 mg Ondansetron HCl (Ondansetron Odt 4 Mg Tab.Rapdis) 4 mg TRANSLINGU Q6H PRN PRN Reason: Nausea and Vomiting Last Admin: 10/22/24 08:08 Dose: 4 mg Polyethylene Glycol (Polyethylene Glycol 3350 17 Gm Powd.Pack) 17 gm PO DAILY PRN PRN Reason: Constipation Senna/Docusate Sodium (Sennosides/Docusate Sodium Tablet) 1 tab PO BID [facility] Last Admin: 10/24/24 08:14 Dose: 1 tab Thiamine HCl (Thiamine Hcl 100 Mg Tablet) 100 mg PO DAILY [facility] Last Admin: 10/24/24 08:14 Dose: 100 mg Allergies Allergies Allergy/AdvReac Type Severity Reaction Status Date / Time Pork/Porcine Containing Allergy Unknown unknown Verified 10/18/24 12:43 Products naltrexone Allergy Unconscious Verified 10/18/24 18:16 Assessment & Plan Assessment & Plan (1) Major depression: Status: Acute Code(s): F32.9 - Major depressive disorder, single episode, unspecified (2) PTSD (post-traumatic stress disorder): Status: Acute Code(s): F43.10 - Post-traumatic stress disorder, unspecified (3) Alcohol use disorder: Status: Acute Code(s): F10.90 - Alcohol use, unspecified, uncomplicated (4) Cocaine use disorder: Status: Acute Code(s): F14.10 - Cocaine abuse, uncomplicated (5) Homeless single person: Status: Acute Code(s): Z59.00 - Homelessness unspecified Plan 10/19 pt has been a week since last drink, but has been getting some ativan at [facility]. unclear how much and when. will leave on ativan per [facility] protocol for now until benzo needs are clearer. lengthy discussion about h/o intractable insomnia, severe trauma, likelihood of PTSD-driven Sx. agreeable to try BP meds for anxiety and insomnia. states he does not like how clonidine makes him feel, however. will HOLD amlodipine for now and start doxazosin 1 mg in the morning, titrate to BP and anxiety control. also will start prazosin 1 mg at HS. titrate up as indicated for sleep. will also increase remeron to 30 mg at HS with repeat of 15 mg PRN. will allow lelo to continue for now at pt's strong request. refer for rehab. addiction consult. 10/20 d/c lelo, start clonazepam 1mg po qhs instead for sleep, doxazosin d/c per pt request as he reported blurry vision. miralax and senakot for constipation. 10/21 increase clonazepam 2mg po qhs, continue other meds. 10/22 KUB as pt presenting with emesis, in addition to constipation. KUB negative for obstruction. cbc with normocytic enemia. LFT wnl, however, elevated ammonia 65, today 56. given lactulose. monitor ammonia (consulted GI, ?cirrhosis). Iron studies show iron deficiency- which could explain anemia. start ferrous sulfate 324mg po daily with vit c 500mg po daily to help absorption. 10/23: Active on unit, social with peers. Patient reports feeling alright ; he states he is focused on his sobriety. Patient reports he plans on returning to living with his brother and following up with his outpatient providers. denies SI/HI/VH/AH. 3 day up on 10/26/24. Ammonia level 59 on 10/23/24. Lactulose 40gm PO once ordered. 10/24:Patient reports feeling frustrated d/t poor sleep; pt requesting to have klonopin twice a day for anxiety rather than once at bedtime. He would also like to be restarted on amitriptyline, which he believes helped him with his sleep in the past. denies SI/HI/VH/AH. 3 day up on 10/26/24. Ammonia level reordered. Change klonopin to 1mg PO BID. Start: Amitriptyline 10mg PO bedtime Patient educated on: diagnosis, medication risk/benefits and therapeutic strategies Reason for continued inpatient stay Substantial Risk for: med/psych decompensation Time Spent With Patient Time: Total time managing care of this patient today __20__ minutes.
--- NOTE | 2024-10-24 14:08 | ECG_ITS ---
Test Reason : psyche med Blood Pressure : */* mmHG Vent. Rate : 66 BPM Atrial Rate : 66 BPM P-R Int : 146 ms QRS Dur : 82 ms QT Int : 418 ms P-R-T Axes : 46 10 46 degrees QTcB Int : 438 ms Normal sinus rhythm Nonspecific T wave abnormality Abnormal ECG When compared with ECG of 19-Oct-2024 09:06, Nonspecific T wave abnormality now evident in Lateral leads Referred By: Denise Alva Electronically Signed By: SORIN MCKEON
[2024-10-24 14:27] LABS: Ammonia 44 umol/L (13-55)
[2024-10-24 14:36] LABS: Alanine Aminotransferase 32 U/L (0-40); Albumin Level 3.6 g/dL (3.5-5.0); Alkaline Phosphatase 91 U/L (39-117); Aspartate Amino Transferase 35 U/L (5-37); Bilirubin Direct 0.1 mg/dL (0.0-0.5); Bilirubin Total 0.3 mg/dL (0.0-1.0)
[2024-10-24] MEDS: clonazePAM 1 MG TABLET PO ×2 (14:40→21:52)
[2024-10-24 20:00] VITALS: BP 136/76; PULSE 81; RESP 16; TEMP 36.6; O2SAT 92
[2024-10-24] MEDS: hydrOXYzine HCL 50 MG TABLET PO (21:52)
[2024-10-24] MEDS: Amitriptyline HCl 10 MG TABLET PO (21:52)
[2024-10-24] MEDS: Mirtazapine 30 MG TABLET PO (21:52)
[2024-10-24 22:10] VITALS: BP 116/72; PULSE 86; RESP 16; TEMP 37.1; O2SAT 99
[2024-10-25] MEDS: Omeprazole 20 MG CAPSULE.DR PO (05:32)
[2024-10-25 07:00] VITALS: BMI 30.4
[2024-10-25 07:26] VITALS: BP 127/82; PULSE 91; RESP 16; TEMP 36.6; O2SAT 96
[2024-10-25] MEDS: Famotidine 20 MG TABLET PO (08:13)
[2024-10-25] MEDS: Thiamine HCL 100 MG TABLET PO (08:13)
[2024-10-25] MEDS: Ascorbic Acid 500 MG TABLET PO (08:13)
[2024-10-25] MEDS: Folic Acid 1 MG TABLET PO (08:13)
[2024-10-25] MEDS: clonazePAM 1 MG TABLET PO ×2 (08:13→22:10)
[2024-10-25] MEDS: Ferrous Sulfate 324 MG TABLET.DR PO (08:13)
[2024-10-25] MEDS: Cyanocobalamin (Vitamin B-12) 100 MCG TABLET PO (08:13)
[2024-10-25] MEDS: Sennosides/Docusate Sodium TABLET 1 TAB PO ×2 (08:13→22:10)
--- NOTE | 2024-10-25 11:30 | P.PNPSI_ITS ---
Subjective Subjective Date of Service: 10/25/24 Reason For Visit: SI DEPRESSION /ETOH Subjective Notes: 3 Day Interim History: Patient reports feeling okay today; he is requesting increase in amitriptyline to help with sleep. patient reports he is looking forward to discharge tomorrow. denies SI/HI/VH/AH. 3 day up on 10/26/24. Ammonia level 44 on 10/24/24. Increased: Amitriptyline 20mg PO bedtime. Patient reports he plans on following up with his outpatient providers. Medication Compliance: Yes Side effects from medications: No Attending Groups: Intermittent Mental Status Exam Mental Status Exam Narrative: Pt is alert and oriented; behavior is cooperative and calm; dressed in casual attire; mood is described as alright ; eye contact appropriate; Speech is normal rate, volume and not pressured; thought process is organized; Thought content is on discharge; denies SI/HI/VH/AH. Diagnostics Vital Signs (24Hr): Vital Signs - 24 hr 10/24/24 20:00 10/24/24 22:10 10/25/24 07:26 Temperature 98 F 98.8 F 97.8 F Pulse Rate 81 86 91 Respiratory Rate 16 16 16 Blood Pressure 136/76 116/72 127/82 Pulse Oximetry 92 99 96 Oxygen Delivery Method Room Air Room Air Room Air BMI result Body Mass Index 29.5 Labs 10/21/24 23:48 10/21/24 23:48 Labs: Laboratory Results - last 48 hr 10/24/24 14:15 Total Bilirubin 0.3 Direct Bilirubin 0.1 AST 35 ALT 32 Alkaline Phosphatase 91 Ammonia 44 Total Protein 8.0 Albumin 3.6 Medications Medications Current Medications Acetaminophen (Acetaminophen 325 Mg Tablet) 650 mg PO Q6H PRN PRN Reason: Headache/Pain, Scale 1-10 Last Admin: 10/21/24 11:59 Dose: 650 mg Al Hydroxide/Mg Hydroxide (Magnesium Hydrox/Alum Hydrox 30 Ml Oral.Susp) 30 ml PO Q6H PRN PRN Reason: Heartburn/Nausea Last Admin: 10/21/24 19:55 Dose: 30 ml Amitriptyline HCl (Amitriptyline Hcl 10 Mg Tablet) 10 mg PO BEDTIME [facility] Last Admin: 10/24/24 21:52 Dose: 10 mg Amlodipine Besylate (Amlodipine Besylate 5 Mg Tablet) 5 mg PO DAILY [facility]; Protocol Last Admin: 10/19/24 09:36 Dose: 5 mg Ascorbic Acid (Ascorbic Acid 500 Mg Tablet) 500 mg PO DAILY [facility] Last Admin: 10/25/24 08:13 Dose: 500 mg Clonazepam (Clonazepam 1 Mg Tablet) 1 mg PO BID [facility] Last Admin: 10/25/24 08:13 Dose: 1 mg Cyanocobalamin (Cyanocobalamin (Vitamin B-12) 100 Mcg Tablet) 100 mcg PO DAILY [facility] Last Admin: 10/25/24 08:13 Dose: 100 mcg Famotidine (Famotidine 20 Mg Tablet) 20 mg PO DAILY [facility] Last Admin: 10/25/24 08:13 Dose: 20 mg Ferrous Sulfate (Ferrous Sulfate 324 Mg Tablet.) 324 mg PO DAILY [facility] Last Admin: 10/25/24 08:13 Dose: 324 mg Folic Acid (Folic Acid 1 Mg Tablet) 1 mg PO DAILY [facility] Last Admin: 10/25/24 08:13 Dose: 1 mg Hydroxyzine HCl (Hydroxyzine Hcl 50 Mg Tablet) 50 mg PO BID PRN PRN Reason: anxiety Last Admin: 10/24/24 21:52 Dose: 50 mg Magnesium Hydroxide (Milk Of Magnesia 30 Ml Oral.Susp) 30 ml PO DAILY PRN PRN Reason: Constipation Last Admin: 10/19/24 18:26 Dose: 30 ml Mirtazapine (Mirtazapine 30 Mg Tablet) 30 mg PO BEDTIME [facility] Last Admin: 10/24/24 21:52 Dose: 30 mg Omeprazole (Omeprazole 20 Mg Capsule.) 20 mg PO DAILY@0630 [facility] Last Admin: 10/25/24 05:32 Dose: 20 mg Senna/Docusate Sodium (Sennosides/Docusate Sodium Tablet) 1 tab PO BID [facility] Last Admin: 10/25/24 08:13 Dose: 1 tab Thiamine HCl (Thiamine Hcl 100 Mg Tablet) 100 mg PO DAILY [facility] Last Admin: 10/25/24 08:13 Dose: 100 mg Allergies Allergies Allergy/AdvReac Type Severity Reaction Status Date / Time Pork/Porcine Containing Allergy Unknown unknown Verified 10/18/24 12:43 Products naltrexone Allergy Unconscious Verified 10/18/24 18:16 Assessment & Plan Assessment & Plan (1) Major depression: Status: Acute Code(s): F32.9 - Major depressive disorder, single episode, unspecified (2) PTSD (post-traumatic stress disorder): Status: Acute Code(s): F43.10 - Post-traumatic stress disorder, unspecified (3) Alcohol use disorder: Status: Acute Code(s): F10.90 - Alcohol use, unspecified, uncomplicated (4) Cocaine use disorder: Status: Acute Code(s): F14.10 - Cocaine abuse, uncomplicated (5) Homeless single person: Status: Acute Code(s): Z59.00 - Homelessness unspecified Plan 10/19 pt has been a week since last drink, but has been getting some ativan at [facility]. unclear how much and when. will leave on ativan per [facility] protocol for now until benzo needs are clearer. lengthy discussion about h/o intractable insomnia, severe trauma, likelihood of PTSD-driven Sx. agreeable to try BP meds for anxiety and insomnia. states he does not like how clonidine makes him feel, however. will HOLD amlodipine for now and start doxazosin 1 mg in the morning, titrate to BP and anxiety control. also will start prazosin 1 mg at HS. titrate up as indicated for sleep. will also increase remeron to 30 mg at HS with repeat of 15 mg PRN. will allow lelo to continue for now at pt's strong request. refer for rehab. addiction consult. 10/20 d/c lelo, start clonazepam 1mg po qhs instead for sleep, doxazosin d/c per pt request as he reported blurry vision. miralax and senakot for constipation. 10/21 increase clonazepam 2mg po qhs, continue other meds. 10/22 KUB as pt presenting with emesis, in addition to constipation. KUB negative for obstruction. cbc with normocytic enemia. LFT wnl, however, elevated ammonia 65, today 56. given lactulose. monitor ammonia (consulted GI, ?cirrhosis). Iron studies show iron deficiency- which could explain anemia. start ferrous sulfate 324mg po daily with vit c 500mg po daily to help absorption. 10/23: Active on unit, social with peers. Patient reports feeling alright ; he states he is focused on his sobriety. Patient reports he plans on returning to living with his brother and following up with his outpatient providers. denies SI/HI/VH/AH. 3 day up on 10/26/24. Ammonia level 59 on 10/23/24. Lactulose 40gm PO once ordered. 10/24:Patient reports feeling frustrated d/t poor sleep; pt requesting to have klonopin twice a day for anxiety rather than once at bedtime. He would also like to be restarted on amitriptyline, which he believes helped him with his sleep in the past. denies SI/HI/VH/AH. 3 day up on 10/26/24. Ammonia level reordered. Change klonopin to 1mg PO BID. Start: Amitriptyline 10mg PO bedtime 10/25: Patient reports feeling okay today; he is requesting increase in amitriptyline to help with sleep. patient reports he is looking forward to discharge tomorrow. denies SI/HI/VH/AH. 3 day up on 10/26/24. Ammonia level 44 on 10/24/24. Increased: Amitriptyline 20mg PO bedtime. Patient reports he plans on following up with his outpatient providers. Patient educated on: diagnosis and medication risk/benefits Reason for continued inpatient stay Substantial Risk for: stable for discharge Time Spent With Patient Time: Total time managing care of this patient today _20___ minutes.
[2024-10-25 19:37] VITALS: BP 127/87; PULSE 71; RESP 16; TEMP 36.6; O2SAT 98
[2024-10-25] MEDS: Mirtazapine 30 MG TABLET PO (22:10)
[2024-10-25] MEDS: Amitriptyline HCl 10 MG TABLET 20 MG PO (22:10)
[2024-10-26] MEDS: hydrOXYzine HCL 50 MG TABLET PO (01:38)
[2024-10-26] MEDS: Omeprazole 20 MG CAPSULE.DR PO (06:45)
[2024-10-26 07:48] VITALS: BP 132/89; PULSE 87; RESP 16; TEMP 36.4; O2SAT 98
[2024-10-26] MEDS: clonazePAM 1 MG TABLET PO (08:18)
[2024-10-26] MEDS: Ascorbic Acid 500 MG TABLET PO (08:18)
[2024-10-26] MEDS: Thiamine HCL 100 MG TABLET PO (08:18)
[2024-10-26] MEDS: Famotidine 20 MG TABLET PO (08:18)
[2024-10-26] MEDS: Sennosides/Docusate Sodium TABLET 1 TAB PO (08:19)
[2024-10-26] MEDS: Folic Acid 1 MG TABLET PO (08:19)
[2024-10-26] MEDS: Cyanocobalamin (Vitamin B-12) 100 MCG TABLET PO (08:19)
[2024-10-26] MEDS: Ferrous Sulfate 324 MG TABLET.DR PO (08:19)
[2024-10-26] MEDS: Naloxone HCl Nasal TAKE HOME 4 MG SPRAY 8 MG NOSTRILALT (08:21)
--- NOTE | 2024-10-26 08:43 | PM.PSYDC ---
DS: Providers Provider Date of Service: 10/26/24 Date of admission: 10/19/24 12:09 Date of discharge: 10/26/24 Primary care physician: None Physician Attending physician on admission: Mohan Hamilton Consults: 10/19/24 13:55 Addiction Medicine Provider Routine Consulting Provider: Addiction Covering Reason for consultation: wants to speak to addiction nurse. just left [place]. EtOH 10/23/24 06:52 Consult to Gastroenterology Routine Consulting Provider: Johnson Ramos Reason for consultation: elevated ammonia, hx of alcohol use Has provider been notified: Yes Attending physician on discharge: Pasquale Strong Discharging clinician: Denise Alva DS: Diagnosis Discharge Diagnosis (1) Major depression: Status: Acute (2) PTSD (post-traumatic stress disorder): Status: Acute (3) Alcohol use disorder: Status: Acute (4) Cocaine use disorder: Status: Acute (5) Homeless single person: Status: Acute DS: Medications Discharge Medications Home Medications: Previous Rx's ?Medication ?Instructions ?Recorded thiamine mononitrate (vit B1) 100 100 mg PO DAILY 30 days #30 tabs 12/15/23 mg tablet amitriptyline 10 mg tablet 20 mg (2 x 10 mg) PO BEDTIME 30 10/25/24 days #60 tabs ascorbic acid (vitamin C) 500 mg 500 mg PO DAILY 30 days #30 tabs 10/25/24 tablet (Vitamin C) clonazepam 1 mg tablet 1 mg PO BID 7 days #14 tabs 10/25/24 ferrous sulfate 324 mg (65 mg 324 mg PO DAILY 30 days #30 tabs 10/25/24 iron) tablet,delayed release hydroxyzine HCl 50 mg tablet 50 mg PO BID PRN anxiety 30 days 10/25/24 #60 tabs mirtazapine 30 mg tablet 30 mg PO BEDTIME 30 days #30 tabs 10/25/24 Mental Status Exam Mental Status Exam Narrative: Pt is alert and oriented; behavior is cooperative and calm; dressed in casual attire; mood is described as good ; eye contact appropriate; Speech is normal rate, volume and not pressured; thought process is organized; Thought content is on discharge; denies SI/HI/VH/AH. Data Data Completed and Pending Completed studies during hospitalization [Text1]: 10/20/24 10/21/24 10/22/24 08:17 23:48 08:55 WBC 7.0 RBC 4.91 Hgb 13.5 L Hct 41.0 L MCV 83.5 MCH 27.5 MCHC 32.9 RDW 15.0 Plt Count 308 MPV 10.2 Immature Gran % (Auto) 0.3 Neut % (Auto) 46.0 Lymph % (Auto) 38.2 [place] % (Auto) 9.0 Eos % (Auto) 5.8 H Baso % (Auto) 0.7 Lymph # (Auto) 2.7 [place] # (Auto) 0.6 Eos # (Auto) 0.4 Baso # (Auto) 0.1 Abs Immat Gran (auto) 0.02 Absolute Neuts (auto) 3.2 Absolute Nucleated RBC 0.000 Nucleated RBC % (auto) 0.0 Sodium 139 Potassium 3.6 Chloride 107 Carbon Dioxide 25 Anion Gap 11 L BUN 18 H Creatinine 0.76 Estim Creat Clear Calc 135.0 Estimated GFR > 60 Random Glucose 121 H Estimat Average Glucose 108 Hemoglobin A1c % 5.4 Calcium 9.2 Iron 40 L TIBC 384 % Saturation 10 L Unsat Iron Binding 344 Total Bilirubin 0.3 Direct Bilirubin AST 34 ALT 25 Alkaline Phosphatase 82 Ammonia 65 H 56 H Total Protein 8.1 H Albumin 3.5 Triglycerides 91 Cholesterol 196 LDL Cholesterol, Calc 136 H HDL Cholesterol 42 Lipase 43 Vitamin B12 681 Folate 13.7 TSH 0.58 Free T4 1.10 10/23/24 10/24/24 09:42 14:15 WBC RBC Hgb Hct MCV MCH MCHC RDW Plt Count MPV Immature Gran % (Auto) Neut % (Auto) Lymph % (Auto) [place] % (Auto) Eos % (Auto) Baso % (Auto) Lymph # (Auto) [place] # (Auto) Eos # (Auto) Baso # (Auto) Abs Immat Gran (auto) Absolute Neuts (auto) Absolute Nucleated RBC Nucleated RBC % (auto) Sodium Potassium Chloride Carbon Dioxide Anion Gap BUN Creatinine Estim Creat Clear Calc Estimated GFR Random Glucose Estimat Average Glucose Hemoglobin A1c % Calcium Iron TIBC % Saturation Unsat Iron Binding Total Bilirubin 0.3 Direct Bilirubin 0.1 AST 35 ALT 32 Alkaline Phosphatase 91 Ammonia 59 H 44 Total Protein 8.0 Albumin 3.6 Triglycerides Cholesterol LDL Cholesterol, Calc HDL Cholesterol Lipase Vitamin B12 Folate TSH Free T4 10/18/24 Unknown Urine clean catch - Clean Catch Midstream Urine Culture - Final No growth. DS: Summary Hospital Course Hospital Course: per [facility] crisis eval, crisis was called to assess pt at [facility] due to pt's expressing passive SI to clinical floor supervisor there. he had been reportedly depressed ever since arriving at the program 10/13. he did disclose to [facility] staff that he had been having thoughts of overdosing on fentanyl. he c/o family getting to me and feeling overwhelmed. he reported he turns to drinking when feeling overwhelmed, but suicide appeared another option. pt has been living with his brother recently, whom he finds unsupportive. he stated he has been off of medication for the past year. pt expressed interest in detox but feeling too unstable and out of control to engage in such services at the time. he was then referred for inpatient mental health services. on interview with MD, pt is calm and cooperative. he is focused mainly on insomnia. he recounts Sx of hypervigilance and chronically feeling unsettled. well-known severe trauma Hx. Sx c/w PTSD. discuss at length BP med approach to PTSD. pt agrees to trial. R/B of doxazosin, prazosin, clonidine discussed. pt also interested in escalated dosing of remeron and to keep ambien a part of his regimen. reluctantly agrees to continue ambien, but prazosin for insomnia reinforced. interested in rehab; homeless at the moment. denies SI for the past couple of days. talks of sometimes feeling he hears chatter he can't make out. otherwise no SIBI/HI/VH. meds reviewed and reconciled. pt has been a week since last drink, but has been getting some ativan at [facility]. unclear how much and when. will leave on ativan per [facility] protocol for now until benzo needs are clearer. lengthy discussion about h/o intractable insomnia, severe trauma, likelihood of PTSD-driven Sx. agreeable to try BP meds for anxiety and insomnia. states he does not like how clonidine makes him feel, however. will HOLD amlodipine for now and start doxazosin 1 mg in the morning, titrate to BP and anxiety control. also will start prazosin 1 mg at HS. titrate up as indicated for sleep. will also increase remeron to 30 mg at HS with repeat of 15 mg PRN. will allow ambien to continue for now at pt's strong request. refer for rehab. addiction consult. d/c ambien, start clonazepam 1mg po qhs instead for sleep, doxazosin d/c per pt request as he reported blurry vision. miralax and senakot for constipation. increase clonazepam 2mg po qhs, continue other meds. KUB as pt presenting with emesis, in addition to constipation. KUB negative for obstruction. cbc with normocytic enemia. LFT wnl, however, elevated ammonia 65, today 56. given lactulose. monitor ammonia (consulted GI, ?cirrhosis). Iron studies show iron deficiency- which could explain anemia. start ferrous sulfate 324mg po daily with vit c 500mg po daily to help absorption. Active on unit, social with peers. Patient reports feeling alright ; he states he is focused on his sobriety. Patient reports he plans on returning to living with his brother and following up with his outpatient providers. denies SI/HI/VH/AH. 3 day up on 10/26/24. Ammonia level 59 on 10/23/24. Lactulose 40gm PO once ordered. Patient reports feeling frustrated d/t poor sleep; pt requesting to have klonopin twice a day for anxiety rather than once at bedtime. He would also like to be restarted on amitriptyline, which he believes helped him with his sleep in the past. denies SI/HI/VH/AH. 3 day up on 10/26/24. Ammonia level reordered. Change klonopin to 1mg PO BID. Start: Amitriptyline 10mg PO bedtime Patient reports feeling okay today; he is requesting increase in amitriptyline to help with sleep. patient reports he is looking forward to discharge tomorrow. denies SI/HI/VH/AH. 3 day up on 10/26/24. Ammonia level 44 on 10/24/24. Increased: Amitriptyline 20mg PO bedtime. Patient reports he plans on following up with his outpatient providers. Status at Discharge Cognitive/behavioral status at discharge: Patient has insight and demonstrates good judgment in terms of wanting to pursue treatment. Patient has a safety plan that includes presenting to the closest ER or calling 911 if feeling unsafe. Functional status at discharge: independent ambulation Overall status at discharge: patient is back to baseline Time Spent with Patient Time attestation: Total time managing care of this patient today _20___ minutes. Time spent: Less than 30 minutes Discharge Plan Discharge Anticipated Discharge Date/Time: 10/26/24 10:00 Patient Disposition: Home, Self-Care Discharge Diagnosis: MDD, PTSD, alcohol use d/o, cocaine use d/o Referrals: Therapy & Psychiatry [Other] - 10/31/24 1:00 pm (IN OFFICE APPOINTMENT -Please arrive 15 minutes early to your appointment in order to fill out necessary paperwork. ) [facility] [Provider Group] - 1 Week (10-25-24 [facility] was added to patients chart. Please call [phone] to schedule a follow up appt within 7-10 days of your discharge. No release or PCP on file.) Discharge Medications: New mirtazapine 30 mg Tablet 30 mg PO BEDTIME 30 Days Qty: 30 0RF ferrous sulfate 324 mg (65 mg iron) Tablet,Delayed Release (Dr/Ec) 324 mg PO DAILY 30 Days Qty: 30 0RF clonazepam 1 mg Tablet 1 mg PO BID 7 Days Qty: 14 0RF amitriptyline 10 mg tablet 20 mg PO BEDTIME 30 Days Qty: 60 0RF ascorbic acid (vitamin C) [Vitamin C] 500 mg Tablet 500 mg PO DAILY 30 Days Qty: 30 0RF Continued thiamine mononitrate (vit B1) 100 mg Tablet 100 mg PO DAILY 30 Days Qty: 30 0RF hydroxyzine HCl 50 mg tablet 50 mg PO BID PRN (Reason: anxiety) 30 Days Qty: 60 0RF Discontinued zolpidem 10 mg tablet 10 mg PO BEDTIME 30 Days Qty: 30 0RF mirtazapine 15 mg Tablet 15 mg PO BEDTIME 30 Days Qty: 30 0RF amlodipine 5 mg tablet 5 mg PO DAILY 30 Days Qty: 30 0RF Discharge Orders: Discharge Order (Routine); Ordered 10/26/24 Ordered By: Denise Alva Diet: Regular diet Activity on Discharge: As tolerated Stand Alone Forms: Patient Portal Discharge page, Community Support Print Language: Vietnamese Care Plan Goals: Maintain mood and safe behaviors Take medications as prescribed Continue to pursue sobriety Practice coping skills Continue with outpatient providers and reach out to them as needed Health Concerns: Mood stability and behaviors Sobriety Plan of Treatment: Follow up with your PCP, psychiatric provider and other outpatient providers regarding above concerns Take medications as prescribed Assessment: Patient has insight and demonstrates good judgment in terms of wanting to pursue treatment. Patient has a safety plan that includes presenting to the closest ER or calling 911 if feeling unsafe. Discharge Date/Time: 10/26/24 11:00
== END 2024-10-26 11:00 | disposition home or self-care (01) | DRG 754 ==
LOC: HO.ED 14:30 → HO.PADLT16 10-19 12:12
PROVIDERS: Physician Assistant; Registered Nurse; Social Worker; Admitting Provider Psychiatry & Neurology Psychiatry; Emergency Provider Emergency Medicine; Visit Provider Psychiatry & Neurology Psychiatry
DX: F32.9 Major depressive disorder, single episode, unspecified (principal); R45.851 Suicidal ideations; D50.9 Iron deficiency anemia, unspecified; F14.10 Cocaine abuse, uncomplicated; F10.90 Alcohol use, unspecified, uncomplicated; F17.210 Nicotine dependence, cigarettes, uncomplicated; K29.20 Alcoholic gastritis without bleeding; F43.10 Post-traumatic stress disorder, unspecified; Z59.02 Unsheltered homelessness; Z71.6 Tobacco abuse counseling; Z79.899 Other long term (current) drug therapy
CPT/HCPCS: 36415; 74018; 80048; 80053; 80061; 80076; 80307; 81001; 82140; 82607; 82746; 83036; 83540; 83690; 83735; 84439; 84443; 85025; 87086; 93005; 99285

== ENCOUNTER → 2024-10-19 07:45 | Outpatient (BNV) | payer OTHER, SELFPAY | PROVIDERS: Emergency Provider Emergency Medicine; Visit Provider Internal Medicine Cardiovascular Disease | DX: Z13.6 Encounter for screening for cardiovascular disorders (principal) | CPT/HCPCS: 93010 ==

== ENCOUNTER 2024-10-19 12:09 | Outpatient (BNV) | payer OTHER, SELFPAY | END 2024-10-24 14:08 | PROVIDERS: Admitting Provider Psychiatry & Neurology Psychiatry; Emergency Provider Emergency Medicine; Visit Provider Internal Medicine | DX: R94.31 Abnormal electrocardiogram [ECG] [EKG] (principal) | CPT/HCPCS: 93010 ==

== ENCOUNTER 2024-10-19 12:09 | Outpatient (BNV) | payer OTHER, SELFPAY | END 2024-10-21 22:50 | PROVIDERS: Admitting Provider Psychiatry & Neurology Psychiatry; Emergency Provider Emergency Medicine; Visit Provider Radiology Diagnostic Radiology | DX: R10.30 Lower abdominal pain, unspecified (principal) | CPT/HCPCS: 74018 ==

== ENCOUNTER → 2024-10-19 12:09 | Outpatient (BNV) | payer OTHER, SELFPAY | PROVIDERS: Admitting Provider Psychiatry & Neurology Psychiatry; Emergency Provider Emergency Medicine; Visit Provider Internal Medicine Gastroenterology | DX: F10.90 Alcohol use, unspecified, uncomplicated (principal) | CPT/HCPCS: 99223 ==

== ENCOUNTER → 2024-10-19 12:09 | Outpatient (BNV) | payer OTHER, SELFPAY | PROVIDERS: Admitting Provider Psychiatry & Neurology Psychiatry; Emergency Provider Emergency Medicine; Visit Provider Psychiatry & Neurology Psychiatry | DX: F32.9 Major depressive disorder, single episode, unspecified (principal); F14.10 Cocaine abuse, uncomplicated; F10.90 Alcohol use, unspecified, uncomplicated; F43.11 Post-traumatic stress disorder, acute; Z59.00 Homelessness unspecified | CPT/HCPCS: 99231; 99232; 99233 ==

== ENCOUNTER 2024-10-30 06:49 | Emergency (ER) | payer OTHER, SELFPAY ==
[2024-10-30 06:59] VITALS: BP 109/77; PULSE 99; RESP 20; TEMP 36.2; O2SAT 98; BMI 29.6
--- NOTE | 2024-10-30 08:27 | ED.ALCOHOL ---
HPI - Alcohol General Chief Complaint: Psychiatric Symptoms Stated Complaint: Seeking Detox Time Seen by Provider: 10/30/24 08:04 Source: patient Limitations: no limitations History of Present Illness HPI narrative: This is a 63 years old male with a history of alcohol abuse presented to the emergency department requesting detox. His last drink was at 03:00. He denies any chest pain any fever any vomiting any diarrhea MD complaint: alcohol dependence and desires rehab Last drink: Hours (ago) (5) Chronic alcohol use: Yes Recent trauma: No Associated symptoms: denies other symptoms Treatments prior to arrival: none Related Data Previous Rx's ?Medication ?Instructions ?Recorded thiamine mononitrate (vit B1) 100 100 mg PO DAILY 30 days #30 tabs 12/15/23 mg tablet amitriptyline 10 mg tablet 20 mg (2 x 10 mg) PO BEDTIME 30 10/25/24 days #60 tabs ascorbic acid (vitamin C) 500 mg 500 mg PO DAILY 30 days #30 tabs 10/25/24 tablet (Vitamin C) clonazepam 1 mg tablet 1 mg PO BID 7 days #14 tabs 10/25/24 ferrous sulfate 324 mg (65 mg 324 mg PO DAILY 30 days #30 tabs 10/25/24 iron) tablet,delayed release hydroxyzine HCl 50 mg tablet 50 mg PO BID PRN anxiety 30 days 10/25/24 #60 tabs mirtazapine 30 mg tablet 30 mg PO BEDTIME 30 days #30 tabs 10/25/24 Allergies Allergy/AdvReac Type Severity Reaction Status Date / Time Pork/Porcine Containing Allergy Unknown unknown Verified 10/30/24 07:04 Products naltrexone Allergy Unconscious Verified 10/30/24 07:04 Review of Systems Constitutional: Constitutional: Reports no additional constitutional complaints Cardiovascular: Cardiovascular: Reports no additional cardiovascular complaints Gastrointestinal: Gastrointestinal: Reports no additional gastrointestinal complaints [facility] Past Medical History [facility] Narrative: History of alcohol abuse Medical History PTSD (post-traumatic stress disorder) Hypertension Social History Social History Household Members: Family Housing: Apartment Do you presently have visiting nurse or other home services: No Alcohol intake: current Alcohol intake frequency: 3 or more drinks per day Alcohol type: beer and hard liquor Comment: patient is not a fall risk Patient Tobacco Use Status: Current everyday Tobacco user Tobacco use type: Cigarette Cigarette Packs Per Day: 1 Cigarettes Per Day: 20.0 Years Smoked: 25 Smoked in Last 30 Days: Yes e-Cigarette/Vaping Use: Never Used Second Hand Smoke Exposure: Yes Use of substances other than those prescribed or required for medical reasons: Yes Substance Use Type: Crack/Cocaine Advance Directives: No Advance Directives Information Provided: Yes Do you have a plan to hurt others: No Plan service: Yes Sexual orientation: Straight/Heterosexual Physical Exam ED Vital Signs: Vital Signs - 24 hr 10/30/24 08:45 10/30/24 09:57 10/30/24 15:01 Temperature 97.5 F 98.2 F 97.9 F Pulse Rate 92 93 93 Respiratory Rate 16 16 18 Blood Pressure 147/110 H 149/82 H 125/74 Pulse Oximetry 95 98 96 Oxygen Delivery Method Room Air Room Air Room Air 10/30/24 20:11 10/31/24 02:26 10/31/24 08:06 Temperature 97.5 F 97 F 98.1 F Pulse Rate 82 97 90 Respiratory Rate 16 18 100 H Blood Pressure 123/85 160/93 H 157/108 H Pulse Oximetry 97 97 100 Oxygen Delivery Method Room Air Room Air Room Air BMI result Body Mass Index 29.6 No acute distress Const General: cooperative Nutritional Appearance: average body habitus Orientation/consciousness: patient oriented x3 Limitations: no limitations HENMT Head: Yes normal to inspection General nose exam: Normal external nose present Face and sinus: Yes normal facial exam Mouth: Normal oral and palatal mucosa present Throat: Yes posterior oropharynx normal Neck Neck: Yes normal visual inspection Chest Chest palpation & inspection: normal inspection of the chest Resp Effort & Inspection: normal respiratory effort Auscultation: clear to auscultation bilaterally Cardio Jugular venous distension: no JVD Rate: regular rate Rhythm: regular rhythm GI Inspection: Yes normal to inspection Palpation (GI): Soft to palpation Auscultation: normal bowel sounds General: Yes no CVA tenderness Back/Spine/Pelvis Back: no CVA tenderness Skin General skin exam: no rashes or lesions noted and elasticity normal Lesions: no lesions Rashes: no rashes Wounds: no wounds Neuro General: patient oriented x3 Course Reevaluation(s) Reevaluation #1: Time: 15:27 Date: 10/30/24 Provider: Morgan Urbina MD Patient in physician observation for psychiatric evaluation.? No acute events reported overnight. No current complaints. VS stable.? Initially the patient was here for alcohol detox seeking detox, was seen by the recovery operator no bed found in the detox now he is complaining of being SI. The recovery operator is requesting psych eval Time: 15:28 Reevaluation #2: Time: 07:32 Date: 10/31/24 Provider: Morgan Urbina MD Patient in physician observation for psychiatric evaluation.? No acute events reported overnight. No current complaints. VS stable.? Patient is in bed search status dual DX. Will continue to monitor. Reevaluation #3: Bed found at [facility] patient will be transferred to [facility] Time: 08:39 Medical Decision Making Medical Decision Making MDM Narrative: Patient is here requesting detox we will consult care team Differential Diagnosis Differential Diagnoses: The differential diagnosis associated with the presentation includes Alcohol abuse / cocaine abuse/heroin abuse Lab Data 10/30/24 08:35 10/30/24 08:35 Labs: Lab Results 10/30/24 10/30/24 Range/Units 08:35 18:46 WBC 9.4 (4.8-10.8) X10*3/uL RBC 4.64 (4.60-5.80) X10*6/uL Hgb 12.7 L (14.0-18.0) g/dl Hct 39.3 L (42.0-52.0) % MCV 84.7 (80.0-98.0) fL MCH 27.4 (27.0-33.0) pg MCHC 32.3 (31.0-36.0) g/dl RDW 14.9 (11.0-16.0) % Plt Count 283 (160-400) X10*3/uL MPV 10.0 (9.4-12.4) fL Immature Gran % (Auto) 0.4 (0.0-0.4) % Neut % (Auto) 67.2 (45-73) % Lymph % (Auto) 20.8 (20-40) % [place] % (Auto) 10.1 (2-11) % Eos % (Auto) 1.0 (0-4) % Baso % (Auto) 0.5 (0-2) % Lymph # (Auto) 2.0 (1.2-4.9) X10*3/uL [place] # (Auto) 1.0 (0.1-1.2) X10*3/uL Eos # (Auto) 0.1 (0.0-0.4) X10*3/uL Baso # (Auto) 0.1 (0.0-0.2) X10*3/uL Abs Immat Gran (auto) 0.04 H (0.00-0.03) X10*3/uL Absolute Neuts (auto) 6.3 (2.0-8.3) x10*3/uL Absolute Nucleated RBC 0.000 (0.0-0.012) X10*3/uL Nucleated RBC % (auto) 0.0 (0.0-0.2) /100WBC Sodium 142 (135-145) mmol/L Potassium 3.8 (3.3-5.1) mmol/L Chloride 108 (96-108) mmol/L Carbon Dioxide 22 (22-29) mmol/L Anion Gap 16 (12-20) BUN 12 (9-16) mg/dL Creatinine 0.77 (0.5-1.4) mg/dL Estim Creat Clear Calc 133.5 Estimated GFR > 60 Random Glucose 81 (60-115) mg/dL Calcium 8.8 (8.4-10.2) mg/dL Total Bilirubin 0.7 (0.0-1.0) mg/dL AST 71 H (5-37) U/L ALT 38 (0-40) U/L Alkaline Phosphatase 94 (39-117) U/L Total Protein 8.5 H (6.5-8.0) g/dL Albumin 3.6 (3.5-5.0) g/dL Urine Color Dark Yellow Urine Appearance Clear Urine pH 5.5 (5.0-9.0) Ur Specific [place] >= 1.030 H (1.005-1.025) Urine Protein 30 (1+) H (Neg-Trace) mg/dL Urine Glucose (UA) Negative (Negative) mg/dL Urine Ketones 15 (Negative) mg/dL Urine Blood Negative (Negative) Urine Nitrite Negative (Negative) Ur Leukocyte Esterase Trace H (Negative) Urine RBC 0-2 (0-2) /HPF Urine WBC 0-5 (0-5) /HPF Ur Squamous Epith Cells 0-2 (0-2) /HPF Urine Bacteria None Seen (None Seen) Hyaline Casts 0-2 (0-2) /LPF Urine Opiates Screen Not Detected (Not Detect) Ur Buprenorphine Scrn Not Detected (Not Detect) ng/mL Ur Oxycodone Screen Not Detected (Not Detect) ng/mL Urine Methadone Screen Not Detected (Not Detect) ng/mL Urine Fentanyl Screen Not Detected (Not Detect) Ur Barbiturates Screen Not Detected (Not Detect) Ur Phencyclidine Scrn Not Detected (Not Detect) Ur Amphetamines Screen Not Detected (Not Detect) U Benzodiazepines Scrn POSITIVE H (Not Detect) Urine Cocaine Screen POSITIVE H (Not Detect) U Marijuana (THC) Screen Not Detected (Not Detect) Ethyl Alcohol < 10 mg/dL Medications Administered Generic Name Dose Route Start Last Admin Trade Name Freq PRN Reason Stop Dose Admin Amitriptyline HCl 20 mg 10/30/24 21:00 10/30/24 21:53 Amitriptyline Hcl 10 Mg Tablet PO 20 mg BEDTIME MARILIN Administration Ascorbic Acid 500 mg 10/30/24 19:15 10/30/24 21:32 Ascorbic Acid 500 Mg Tablet PO Not Given DAILY MARILIN Clonazepam 1 mg 10/30/24 21:00 10/30/24 21:52 Clonazepam 1 Mg Tablet PO 1 mg BID MARILIN Administration Ferrous Sulfate 324 mg 10/30/24 19:15 10/30/24 21:32 Ferrous Sulfate 324 Mg Tablet.Dr PO Not Given DAILY MARILIN Hydroxyzine HCl 50 mg 10/30/24 19:07 10/31/24 02:23 Hydroxyzine Hcl 50 Mg Tablet PO 50 mg BID PRN Administration anxiety Mirtazapine 30 mg 10/30/24 21:00 10/30/24 21:54 Mirtazapine 30 Mg Tablet PO 30 mg BEDTIME MARILIN Administration Thiamine HCl 100 mg 10/30/24 19:15 10/30/24 21:32 Thiamine Hcl 100 Mg Tablet PO Not Given DAILY MARILIN Discontinued Medications Generic Name Dose Route Start Last Admin Trade Name Freq PRN Reason Stop Dose Admin Acetaminophen 975 mg 10/30/24 15:08 10/30/24 15:11 Acetaminophen 325 Mg Tablet PO 10/30/24 15:09 975 mg ONCE ONE Administration Chlordiazepoxide HCl 50 mg 10/30/24 08:08 10/30/24 08:32 Chlordiazepoxide Hcl 25 Mg Capsule PO 10/30/24 08:09 50 mg ONCE ONE Administration Discharge Plan Discharge Clinical Impression: Alcohol use disorder, Major depression Patient Disposition: Xfer Psychiatric Hosp Transfer Details: [facility], [address] BAER[facility]ANGIE ACCEPTING Prescriptions: No Action thiamine mononitrate (vit B1) 100 mg Tablet 100 mg PO DAILY 30 Days Qty: 30 0RF mirtazapine 30 mg Tablet 30 mg PO BEDTIME 30 Days Qty: 30 0RF ferrous sulfate 324 mg (65 mg iron) Tablet,Delayed Release (Dr/Ec) 324 mg PO DAILY 30 Days Qty: 30 0RF clonazepam 1 mg Tablet 1 mg PO BID 7 Days Qty: 14 0RF amitriptyline 10 mg tablet 20 mg PO BEDTIME 30 Days Qty: 60 0RF ascorbic acid (vitamin C) [Vitamin C] 500 mg Tablet 500 mg PO DAILY 30 Days Qty: 30 0RF hydroxyzine HCl 50 mg tablet 50 mg PO BID PRN (Reason: anxiety) 30 Days Qty: 60 0RF Interventions: [place]-Suicide Risk Severity Scale Last Done: 10/30/24 21:27 Print Language: Jamaican
[2024-10-30] MEDS: chlordiazePOXIDE HCl 25 MG CAPSULE 50 MG PO (08:32)
[2024-10-30 08:39] LABS: MANUAL DIFF FLAG NO
--- NOTE | 2024-10-30 08:40 | PC.NURSE ---
pt is alert and oriented, skin appropriate for ethnicity, respirations even and unlabored, pt is reporting that he is seeing help with his alcohol use and cocaine use, pt reports drinking daily 2 pints of sofia/vodka and some beers-last drink was 0300, pt is currently presenting with visible tremor/headache/reports feeling slightly anxious, pt denied si/hi and calm and cooperative
[2024-10-30 08:42] LABS: Basophils Absolute Auto 0.1 X10*3/uL (0.0-0.2); Basophils Percent Auto 0.5 % (0-2); Eosinophils Absolute Auto 0.1 X10*3/uL (0.0-0.4); Hematocrit 39.3 % (42.0-52.0); Hemoglobin 12.7 g/dl (14.0-18.0); Imm Gran Abs Auto 0.04 X10*3/uL (0.00-0.03); Imm Gran Pct Auto 0.4 % (0.0-0.4); Lymphocytes Percent Auto 20.8 % (20-40); Mean Corpuscular HGB Conc 32.3 g/dl (31.0-36.0); Mean Corpuscular Hemoglobin 27.4 pg (27.0-33.0); Mean Corpuscular Volume 84.7 fL (80.0-98.0); Monocytes Percent Auto 10.1 % (2-11); Neutrophils Absolute Auto 6.3 x10*3/uL (2.0-8.3); Neutrophils Percent Auto 67.2 % (45-73); Platelet Count 283 X10*3/uL (160-400); Red Blood Count 4.64 X10*6/uL (4.60-5.80); Red Cell Distribution Width 14.9 % (11.0-16.0); White Blood Count 9.4 X10*3/uL (4.8-10.8)
[2024-10-30 08:45] VITALS: BP 147/110; PULSE 92; RESP 16; TEMP 36.4; O2SAT 95
--- NOTE | 2024-10-30 09:00 | PC.NURSE ---
pt is very calm and cooperative, Aden si/hi but a safety search was performed for precaution purposes but pt is not changed over at this time
[2024-10-30 09:02] LABS: Alanine Aminotransferase 38 U/L (0-40); Albumin Level 3.6 g/dL (3.5-5.0); Alkaline Phosphatase 94 U/L (39-117); Anion Gap 16 (12-20); Aspartate Amino Transferase 71 U/L (5-37); Bilirubin Total 0.7 mg/dL (0.0-1.0); Blood Urea Nitrogen 12 mg/dL (9-16); Calcium 8.8 mg/dL (8.4-10.2); Carbon Dioxide 22 mmol/L (22-29); Chloride 108 mmol/L (96-108); Creatinine Clr Calc Pharmacy 133.5; Estimated Glomerular Filt Rate > 60; Ethanol < 10 mg/dL; Glucose Random 81 mg/dL (60-115); Potassium 3.8 mmol/L (3.3-5.1); Sodium 142 mmol/L (135-145); Total Protein 8.5 g/dL (6.5-8.0)
--- NOTE | 2024-10-30 09:36 | MHC.RECOVRN ---
T/W met with pt in ED Christine to offer assist with detox placement. Pt requesting [facility] and declines any other referrals. Pt endorces report of using 2 pints and 4 tall ones per day and using cocaine by smoking. Last use of both was 300AM Referral sent to Abraham at [facility].
[2024-10-30 09:57] VITALS: BP 149/82; PULSE 93; RESP 16; TEMP 36.8; O2SAT 98
[2024-10-30 15:01] VITALS: BP 125/74; PULSE 93; RESP 18; TEMP 36.6; O2SAT 96
[2024-10-30] MEDS: Acetaminophen 325 MG TABLET 975 MG PO (15:11)
--- NOTE | 2024-10-30 15:30 | PC.NURSE ---
Anya hurt from care team at bedside speaking to the pt, no detox bed available at [facility] at this time, once the pt was told that he is now stating that if he needs to live like this that he would hurt himself
--- NOTE | 2024-10-30 15:38 | PC.NURSE ---
report given to Carmela in the pod
--- NOTE | 2024-10-30 15:48 | MHC.RECOVRN ---
Went to inform pt. that [facility] still has not called with bed and he would need to f/u once D/C. Attempted to give pt. alternative resources for housing while awaiting bed and he did not wish to hear. He then informed me that he would need to stay here so we could keep him safe from himself . I informed ED provider of this and he will refer to psych.
--- NOTE | 2024-10-30 15:53 | PC.NURSE ---
assumed care of pt at approximately 1543. pt given a sandwich and juice. in room watching tv. no apparent distress at this time.
[2024-10-30 19:03] LABS: Appearance Urine Clear; Color Urine Dark Yellow; Glucose Urine UA Negative (Negative); Leukocyte Esterase Urine Trace (Negative); Nitrite Urine Negative (Negative); PH 5.5 (5.0-9.0); Specific Gravity - Urine >= 1.030 (1.005-1.025); UMIC TRIGGER UACC YES; Urine Blood Negative (Negative); Urine Ketones 15 mg/dL (Negative); Urine Protein 30 (1+) mg/dL (Neg-Trace)
[2024-10-30 19:04] LABS: Amphetamine Screen Urine Not Detected (Not Detect); Barbiturates, Urine Not Detected (Not Detect); Benzodiazepines Screen Urine POSITIVE (Not Detect); Buprenorphine Scr Not Detected (Not Detect); Cannabinoid Screen Urine Not Detected (Not Detect); Cocaine Screen Urine POSITIVE (Not Detect); Fentanyl, urine Not Detected (Not Detect); Methadone Screen, Urine Not Detected (Not Detect); Opiate Screen Urine Not Detected (Not Detect); Oxycodone Screen Urine Not Detected (Not Detect); Phencyclidine Screen Urine Not Detected (Not Detect)
[2024-10-30 19:31] LABS: Bacteria Urine None Seen (None Seen); Hyaline Casts Urine 0-2 /LPF (0-2); RBC Urine 0-2 /HPF (0-2); Squamous Epithelial Cell Urine 0-2 /HPF (0-2); WBC Urine 0-5 /HPF (0-5)
[2024-10-30 20:11] VITALS: BP 123/85; PULSE 82; RESP 16; TEMP 36.4; O2SAT 97
--- NOTE | 2024-10-30 21:20 | PC.NURSE ---
patient in commuity area comparing notes with newly arrived client about services and treatent
[2024-10-30] MEDS: clonazePAM 1 MG TABLET PO (21:52)
[2024-10-30] MEDS: Amitriptyline HCl 10 MG TABLET 20 MG PO (21:53)
[2024-10-30] MEDS: Mirtazapine 30 MG TABLET PO (21:54)
[2024-10-31] MEDS: hydrOXYzine HCL 50 MG TABLET PO ×2 (02:23→09:16)
[2024-10-31 02:26] VITALS: BP 160/93; PULSE 97; RESP 18; TEMP 36.1; O2SAT 97
--- NOTE | 2024-10-31 02:26 | PC.NURSE ---
Late entry- Assumed care of pt at 2300. At 0226 on rounding pt noted to be awake and reporting that he was unable to sleep feeling anxious. PT skin warm, dry and appropriate for skin and not appearing to be in any acute distress. Unable to add ciwa to worklist however, it would be 1 with pt reporting feeling tremulous however it was not objectively noted. PT medicated for anxiety as per MAR, requested and provided sandwich and a beverage. PT ambulated to bed 6 with steady gait. Plan of care ongoing
--- NOTE | 2024-10-31 07:30 | PHA.MEDREC ---
Pharmacy Consult ? Medication Reconciliation Pharmacy has reviewed the medication reconciliation completed by nursing. Utilized discharge packet from 10/26/24. All confirmed medications match the discharge packet, with Thiamine 100mg daily added to home med list.
[2024-10-31 08:06] VITALS: BP 157/108; PULSE 90; RESP 100; TEMP 36.7; O2SAT 100
[2024-10-31] MEDS: clonazePAM 1 MG TABLET PO (09:16)
[2024-10-31] MEDS: Thiamine HCL 100 MG TABLET PO (09:16)
[2024-10-31] MEDS: Ferrous Sulfate 324 MG TABLET.DR PO (09:16)
[2024-10-31] MEDS: Ascorbic Acid 500 MG TABLET PO (09:16)
--- NOTE | 2024-10-31 09:39 | MHC.CARE ---
Patient has accepted to [facility] @ [address] [place] [address], ETA 12pm, N2N not needed, accepting provider Torri. F32.9 Unspecified Depressive D/o F43.10 PTSD F10.20 Alcohol Use D/o Severe and F14.90 Cocaine Use Unspecified. 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
[2024-10-31 10:40] VITALS: BP 157/108; PULSE 90; RESP 100; TEMP 36.7; O2SAT 100
== END 2024-10-31 10:41 ==
PROVIDERS: Emergency Provider Emergency Medicine
DX: F10.90 Alcohol use, unspecified, uncomplicated (principal); F32.9 Major depressive disorder, single episode, unspecified; I10 Essential (primary) hypertension; Z79.899 Other long term (current) drug therapy
CPT/HCPCS: 36415; 80053; 80307; 81001; 81003; 85025; 99285; S9485